=== PATIENT | male | born 1965 | race African-American/Black ===

== ENCOUNTER 2019-03-29 13:26 | Emergency (ER) | payer OTHER, SELFPAY ==
[~2019-03-29] VITALS: Ht 175.3 cm; Wt 73.5 kg
[2019-03-29] MEDS ORDERED: NAPR-885 PO (16:29)
[2019-03-29] MEDS ORDERED: OMEP40CA2 PO (16:29)
[2019-03-29] MEDS ORDERED: PRED20TA PO (16:29)
[2019-03-29] MEDS ORDERED: PROV108A INH (16:29)
[2019-03-29 16:36] VITALS: BP 140/80
== END 2019-03-29 16:34 | disposition home or self-care (01) ==
LOC: M ED 13:26
DX: Z76.0 Encounter for issue of repeat prescription (principal); J44.9 Chronic obstructive pulmonary disease, unspecified; K21.9 Gastro-esophageal reflux disease without esophagitis; F17.200 Nicotine dependence, unspecified, uncomplicated

== ENCOUNTER 2019-04-02 15:59 | Emergency (ER) | payer SELFPAY ==
[~2019-04-02] VITALS: Ht 177.8 cm; Wt 77.3 kg
[~2019-04-02 15:59] MED LIST: NAPR-885 PO; OMEP40CA97 PO; PRED20TA PO; PROV108A INH
[2019-04-02] MEDS ORDERED: KETOROLAC 60 MG/2 ML VIAL (J1885) IM ONE (17:15)
[2019-04-02] MEDS ORDERED: diazePAM 10 MG TAB PO ONE (17:15)
[2019-04-02] MEDS ORDERED: LIDOCAINE 5% (LIDODERM) PATCH TD ONE (17:15)
[2019-04-02] MEDS ORDERED: LIDO1PAD TOP (18:15)
[2019-04-02] MEDS ORDERED: NAPR-837 PO (18:15)
[2019-04-02] MEDS ORDERED: ROBA750T4 PO (18:15)
[2019-04-02 18:40] VITALS: BP 149/87
[2019-04-03] MEDS ORDERED: **NOTE PATIENT COMMENT** MISC XX ONE (05:00)
== END 2019-04-02 18:41 | disposition home or self-care (01) ==
LOC: EDBD 15:59 → M ED 15:59
DX: M54.5 Low back pain (principal); I10 Essential (primary) hypertension; J44.9 Chronic obstructive pulmonary disease, unspecified; J45.909 Unspecified asthma, uncomplicated; K21.9 Gastro-esophageal reflux disease without esophagitis; F17.200 Nicotine dependence, unspecified, uncomplicated
CPT/HCPCS: 96372; 99284; J1885

== ENCOUNTER 2019-04-09 13:10 | Emergency (ER) | payer SELFPAY ==
[~2019-04-09 13:10] MED LIST changes: +LIDO1PAD TOP; +NAPR-837 PO; +OMEP40CA2 PO; -OMEP40CA97 PO; +ROBA750T4 PO
[2019-04-09 13:23] VITALS: BP 165/89
== END 2019-04-09 14:40 | disposition home or self-care (01) ==
LOC: M ED 13:10
DX: S39.012A Strain of muscle, fascia and tendon of lower back, initial encounter (principal); X58.XXXA Exposure to other specified factors, initial encounter; Y92.89 Other specified places as the place of occurrence of the external cause; Y93.89 Activity, other specified

== ENCOUNTER 2019-04-18 12:01 | Emergency (ER) | payer SELFPAY ==
[~2019-04-18] VITALS: Ht 175.3 cm; Wt 75.0 kg
[~2019-04-18 12:01] MED LIST changes: -OMEP40CA2 PO; +OMEP40CA97 PO
[2019-04-18] MEDS ORDERED: NAPR-885 (12:23)
[2019-04-18] MEDS ORDERED: PROAAER10 (12:23)
[2019-04-18] MEDS ORDERED: METH750T2 (12:23)
[2019-04-18] MEDS ORDERED: CARISOPRODOL 350 MG TAB PO ONE (12:30)
[2019-04-18] MEDS ORDERED: AZITHROMYCIN 250 MG TAB PO ONE (13:30)
[2019-04-18] MEDS ORDERED: LIDOCAINE 1% SDV 5 ML VIAL DILUENT ONE (13:30)
[2019-04-18] MEDS ORDERED: cefTRIAXone SOD 250 MG VIAL (J0696) IM ONE (13:30)
--- NOTE | 2019-04-18 13:55 | REP ---
Lumbar spine series: Five views. History: Injury in a fall. Comparison study: May 03, 2016. Findings: On lateral radiograph, there is partial collapse of the L3 vertebral body at the inferior endplate consistent with recent fracture. This is a new finding compared to the 2016 exam. The anterior and anterolateral cortex margin of the L3 vertebral body is somewhat buckled on oblique radiographs. The pedicles and posterior elements appear intact radiographically. Psoas margins are symmetric. Sacrum and SI joints are intact. Vertebral body heights are otherwise preserved. Disc spaces are maintained. Impression: Findings consistent with new wedge compression fracture deformity at L3 with approximately 20% loss of anterior vertebral body height. There is collapse of the superior endplate anteriorly. No posterior element involvement is visible radiographically. Electronically Signed by Williams Kumari MD 04/18/2019 06:25 P
[2019-04-18] MEDS ORDERED: DOXY100C37 PO (14:02)
[2019-04-18] MEDS ORDERED: NORC1TAB7 PO (14:02)
[2019-04-18 14:40] LABS: CHLAMYDIA DNA AMPLIFICATION NEGATIVE (NEGATIVE); GC DNA AMPLIFICATION NEGATIVE (NEGATIVE)
[2019-04-18 14:44] VITALS: BP 144/85
== END 2019-04-18 14:46 | disposition home or self-care (01) ==
LOC: EDBD 12:01 → M ED 12:01
DX: Z20.2 Contact with and (suspected) exposure to infections with a predominantly sexual mode of transmission (principal); S32.030A Wedge compression fracture of third lumbar vertebra, initial encounter for closed fracture; X58.XXXA Exposure to other specified factors, initial encounter; Y92.9 Unspecified place or not applicable; Y93.9 Activity, unspecified; Y99.9 Unspecified external cause status; F17.200 Nicotine dependence, unspecified, uncomplicated; Z79.899 Other long term (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

== ENCOUNTER 2019-06-04 07:36 | Emergency (ER) | payer MEDICAID, SELFPAY ==
[~2019-06-04] VITALS: Ht 175.3 cm; Wt 77.3 kg
[~2019-06-04 07:36] MED LIST changes: +DOXY100C37 PO; +METH750T2; +NAPR-885; +NORC1TAB7 PO; +PROAAER10
[2019-06-04] MEDS ORDERED: ALBUTEROL SULFATE 2.5 MG/0.5 ML INH NEB SOLN INH ONE (07:45)
[2019-06-04] MEDS ORDERED: PRED20TA PO (07:54)
[2019-06-04] MEDS ORDERED: dexameTHASONE 20 MG/5 ML VIAL (J1100) IV ONE (08:15)
[2019-06-04 08:37] LABS: BASO # 0.1 10^3/uL (0.0-0.2); BASO % 0.7 % (0.0-1.0); EOS # 0.4 10^3/uL (0.0-0.5); EOS % 3.3 % (0.0-3.0); HEMATOCRIT 43.1 % (42.0-52.0); HEMOGLOBIN 13.3 g/dl (13.5-17.5); LYMPH # 3.5 10^3/uL (1.5-5.0); LYMPH % 32.8 % (24.0-44.0); MEAN CORPUSCULAR HEMOGLOBIN 29.4 pg (27.0-33.0); MEAN CORPUSCULAR HGB CONC 30.9 g/dl (32.0-36.5); MEAN CORPUSCULAR VOLUME 95.1 fl (80.0-96.0); MONO % 9.2 % (0.0-5.0); NEUTROPHILS # 5.8 10^3/uL (1.5-8.5); NEUTROPHILS % 53.5 % (36.0-66.0); PLATELET COUNT, AUTOMATED 212 10^3/uL (150-450); RED BLOOD COUNT 4.53 10^6/uL (4.30-6.10); WHITE BLOOD COUNT 10.8 10^3/uL (4.0-10.0)
[2019-06-04 08:46] LABS: INR 0.95; PROTHROMBIN TIME 12.4 SECONDS (11.8-14.0)
--- NOTE | 2019-06-04 08:47 | REP ---
Clinical: Cough and dyspnea . Comparison: 06/06/2016 . Findings: The mediastinum and cardiac silhouette are stable and within normal limits for portable technique. The lung hurd are clear without acute consolidation, effusion, or pneumothorax. Skeletal structures are intact. Impression: No acute cardiopulmonary process appreciated. Electronically Signed by Candido Hall MD 06/04/2019 08:39 A
[2019-06-04] MEDS ORDERED: PRED10TA2 PO (08:54)
[2019-06-04] MEDS ORDERED: PROAAER10 INH (08:54)
[2019-06-04 09:11] LABS: BLOOD UREA NITROGEN 10 MG/DL (7-18); CREATININE FOR GFR 1.11 MG/DL (0.70-1.30); GLUCOSE, FASTING 111 MG/DL (70-100)
[2019-06-04 09:12] LABS: CALCIUM LEVEL 7.6 MG/DL (8.5-10.1); CARBON DIOXIDE LEVEL 26 MEQ/L (21-32); CHLORIDE LEVEL 114 MEQ/L (98-107); CK-MB VALUE MASS < 1.0 NG/ML (<3.6); CPK CREATINE PHOSPHOKINASE 97 U/L (39-308); GLOMERULAR FILTRATION RATE > 60.0 (>56); MB/CK RELATIVE INDEX 1.03 (< OR =4); NT-PRO BNP 255 PG/ML (<125); POTASSIUM SERUM 4.1 MEQ/L (3.5-5.1); SODIUM LEVEL 144 MEQ/L (136-145); TROPONIN I 0.03 NG/ML (< 0.10)
[2019-06-04 10:04] VITALS: BP 143/94
--- NOTE | 2019-06-04 17:05 | ECGEPIP ---
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
== END 2019-06-04 10:08 | disposition home or self-care (01) ==
LOC: EDBD 07:36 → M ED 07:36
DX: J44.9 Chronic obstructive pulmonary disease, unspecified (principal); K21.9 Gastro-esophageal reflux disease without esophagitis; F17.200 Nicotine dependence, unspecified, uncomplicated
CPT/HCPCS: 71045; 80048; 82550; 82553; 83880; 85025; 85610; 93005; 93041; 94640; 94760; 96374; 99284; J1100

== ENCOUNTER 2019-07-13 16:28 | Emergency (ER) | payer OTHER ==
[~2019-07-13] VITALS: Ht 177.8 cm; Wt 75.0 kg
[~2019-07-13 16:28] MED LIST changes: +PRED10TA2 PO; +PROAAER10 INH
[2019-07-13] MEDS ORDERED: HYDR-4571 (16:42)
[2019-07-13] MEDS ORDERED: PROAAER10 INH (17:12)
[2019-07-13 17:38] VITALS: BP 149/90
[2019-07-14] MEDS ORDERED: ALBU83IN NEB (11:59)
[2019-07-14] MEDS ORDERED: PRED10TA2 PO (12:27)
== END 2019-07-13 17:47 | disposition home or self-care (01) ==
LOC: EDBD 16:28 → M ED 16:28
DX: J44.9 Chronic obstructive pulmonary disease, unspecified (principal); G89.29 Other chronic pain; M54.5 Low back pain

== ENCOUNTER 2019-07-14 11:36 | Emergency (ER) | payer OTHER ==
[~2019-07-14] VITALS: Ht 177.8 cm; Wt 75.0 kg
[~2019-07-14 11:36] MED LIST changes: +HYDR-4571
[2019-07-14] MEDS ORDERED: ALBU83IN NEB (11:59)
[2019-07-14] MEDS ORDERED: PRED10TA2 PO (12:27)
[2019-07-14] MEDS ORDERED: predniSONE 20 MG TAB PO ONE (12:30)
[2019-07-14 12:35] VITALS: BP 144/96
== END 2019-07-14 12:47 | disposition home or self-care (01) ==
LOC: EDBD 11:36 → M ED 11:36
DX: J44.9 Chronic obstructive pulmonary disease, unspecified (principal); F17.200 Nicotine dependence, unspecified, uncomplicated; Z79.899 Other long term (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

== ENCOUNTER → 2019-09-09 | Outpatient (CLI) | payer OTHER ==
[~2019-09-09] MED LIST changes: +ALBU83IN NEB
--- NOTE | 2019-09-09 11:52 | REPVR ---
PROCEDURE INFORMATION: Exam: MR Lumbar Spine Without Contrast. Exam date and time: 09/09/2019 9:51 AM Age: 54 years old Clinical indication: Condition or disease; Other: Wedge compression 3rd vert; Patient HX: HX fall 04/20; Additional info: Wedge comprsn FX third lum vert TECHNIQUE: Imaging protocol: Multiplanar magnetic resonance images of the lumbar spine without intravenous contrast. COMPARISON: CR Spine. Lumbosacral, complete 04/18/2019 12:41 PM FINDINGS: There is again mild anterior compression of the inferior L3 endplate. Mild edema along it could relate to subacute nature versus degenerative endplate change. Vertebral body heights are otherwise intact. Alignment is maintained. No pars defect is identified. The conus is unremarkable in appearance, with its tip at the T12-L1 level. There are varying degrees of disc desiccation indicating intervertebral disc degeneration. The visualized abdominal structures appear unremarkable. L1-L2: No significant disc displacement. L2-L3: Small broad-based left paracentral/foraminal protrusion leading to mild left neural foraminal narrowing without significant spinal stenosis. L3-L4: Diffuse bulge combining with facet arthrosis click to lead to mild to moderate bilateral neural foraminal narrowing without significant spinal stenosis. There is small fluid in the facet joints. L4-L5: Disc osteophyte complex with a left foraminal annular tear combining with facet arthrosis to lead to moderate right and mild to moderate left neural foraminal narrowing without significant spinal stenosis. Click fluid left L5-S1: Small bulge combining with facet arthrosis to lead to mild right and very mild left neural foraminal narrowing without significant spinal stenosis. If surgery is considered, recommend level confirmation. IMPRESSION: 1. Mild anterior compression of the inferior L3 endplate. Mild edema along it could relate to subacute nature versus degenerative endplate change. 2. Multilevel disc desiccation indicating intervertebral disk degeneration with disc displacements as described. Electronically signed by: Chalo Watts On 09/09/2019 11:52:26 AM
== END ==
LOC: M RAD 09:48
PROVIDERS: ATTEND Physician Assistant
DX: S32.030D Wedge compression fracture of third lumbar vertebra, subsequent encounter for fracture with routine healing (principal); W18.30XD Fall on same level, unspecified, subsequent encounter; Y92.9 Unspecified place or not applicable

== ENCOUNTER 2019-09-21 18:44 | Emergency (ER) | payer OTHER ==
[~2019-09-21] VITALS: Ht 177.8 cm; Wt 75.9 kg
[2019-09-21] MEDS ORDERED: OMEP-221 (19:00)
[2019-09-21] MEDS ORDERED: PRED20TA (19:00)
[2019-09-21] MEDS ORDERED: methylPREDNISolone INJ 125 MG/2 ML VIAL (J2930) IV ONE (19:00)
[2019-09-21] MEDS ORDERED: TIZA4TAB4 (19:00)
[2019-09-21] MEDS ORDERED: COMBIVENT RESPIMAT 100-20MCG INHALER 4GM INH PRN (19:00)
[2019-09-21] MEDS ORDERED: NS 1,000 ML IV SCH (19:00)
[2019-09-21] MEDS ORDERED: LABETALOL HCL 100 MG/20 ML VIAL IV STA ×2 (19:02→19:49)
[2019-09-21] MEDS ORDERED: FUROSEMIDE 20 MG/2 ML VIAL (J1940) IV ONE (19:15)
[2019-09-21 19:29] LABS: BASO # 0.1 10^3/uL (0.0-0.2); BASO % 1.1 % (0.0-1.0); EOS # 0.8 10^3/uL (0.0-0.5); EOS % 6.3 % (0.0-3.0); HEMATOCRIT 45.9 % (42.0-52.0); HEMOGLOBIN 15.1 g/dl (13.5-17.5); LYMPH # 3.1 10^3/uL (1.5-5.0); MEAN CORPUSCULAR HEMOGLOBIN 29.3 pg (27.0-33.0); MEAN CORPUSCULAR HGB CONC 32.9 g/dl (32.0-36.5); MEAN CORPUSCULAR VOLUME 89.1 fl (80.0-96.0); MONO # 1.2 10^3/uL (0.0-0.8); MONO % 9.1 % (0.0-5.0); NEUTROPHILS # 7.9 10^3/uL (1.5-8.5); PLATELET COUNT, AUTOMATED 271 10^3/uL (150-450); RED BLOOD COUNT 5.15 10^6/uL (4.30-6.10); WHITE BLOOD COUNT 13.2 10^3/uL (4.0-10.0)
[2019-09-21 19:41] LABS: INR 0.94; PROTHROMBIN TIME 12.3 SECONDS (11.8-14.0)
--- NOTE | 2019-09-21 19:44 | REP ---
Clinical: Cough and dyspnea . Comparison: 06/06/2016, 06/04/2019 . Findings: The mediastinum and cardiac silhouette are stable and within normal limits for portable technique. The lung hurd are clear without acute consolidation, effusion, or pneumothorax. Skeletal structures are intact. Impression: No acute cardiopulmonary process appreciated. Electronically Signed by Candido aHll MD 09/21/2019 07:36 P
[2019-09-21 20:04] LABS: ABG BASE EXCESS -2.9 (-2.0-2.0); ABG PARTIAL PRESSURE CO2 34.4 mmHg (35.0-45.0); ABG PARTIAL PRESSURE O2 69.8 mmHg (75.0-100.0); ABG TOTAL CO2 22.1 MEQ/L (22.0-29.0); ABG pH (ARTERIAL) 7.404 UNITS (7.350-7.450)
[2019-09-21 20:05] LABS: ALBUMIN 3.5 GM/DL (3.2-5.2); ALT/SGPT 14 U/L (12-78); BILIRUBIN,DIRECT 0.1 MG/DL (0.0-0.2); BILIRUBIN,TOTAL 0.5 MG/DL (0.2-1.0); BLOOD UREA NITROGEN 11 MG/DL (7-18); CALCIUM LEVEL 8.7 MG/DL (8.5-10.1); CARBON DIOXIDE LEVEL 22 MEQ/L (21-32); CHLORIDE LEVEL 109 MEQ/L (98-107); CK-MB VALUE MASS < 1.0 NG/ML (<3.6); CPK CREATINE PHOSPHOKINASE 136 U/L (39-308); CREATININE FOR GFR 0.94 MG/DL (0.70-1.30); GLOMERULAR FILTRATION RATE > 60.0 (>56); GLUCOSE, FASTING 65 MG/DL (70-100); MB/CK RELATIVE INDEX 0.74 (< OR =4); SODIUM LEVEL 139 MEQ/L (136-145); TOTAL PROTEIN 6.8 GM/DL (6.4-8.2); TROPONIN I < 0.02 NG/ML (< 0.10)
[2019-09-21] MEDS ORDERED: PROAAER10 INH (20:23)
[2019-09-21] MEDS ORDERED: LISI20TA19 PO (20:23)
[2019-09-21] MEDS ORDERED: PRED10TA2 PO (20:23)
[2019-09-21 20:37] VITALS: BP 150/90
[2019-09-21 20:44] VITALS: BP 150/90
== END 2019-09-21 20:47 | disposition home or self-care (01) ==
LOC: M ED 18:44 → EDBD 18:44 → M ED 20:47
DX: E44.1 Mild protein-calorie malnutrition (principal); I10 Essential (primary) hypertension; R06.02 Shortness of breath; K21.9 Gastro-esophageal reflux disease without esophagitis; G89.29 Other chronic pain; F17.200 Nicotine dependence, unspecified, uncomplicated
CPT/HCPCS: 36600; 71045; 80048; 80076; 82550; 82553; 82803; 85025; 85610; 87040; 93041; 94640; 96361; 96374; 96375; 99284; J1940; J2930

== ENCOUNTER 2019-12-30 00:57 | Emergency (ER) | payer OTHER ==
[~2019-12-30] VITALS: Ht 177.8 cm; Wt 75.0 kg
[~2019-12-30 00:57] MED LIST changes: +LISI20TA35 PO; +OMEP-221; +PRED20TA; +TIZA4TAB4
[2019-12-30] MEDS ORDERED: FLUORESCEIN OPHTH 1 MG STRIP OU ONE (02:30)
[2019-12-30] MEDS ORDERED: TETRACAINE 0.5% OPHTH SOLN 4ML OU ONE (02:30)
[2019-12-30] MEDS ORDERED: CEPHALEXIN 500 MG CAP PO ONE (03:00)
[2019-12-30] MEDS ORDERED: CYCLOBENZAPRINE 5MG TABLET PO ONE (03:00)
[2019-12-30] MEDS ORDERED: KEFL500C17 PO (03:03)
[2019-12-30] MEDS ORDERED: PRED20TA PO (03:03)
[2019-12-30] MEDS ORDERED: CYCL5TAB PO (03:03)
[2019-12-30 03:28] VITALS: BP 156/108
== END 2019-12-30 03:33 | disposition home or self-care (01) ==
LOC: M ED 00:57
DX: H00.011 Hordeolum externum right upper eyelid (principal); J44.9 Chronic obstructive pulmonary disease, unspecified; Z72.0 Tobacco use; Z79.899 Other long term (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

== ENCOUNTER 2020-02-07 08:10 | Emergency (ER) | payer OTHER ==
[~2020-02-07 08:10] MED LIST changes: +CYCL5TAB PO; +KEFL500C17 PO
[2020-02-07] MEDS ORDERED: CYCLOBENZAPRINE 10MG TABLET ONE (08:42)
[2020-02-07] MEDS ORDERED: CYCLOBENZAPRINE 10MG TABLET As Ordered ONE (08:42)
== END 2020-02-07 10:04 | disposition home or self-care (01) ==
LOC: M ED 08:10
DX: S39.012A Strain of muscle, fascia and tendon of lower back, initial encounter (principal); M19.022 Primary osteoarthritis, left elbow; X58.XXXA Exposure to other specified factors, initial encounter; Y92.9 Unspecified place or not applicable; Y93.9 Activity, unspecified; Y99.9 Unspecified external cause status; I10 Essential (primary) hypertension; J44.9 Chronic obstructive pulmonary disease, unspecified; K21.9 Gastro-esophageal reflux disease without esophagitis

== ENCOUNTER 2020-02-17 06:47 | Emergency (ER) | payer OTHER ==
[2020-02-17] MEDS ORDERED: predniSONE 20 MG TAB ONE (06:48)
[2020-02-17] MEDS ORDERED: predniSONE 20 MG TAB As Ordered ONE (06:58)
[2020-02-17] MEDS ORDERED: hydroCHLOROthiazide 12.5 MG CAPSULE ONE (09:28)
[2020-02-17] MEDS ORDERED: lisinopriL 20 MG TAB ONE (09:28)
[2020-02-17] MEDS ORDERED: MOXIFLOXACIN 400 MG TAB ONE (09:28)
[2020-02-17] MEDS ORDERED: hydroCHLOROthiazide 12.5 MG CAPSULE As Ordered ONE (09:28)
[2020-02-17] MEDS ORDERED: lisinopriL 20 MG TAB As Ordered ONE (09:28)
[2020-02-17] MEDS ORDERED: MOXIFLOXACIN 400 MG TAB As Ordered ONE (09:29)
--- NOTE | 2020-03-17 15:30 | ECGEPIP ---
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
[2020-03-20 15:05] LABS: BASO % 0.7 % (0.0-1.0); EOS % 3.1 % (0.0-3.0); HEMATOCRIT 42.3 % (42.0-52.0); HEMOGLOBIN 13.9 g/dl (13.5-17.5); LYMPH # 2.8 10^3/uL (1.5-5.0); LYMPH % 21.8 % (24.0-44.0); MEAN CORPUSCULAR HEMOGLOBIN 29.8 pg (27.0-33.0); MEAN CORPUSCULAR HGB CONC 32.9 g/dl (32.0-36.5); MEAN CORPUSCULAR VOLUME 90.8 fl (80.0-96.0); MONO % 7.4 % (0.0-5.0); NEUTROPHILS # 8.6 10^3/uL (1.5-8.5); NEUTROPHILS % 6.8 % (36.0-66.0); PLATELET COUNT, AUTOMATED 169 10^3/uL (150-450); RED BLOOD COUNT 4.66 10^6/uL (4.30-6.10)
[2020-03-20 15:06] LABS: BASO # 0.1 10^3/uL (0.0-0.2); EOS # 0.4 10^3/uL (0.0-0.5)
[2020-05-10 16:16] LABS: ALBUMIN 3.2 GM/DL (3.2-5.2); ALT/SGPT 19 U/L (12-78); BILIRUBIN,DIRECT < 0.1 MG/DL (0.0-0.2); BILIRUBIN,TOTAL 0.2 MG/DL (0.2-1.0); BLOOD UREA NITROGEN 17 MG/DL (7-18); CALCIUM LEVEL 8.7 MG/DL (8.5-10.1); CARBON DIOXIDE LEVEL 29 MEQ/L (21-32); CHLORIDE LEVEL 109 MEQ/L (98-107); CREATININE FOR GFR 0.91 MG/DL (0.70-1.30); GLOMERULAR FILTRATION RATE > 60.0 (>56); GLUCOSE, FASTING 100 MG/DL (70-100); POTASSIUM SERUM 4.3 MEQ/L (3.5-5.1); SODIUM LEVEL 142 MEQ/L (136-145)
== END 2020-02-17 09:43 | disposition home or self-care (01) ==
LOC: M ED 06:47
DX: R03.0 Elevated blood-pressure reading, without diagnosis of hypertension (principal); J44.0 Chronic obstructive pulmonary disease with (acute) lower respiratory infection; I10 Essential (primary) hypertension; F17.200 Nicotine dependence, unspecified, uncomplicated; R94.31 Abnormal electrocardiogram [ECG] [EKG]

== ENCOUNTER 2020-03-20 20:06 | Emergency (ER) | payer OTHER ==
[~2020-03-20] VITALS: Ht 177.8 cm; Wt 75.0 kg
[2020-03-20 20:23] VITALS: BP 156/98
[2020-03-20] MEDS ORDERED: KETOROLAC 30 MG/ML 1ML VIAL IV ONE (21:00)
== END 2020-03-20 21:01 | disposition left against medical advice (07) ==
LOC: M ED 20:06
DX: R07.89 Other chest pain (principal); Z53.21 Procedure and treatment not carried out due to patient leaving prior to being seen by health care provider; I10 Essential (primary) hypertension; J44.9 Chronic obstructive pulmonary disease, unspecified; J42 Unspecified chronic bronchitis; F17.200 Nicotine dependence, unspecified, uncomplicated; Z79.899 Other long term (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

== ENCOUNTER 2020-04-01 08:00 | Emergency (ER) | payer OTHER ==
[~2020-04-01] VITALS: Ht 175.3 cm; Wt 76.8 kg
[2020-04-01 08:12] VITALS: BP 164/109
--- NOTE | 2020-04-01 08:47 | REPVR ---
PROCEDURE INFORMATION: Exam: XR Chest, 2 Views Exam date and time: 04/01/2020 8:39 AM Age: 55 years old Clinical indication: Left-sided chest pain; Additional info: Copd TECHNIQUE: Imaging protocol: XR of the chest Views: 2 views. COMPARISON: CR PORTABLE CHEST X-RAY 09/21/2019 7:21 PM FINDINGS: Lungs: Unremarkable. No consolidation. Pleural space: Unremarkable. No pleural effusion. No pneumothorax. Heart/Mediastinum: Unremarkable. No cardiomegaly. Bones/joints: Unremarkable. IMPRESSION: No acute findings. Electronically signed by: Tianna Gould On 04/01/2020 08:47:32 AM
[2020-04-01] MEDS ORDERED: predniSONE 20 MG TAB PO ONE (11:15)
[2020-04-01] MEDS ORDERED: ALBUTEROL 90 MCG/ACT 8GM HFA INHALER INH ONE (11:15)
[2020-04-01] MEDS ORDERED: PROAAER10 INH (12:05)
[2020-04-01] MEDS ORDERED: ADV250INH INH (12:05)
[2020-04-01] MEDS ORDERED: PRED20TA PO (12:05)
== END 2020-04-01 12:25 | disposition home or self-care (01) ==
LOC: M ED 08:00 → EDBD 08:00 → M ED 12:25
DX: J44.9 Chronic obstructive pulmonary disease, unspecified (principal); I10 Essential (primary) hypertension; Z87.891 Personal history of nicotine dependence

== ENCOUNTER 2020-04-04 09:05 | Emergency (ER) | payer OTHER ==
[~2020-04-04] VITALS: Ht 175.3 cm; Wt 75.5 kg
[~2020-04-04 09:05] MED LIST changes: +ADV250INH INH
[2020-04-04] MEDS ORDERED: LISI20TA35 PO ×2 (09:19→11:56)
[2020-04-04] MEDS ORDERED: lisinopriL 20 MG TAB PO ONE (09:45)
[2020-04-04] MEDS ORDERED: KETOROLAC 60MG 2ML VIAL IM ONE (09:45)
--- NOTE | 2020-04-04 10:30 | REPVR ---
PROCEDURE INFORMATION: Exam: XR Chest, 2 Views Exam date and time: 04/04/2020 9:42 AM Age: 55 years old Clinical indication: Chest pain TECHNIQUE: Imaging protocol: XR of the chest Views: 2 views. COMPARISON: CR Chest, 2 view PA, Lat 04/01/2020 8:28 AM FINDINGS: Lungs: Unremarkable. No consolidation. Pleural space: Unremarkable. No pleural effusion. No pneumothorax. Heart/Mediastinum: The cardiomediastinal silhouette is fairly stable in appearance. Bones/joints: Unremarkable. IMPRESSION: No evidence for acute pulmonary disease. Electronically signed by: Chalo Watts On 04/04/2020 10:30:17 AM
[2020-04-04 10:52] VITALS: BP 166/118
[2020-04-04 10:54] LABS: BASO % 0.2 % (0.0-1.0); EOS % 0.1 % (0.0-3.0); HEMATOCRIT 44.9 % (42.0-52.0); HEMOGLOBIN 14.4 g/dl (13.5-17.5); LYMPH # 1.5 10^3/uL (1.5-5.0); LYMPH % 9.4 % (24.0-44.0); MEAN CORPUSCULAR HEMOGLOBIN 28.9 pg (27.0-33.0); MEAN CORPUSCULAR HGB CONC 32.1 g/dl (32.0-36.5); MEAN CORPUSCULAR VOLUME 90.2 fl (80.0-96.0); MONO # 0.6 10^3/uL (0.0-0.8); MONO % 3.5 % (0.0-5.0); NEUTROPHILS # 14.1 10^3/uL (1.5-8.5); NEUTROPHILS % 85.9 % (36.0-66.0); PLATELET COUNT, AUTOMATED 211 10^3/uL (150-450); RED BLOOD COUNT 4.98 10^6/uL (4.30-6.10); WHITE BLOOD COUNT 16.4 10^3/uL (4.0-10.0)
[2020-04-04 11:46] LABS: ALBUMIN 3.5 GM/DL (3.2-5.2); ALT/SGPT 17 U/L (12-78); BILIRUBIN,DIRECT 0.2 MG/DL (0.0-0.2); BILIRUBIN,TOTAL 0.5 MG/DL (0.2-1.0); BLOOD UREA NITROGEN 16 MG/DL (7-18); CALCIUM LEVEL 9.3 MG/DL (8.5-10.1); CARBON DIOXIDE LEVEL 29 MEQ/L (21-32); CHLORIDE LEVEL 105 MEQ/L (98-107); CK-MB VALUE MASS < 1.0 NG/ML (<3.6); CPK CREATINE PHOSPHOKINASE 66 U/L (39-308); CREATININE FOR GFR 1.01 MG/DL (0.70-1.30); GLOMERULAR FILTRATION RATE > 60.0 (>56); GLUCOSE, FASTING 88 MG/DL (70-100); LIPASE 74 U/L (73-393); MB/CK RELATIVE INDEX 1.52 (< OR =4); NT-PRO BNP 97 PG/ML (<125); POTASSIUM SERUM 4.6 MEQ/L (3.5-5.1); SODIUM LEVEL 139 MEQ/L (136-145); TOTAL PROTEIN 6.9 GM/DL (6.4-8.2); TROPONIN I < 0.02 NG/ML (< 0.10)
[2020-04-04] MEDS ORDERED: AZIT-12 PO (11:48)
[2020-04-04 12:05] VITALS: BP 139/76
--- NOTE | 2020-04-05 05:43 | ECGEPIP ---
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
== END 2020-04-04 12:07 | disposition home or self-care (01) ==
LOC: M ED 09:05
DX: J45.901 Unspecified asthma with (acute) exacerbation (principal); I10 Essential (primary) hypertension; K21.9 Gastro-esophageal reflux disease without esophagitis; F17.200 Nicotine dependence, unspecified, uncomplicated; F12.10 Cannabis abuse, uncomplicated; Z79.899 Other long term (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
CPT/HCPCS: 71046; 80048; 80076; 82550; 82553; 83690; 83880; 85025; 93005; 96372; 99284; J1885

== ENCOUNTER 2020-05-31 17:59 | Emergency (ER) | payer OTHER ==
[~2020-05-31] VITALS: Ht 177.8 cm; Wt 75.0 kg
[~2020-05-31 17:59] MED LIST changes: +AZIT-12 PO
[2020-05-31] MEDS ORDERED: OMEP-221 PO (18:15)
[2020-05-31] MEDS ORDERED: LABETALOL 100MG/20ML VIAL IV STA (19:44)
[2020-05-31] MEDS ORDERED: NS 1,000 ML IV ONE (19:45)
[2020-05-31] MEDS ORDERED: lisinopriL 20 MG TAB PO ONE (20:00)
--- NOTE | 2020-05-31 20:00 | REPVR ---
PROCEDURE INFORMATION: Exam: CT Head Without Contrast Exam date and time: 05/31/2020 7:55 PM Age: 55 years old Clinical indication: Other: HTN urgency TECHNIQUE: Imaging protocol: Computed tomography of the head without contrast. Radiation optimization: All CT scans at this facility use at least one of these dose optimization techniques: automated exposure control; mA and/or kV adjustment per patient size (includes targeted exams where dose is matched to clinical indication); or iterative reconstruction. COMPARISON: No relevant prior studies available. FINDINGS: Brain: Bilateral basal ganglia calcifications. Otherwise unremarkable. Cerebral ventricles: No ventriculomegaly. Bones/joints: Unremarkable. No acute fracture. Paranasal sinuses: Visualized sinuses are unremarkable. No fluid levels. Mastoid air cells: Visualized mastoid air cells are well aerated. Soft tissues: Unremarkable. IMPRESSION: No acute intracranial findings. Electronically signed by: Yohannes Chapa On 05/31/2020 20:00:25 PM
[2020-05-31] MEDS ORDERED: cloNIDine 0.2 MG TAB PO ONE (20:45)
[2020-05-31 21:00] VITALS: BP 171/99
== END 2020-05-31 22:19 | disposition left against medical advice (07) ==
LOC: M ED 17:59
DX: Z53.9 Procedure and treatment not carried out, unspecified reason (principal); I16.0 Hypertensive urgency; R42 Dizziness and giddiness; H53.8 Other visual disturbances; J45.909 Unspecified asthma, uncomplicated; J44.9 Chronic obstructive pulmonary disease, unspecified; K21.9 Gastro-esophageal reflux disease without esophagitis; F17.200 Nicotine dependence, unspecified, uncomplicated

== ENCOUNTER 2020-07-27 06:42 | Emergency (ER) | payer OTHER ==
[~2020-07-27] VITALS: Ht 177.8 cm; Wt 75.0 kg
[~2020-07-27 06:42] MED LIST changes: +METH-1165; -METH750T2; +OMEP-221 PO
[2020-07-27] MEDS ORDERED: COMBIVENT RESPIMAT 100-20MCG INHALER 4GM INH STA (07:13)
[2020-07-27] MEDS ORDERED: methylPREDNISolone 125MG 2ML VIAL IV ONE (07:15)
[2020-07-27 07:45] LABS: BASO # 0.1 10^3/uL (0.0-0.2); BASO % 0.9 % (0.0-1.0); EOS # 0.8 10^3/uL (0.0-0.5); EOS % 5.8 % (0.0-3.0); HEMATOCRIT 43.5 % (42.0-52.0); HEMOGLOBIN 13.7 g/dl (13.5-17.5); LYMPH # 3.6 10^3/uL (1.5-5.0); LYMPH % 25.1 % (24.0-44.0); MEAN CORPUSCULAR HGB CONC 31.5 g/dl (32.0-36.5); MEAN CORPUSCULAR VOLUME 92.2 fl (80.0-96.0); MONO # 1.3 10^3/uL (0.0-0.8); MONO % 8.8 % (0.0-5.0); NEUTROPHILS # 8.5 10^3/uL (1.5-8.5); NEUTROPHILS % 58.8 % (36.0-66.0); PLATELET COUNT, AUTOMATED 204 10^3/uL (150-450); RED BLOOD COUNT 4.72 10^6/uL (4.30-6.10); WHITE BLOOD COUNT 14.5 10^3/uL (4.0-10.0)
--- NOTE | 2020-07-27 07:55 | REP ---
INDICATION: DYSPNEA/COUGH COMPARISON: 04/04/2020 TECHNIQUE: Portable AP view of the chest FINDINGS: The mediastinum and cardiac silhouette are stable and within normal limits for portable technique. The lung hurd are clear without acute consolidation, effusion, or pneumothorax. Skeletal structures are intact and there is evidence for old healed left 8th rib fracture. IMPRESSION: No acute cardiopulmonary process appreciated. <Electronically signed by Candido Hall > 07/27/20 0750
[2020-07-27 07:57] VITALS: O2SAT 88
[2020-07-27 08:13] LABS: ALBUMIN 3.3 GM/DL (3.2-5.2); ALT/SGPT 15 U/L (12-78); BILIRUBIN,DIRECT < 0.1 MG/DL (0.0-0.2); BILIRUBIN,TOTAL 0.2 MG/DL (0.2-1.0); BLOOD UREA NITROGEN 18 MG/DL (7-18); CALCIUM LEVEL 8.8 MG/DL (8.5-10.1); CARBON DIOXIDE LEVEL 28 MEQ/L (21-32); CHLORIDE LEVEL 106 MEQ/L (98-107); CK-MB VALUE MASS < 1.0 NG/ML (<3.6); CPK CREATINE PHOSPHOKINASE 76 U/L (39-308); CREATININE FOR GFR 1.04 MG/DL (0.70-1.30); GLOMERULAR FILTRATION RATE > 60.0 (>56); GLUCOSE, FASTING 89 MG/DL (70-100); MB/CK RELATIVE INDEX 1.32 (< OR =4); NT-PRO BNP 56 PG/ML (<125); POTASSIUM SERUM 4.6 MEQ/L (3.5-5.1); SODIUM LEVEL 139 MEQ/L (136-145); TOTAL PROTEIN 6.3 GM/DL (6.4-8.2); TROPONIN I < 0.02 NG/ML (< 0.10)
[2020-07-27] MEDS ORDERED: PROAAER10 INH (09:04)
[2020-07-27] MEDS ORDERED: MEDR4PAK PO (09:15)
[2020-07-27 09:32] VITALS: BP 146/82
--- NOTE | 2020-07-29 14:19 | ECGEPIP ---
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
== END 2020-07-27 09:29 | disposition home or self-care (01) ==
LOC: M ED 06:42
DX: J44.1 Chronic obstructive pulmonary disease with (acute) exacerbation (principal); J45.909 Unspecified asthma, uncomplicated; R94.31 Abnormal electrocardiogram [ECG] [EKG]; I10 Essential (primary) hypertension; K21.9 Gastro-esophageal reflux disease without esophagitis; Z79.899 Other long term (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; Z87.891 Personal history of nicotine dependence
CPT/HCPCS: 71045; 80048; 80076; 82550; 82553; 83880; 85025; 87486; 87581; 87633; 87798; 93005; 93041; 94640; 94760; 96374; 99285; J2930

== ENCOUNTER 2020-08-07 17:14 | Emergency (ER) | payer OTHER ==
[~2020-08-07] VITALS: Ht 177.8 cm; Wt 75.0 kg
[~2020-08-07 17:14] MED LIST changes: +MEDR4PAK PO; -METH-1165; +METH750T2
[2020-08-07] MEDS ORDERED: OMEPRAZOLE 20 MG CAP PO ONE ×2 (20:45→21:00)
[2020-08-07] MEDS ORDERED: hydroCHLOROthiazide 12.5 MG CAPSULE PO ONE (20:45)
[2020-08-07] MEDS ORDERED: lisinopriL 20 MG TAB PO ONE (20:45)
[2020-08-07] MEDS ORDERED: predniSONE 20 MG TAB PO ONE (20:45)
[2020-08-07] MEDS ORDERED: ALBUTEROL SULFATE 2.5 MG/0.5 ML INH NEB SOLN NEB ONE (20:45)
[2020-08-07 21:43] VITALS: BP 155/88
[2020-08-07] MEDS ORDERED: ACETAMINOPHEN 325 MG TAB PO ONE (21:45)
[2020-08-07] MEDS ORDERED: PRED20TA PO (21:57)
[2020-08-07] MEDS ORDERED: LISI20TA35 PO (21:57)
[2020-08-07] MEDS ORDERED: OMEP40CA97 PO (21:57)
[2020-08-07 22:00] VITALS: BP 155/84
== END 2020-08-07 22:05 | disposition home or self-care (01) ==
LOC: M ED 17:14 → EDBD 17:14 → M ED 22:05
DX: J45.901 Unspecified asthma with (acute) exacerbation (principal); I10 Essential (primary) hypertension; R51.9 Headache, unspecified; Z76.0 Encounter for issue of repeat prescription; J44.9 Chronic obstructive pulmonary disease, unspecified; K21.9 Gastro-esophageal reflux disease without esophagitis; F17.200 Nicotine dependence, unspecified, uncomplicated; Z79.899 Other long term (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

== ENCOUNTER → 2020-08-30 | Outpatient (CLI) | payer OTHER ==
[~2020-08-30] MED LIST changes: +METH-1165; -METH750T2
[2020-08-30 13:22] LABS: BASO # 0.1 10^3/uL (0.0-0.2); BASO % 0.6 % (0.0-1.0); EOS # 0.3 10^3/uL (0.0-0.5); EOS % 2.2 % (0.0-3.0); HEMATOCRIT 46.9 % (42.0-52.0); HEMOGLOBIN 14.9 g/dl (13.5-17.5); LYMPH # 3.3 10^3/uL (1.5-5.0); MEAN CORPUSCULAR HEMOGLOBIN 29.3 pg (27.0-33.0); MEAN CORPUSCULAR HGB CONC 31.8 g/dl (32.0-36.5); MEAN CORPUSCULAR VOLUME 92.1 fl (80.0-96.0); MONO # 1.7 10^3/uL (0.0-0.8); NEUTROPHILS # 10.1 10^3/uL (1.5-8.5); NEUTROPHILS % 64.4 % (36.0-66.0); PLATELET COUNT, AUTOMATED 226 10^3/uL (150-450); RED BLOOD COUNT 5.09 10^6/uL (4.30-6.10)
[2020-08-30 13:39] LABS: WHITE BLOOD COUNT 15.7 10^3/uL (4.0-10.0)
[2020-08-30 13:44] LABS: HEMOGLOBIN A1c 5.9 %
[2020-08-30 13:49] LABS: ALBUMIN 3.9 GM/DL (3.2-5.2); ALT/SGPT 17 U/L (12-78); BILIRUBIN,TOTAL 0.6 MG/DL (0.2-1.0); BLOOD UREA NITROGEN 10 MG/DL (7-18); CALCIUM LEVEL 8.8 MG/DL (8.5-10.1); CARBON DIOXIDE LEVEL 28 MEQ/L (21-32); CHLORIDE LEVEL 103 MEQ/L (98-107); CREATININE FOR GFR 1.14 MG/DL (0.70-1.30); GLOMERULAR FILTRATION RATE > 60.0 (>56); GLUCOSE, FASTING 87 MG/DL (70-100); SODIUM LEVEL 140 MEQ/L (136-145); TOTAL PROTEIN 7.4 GM/DL (6.4-8.2)
== END ==
LOC: M LAB 12:50
PROVIDERS: ATTEND Physician Assistant
DX: R42 Dizziness and giddiness (principal)

== ENCOUNTER → 2020-09-10 | Outpatient (REF) | payer OTHER ==
[2020-09-10 16:31] LABS: CHOLESTEROL RISK RATIO 3.723 (<5); THYROID STIMULATING HORMONE 0.882 uIU/ML (0.358-3.740)
== END ==
LOC: M LAB REF 15:44
PROVIDERS: ATTEND Physician Assistant
DX: I10 Essential (primary) hypertension (principal)

== ENCOUNTER 2020-10-19 17:04 | Emergency (ER) | payer OTHER ==
[~2020-10-19] VITALS: Ht 177.8 cm; Wt 74.4 kg
[2020-10-19 17:05] VITALS: BP 132/94
[2020-10-20] MEDS ORDERED: ALBU83IN (11:59)
== END 2020-10-19 20:35 | disposition left against medical advice (07) ==
LOC: M ED 17:04
DX: Z53.21 Procedure and treatment not carried out due to patient leaving prior to being seen by health care provider (principal)

== ENCOUNTER 2020-10-20 11:51 | Emergency (ER) | payer OTHER ==
[~2020-10-20] VITALS: Ht 177.8 cm; Wt 75.5 kg
[2020-10-20 11:52] VITALS: BP 145/95
[2020-10-20] MEDS ORDERED: ALBU83IN (11:59)
== END 2020-10-20 12:22 | disposition left against medical advice (07) ==
LOC: M ED 11:51
DX: Z53.21 Procedure and treatment not carried out due to patient leaving prior to being seen by health care provider (principal)

== ENCOUNTER 2020-11-18 05:22 | Emergency (ER) | payer OTHER ==
[~2020-11-18] VITALS: Ht 177.8 cm; Wt 70.6 kg
[~2020-11-18 05:22] MED LIST changes: +ALBU83IN
[2020-11-18] MEDS ORDERED: GABA-1171 PO (05:32)
[2020-11-18 07:49] LABS: BASO # 0.1 10^3/uL (0.0-0.2); BASO % 0.3 % (0.0-1.0); EOS % 0.2 % (0.0-3.0); HEMATOCRIT 46.6 % (42.0-52.0); HEMOGLOBIN 15.3 g/dl (13.5-17.5); LYMPH # 1.7 10^3/uL (1.5-5.0); LYMPH % 7.3 % (24.0-44.0); MEAN CORPUSCULAR HEMOGLOBIN 29.9 pg (27.0-33.0); MEAN CORPUSCULAR HGB CONC 32.8 g/dl (32.0-36.5); MEAN CORPUSCULAR VOLUME 91.2 fl (80.0-96.0); MONO # 1.3 10^3/uL (0.0-0.8); MONO % 5.4 % (2.0-8.0); NEUTROPHILS # 20.1 10^3/uL (1.5-8.5); NEUTROPHILS % 85.9 % (36.0-66.0); PLATELET COUNT, AUTOMATED 263 10^3/uL (150-450); RED BLOOD COUNT 5.11 10^6/uL (4.30-6.10); WHITE BLOOD COUNT 23.4 10^3/uL (4.0-10.0)
--- NOTE | 2020-11-18 07:55 | REP ---
INDICATION: R rib pain s/p hiccups. COMPARISON: Comparison chest radiograph 27 July 2020.. TECHNIQUE: Five views including PA chest. FINDINGS: PA chest radiograph is unremarkable. There is no evidence of pneumothorax or hydrothorax. Mediastinum is not widened. Heart size is normal. Lung hurd are clear. There is an old healed rib fracture on the left involving rib number 8. This is unchanged from the 27 July 2020 study. Five views of the right rib cage demonstrate no evidence of rib fracture or bony destructive lesion. IMPRESSION: Old healed rib fracture noted on the left. Otherwise negative right rib radiographic series. <Electronically signed by Rajesh Kumari > 11/18/20 0057
[2020-11-18 08:30] VITALS: BP 137/90
--- NOTE | 2020-11-18 19:51 | ECGEPIP ---
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
== END 2020-11-18 08:59 | disposition left against medical advice (07) ==
LOC: M ED 05:22
DX: R07.89 Other chest pain (principal); K21.9 Gastro-esophageal reflux disease without esophagitis; J45.909 Unspecified asthma, uncomplicated; J44.9 Chronic obstructive pulmonary disease, unspecified; F17.200 Nicotine dependence, unspecified, uncomplicated

== ENCOUNTER 2021-01-16 11:02 | Emergency (ER) | payer OTHER ==
[~2021-01-16] VITALS: Ht 177.8 cm; Wt 77.3 kg
[~2021-01-16 11:02] MED LIST changes: -DOXY100C37 PO; +DOXY1CAP62 PO; +GABA-1171 PO; +OMEP40CA4 PO; -OMEP40CA97 PO
[2021-01-16] MEDS ORDERED: ACETAMINOPHEN 325 MG TAB PO ONE (12:50)
[2021-01-16] MEDS ORDERED: NEOSPORIN OINT 0.9 GM PKT TOP ONE (12:50)
[2021-01-16 13:16] VITALS: BP 148/96
== END 2021-01-16 13:22 | disposition home or self-care (01) ==
LOC: M ED 11:02
DX: S09.93XA Unspecified injury of face, initial encounter (principal); S01.511A Laceration without foreign body of lip, initial encounter; T07.XXXA Unspecified multiple injuries, initial encounter; V00.831A Fall from motorized mobility scooter, initial encounter; Y92.410 Unspecified street and highway as the place of occurrence of the external cause; Y99.8 Other external cause status; J44.9 Chronic obstructive pulmonary disease, unspecified; I10 Essential (primary) hypertension; Z79.899 Other long term (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

== ENCOUNTER 2021-01-31 09:13 | Emergency (ER) | payer OTHER ==
[2021-01-31 09:36] LABS: VENOUS BASE EXCESS -0.4 (-2.0-2.0); VENOUS O2 SATURATION 95.7 % (60.0-80.0); VENOUS PARTIAL PRESSURE CO2 38.8 mmHg (38.0-50.0); VENOUS PARTIAL PRESSURE O2 78.1 mmHg (30.0-50.0); VENOUS PH 7.409 UNITS (7.330-7.430); VENOUS STANDARD HCO3 24.1 MEQ/L; VENOUS TOTAL CO2 25.2 MEQ/L (24.0-28.0)
[2021-01-31 09:40] LABS: BASO # 0.1 10^3/uL (0.0-0.2); BASO % 0.9 % (0.0-1.0); EOS % 6.3 % (0.0-3.0); HEMATOCRIT 43.6 % (42.0-52.0); HEMOGLOBIN 13.9 g/dl (13.5-17.5); LYMPH # 2.9 10^3/uL (1.5-5.0); LYMPH % 19.4 % (24.0-44.0); MEAN CORPUSCULAR HEMOGLOBIN 29.6 pg (27.0-33.0); MEAN CORPUSCULAR HGB CONC 31.9 g/dl (32.0-36.5); MEAN CORPUSCULAR VOLUME 92.8 fl (80.0-96.0); MONO # 1.1 10^3/uL (0.0-0.8); MONO % 7.2 % (2.0-8.0); NEUTROPHILS % 65.5 % (36.0-66.0); PLATELET COUNT, AUTOMATED 280 10^3/uL (150-450); WHITE BLOOD COUNT 15.2 10^3/uL (4.0-10.0)
[2021-01-31] MEDS ORDERED: KETOROLAC 30 MG/ML 1ML VIAL IV ONE (09:40)
--- NOTE | 2021-01-31 10:03 | REP ---
INDICATION: DYSPNEA/COUGH. COMPARISON: PA chest, 11/18/2020. TECHNIQUE: Portable AP chest image was obtained. FINDINGS: The lungs are clear. The heart borders, mediastinum and pulmonary vascular pattern are normal. The upper abdominal bowel gas pattern is normal. Healed left-sided rib fractures. There are no significant bony abnormalities of the chest. IMPRESSION: No evidence of acute cardiopulmonary pathology. <Electronically signed by Siva Atwood > 01/31/21 1000
[2021-01-31 10:12] LABS: ALT/SGPT 11 U/L (12-78); BILIRUBIN,DIRECT < 0.1 MG/DL (0.0-0.2); BILIRUBIN,TOTAL 0.2 MG/DL (0.2-1.0); BLOOD UREA NITROGEN 7 MG/DL (7-18); CALCIUM LEVEL 8.4 MG/DL (8.5-10.1); CARBON DIOXIDE LEVEL 26 MEQ/L (21-32); CHLORIDE LEVEL 114 MEQ/L (98-107); CREATININE FOR GFR 0.98 MG/DL (0.70-1.30); GLOMERULAR FILTRATION RATE > 60.0 (>56); GLUCOSE, FASTING 121 MG/DL (70-100); NT-PRO BNP 713 PG/ML (<125); POTASSIUM SERUM 4.4 MEQ/L (3.5-5.1); SODIUM LEVEL 144 MEQ/L (136-145); THYROID STIMULATING HORMONE 0.355 uIU/ML (0.358-3.740)
[2021-01-31] MEDS ORDERED: ISOVUE-370 76% 100ML VIAL As Ordered ONE (11:25)
[2021-01-31 12:11] VITALS: BP 165/92
--- NOTE | 2021-01-31 12:37 | REP ---
INDICATION: CP. COMPARISON: None. TECHNIQUE: Imaging protocol: CT angiography of the chest with contrast. Contiguous axial projection images were obtained through the chest. 2D sagittal and coronal reconstructions were performed. Radiation optimization: All CT scans at this facility use at least one of these dose optimization techniques: automated exposure control; mA and/or kV adjustment per patient size (includes targeted exams where dose is matched to clinical indication); or iterative reconstruction. Contrast material: ISOVUE 370; Contrast volume: 100 ml; Contrast route: INTRAVENOUS (IV). FINDINGS: Lower neck: The thyroid gland appears enlarged without discrete nodules. There is no supraclavicular lymphadenopathy. Mediastinum: No abnormal masses or lymphadenopathy. Heart/thoracic aorta/pulmonary arterial tree: The heart size is normal. There is no pericardial effusion. There is no evidence of thoracic aortic aneurysm or aortic dissection. There are no filling defects in the pulmonary arterial tree. Upper abdomen: There is a benign calcified splenic granuloma. Thoracic esophagus: Normal. Chest wall and axilla: The soft tissues of the chest wall are normal. There is no axillary lymphadenopathy. 0 no significant bony abnormalities of the chest. Lung parenchyma: The lungs are clear. There are no pulmonary nodules or masses. There is no significant interstitial or alveolar lung disease. There are no pleural effusions. IMPRESSION: 1. No evidence of pulmonary emboli. 2. The thoracic aorta is normal. 3. There is no significant lung disease. <Electronically signed by Siva Atwood > 01/31/21 [id number]
[2021-01-31] MEDS ORDERED: PRED20TA PO (12:51)
--- NOTE | 2021-02-01 19:40 | ECGEPIP ---
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
== END 2021-01-31 13:04 | disposition home or self-care (01) ==
LOC: EDBD 09:13 → M ED 09:13
DX: J44.9 Chronic obstructive pulmonary disease, unspecified (principal); R07.89 Other chest pain; I10 Essential (primary) hypertension; K21.9 Gastro-esophageal reflux disease without esophagitis; F17.200 Nicotine dependence, unspecified, uncomplicated; F12.10 Cannabis abuse, uncomplicated; Z79.899 Other long term (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
CPT/HCPCS: 71045; 71275; 80048; 80076; 82803; 83880; 84443; 85025; 87798; 93005; 93041; 96374; 99284; J1885; Q9967

== ENCOUNTER 2021-03-08 13:35 | Emergency (ER) | payer OTHER ==
[~2021-03-08] VITALS: Ht 177.8 cm; Wt 72.6 kg
[2021-03-08] MEDS ORDERED: FLUT1INH3 (14:16)
[2021-03-08] MEDS ORDERED: LISI20TA33 (14:16)
[2021-03-08] MEDS ORDERED: methylPREDNISolone 125MG 2ML VIAL IV ONE (15:10)
[2021-03-08] MEDS ORDERED: COMBIVENT RESPIMAT 100-20MCG INHALER 4GM INH STA (15:12)
[2021-03-08] MEDS ORDERED: IPRATROPIUM 0.5MG/ALBUTEROL 2.5MG INH SOL UD 3ML (DUONEB) NEB ONE (15:25)
--- NOTE | 2021-03-08 15:30 | REP ---
INDICATION: sev frontal headache x 14 days. COMPARISON: CT head without contrast, 05/31/2020. TECHNIQUE: Take you is 5 mm thick axial projection images were obtained of the head. 2D coronal reconstructions were performed. FINDINGS: There is no evidence of acute intracranial hemorrhage or infarction. There are no abnormal intracranial masses or mass effect. There are benign physiologic calcifications in both basal ganglia. 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 The skull base and calvarium are normal. The visualized intraorbital and extracranial contents are unremarkable. IMPRESSION: 1. No evidence of acute intracranial pathology. 2. 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 3. No significant change. <Electronically signed by Siva Atwood > 03/08/21 [id number]
--- NOTE | 2021-03-08 15:31 | REP ---
INDICATION: sob, wheezing. COMPARISON: Portable chest, 01/31/2021. TECHNIQUE: Upright PA and lateral chest images were obtained. FINDINGS: The lungs are clear. The heart borders mediastinum and pulmonary vascular pattern normal. The upper abdominal bowel gas pattern is normal. There are no bony abnormalities of the chest. IMPRESSION: No evidence of acute cardiopulmonary pathology. <Electronically signed by Siva Atwood > 03/08/21 [id number]
[2021-03-08] MEDS ORDERED: ACETAMINOPHEN 500 MG TAB PO ONE (15:50)
[2021-03-08 15:58] LABS: VENOUS BASE EXCESS -1.5 (-2.0-2.0); VENOUS HCO3 25.4 MEQ/L (23.0-27.0); VENOUS O2 SATURATION 77.4 % (60.0-80.0); VENOUS PARTIAL PRESSURE CO2 51.2 mmHg (38.0-50.0); VENOUS PARTIAL PRESSURE O2 45.1 mmHg (30.0-50.0); VENOUS PH 7.314 UNITS (7.330-7.430); VENOUS STANDARD HCO3 22.8 MEQ/L
[2021-03-08 16:04] LABS: BASO # 0.1 10^3/uL (0.0-0.2); BASO % 0.8 % (0.0-1.0); EOS # 0.9 10^3/uL (0.0-0.5); EOS % 6.6 % (0.0-3.0); HEMATOCRIT 44.9 % (42.0-52.0); HEMOGLOBIN 14.2 g/dl (13.5-17.5); LYMPH # 3.1 10^3/uL (1.5-5.0); LYMPH % 23.3 % (24.0-44.0); MEAN CORPUSCULAR HEMOGLOBIN 29.2 pg (27.0-33.0); MEAN CORPUSCULAR HGB CONC 31.6 g/dl (32.0-36.5); MEAN CORPUSCULAR VOLUME 92.2 fl (80.0-96.0); MONO % 7.7 % (2.0-8.0); NEUTROPHILS # 8.1 10^3/uL (1.5-8.5); NEUTROPHILS % 61.1 % (36.0-66.0); PLATELET COUNT, AUTOMATED 274 10^3/uL (150-450); RED BLOOD COUNT 4.87 10^6/uL (4.30-6.10); WHITE BLOOD COUNT 13.3 10^3/uL (4.0-10.0)
[2021-03-08 16:20] LABS: INR 0.94; PROTHROMBIN TIME 12.9 SECONDS (12.7-14.5)
[2021-03-08 16:21] LABS: PARTIAL THROMBOPLASTIN TIME 33.5 SECONDS (25.9-37.0)
[2021-03-08 16:23] LABS: D-DIMER QUANT 288.2 ng/ml (<500)
[2021-03-08 16:39] LABS: ERYTHROCYTE SEDIMENTATION RATE 14 mm/hr (0-20)
[2021-03-08 16:42] LABS: ALBUMIN 3.2 GM/DL (3.2-5.2); ALT/SGPT 13 U/L (12-78); BILIRUBIN,DIRECT < 0.1 MG/DL (0.0-0.2); BILIRUBIN,TOTAL 0.2 MG/DL (0.2-1.0); BLOOD UREA NITROGEN 16 MG/DL (7-18); CALCIUM LEVEL 8.6 MG/DL (8.5-10.1); CARBON DIOXIDE LEVEL 27 MEQ/L (21-32); CHLORIDE LEVEL 110 MEQ/L (98-107); CK-MB VALUE MASS < 1.0 NG/ML (<3.6); CPK CREATINE PHOSPHOKINASE 89 U/L (39-308); CREATININE FOR GFR 1.18 MG/DL (0.70-1.30); GLOMERULAR FILTRATION RATE > 60.0 (>56); GLUCOSE, FASTING 78 MG/DL (70-100); MB/CK RELATIVE INDEX 1.12 (< OR =4); NT-PRO BNP 253 PG/ML (<125); POTASSIUM SERUM 4.3 MEQ/L (3.5-5.1); SODIUM LEVEL 141 MEQ/L (136-145); TOTAL PROTEIN 6.6 GM/DL (6.4-8.2); TROPONIN I < 0.02 NG/ML (< 0.10)
--- NOTE | 2021-03-08 16:59 | ECGEPIP ---
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
[2021-03-08] MEDS ORDERED: ADVA230A INH (17:02)
[2021-03-08] MEDS ORDERED: ALBU83IN NEB (17:02)
[2021-03-08] MEDS ORDERED: PRED20TA PO (17:02)
[2021-03-08] MEDS ORDERED: DOXY-350 PO (17:02)
[2021-03-08] MEDS ORDERED: LISI20TA33 PO (17:02)
[2021-03-08] MEDS ORDERED: OMEP40CA4 PO (17:02)
[2021-03-08 17:14] VITALS: BP 180/120
== END 2021-03-08 17:15 | disposition home or self-care (01) ==
LOC: M ED 13:35
DX: J44.1 Chronic obstructive pulmonary disease with (acute) exacerbation (principal); Z76.0 Encounter for issue of repeat prescription; I65.23 Occlusion and stenosis of bilateral carotid arteries; I10 Essential (primary) hypertension; J45.909 Unspecified asthma, uncomplicated; K21.9 Gastro-esophageal reflux disease without esophagitis; F17.200 Nicotine dependence, unspecified, uncomplicated
CPT/HCPCS: 36415; 70450; 71046; 80048; 80076; 82550; 82553; 82803; 83880; 85025; 85379; 85610; 85652; 85730; 86140; 87880; 93005; 94640; 96374; 99284; J2930

== ENCOUNTER 2021-04-25 15:10 | Emergency (ER) | payer OTHER ==
[~2021-04-25] VITALS: Ht 177.8 cm; Wt 75.0 kg
[~2021-04-25 15:10] MED LIST changes: +ADVA230A INH; +DOXY-350 PO; +DOXY-443 PO; -DOXY1CAP62 PO; +FLUT1INH3; +LISI20TA33; +LISI20TA33 PO
--- OUTSIDE RECORDS SUMMARY | 2021-04-25 15:17 | CCD ---
Author Author [facility] Organization [facility] Address Unknown Phone Unavailable Care Team Providers Care Form Tamper Operator Name Role Phone Bere Samson Unavailable PROBLEMS Type Condition ICD9-CM Code [id number] Code Onset Dates Condition S tatus W/U Status Risk SNOMED Code Notes Problem Tobacco dependence F17.200 Active confirmed 94343324 Problem Essential hypertension I10 Active confirmed 74721376 Problem Chronic bronchitis with COPD (chronic obstructiv e pulmonary disease) J44.9 Active confirmed [id number] ALLERGIES No Known Allergies ENCOUNTERS from 1965 to 2021-03-01 Encounter Location Date Provider Diagnosis [address] [address] Jan, Bere Samson Encounter to establish care Z76.89 and Chronic bronchitis with COPD (chronic obstructive pulmonary disease) J44.9 IMMUNIZATIONS No Information SOCIAL HISTORY Tobacco Use: Social History Observation Description Date Details (start date - stop date) Former Smoker Sex Assigned At : Social History Observation Description Sex Assigned At Unknown Alcohol Screen Question Answer Notes Did you have a drink containing alcohol in the past year? No Points 0 Interpretation Negative Tobacco Use/Smoking Question Answer Notes Are you a former smoker How long has it been since you last smoked? < 1 month REASON FOR REFERRAL No Information VITAL SIGNS Height 70 in Jan, Weight 165.0 lbs Jan, BMI 23.67 kg/m2 Jan, Temperature 98.8 degrees Fahrenheit Jan, Heart Rate 77 /min Jan, Respiratory Rate 18 /min Jan, Oximetry 98 % Jan, Blood pressure systolic 138 mmHg Jan, Blood pressure diastolic 98 mmHg Jan, MEDICATIONS Medication SIG (Take, Route, Frequency, Duration) Notes Start Da te End Date Status predniSONE 20 MG 1 tablet Orally Once a day for 30 day(s) Active Flexeril Not-Taking predniSONE 2.5 MG 1 tablet Orally Once a day for 20 days 2 0 Dec, 2020 Unknown Albuterol Sulfate HFA 108 (90 Base) MCG/ACT 1 puff as needed Inhalation every 4 hrs Active Gabapentin 300 MG 1 capsule Orally Once a day for 30 day(s) Not-Taking Lisinopril 20 MG 1 tablet Orally Once a day for 30 day(s) Active Omeprazole 20 MG 1 capsule 30 minutes before morning meal Orally Once a day for 30 day(s) Active Ipratropium-Albuterol 0.5-2.5 (3) MG/3ML 3 ml as needed Inha lation every 6 hrs Active Lisinopril 20 MG 1 tablet Orally Once a day for 30 day(s) Dec, Active PROCEDURES No Information RESULTS No Results REASON FOR VISIT ESTABLISHING CARE/ CHRONIC COPD MEDICAL (GENERAL) HISTORY Type Description Date Medical History HTN Medical History GERD Medical History COPD Medical History Back Spasms Surgical History No know Surgical history Hospitalization History Broken back 2020 Goals Section No Information Health Concerns No Information MEDICAL EQUIPMENT No Information MENTAL STATUS No Information FUNCTIONAL STATUS No Information ASSESSMENTS Encounter Date Diagnosis Assessment Notes Treatment Notes Treatm ent Clinical Notes Jan, Encounter to establish care (ICD-10 - Z76.89) Follow up yearly for annual PE - Follow up as directed for routine condition monitoring - Follow up as needed for acute injury/illness/questions/concerns Health Maintenance: - Ensure diet high in fruits, vegetables, lean protein - Moderate alcohol, caffiene - Avoid tobacco - Obtain at least 150 mins of heart raising physical activity weekly - Wear seatbelt - Use CO and smoke detectors in home Screenings: - Start colonoscopy at age 50 unless otherwise directed - Obtain yearly fasting labs Jan, Chronic bronchitis with COPD (chronic obstructive pulmonary disease) (ICD-10 - J44.9) Patient had discussed with my nurse, Dianne Wiggins LPN, during her initial intake that he had been taking prednisone for years for his COPD. He had discussed with my nurse that prednisone was the only medication that works for his COPD. He stated he had tried and failed several other inhalers. He had seen pulmonology in [place] within the past year but only saw them once. He told her that he didn't like the provider and never went back. I then had my nurse call his pharmacy to ask about medications. According to pharmacist the patient has been getting prescribed prednisone by several different providers over the past year. He had been getting 21 day and 5-day supply of prednisone. It also appeared that he has tried inhalers in the last including budesonide and Breo Ellipta. After this, I then went in and met the patient. I introduced myself and then asked him what brought him into the clinic that day. He stated that he has been taking prednisone for years and no one will prescribe it to him. He then began saying that he has gone to several facilities to get prescriptions from [place] to [place]. He stated that we were his last hope otherwise he was going to have to go to [place]. Patient stated that he has tried several inhalers in the past without success. He stated he was not interested in trying any other inhaler. I then began explaining to the patient that it is not recommended to take prednisone snf and is only used for acute illness for a short period of time. Patients last refill of the medication on 01/19/21 for a 20-day supply of 2.5 mg. Patient had told me that he had run out of medication and didn't have any. I again explained the reasoning behind why we do not prescribe prednisone long-term including adverse reactions to medication, adrenal insufficiency, high cholesterol, osteoporosis, and elevated blood pressure. Patient then began stating the studies in which I was referencing were all done on white people. He stated that they were not done on people and that his body is different than theirs. Patient stated that his blood pressure is under control. While patient was discussing all this, he was staring at the wall as though there was someone there. Patient had very poor eye contact with provider and would often speak to the wall very dramatically. Patient was previously seen in ER and in [facility] where his blood pressure was elevated over 140/80 mmHg. Again, his blood pressure at the visit was 138/98 mmHg. I explained to the patient that given his blood pressure being uncontrolled with medication I do not recommend taking prednisone manager long term care. I offered patient several different types of inhalers and referral to a different operator technician but he declined. Patient had begun asking me several times what I am going to do for him today. After each question I provided him with the same answer of inhalers and referral. Patient was becoming more upset and I had then contacted Dianne Wiggins via Teams Messenger to come into the room as I was beginning to feel uncomfortable. Dianne then came into the room saying that I had a phone call. Patient then stated, it is okay I'm not that important. He then began to stand up and walk towards the door. Again, he asked what I would do for him today and I gave him the same answer as before. I advised him that he would not get any prednisone from todays visit and he then began calling me a liar. Patient had stated that I lied as I told him I would give him three day supply of medication. I advised patient that if he disagrees with my plan of care then he is more than welcome to see another provider in the office. This had upset the patient and he began walking out the door. He then became irate and started shouting in the hallway that I had lied to him about the prednisone. Patient then began to block the doorway preventing me from leaving the room. This was observed by Dianne Wiggins and she ran to grab Dr. Anderson and Rashida Adkins. Dr. Anderson then presented in the hallway observing the situation. Patient kept continuing to yell at me saying I was a liar. He then stated, I am mentally deranged but at least I am not a liar. I apologized to patient saying that I was sorry he had felt that way. Patient then stated that this was, malpractice worthy, and that he was going to file a complaint. He stated, I am not asking for heroin just prednisone. Patient stated that you should be ashamed of yourself and your boss should know that you are a liar. Again, I apologized to the patient that he had felt that way. Patient then said he was leaving and began to walk down the hallway. Was unable to discuss anythi ng other than COPD at this visit as he had walked out of the appointment. Jan, radha Gomes cribing the following service on behalf of SULEMA Parra on 02/04/2021. Time spent includes face to face time wi th patient. Time spent: Greater than 50 minutes. PLAN OF TREATMENT Treatment Notes Assessment Notes Clinical Notes Encounter to establish care Follow up yearly for ainsley spann PE - Follow up as directed for routine condition monitoring - Follow up as needed for acute injury/illness/questions/concerns Health Maintenance: - Ensure diet high in fru its, vegetables, lean protein - Moderate alcohol, caffiene - Avoid tobacco - Obtain at least 150 mins of heart raising physical activity weekly - Wear seatbelt - Use CO and smoke detectors in home Screenings: - Start colonoscopy at age 50 unless otherwise directed - Obtain yearly fasting labs Chronic bronchitis with COPD (chronic obstructive pulmonary disease) Patient had discussed with my nurse, Dianne Wiggins LPN, during her initial intake that he had been taking prednisone for years for his COPD. He had discussed with my nurse that prednisone was the only medication that works for his COPD. He stated he had tried and failed several other inhalers. He had seen pulmonology in [place] within the past year but only saw them once. He told her that he didn't like the provider and never went back. I then had my nurse call his pharmacy to ask about medications. According to pharmacist the patient has been getting prescribed prednisone by several different providers over the past year. He had been getting 21 day and 5-day supply of prednisone. It also appeared that he has tried inhalers in the last including budesonide and Breo Ellipta. After this, I then went in and met the patient. I introduced myself and then asked him what brought him into the clinic that day. He stated that he has been taking prednisone for years and no one will prescribe it to him. He then began saying that he has gone to several facilities to get prescriptions from [place] to [place]. He stated that we were his last hope otherwise he was going to have to go to [place]. Patient stated that he has tried several inhalers in the past without success. He stated he was not interested in trying any other inhaler. I then began explaining to the patient that it is not recommended to take prednisone manager long term care and is only used for acute illness for a short period of time. Patients last refill of the medication on 01/19/21 for a 20-day supply of 2.5 mg. Patient had told me that he had run out of medication and didn't have any. I again explained the reasoning behind why we do not prescribe prednisone long-term including adverse reactions to medication, adrenal insufficiency, high cholesterol, osteoporosis, and elevated blood pressure. Patient then began stating the studies in which I was referencing were all done on white people. He stated that they were not done on people and that his body is different than theirs. Patient stated that his blood pressure is under control. While patient was discussing all this, he was staring at the wall as though there was someone there. Patient had very poor eye contact with provider and would often speak to the wall very dramatically. Patient was previously seen in ER and in [facility] where his blood pressure was elevated over 140/80 mmHg. Again, his blood pressure at the visit was 138/98 mmHg. I explained to the patient that given his blood pressure being uncontrolled with medication I do not recommend taking prednisone snf. I offered patient several different types of inhalers and referral to a different operator technician but he declined. Patient had begun asking me several times what I am going to do for him today. After each question I provided him with the same answer of inhalers and referral. Patient was becoming more upset and I had then contacted Dianne Wiggins via [employer] Messenger to come into the room as I was beginning to feel uncomfortable. Dianne then came into the room saying that I had a phone call. Patient then stated, it is okay I'm not that important. He then began to stand up and walk towards the door. Again, he asked what I would do for him today and I gave him the same answer as before. I advised him that he would not get any prednisone from todays visit and he then began calling me a liar. Patient had stated that I lied as I told him I would give him three day supply of medication. I advised patient that if he disagrees with my plan of care then he is more than welcome to see another provider in the office. This had upset the patient and he began walking out the door. He then became irate and started shouting in the hallway that I had lied to him about the prednisone. Patient then began to block the doorway preventing me from leaving the room. This was observed by Dianne Wiggins and she ran to grab Dr. Anderson and Rashida Adkins. Dr. Anderson then presented in the hallway observing the situation. Patient kept continuing to yell at me saying I was a liar. He then stated, I am mentally deranged but at least I am not a liar. I apologized to patient saying that I was sorry he had felt that way. Patient then stated that this was, malpractice worthy, and that he was going to file a complaint. He stated, I am not asking for heroin just prednisone. Patient stated that you should be ashamed of yourself and your boss should know that you are a liar. Again, I apologized to the patient that he had felt that way. Patient then said he was leaving and began to walk down the hallway. Was unable to discuss anythi ng other than COPD at this visit as he had walked out of the appointment. Next Appt Details prn Reason:prn Follow Up:prnprn Insurance Providers Payer Name Payer Address Payer Phone Insured Name Patient Relati onship to Insured Coverage Start Date Coverage End Date [employer] [address] [facility] [id number] Hadley Miller self
--- OUTSIDE RECORDS SUMMARY | 2021-04-25 15:17 | CCD ---
Author Author [facility] Organization [facility] Address Unknown Phone Unavailable Care Team Providers Care Product Consultant Name Role Phone Adore Richardson Unavailable PROBLEMS Type Condition ICD9-CM Code OYF54-OC Code Onset Dates Condition S tatus W/U Status Risk SNOMED Code Notes Problem Tobacco dependence F17.200 Active confirmed 91717710 Problem Essential hypertension I10 Active confirmed [id number] Problem Chronic bronchitis with COPD (chronic obstructiv e pulmonary disease) J44.9 Active confirmed [id number] ALLERGIES No Known Allergies ENCOUNTERS from 1965 to 2021-02-04 Encounter Location Date Provider Diagnosis [address] [address] Jan, Adore Richardson IMMUNIZATIONS No Information SOCIAL HISTORY Tobacco Use: [...] REASON FOR REFERRAL No Information VITAL SIGNS No information MEDICATIONS Medication SIG (Take, Route, Frequency, Duration) Notes Start Da te End Date Status predniSONE 20 MG 1 tablet Orally Once a day for 30 day(s) Active Gabapentin 300 MG 1 capsule Orally Once a day for 30 day(s) Not-Taking Flexeril Not-Taking Lisinopril 30 MG 1 tablet Orally Once a day for 30 day(s) Jan, Active Albuterol Sulfate HFA 108 (90 Base) MCG/ACT 1 puff as needed Inhalation every 4 hrs Active Lisinopril 20 MG 1 tablet Orally Once a day for 30 day(s) Dec, Active Lisinopril 20 MG 1 tablet Orally Once a day for 30 day(s) Active Omeprazole 20 MG 1 capsule 30 minutes before morning meal Orally Once a day for 30 day(s) Active Ipratropium-Albuterol 0.5-2.5 (3) MG/3ML 3 ml as needed Inha lation every 6 hrs Active predniSONE 2.5 MG 1 tablet Orally Once a day for 20 days 2 0 Dec, 2020 Unknown PROCEDURES No Information RESULTS No Results REASON FOR VISIT [facility] transport MEDICAL (GENERAL) HISTORY Type Description Date Medical History HTN Medical History GERD Medical History COPD Medical History Back Spasms Surgical History No know Surgical history Hospitalization History Bro[facility] back 2020 Goals Section No Information Health Concerns No Information MEDICAL EQUIPMENT No Information MENTAL STATUS No Information FUNCTIONAL STATUS No Information ASSESSMENTS No Information PLAN OF TREATMENT Medication Medication Name Sig Start Date Stop Date Lisinopril 30 MG 1 tablet Orally Once a day for 30 day(s) Jan Insurance Providers Payer Name Payer Address Payer Phone Insured Name Patient Relati onship to Insured Coverage Start Date Coverage End Date [employer] [address] [facility] [id number] Hadley Miller self
--- OUTSIDE RECORDS SUMMARY | 2021-04-25 15:18 | CCD ---
Author Author [facility] Organization [facility] Address Unknown Phone Unavailable Care Team Providers Care Automated Equipment Engineer Technician Name Role Phone HOANG, LIVE ZAYRA RPA-C Unavailable Unavailable HOANG, LIVE ZAYRA RPA-C Unavailable Unavailable HOANG, LIVE ZAYRA RPA-C Unavailable Unavailable HOANG, LIVE ZAYRA RPA-C Unavailable Unavailable HOANG, LIVE ZAYRA RPA-C Unavailable Unavailable HOANG, LIVE ZAYRA RPA-C Unavailable Unavailable HOANG, LIVE ZAYRA RPA-C Unavailable Unavailable HOANG, LIVE ZAYRA RPA-C Unavailable Unavailable HOANG, LIVE ZAYRA RPA-C Unavailable Unavailable HOANG, LIVE ZAYRA RPA-C Unavailable Unavailable HOANG, LIVE ZAYRA RPA-C Unavailable Unavailable HOANG, LIVE ZAYRA RPA-C Unavailable Unavailable HOANG, LIVE ZAYRA RPA-C Unavailable Unavailable HOANG, LIVE ZAYRA RPA-C Unavailable Unavailable HOANG, LIVE ZAYRA RPA-C Unavailable Unavailable HOANG, LIVE ZAYRA RPA-C Unavailable Unavailable HOANG, LIVE ZAYRA RPA-C Unavailable Unavailable HOANG, LIVE ZAYRA RPA-C Unavailable Unavailable HOANG, LIVE ZAYRA RPA-C Unavailable Unavailable HOANG, LIVE ZAYRA RPA-C Unavailable Unavailable HOANG, LIVE ZAYRA RPA-C Unavailable Unavailable HOANG, LIVE ZAYRA RPA-C Unavailable Unavailable HOANG, LIVE ZAYRA RPA-C Unavailable Unavailable HOANG, LIVE ZAYRA RPA-C Unavailable Unavailable HOANG, LIVE ZAYRA RPA-C Unavailable Unavailable HOANG, LIVE ZAYRA RPA-C Unavailable Unavailable HOANG, LIVE ZAYRA RPA-C Unavailable Unavailable HOANG, LIVE ZAYRA RPA-C Unavailable Unavailable HOANG, LIVE ZAYRA RPA-C Unavailable Unavailable HOANG, LIVE ZAYRA RPA-C Unavailable Unavailable HOANG, LIVE ZAYRA RPA-C Unavailable Unavailable HOANG, LIVE ZAYRA RPA-C Unavailable Unavailable HOANG, LIVE ZAYRA RPA-C Unavailable Unavailable HOANG, LIVE ZAYRA RPA-C Unavailable Unavailable HOANG, LIVE ZAYRA RPA-C Unavailable Unavailable HOANG, LIVE ZAYRA RPA-C Unavailable Unavailable HOANG, LIVE ZAYRA RPA-C Unavailable Unavailable HOANG, LIVE ZAYRA RPA-C Unavailable Unavailable HOANG, LIVE ZAYRA RPA-C Unavailable Unavailable HOANG, LIVE ZAYRA RPA-C Unavailable Unavailable HOANG, LIVE ZAYRA RPA-C Unavailable Unavailable HOANG, LIVE ZAYRA RPA-C Unavailable Unavailable HOANG, LIVE ZAYRA RPA-C Unavailable Unavailable Sharla Christensen SUPERVISOR COOK HOUSE SUPERVISOR COOK HOUSE Unavailable Unavailable LAROCK, Lakia DONOVAN NP Unavailable Unavailable LAROCK, Lakia DONOVAN NP Unavailable Unavailable LAROCK, Lakia DONOVAN ON AWAKE COUNSELOR Unavailable Unavailable LAROCK, Lakia DONOVAN ON AWAKE COUNSELOR Unavailable Unavailable LAROCK, Lakia DONOVAN ON AWAKE COUNSELOR Unavailable Unavailable LAROCK, Lakia DNOOVAN ON AWAKE COUNSELOR Unavailable Unavailable LAROCK, Lakia DONOVAN ON AWAKE COUNSELOR Unavailable Unavailable LAROCK, Lakia DONOVAN ON AWAKE COUNSELOR Unavailable Unavailable LAROCK, Lakia DONOVAN ON AWAKE COUNSELOR Unavailable Unavailable LAROCK, Lakia DONOVAN ON AWAKE COUNSELOR Unavailable Unavailable LAROCK, Lakia DONOVAN ON AWAKE COUNSELOR Unavailable Unavailable LAROCK, Lakia DONOVAN ON AWAKE COUNSELOR Unavailable Unavailable LAROCK, Lakia DONOVAN ON AWAKE COUNSELOR Unavailable Unavailable LAROCK, Lakia DONOVAN ON AWAKE COUNSELOR Unavailable Unavailable LAROCK, Lakia DONOVAN ON AWAKE COUNSELOR Unavailable Unavailable LAROCK, Lakia DONOVAN ON AWAKE COUNSELOR Unavailable Unavailable LAROCK, Lakia DONOVAN ON AWAKE COUNSELOR Unavailable Unavailable LAROCK, Lakia DONOVAN ON AWAKE COUNSELOR Unavailable Unavailable LAROCK, Lakia DONOVAN ON AWAKE COUNSELOR Unavailable Unavailable LAROCK, Lakia DONOVAN ON AWAKE COUNSELOR Unavailable Unavailable LAROCK, Lakia DONOVAN ON AWAKE COUNSELOR Unavailable Unavailable LAROCK, Lakia DONOVAN ON AWAKE COUNSELOR Unavailable Unavailable CEBALLOS, Lakia PARKS MD Unavailable Unavailable CEBALLOS, Lakia PARKS MD Unavailable Unavailable CEBALLOS, Lakia PARKS MD Unavailable Unavailable CEBALLOS, Lakia PARKS MD Unavailable Unavailable CEBALLOS, Lakia PARKS MD Unavailable Unavailable CEBALLOS, Lakia PARKS MD Unavailable Unavailable CEBALLOS, Lakia PARKS MD Unavailable Unavailable CEBALLOS, Lakia PARKS MD Unavailable Unavailable CEBALLOS, Lakia PARKS MD Unavailable Unavailable Chapin, M Bere PA-C Unavailable Unavailable Chapin, M Bere PA-C Unavailable Unavailable Chapin, M Bere PA-C Unavailable Unavailable Chapin, M Bere PA-C Unavailable Unavailable Chapin, M Bere PA-C Unavailable Unavailable Chapin, M Bere PA-C Unavailable Unavailable Chapin, M Bere PA-C Unavailable Unavailable Chapin, M Bere PA-C Unavailable Unavailable Chapin, M Bere PA-C Unavailable Unavailable Chapin, M Bere PA-C Unavailable Unavailable Chapin, M Bere PA-C Unavailable Unavailable Chapin, M Bere PA-C Unavailable Unavailable Chapin, M Bere PA-C Unavailable Unavailable Chapin, M Bere PA-C Unavailable Unavailable Chapin, M Bere PA-C Unavailable Unavailable Chapin, M Bere PA-C Unavailable Unavailable Chapin, M Bere PA-C Unavailable Unavailable Chapin, M Bere PA-C Unavailable Unavailable Chapin, M Bere PA-C Unavailable Unavailable Chapin, M Bere PA-C Unavailable Unavailable Chapin, M Bere PA-C Unavailable Unavailable Chapin, M Bere PA-C Unavailable Unavailable Chapin, M Bere PA-C Unavailable Unavailable Chapin, M Bere PA-C Unavailable Unavailable Chapin, M Bere PA-C Unavailable Unavailable Chapin, M Bere PA-C Unavailable Unavailable Chapin, M Bere PA-C Unavailable Unavailable Chapin, M Bere PA-C Unavailable Unavailable Chapin, M Bere PA-C Unavailable Unavailable Chapin, M Bere PA-C Unavailable Unavailable Chapin, M Bere PA-C Unavailable Unavailable Chapin, M Bere PA-C Unavailable Unavailable Chapin, M Bere PA-C Unavailable Unavailable Chapin, M Bere PA-C Unavailable Unavailable Chapin, M Bere PA-C Unavailable Unavailable Chapin, M Bere PA-C Unavailable Unavailable Robert OAKLEY MD Unavailable Unavailable Robert OAKLEY MD Unavailable Unavailable Robert OAKLEY MD Unavailable Unavailable Robert OAKLEY MD Unavailable Unavailable Robert OAKLEY MD Unavailable Unavailable Robert OAKLEY MD Unavailable Unavailable Robert OAKLEY MD Unavailable Unavailable Robert OAKLEY MD Unavailable Unavailable Robert OAKLEY MD Unavailable Unavailable Robert OAKLEY MD Unavailable Unavailable Robert OAKLEY MD Unavailable Unavailable Robert OAKLEY MD Unavailable Unavailable Robert OAKLEY MD Unavailable Unavailable Robert OAKLEY MD Unavailable Unavailable Robert OAKLEY MD Unavailable Unavailable Robert OAKLEY MD Unavailable Unavailable Robert OAKLEY MD Unavailable Unavailable Robert OAKLEY MD Unavailable Unavailable Robert OAKLEY MD Unavailable Unavailable Robert OAKLEY MD Unavailable Unavailable Scordo, M Radha PA Unavailable Unavailable Scordo, M Radha PA Unavailable Unavailable Scordo, M Radha PA Unavailable Unavailable Scordo, M Radha PA Unavailable Unavailable Scordo, M Radha PA Unavailable Unavailable Scordo, M Radha PA Unavailable Unavailable Scordo, M Radha PA Unavailable Unavailable Scordo, M Radha PA Unavailable Unavailable Scordo, M Radha PA Unavailable Unavailable Scordo, M Radha PA Unavailable Unavailable Scordo, M Radha PA Unavailable Unavailable Scordo, M Radha PA Unavailable Unavailable Scordo, M Radha PA Unavailable Unavailable Scordo, M Radha PA Unavailable Unavailable Scordo, M Radha PA Unavailable Unavailable Scordo, M Radha PA Unavailable Unavailable Scordo, M Radha PA Unavailable Unavailable Scordo, M Radha PA Unavailable Unavailable Scordo, M Radha PA Unavailable Unavailable Scordo, M Radha PA Unavailable Unavailable Scordo, M Radha PA Unavailable Unavailable Scordo, M Radha PA Unavailable Unavailable Scordo, M Radha PA Unavailable Unavailable Scordo, M Radha PA Unavailable Unavailable Scordo, M Radha PA Unavailable Unavailable Scordo, M Radha PA Unavailable Unavailable Scordo, M Radha PA Unavailable Unavailable Scordo, M Radha PA Unavailable Unavailable Scordo, M Radha PA Unavailable Unavailable Scordo, M Radha PA Unavailable Unavailable Scordo, M Radha PA Unavailable Unavailable Scordo, M Radha PA Unavailable Unavailable Scordo, M Radha PA Unavailable Unavailable Scordo, M Radha PA Unavailable Unavailable Scordo, M Radha PA Unavailable Unavailable Scordo, M Radha PA Unavailable Unavailable Scordo, M Radha PA Unavailable Unavailable Scordo, M Radha PA Unavailable Unavailable Scordo, M Radha PA Unavailable Unavailable Scordo, M Radha PA Unavailable Unavailable Scordo, M Radha PA Unavailable Unavailable Scordo, M Radha PA Unavailable Unavailable Scordo, M Radha PA Unavailable Unavailable Scordo, M Radha PA Unavailable Unavailable Scordo, M Radha PA Unavailable Unavailable Scordo, M Radha PA Unavailable Unavailable Scordo, M Radha PA Unavailable Unavailable Maring, Ángel PA Unavailable Unavailable Maring, Ángel PA Unavailable Unavailable Maring, Ángel PA Unavailable Unavailable Maring, Ángel PA Unavailable Unavailable Maring, Ángel PA Unavailable Unavailable Maring, Ángel PA Unavailable Unavailable Maring, Ángel PA Unavailable Unavailable Maring, Ángel PA Unavailable Unavailable Maring, Ángel PA Unavailable Unavailable Maring, Ángel PA Unavailable Unavailable Maring, Ángel PA Unavailable Unavailable Maring, Ángel PA Unavailable Unavailable Maring, Ángel PA Unavailable Unavailable Maring, Ángel PA Unavailable Unavailable Maring, Ángel PA Unavailable Unavailable Maring, Ángel PA Unavailable Unavailable Andrés, Linn Stubbs Karissa SUPERVISOR COOK HOUSE-C Unavailable Unavailabl e Andrés, Linn W Karissa SUPERVISOR COOK HOUSE-C Unavailable Unavailabl e Andrés, Linn W Karissa SUPERVISOR COOK HOUSE-C Unavailable Unavailabl e Andrés, Regharrisonh W Karissa SUPERVISOR COOK HOUSE-C Unavailable Unavailabl e Andrés, Linn W Karissa SUPERVISOR COOK HOUSE-C Unavailable Unavailabl e Andrés, Linn W Karissa SUPERVISOR COOK HOUSE-C Unavailable Unavailabl e Andrés, Linn W Karissa SUPERVISOR COOK HOUSE-C Unavailable Unavailabl e Andrés, Linn W Karissa SUPERVISOR COOK HOUSE-C Unavailable Unavailabl e Andrés, Linn W Karissa SUPERVISOR COOK HOUSE-C Unavailable Unavailabl e Andrés, Linn W Karissa SUPERVISOR COOK HOUSE-C Unavailable Unavailabl e Andrés, Regharrisonh W Karissa SUPERVISOR COOK HOUSE-C Unavailable Unavailabl e Andrés, Linn Hancock SUPERVISOR COOK HOUSE-C Unavailable Unavailabl e Andrés, Linn Hancock SUPERVISOR COOK HOUSE-C Unavailable Unavailabl e Andrés, Linn Hancock SUPERVISOR COOK HOUSE-C Unavailable Unavailabl e Andrés, Linn Hancock SUPERVISOR COOK HOUSE-C Unavailable Unavailabl e Andrés, Linn Hancock SUPERVISOR COOK HOUSE-C Unavailable Unavailabl e Andrés, Linn Hancock SUPERVISOR COOK HOUSE-C Unavailable Unavailabl e Andrés, Linn Hancock SUPERVISOR COOK HOUSE-C Unavailable Unavailabl e Andrés, Linn Hancock SUPERVISOR COOK HOUSE-C Unavailable Unavailabl e Andrés, Linn Hancock SUPERVISOR COOK HOUSE-C Unavailable Unavailabl e Andrés, Linn Hancock SUPERVISOR COOK HOUSE-C Unavailable Unavailabl e Andrés, Linn Hancock SUPERVISOR COOK HOUSE-C Unavailable Unavailabl e Andrés, Linn Hancock SUPERVISOR COOK HOUSE-C Unavailable Unavailabl e Andrés, Linn Hancock SUPERVISOR COOK HOUSE-C Unavailable Unavailabl e Andrés, Linn Hancock SUPERVISOR COOK HOUSE-C Unavailable Unavailabl e Andrés, Linn Hancock SUPERVISOR COOK HOUSE-C Unavailable Unavailabl e Andrés, Linn Hancock SUPERVISOR COOK HOUSE-C Unavailable Unavailabl e Andrés, Linn Hancock SUPERVISOR COOK HOUSE-C Unavailable Unavailabl e Andrés, Linn Hancock SUPERVISOR COOK HOUSE-C Unavailable Unavailabl e Andrés, Linn Schmitze SUPERVISOR COOK HOUSE-C Unavailable Unavailabl e Andrés, Linn Schmitze SUPERVISOR COOK HOUSE-C Unavailable Unavailabl e Andrés, Linn Tidwellyce SUPERVISOR COOK HOUSE-C Unavailable Unavailabl e HOANG, LIVE ZAYRA RPA-C Unavailable Unavailable HOANG, LIVE ZAYRA RPA-C Unavailable Unavailable HOANG, LIVE ZAYRA RPA-C Unavailable Unavailable HOANG, LIVE ZAYRA RPA-C Unavailable Unavailable HOANG, LIVE ZAYRA RPA-C Unavailable Unavailable HOANG, LIVE ZAYRA RPA-C Unavailable Unavailable HOANG, LIVE ZAYRA RPA-C Unavailable Unavailable HOANG, LIVE ZAYRA RPA-C Unavailable Unavailable HOANG, LIVE ZAYRA RPA-C Unavailable Unavailable HOANG, LIVE ZAYRA RPA-C Unavailable Unavailable HOANG, LIVE ZAYRA RPA-C Unavailable Unavailable HOANG, LIVE ZAYRA RPA-C Unavailable Unavailable HOANG, LIVE ZAYRA RPA-C Unavailable Unavailable HOANG, LIVE ZAYRA RPA-C Unavailable Unavailable HOANG, LIVE ZAYRA RPA-C Unavailable Unavailable HOANG, LIVE ZAYRA RPA-C Unavailable Unavailable HOANG, LIVE ZAYRA RPA-C Unavailable Unavailable HOANG, LIVE ZAYRA RPA-C Unavailable Unavailable HOANG, LIVE ZAYRA RPA-C Unavailable Unavailable HOANG, LIVE ZAYRA RPA-C Unavailable Unavailable HOANG, LIVE ZAYRA RPA-C Unavailable Unavailable HOANG, LIVE ZAYRA RPA-C Unavailable Unavailable HOANG, LIVE ZAYRA RPA-C Unavailable Unavailable HOANG, LIVE ZAYRA RPA-C Unavailable Unavailable HOANG, LIVE ZAYRA RPA-C Unavailable Unavailable HOANG, LIVE ZAYRA RPA-C Unavailable Unavailable HOANG, LIVE ZAYRA RPA-C Unavailable Unavailable HOANG, LIVE ZAYRA RPA-C Unavailable Unavailable HOANG, LIVE ZAYRA RPA-C Unavailable Unavailable HOANG, LIVE ZAYRA RPA-C Unavailable Unavailable HOANG, LIVE ZAYRA RPA-C Unavailable Unavailable HOANG, LIVE ZAYRA RPA-C Unavailable Unavailable HOANG, LIVE ZAYRA RPA-C Unavailable Unavailable HOANG, LIVE ZAYRA RPA-C Unavailable Unavailable HOANG, LIVE ZAYRA RPA-C Unavailable Unavailable HOANG, LIVE ZAYRA RPA-C Unavailable Unavailable HOANG, LIVE ZAYRA RPA-C Unavailable Unavailable HOANG, LIVE ZAYRA RPA-C Unavailable Unavailable HOANG, LIVE ZAYRA RPA-C Unavailable Unavailable HOANG, LIVE ZAYRA RPA-C Unavailable Unavailable HOANG, LIVE ZAYRA RPA-C Unavailable Unavailable HOANG, LIVE ZAYAR RPA-C Unavailable Unavailable HOANG, LIVE ZAYRA RPA-C Unavailable Unavailable Gray Ash MD Unavailable Unavailable Gray Ash MD Unavailable Unavailable Gray Ash MD Unavailable Unavailable Gray Ash MD Unavailable Unavailable Gray Ash MD Unavailable Unavailable BolGray salomon MD Unavailable Unavailable BolGray salomon MD Unavailable Unavailable Bolla, Gray Sims MD Unavailable Unavailable Bolla, Gray Sims MD Unavailable Unavailable Bolla, Gray Sims MD Unavailable Unavailable Bolla, Gray Sims MD Unavailable Unavailable Bolla, Gray Sims MD Unavailable Unavailable Bolla, Gray Sims MD Unavailable Unavailable Bolla, Gray Sims MD Unavailable Unavailable Bolla, Gray Sims MD Unavailable Unavailable Bolla, Gray Sims MD Unavailable Unavailable Bolla, Gray Sims MD Unavailable Unavailable Bolla, Gray Sims MD Unavailable Unavailable Bolla, Gray Sims MD Unavailable Unavailable Bolla, Gray Sims MD Unavailable Unavailable Bolla, Gray Sims MD Unavailable Unavailable Bolla, Gray Sims MD Unavailable Unavailable Bolla, Gray Sims MD Unavailable Unavailable Bolla, Gray Sims MD Unavailable Unavailable Bolla, Gray Sims MD Unavailable Unavailable Bolla, Gray Sims MD Unavailable Unavailable Bolla, Gray Sims MD Unavailable Unavailable Bolla, Gray Sims MD Unavailable Unavailable Bolla, Gray Sims MD Unavailable Unavailable Bolla, Gray Sims MD Unavailable Unavailable Bolla, Gray Sims MD Unavailable Unavailable Bolla, Gray Sims MD Unavailable Unavailable Bolla, Gray Sims MD Unavailable Unavailable Bolla, Gray Sims MD Unavailable Unavailable Bolla, Gray Sims MD Unavailable Unavailable Bolla, Gray Sims MD Unavailable Unavailable Bolla, Gray Sims MD Unavailable Unavailable Bolla, Gray Sims MD Unavailable Unavailable Bolla, Gray Sims MD Unavailable Unavailable Bolla, Gray Sism MD Unavailable Unavailable Bolla, Gray Sims MD Unavailable Unavailable Bolla, Gray Sims MD Unavailable Unavailable Bolla, Gray Sims MD Unavailable Unavailable Bolla, Gray Sims MD Unavailable Unavailable Bolla, Gray Sims MD Unavailable Unavailable Bolla, Gray Sims MD Unavailable Unavailable Bolla, Gray Sims MD Unavailable Unavailable Bolla, Gray Sims MD Unavailable Unavailable Bolla, Gray Sims MD Unavailable Unavailable LETTIERE, A RA PA Unavailable Unavailable LETTIERE, A RA PA Unavailable Unavailable LETTIERE, A RA PA Unavailable Unavailable LETTIERE, A RA PA Unavailable Unavailable LETTIERE, A RA PA Unavailable Unavailable LETTIERE, A RA PA Unavailable Unavailable LETTIERE, A RA PA Unavailable Unavailable LETTIERE, A RA PA Unavailable Unavailable LETTIERE, A RA PA Unavailable Unavailable LETTIERE, A RA PA Unavailable Unavailable LETTIERE, A RA PA Unavailable Unavailable LETTIERE, A RA PA Unavailable Unavailable LETTIERE, A RA PA Unavailable Unavailable LETTIERE, A RA PA Unavailable Unavailable LETTIERE, A RA PA Unavailable Unavailable LETTIERE, A RA PA Unavailable Unavailable LETTIERE, A RA PA Unavailable Unavailable LETTIERE, A RA PA Unavailable Unavailable LETTIERE, A RA PA Unavailable Unavailable LETTIERE, A RA PA Unavailable Unavailable LETTIERE, A RA PA Unavailable Unavailable LETTIERE, A RA PA Unavailable Unavailable LETTIERE, A RA PA Unavailable Unavailable LETTIERE, A RA PA Unavailable Unavailable LETTIERE, A RA PA Unavailable Unavailable LETTIERE, A RA PA Unavailable Unavailable LETTIERE, A RA PA Unavailable Unavailable LETTIERE, A RA PA Unavailable Unavailable LETTIERE, A RA PA Unavailable Unavailable LETTIERE, A RA PA Unavailable Unavailable LETTIERE, A RA PA Unavailable Unavailable TURRIN, DEVIN Unavailable Unavailable TURRIN, DEVIN Unavailable Unavailable TURRIN, DEVIN Unavailable Unavailable TURRIN, DEVIN Unavailable Unavailable Sal Scott Unavailable [phone] Sal Scott Unavailable [phone] Tyler Sal Unavailable [phone] Sal Scott Unavailable [phone] Tyler Sal Unavailable [phone] Sal Scott Unavailable [phone] Christensen, F Sharla SUPERVISOR COOK HOUSE-BC Unavailable Unavailable Christensen, F Sharla SUPERVISOR COOK HOUSE-BC Unavailable Unavailable Christensen, F Sharla SUPERVISOR COOK HOUSE-BC Unavailable Unavailable Christensen, F Sharla SUPERVISOR COOK HOUSE-BC Unavailable Unavailable Christensen, F Sharla SUPERVISOR COOK HOUSE-BC Unavailable Unavailable Christensen, F Sharla SUPERVISOR COOK HOUSE-BC Unavailable Unavailable Christensen, F Sharla SUPERVISOR COOK HOUSE-BC Unavailable Unavailable Christensen, F Sharla SUPERVISOR COOK HOUSE-BC Unavailable Unavailable Christensen, F Sharla SUPERVISOR COOK HOUSE-BC Unavailable Unavailable Christensen, F Sharla SUPERVISOR COOK HOUSE-BC Unavailable Unavailable Christensen, F Sharla SUPERVISOR COOK HOUSE-BC Unavailable Unavailable Christensen, F Sharla SUPERVISOR COOK HOUSE-BC Unavailable Unavailable Christensen, F Sharla SUPERVISOR COOK HOUSE-BC Unavailable Unavailable Christensen, F Sharla SUPERVISOR COOK HOUSE-BC Unavailable Unavailable Christensen, F Sharla SUPERVISOR COOK HOUSE-BC Unavailable Unavailable Christensen, F Sharla SUPERVISOR COOK HOUSE-BC Unavailable Unavailable Christensen, F Sharla SUPERVISOR COOK HOUSE-BC Unavailable Unavailable Christensen, F Sharla SUPERVISOR COOK HOUSE-BC Unavailable Unavailable Christensen, F Sharla SUPERVISOR COOK HOUSE-BC Unavailable Unavailable Christensen, F Sharla SUPERVISOR COOK HOUSE-BC Unavailable Unavailable Christensen, F Sharla SUPERVISOR COOK HOUSE-BC Unavailable Unavailable Christensen, F Sharla SUPERVISOR COOK HOUSE-BC Unavailable Unavailable Christensen, F Sharla SUPERVISOR COOK HOUSE-BC Unavailable Unavailable NON, PHYSICIAN STAFF Unavailable Unavailable CHANLIECCO, C ANNIA MD Unavailable Unavailable CHANLIECCO, C ANNIA MD Unavailable Unavailable CHANLIECCO, C ANNIA MD Unavailable Unavailable CHANLIECCO, C ANNIA MD Unavailable Unavailable CHANLIECCO, C ANNIA MD Unavailable Unavailable CHANLIECCO, C ANNIA MD Unavailable Unavailable CHANLIECCO, C ANNIA MD Unavailable Unavailable CHANLIECCO, C ANNIA MD Unavailable Unavailable CHANLIECCO, C ANNIA MD Unavailable Unavailable CHANLIECCO, C ANNIA MD Unavailable Unavailable CHANLIECCO, C ANNIA MD Unavailable Unavailable Re-disclosure Warning The records that you are about to access may contain information from federally-assisted alcohol or drug abuse programs. If such information is present, then the following federally mandated warning applies: This information has been disclosed to you from records protected by federal confidentiality rules (42 CFR part 2). The federal rules prohibit you from making any further disclosure of this information unless further disclosure is expressly permitted by the written consent of the person to whom it pertains or as otherwise permitted by 42 CFR part 2. A general authorization for the release of medical or other information is NOT sufficient for this purpose. The Federal rules restrict any use of the information to criminally investigate or prosecute any alcohol or drug abuse patient.The records that you are about to access may contain highly sensitive health information, the redisclosure of which is protected by Article 27-F of the [place] Public Health law. If you continue you may have access to information: Regarding HIV / AIDS; Provided by facilities licensed or operated by the [place] [facility] Office of Mental Health; or Provided by the [place] [facility] Office for People With Developmental Disabilities. If such information is present, then the following [facility] mandated warning applies: This information has been disclosed to you from confidential records which are protected by state law. State law prohibits you from making any further disclosure of this information without the specific written consent of the person to whom it pertains, or as otherwise permitted by law. Any unauthorized further disclosure in violation of state law may result in a fine or senior living sentence or both. A general authorization for the release of medical or other information is NOT sufficient authorization for further disc losure. Encounters Encounter Providers Location Date Indications Data Source(s ) Outpatient Attender: Bere Samson PA-C 02/04/2021 03:54 :00 PM EDT [facility] Outpatient [facility] 02/04/2021 12:00:00 AM EDT [facility]CW1 ([facility]) Outpatient [facility] 02/04/2021 12:00:00 AM EDT eCW1 ([facility]) Outpatient Attender: Karissa RUTHERFORD 01/19/2021 09:46:0 0 AM EDT [facility]patient [facility] 01/19/2021 12:00:00 AM EDT eCW1 ([facility]) Emergency Attender: FARNAZ CEBALLOS MD 01/15 08:20:00 PM EDT - 01/15/2021 08:38:00 PM EDT [facility] Patient discharged. Outpatient Attender: RA shah 11/28/2020 11:20:00 AM EDT [facility] ([facility]) Emergency Attender: DEVIN Danielsonltant: STAFF NON 11/23/2020 12:46:00 PM EDT - 11/23/2020 03:24:00 PM EDT [facility] Patient discharged. Emergency Attender: CHELSY OAKLEY MDConsultant: STAFF NON 11/05/2020 10:37:00 AM EDT - 11/05/2020 12:30:00 PM EDT [facility] Patient discharged. Emergency Attender: DEVIN Silveirasultant: STAFF NON 10/21/2020 01:51:00 PM EDT - 10/21/2020 04:21:00 PM EDT [facility] Patient discharged. Emergency Attender: CHELSY OAKLEY MDConsultant: STAFF NON 10/15/2020 12:12:00 PM EDT - 10/15/2020 03:10:00 PM EDT [facility] Patient discharged. Outpatient Attender: Ángel LEONE 10/16/19 10:06:23 AM EDT - 10/15/2020 10:28:08 AM EDT [facility] ([facility] ) Outpatient Attender: Sal Scott 10/01 11:58:08 AM EDT - 10/01/2020 12:40:16 PM EDT [facility] ([facility] ) Emergency Attender: DEVIN MENJIVAR 2020 03:21:00 AM EDT - 09/22/2020 05:33:00 AM EDT [facility] Patient discharged. Outpatient Attender: VENUS STREETER NP 08/31 09:56:41 AM EDT - 09/17/2020 10:22:14 AM EDT [facility] ([facility] ) GALO MckeonC: [id number], [place] [address], Ph. Attender: Radha LEONE [facility] 09/10/2020 12:00:00 AM EST [facility] ([facility]) Emergency Attender: CHELSY OAKLEY MDConsultant: STAFF NON 09/03/2020 06:19:00 PM EST - 09/03/2020 07:20:00 PM EST [facility] Patient discharged. Emergency Attender: ANNIA WILL MDConsultant: LAWRENCE Campos NON 08/11/2020 09:55:00 AM EST - 08/11/2020 01:58:00 PM EST [facility] Patient discharged. DIMITRI KasperC: [address], [place] [address], Ph. Attender: ZAYRA SAMUELS [facility] Medical 06/15/2020 12:00:00 AM EST MARA ([facility]) DIMITRI KasperC: [address], [place] [address], Ph. Attender: ZAYRA HOANG RPA-C [facility] Medical 06/15/2020 12:00:00 AM EST MARA ([facility]) Zayra Hoang RPA-C: [address], [place] [address], Ph. Attender: ZAYRA HOANG RPA-C [facility] Medical 05/11/2020 12:00:00 AM EST MARA ([facility]) Zayra Hoang RPA-C: [address], [place] [address], Ph. Attender: ZAYRA HOANG RPA-C [facility] Medical 05/11/2020 12:00:00 AM EST MARA ([facility]) Zayra Hoang, RPA-C: [address], [place] [address], Ph. Attender: ZAYRA HOANG RPA-C [facility] Medical 05/11/2020 12:00:00 AM EST MARA ([facility]) Outpatient Attender: ZAYRA HOANG RPA-C FP [facility]: ZAYRA HO[facility] RPA-C FP 04/16/2020 08:51:00 AM EDT [facility] Outpatient Attender: ZAYRA HOANG RPA-C FP 04/16/2020 08:38:[facility]: ZAYRA HOANG RPA-C FP 04/16/2020 08:32:02 AM EDT [facility] Outpatient Attender: ZAYRA HOANG RPA-C FP 04/16/2020 08:31:[facility] ZAYRA HOANG RPA-C FP 04/14/2020 11:08:01 AM EDT [facility] Outpatient Attender: ZAYRA MOSLEYC FP 04/10/2020 05:32:00 PM EDT [facility] Outpatient Attender: COLLINS CHÁVEZP FP 04/10/2020 04:23:00 PM EDT [facility] Outpatient Attender: COLLINS CHÁVEZP FP 04/10/2020 12:53:00 PM EDT [facility] Outpatient Attender: COLLINS CHÁVEZP FP 04/07/2020 12:02:24 AM EDT [facility] Outpatient Attender: COLLINS CHÁVEZP FP 04/06/2020 02:45:01 PM EDT [facility] Outpatient Attender: Sharla WASHBURNBC FP 04/06/2020 02: 19:01 PM EDT [facility] Outpatient Attender: COLLINS CHÁVEZP FP 04/06/2020 02:19:00 PM EDT [facility] Outpatient Attender: COLLINS CHÁVEZP FP 04/06/2020 01:58:01 PM EDT [facility] Outpatient Attender: Sharla WASHBURNBC FP 04/06/2020 10: 51:01 AM EDT [facility] Outpatient Attender: COLLINS CHÁVEZP FP 03/30/2020 11:04:01 AM EDT [facility] Outpatient Attender: Sharla HAWTHORNE FP 03/27/2020 12: 33:59 PM EDT [facility] Outpatient Attender: COLLINS GUADALUPE FP 03/27/2020 11:22:01 AM EDT [facility] Outpatient Attender: COLLINS GUADALUPE FP 03/27/2020 11:17:01 AM EDT [facility] Outpatient Attender: Sharla WASHBURNBC FP 03/25/2020 02: 05:03 PM EDT [facility] Outpatient Attender: Sharla WASHBURNBC FP 03/24/2020 09: 17:01 AM EDT [facility] Outpatient Attender: COLLINS GUADALUPE FP 03/24/2020 09:16:59 AM EDT [facility] Outpatient Attender: COLLINS GUADALUPE FP 03/17/2020 12:01:00 PM EDT [facility] Outpatient Attender: COLLINS GUADALUPE FP 03/16/2020 03:17:00 PM EDT [facility] Outpatient Attender: COLLINS OG 03/13/2020 10:50:01 AM EDT [facility] Outpatient Attender: COLLINS OG 03/12/2020 02:46:26 PM EDT [facility] Outpatient Attender: COLLINS GUADALUPE FP 03/10/2020 09:20:00 AM EDT [facility] Levi Ash MD: [address] [address], [place] [address], Ph. Attender: Levi Ash MD [place] - [facility] - Main Office 03/10/2020 12:00:00 AM EDT MARA ([facility]) Outpatient Attender: COLLINS OG 03/05/2020 04:12:00 PM EDT [facility] Outpatient Attender: COLLINS OG 03/04/2020 12:02:13 AM EDT [facility] Outpatient Attender: Sharlaole OG 03/03/2020 04: 45:01 PM EDT [facility] Outpatient Attender: COLLINS OG 03/03/2020 03:35:00 PM EDT [facility] Outpatient Attender: COLLINS OG 03/03/2020 03:22:01 PM EDT [facility] Outpatient Attender: Sharla HAWTHORNE FP 03/03/2020 02: 26:03 PM EDT [facility] Outpatient Attender: COLLINS OG 03/03/2020 01:46:02 PM EDT [facility] Outpatient Attender: COLLINS OG 02/27/2020 08:30:00 AM EDT [facility] Immunizations Vaccine Date Status Description Data Source(s) COVID-19 VACCINE Moderna 01/19/2021 12:00:00 AM EDT completed [place] Vaccine Series Complete: YESThis Data wa s Submitted to [facility] Via [employer]. COVID-19 VACCINE Moderna 11/18/2020 12:00:00 AM EDT completed [place] Vaccine Series Complete: NOThis Data was Submitted to [facility] Via [employer]. Medications Medication Brand Name Start Date Product Form Dose Route Admi nistrative Instructions Pharmacy Instructions Status Indications Reaction Description Data Source(s) Lisinopril 30 MG Oral Tablet Lisinopril 30 MG 02/04/2021 12:00:00 A M EDT 1.0 {tablet} active Lisinopril 30 MG eCW1 ( [facility]) Prednisone 2.5 MG Oral Tablet predniSONE 2.5 MG predniSONE 2 .5 MG 01/19/2021 12:00:00 AM EDT 1.0 {tablet} active pr edniSONE 2.5 MG eCW1 ([facility]) Lisinopril 20 MG Oral Tablet Lisinopril 20 MG 01/19/2021 12:00:00 A M EDT 1.0 {tablet} active Lisinopril 20 MG eCW1 ( [facility]) Prednisone 2.5 MG Oral Tablet predniSONE 2.5 MG predniSONE 2 .5 MG 01/19/2021 12:00:00 AM EDT 1.0 {tablet} active pr edniSONE 2.5 MG eCW1 ([facility]) Lisinopril 20 MG Oral Tablet Lisinopril 20 MG 01/19/2021 12:00:00 A M EDT 1.0 {tablet} active Lisinopril 20 MG eCW1 ( [facility]) Lisinopril 20 MG Oral Tablet Lisinopril 20 MG 01/19/2021 12:00:00 A M EDT 1.0 {tablet} active Lisinopril 20 MG eCW1 ( [facility]) Prednisone 2.5 MG Oral Tablet predniSONE 2.5 MG predniSONE 2 .5 MG 01/19/2021 12:00:00 AM EDT 1.0 {tablet} active pr edniSONE 2.5 MG eCW1 ([facility]) Prednisone 20 MG Oral Tablet Prednisone 11/28/2020 12:00:00 AM EDT active MEDENT ([facility]) Ibuprofen 800 MG Oral Tablet Ibuprofen 11/28/2020 12:00:00 AM EDT active MEDENT ([facility]) Cyclobenzaprine hydrochloride 10 MG Oral Tablet cyclobenzaprine 10 mg tablet TAKE ONE TABLET BY MOUTH THREE TIMES DAILY NEEDED cyclobenzaprine 10 mg tablet TAKE ONE TABLET BY MOUTH THREE TIMES DAILY NEEDED completed cyclobenzaprine hydrochloride 10 MG Oral Tablet MARA ([facility]) Amoxicillin 875 MG Oral Tablet amoxicill in 875 mg tablet TAKE ONE TABLET BY MOUTH EVERY TWELVE HOURS DIRECTED amoxicillin 875 mg tablet TAKE ONE TABLE T BY MOUTH EVERY TWELVE HOURS DIRECTED completed amoxicillin 875 MG Oral Tablet READING ([facility]) Prednisone 10 MG Oral Tablet prednisone 10 mg tablet prednisone 10 mg tablet completed prednisone 10 MG Oral Tablet READING ([facility]) fluticasone 232 mcg-salmeterol 14 mcg/actuation breath activated powdr [id number] completed 60 ACTUAT flut icasone propionate 0.232 MG/ACTUAT / salmeterol xinafoate 0.014 MG/ACTUAT Dry Powder Inhaler MARA ([facility]) gabapentin 100 MG Oral Capsule gabapentin 100 mg capsu le gabapentin 100 mg capsule completed gabapentin 100 MG Oral Capsule READING ([facility]) Azithromycin 250 MG Oral Tablet azithromycin 250 mg ta blet azithromycin 250 mg tablet completed azithromycin 25 0 MG Oral Tablet READING ([facility]) methylprednisolone 4 mg tablets in a dos e pack USE DIRECTED PER package instructions [id number] completed me thylprednisolone 4 mg tablets in a dose pack READING ([facility]) doxycycline hyclate 100 MG Oral Capsule doxycycline hyclate 100 mg capsule TAKE ONE CAPSULE BY MOUTH EVERY 12 HOURS doxycycline hyclate 100 mg capsule TAKE ONE CAPSULE BY MOUTH EVERY 12 HOURS comple aquiles doxycycline hyclate 100 MG Oral Capsule MARA ([facility]) Prednisone 20 MG Oral Tablet prednisone 20 mg tablet prednisone 20 mg tablet completed prednisone 20 MG Oral Tablet READING ([facility]) Cyclobenzaprine hydrochloride 10 MG Oral Tablet cyclobenzaprine 10 mg tablet TAKE ONE TABLET BY MOUTH THREE TIMES DAILY NEEDED cyclobenzaprine 10 mg tablet TAKE ONE TABLET BY MOUTH THREE TIMES DAILY NEEDED completed cyclobenzaprine hydrochloride 10 MG Oral Tablet READING ([facility]) lidocaine 5 % topical patch APPLY 1 PATC H BY TOPICAL ROUTE ONCE DAILY (MAY WEAR UP TO 12HOURS.) [id number] completed lidocaine 0.05 MG/MG Medicated Patch READING ([facility]) fluticasone furoate 0.2 MG/ACTUAT Dry Po wder Inhaler Arnuity Ellipta 200 mcg/actuation powder for inhalation INHALE 1 PUFF BY MOUTH ONCE DAILY Arnuity Ellipta 200 mcg/actuation powder for inhalation INHALE 1 PUFF BY MOUTH ONCE DAILY completed flutica sone furoate 0.2 MG/ACTUAT Dry Powder Inhaler MARA ([facility]) ciclopirox 80 MG/ML Topical Solution cic lopirox 8 % topical solution APPLY TO THE AFFECTED AREA(S) ON NAIL FOLD ONCE DAILY ciclopirox 8 % topical solution APPLY TO THE AFFECTED AREA(S) ON NAIL FOLD ONCE DAILY completed ciclopirox 80 MG/ML Topical Solution MARA ([facility]) lansoprazole 30 MG Delayed Release Oral Capsule lansoprazole 30 mg capsule,delayed release lansoprazole 30 mg capsule,delayed release completed lansoprazole 30 MG Delayed Relea se Oral Capsule MARA ([facility]) ammonium lactate 120 MG/ML Topical Cream ammonium lact ate 12 % topical cream ammonium lactate 12 % topical cream co mpleted ammonium lactate 120 MG/ML Topical Cream MARA ([facility]) Docusate Sodium 100 MG Oral Capsule [DOK ] DOK 100 mg capsule TAKE ONE CAPSULE BY MOUTH THREE TIMES DAILY NEEDED DOK 100 mg capsule TAKE ONE CAPSULE BY M OUTH THREE TIMES DAILY NEEDED completed docusate sodium 100 MG Oral Capsule [DOK] MARA ([facility]) Naproxen 500 MG Oral Tablet naproxen 500 mg tablet TAKE ONE TABLET BY MOUTH TWICE DAILY WITH FOOD naproxen 500 mg tablet TAKE ONE TABLET B Y MOUTH TWICE DAILY WITH FOOD completed naprox en 500 MG Oral Tablet MARA ([facility]) Cephalexin 500 MG Oral Capsule cephalexin 500 mg capsu le cephalexin 500 mg capsule completed cephalexin 500 MG Oral Capsule MARA ([facility]) Amoxicillin 500 MG Oral Capsule amoxicillin 500 mg cap kenroy amoxicillin 500 mg capsule completed amoxicillin 50 0 MG Oral Capsule MARA ([facility]) lidocaine 5 % topical patch APPLY 1 PATC H BY TOPICAL ROUTE ONCE DAILY (MAY WEAR UP TO 12HOURS.) [id number] completed lidocaine 0.05 MG/MG Medicated Patch MARA ([facility]) Azithromycin 250 MG Oral Tablet azithromycin 250 mg ta blet azithromycin 250 mg tablet completed azithromycin 25 0 MG Oral Tablet MARA ([facility]) gabapentin 100 MG Oral Capsule gabapentin 100 mg capsu le gabapentin 100 mg capsule completed gabapentin 100 MG Oral Capsule MARA ([facility]) Prednisone 20 MG Oral Tablet prednisone 20 mg tablet TAKE ONE TABLET BY MOUTH ONCE DAILY prednisone 20 mg tablet TAKE ONE TABLET BY MOUTH ONCE DAILY completed prednisone 20 MG Oral Tab let MARA ([facility]) Prednisone 20 MG Oral Tablet prednisone 20 mg tablet prednisone 20 mg tablet completed prednisone 20 MG Oral Tablet MARA ([facility]) Levofloxacin 750 MG Oral Tablet levofloxacin 750 mg ta blet levofloxacin 750 mg tablet completed levofloxacin 75 0 MG Oral Tablet MARA ([facility]) Azithromycin 250 MG Oral Tablet azithromycin 250 mg ta blet azithromycin 250 mg tablet completed azithromycin 25 0 MG Oral Tablet MARA ([facility]) Prednisone 10 MG Oral Tablet prednisone 10 mg tablet Take by oral route for 30 days. prednisone 10 mg tablet Take by oral route for 30 days. completed prednisone 10 MG Oral Tablet ATH VLADIMIR ([facility]) Chantix Starting Month Box 0.5 mg (11)-1 mg (42) tablets in dose pack USE DIRECTED [id number] completed Chanti x Starting Month Box 0.5 mg (11)-1 mg (42) tablets in dose pack MARA ([facility]) tizanidine 4 MG Oral Tablet tizanidine 4 mg tablet tizanidine 4 mg ta blet completed tizanidine 4 MG Oral Tablet MARA ([facility]) Doxycycline Monohydrate 100 MG Oral Caps ule doxycycline monohydrate 100 mg capsule TAKE ONE CAPSULE BY MOUTH TWICE DAILY doxycycline monohydrate 100 mg capsule TAKE ONE CAPSULE BY MOUTH TWICE DAILY completed doxycycline monohydrate 100 MG Oral Capsule MARA ([facility]) Cyclobenzaprine hydrochloride 10 MG Oral Tablet cyclobenzaprine 10 mg tablet TAKE ONE TABLET BY MOUTH THREE TIMES DAILY cyclobenzaprine 10 mg tablet TAKE ONE TABLET BY MOUTH THREE TIMES DAILY com pleted cyclobenzaprine hydrochloride 10 MG Oral Tablet MARA ([facility]) tramadol hydrochloride 50 MG Oral Tablet tramadol 50 mg tablet TAKE ONE TABLET BY MOUTH EVERY 4-6 HOURS NEEDED FOR PAIN (MAX DAILY DOSE THREE) tramadol 50 mg tablet TAKE ONE TABLET BY MOUTH EVERY 4-6 HOURS NEEDED FOR PAIN (MAX DAILY DOSE THREE) completed tramadol hydrochloride 50 MG Oral Tablet MARA ([facility]) Omeprazole 40 MG Delayed Release Oral Ca psule omeprazole 40 mg capsule,delayed release omeprazole 40 mg capsule,delayed release completed omeprazole 40 MG Delayed Release Oral Capsule MARA ([facility]) Prednisone 20 MG Oral Tablet prednisone 20 mg tablet prednisone 20 mg tablet completed prednisone 20 MG Oral Tablet MARA ([facility]) Acetaminophen 325 MG / Hydrocodone Elizabeth trate 5 MG Oral Tablet hydrocodone 5 mg- acetaminophen 325 mg tablet TAKE ONE TABLET BY MOUTH EVERY 4-6 HOURS NEEDED FOR SEVERE PAIN MAX DAILY DOSE THREE TABLETS hydrocodone 5 mg-acetaminophen 325 mg tablet TAKE ONE TABLET BY MOUTH EVERY 4-6 HOURS NEEDED FOR SEVERE PAIN MAX DAILY DOSE THREE TABLETS completed acetaminophen 325 MG / hydrocodone bitartrate 5 MG Oral Tablet MARA ([facility]) Omeprazole 20 MG Delayed Release Oral Ca psule omeprazole 20 mg capsule,delayed release omeprazole 20 mg capsule,delayed release completed omeprazole 20 MG Delayed Release Oral Capsule MARA ([facility]) Methocarbamol 750 MG Oral Tablet methoca rbamol 750 mg tablet TAKE ONE TABLET BY MOUTH THREE TIMES DAILY NEEDED methocarbamol 750 mg tablet TAKE ONE TAB LET BY MOUTH THREE TIMES DAILY NEEDED com pleted methocarbamol 750 MG Oral Tablet MARA ([facility]) Ranitidine 150 MG Oral Tablet ranitidine 150 mg tablet TAKE ONE TABLET BY MOUTH TWICE DAILY ranitidine 150 mg tablet TAKE ONE TABLET BY MOUTH TWICE DAILY completed ranitidine 150 MG Or al Tablet MARA ([facility]) Cyclobenzaprine hydrochloride 5 MG Oral Tablet cyclobenzaprine 5 mg tablet TAKE ONE TABLET BY MOUTH THREE TIMES DAILY NEEDED FOR MUSCLE SPASMS cyclobenzaprine 5 mg tablet TAKE ONE TABLET BY MOUTH THREE TIMES DAILY NEEDED FOR MUSCLE SPASMS completed cyclobenzaprine hydrochloride 5 MG Oral Tablet MARA ([facility]) Insurance Providers Payer name Policy type / Coverage type Policy ID Covered republican ID Covered republican's relationship to garner Policy Garner Plan Information Managed Care - [facility] Community Plan P [id number] S [id number] Medicaid S [id number] S [id number] Managed Care - [facility] Community Plan P [id number] S [id number] Managed Care - [facility] Community Plan P [id number] S [id number] Medicaid S [id number] S [id number] Managed Care - [facility] Community Plan P [id number] S [id number] [facility] MEDICAID [id number] S [id number] Medicaid Medicaid [id number] Self [id number] [facility] Commercial [employer] Co. [id number] Self [id number] MEDICAID [id number] SP [id number] Managed Care - [facility] Community Plan P [id number] S [id number] SELF PAY ONLY [id number] SP [id number] UNHC COMMUNITY PLAN MCDHMO [id number] SP [id number] UNHC COMMUNITY PLAN MCDHMO UNHC COMMUNITY PLAN MCDHMO [id number] Self [employer]AN [employer] UNHC COMMUNITY PLAN [facility] O [id number] S [id number] [facility] HEA [id number] 1 [id number] STPP Wrap [id number] [facility] [id number] [id number] Community Plan Medicaid 445 Self UNHC COMMUNITY PLAN MCDHMO [id number] SP [id number] UNHC COMMUNITY PLAN [id number] [facility] MEDICAID [id number] SP [id number] P SELF PAY ONLY [id number] SP [id number] [facility] MEDICAID [id number] S [id number] UNHC COMMUNITY PLAN XIX [id number] 18 [id number] MEDICAID -[id number] [facility](MCAID) O [id number] S [id number] D Managed Care [facility] O UNAVAILABLE S UNAVAILABLE MEDICAID M [id number] S [id number] Problems, Conditions, and Diagnoses Code Display Name Description Problem Type Effective Dates Data Source(s) Z76.89 Persons encountering health services in other specified circumstances PERSONS ENCOUNTERING HEALTH SERVICES IN OTH CIRCUM Diagnosis 10/2020 03:54:00 PM [facility] J44.9 Chronic obstructive pulmonary disease, u nspecified CHRONIC OBSTRUCTIVE PULMONARY DISEASE, UNSPECIFIED Diagnosis 02/04/2021 03:54:00 PM [facility] I10 Essential (primary) hypertension ESSENTIAL (PRIMARY) H YPERTENSION Diagnosis 01/19/2021 09:46:00 AM [facility] Z79.899 Other 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 card tender (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 O THER CORRECTION (CURRENT) DRUG THERAPY Diagnosis 01/15/2021 08:20:00 PM T [facility] l 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 Diagnosis 01/15/2021 08:20:00 PM EDT [facility] Z79.51 correction (current) use of inhaled stero ids CORRECTION (CURRENT) USE OF INHALED STEROIDS Diagnosis 01/15/2021 08:20:00 PM EDT [facility] l Z76.0 Encounter for issue of repeat prescripti on ENCOUNTER FOR ISSUE OF REPEAT PRESCRIPTION Diagnosis 01/15/2021 08:20:00 PM EDT [facility] F17.210 Nicotine dependence, cigarettes, uncompl icated NICOTINE DEPENDENCE, CIGARETTES, UNCOMPLICATED Diagnosis 01/15/2021 08:20:00 PM EDT [facility] R51.9 HEADACHE, UNSPECIFIED HEADACHE, UNSPECIFIED Diagnosis 01/15/2021 08:20:00 PM T [facility] [id number] Exposure to other specified factors, sub sequent encounter Exposure to other specified factors, subsequent encounter Diagnosis 11/24/19 12:46:00 PM EDT [facility] [id number] Strain of muscle and tendon of front wall of thorax, subsequent encounter Strain of muscle and tendon of front wal l of thorax, subsequent encounter Diagnosis 11/23/2020 12:46:00 PM EDT [facility] J439 Emphysema, unspecified Emphysema, unspecified Diagnosi s 11/23/2020 12:46:00 PM EDT [facility] [id number] Nicotine dependence, cigarettes, uncompl icated Nicotine dependence, cigarettes, uncomplicated Diagnosis 11/23/2020 12:46:00 PM EDT [facility] I10 Essential (primary) hypertension Essential (primary) h ypertension Diagnosis 11/23/2020 12:46:00 PM EDT [facility] R42 Dizziness and giddiness Dizziness and giddiness Diagno sis 11/23/2020 12:46:00 PM EDT [facility] [id number] Nicotine dependence, unspecified, uncomp licated Nicotine dependence, unspecified, uncomplicated Diagnosis 11/05/2020 10:37:00 AM EDT [facility] J449 Chronic obstructive pulmonary disease, u nspecified Chronic obstructive pulmonary disease, unspecified Diagnosis 11/05/2020 10:37:00 AM EDT [facility] R0600 Dyspnea, unspecified Dyspnea, unspecified Diagnosis 11/05/2020 10:37:00 AM EDT [facility] Z760 Encounter for issue of repeat prescripti on Encounter for issue of repeat prescription Diagnosis 10/21/2020 01:51:00 PM EDT [facility] [id number] CONTACT WITH AND SUSPECTED EXPOSURE TO C OVID-19 CONTACT WITH AND SUSPECTED EXPOSURE TO COVID-19 Diagnosis 10/21/2020 01:51:00 PM EDT [facility] J441 Chronic obstructive pulmonary disease wi th (acute) exacerbation Chronic obstructive pulmonary disease with (acute) exacerbation Diagnosis 10/15/2020 12:12:00 PM EDT [facility] [id number] Other fpc (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 O ther 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 card tender (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 Diagnosis 08/11/2020 09:55:00 AM EST [facility] I10 [id number] Essential hypertension Problem 02/04/2021 12 :00:00 AM EDT eCW1 ([facility]) F17.200 [id number] Tobacco dependence Problem 02/04/2021 12:00: 00 AM EDT eCW1 ([facility]) J44.9 [id number] Chronic bronchitis w ith COPD (chronic obstructive pulmonary disease) Problem 01/19/2021 12:00:00 AM EDT eCW1 ([facility]) I10 [id number] Primary hypertension Problem 01/19/2021 12:0 0:00 AM EDT eCW1 ([facility]) 40562763 Chronic obstructive lung disease Chronic Obstruc tive Lung Disease Problem 05/11/2020 12:00:00 AM EST MARA ([facility]) 68993888 Chronic obstructive lung disease Chronic Obstruc tive Lung Disease Problem 05/11/2020 12:00:00 AM EST MARA ([facility]) 22535189 Chronic obstructive lung disease Chronic Obstruc tive Lung Disease Problem 05/11/2020 12:00:00 AM EST MARA ([facility]) 488252764 Lesion of neck Lesion of Neck Problem 09/24/2019 12:00:00 AM EDT - 09/10/2020 12:00:00 AM EST MARA ([facility]) 050406304 Finding of body region Finding of Body Region Problem 05/24/2019 12:00:00 AM EST - 09/10/2020 12:00:00 AM EST MARA ([facility]) [id number] Endocrine/metabolic screening Endocrine/metabolic Scre ening Problem 05/24/2019 12:00:00 AM EST - 05/11/2020 12:00:00 AM EST MARA ([facility]) [id number] Screening for malignant neoplasm of pros chamberlain Screening for Malignant Neoplasm of Prostate Problem 05/24/2019 12:00:00 AM EST - 09/10/2020 12:00:00 AM EST MARA ([facility]) 490296850 Endocrine/metabolic screening Endocrine/metabolic Scre ening Problem 05/24/2019 12:00:00 AM EST - 05/11/2020 12:00:00 AM EST MARA ([facility]) [id number] Endocrine/metabolic screening Endocrine/metabolic Scre ening Problem 05/24/2019 12:00:00 AM EST - 05/11/2020 12:00:00 AM EST MARA ([facility]) 062910239 Acute exacerbation of chronic obstructiv e airways disease Acute Exacerbation of Chronic Obstructive Airways Disease Problem 12:00:00 AM EDT - 05/11/2020 12:00:00 AM EST MARA ([facility]) 159629102 Acute exacerbation of chronic obstructiv e airways disease Acute Exacerbation of Chronic Obstructive Airways Disease Problem 12:00:00 AM EDT - 05/11/2020 12:00:00 AM EST MARA ([facility]) 448982423 Acute exacerbation of chronic obstructiv e airways disease Acute Exacerbation of Chronic Obstructive Airways Disease Problem 12:00:00 AM EDT - 05/11/2020 12:00:00 AM EST MARA ([facility]) 640813543 Finding of esophagus Finding of Esophagus Problem 03/11/2016 12:00:00 AM EDT - 09/10/2020 12:00:00 AM EST [facility] ([facility] [place]) Surgeries/Procedures No Information Results ID Date Data Source [id number] 03/08/2021 02:24:00 PM EDT [facility] Name Value Range Interpretation Code Description Data Ebony rce(s) Supporting Document(s) SARS COVID ANTIGEN NEGATIVE [facility] This lab was ordered by [facility] a nd reported by [facility]. ID Date Data Source [id number] 01/31/2021 09:23:00 AM EDT [facility] Name Value Range Interpretation Code Description Data Ebony rce(s) Supporting Document(s) SARS-CoV-2 (COVID 19) NEGATIVE - SARS-CoV-2 (COVID19) [facility] This lab was ordered by [facility] a nd reported by [facility]. ID Date Data Source [id number] 01/15/2021 10:19:00 PM EDT [facility] Patient: SEAN MILLER [facility]ation [facility] t - Physicians/[facility] Healthcare.VisitID: [id number] [place] [address] [phone], MRegistration Date/Time: 01/15/2021 19:03 Weight:77.1 kg (S). Height/Length:70 inches (S). BMI:24.4 FAMILY HISTORYNo significant family medical history. (Electronically signed by Farnaz Ceballos M.D. 01/15/2021 22:15) Name Value Range Interpretation Code Description Data [facility] rce(s) Supporting Document(s) ID Date Data Source [id number] 11/24/2020 09:47:00 AM EDT [facility] [address] [place] [address] PHONE: [phone] FAX: [phone] Name .................. : KAMALA ESTARDA Acct Number.................. : [id number] ROOM. ................. : TR-08 Number ................... : [id number] Stay type ............. : E/R Discharge Date......... ... : 11/23/20 Admit Date ......... : 11/23/20 Admit Phys .................... : OTTO CARLIN Date of ....... : 1965 Family Phys ................... : NON STAFF Phone .................. : [phone] Age ................................ : 55 Film# .................. .:[id number] Sex ................................. : M Unsigned transcriptions are preliminary reports and do not represent a medical or legal document CT HEAD W/O CONTRAST [id number] COMPLETE:11/23/20 15:24 [place]O 08734 Reason(s): Vertigo/Dizziness CT SCAN OF THE HEAD WITHOUT CONTRAST, 11/23/20: INDICATION: Vertigo and dizziness. Comparison is made to a prior study from 09/22/2020. FINDINGS: No acute hemorrhage or infarct is identified. No midline shift or mass effect is identified. No clear evidence of an extra-axial fluid collection is identified. Osseous structures appear unremarkable. The visualized portions of the paranasal sinuses and mastoid air cells appear unremarkable. IMPRESSION: No acute findings and no significant change. While performing the above CT examination, radiation dose reduction was accomplished utilizing automated exposure control, adjusting of the mA and kV based on the patient's body size and/or the use of imperative reconstructive techniques. CT dose 836.2 mGycm. Examination dictated by SULEMA Chlid. Examination was reviewed with Kylah Gaines MD, radiologist at the time of this dictation. Electronically Reviewed and Signed By KYLAH GAINES MD , 11/24/20 09:47, GMM Page 1 of 2 [facility] [address] [place] [address] PHONE: [phone] FAX: [phone] Name .................. : KAMALA ESTRADA Acct Number.................. : [id number] ROOM. ................. : TR- MR Number ................... : [id number] Stay type ............. : E/R Discharge Date......... ... : 11/23/20 Admit Date ......... : 11/23/20 Admit Phys .................... : OTTO CARLIN Date of ....... : 1965 Family Phys ................... : NON STAFF Phone .................. : [phone] Age ................................ : 55 Film# .................. .:[id number] Sex ................................. : M Unsigned transcriptions are preliminary reports and do not represent a medical or legal document CT HEAD W/O CONTRAST [id number] COMPLETE:11/23/20 15:24 IT[place]O 16049 Reason(s): Vertigo/Dizziness Transcribe Initials: SSR, Transcribe Date: 11/24/20 09:09, Dictation Date: Copy for: EMERGENCY DEPT via modem Copy for: 710 MED REC DISCHARGED Page 2 of 2 Name Value Range Interpretation Code Description Data Ebony rce(s) Supporting Document(s) ID Date Data Source [id number] 11/24/2020 09:47:00 AM EDT [facility] [address] [place] [address] PHONE: [phone] FAX: [phone] Name .................. : KAMALA ESTRADA Acct Number.................. : [id number] ROOM. ................. : [address] Number ................... : [id number] Stay type ............. : E/R Discharge Date......... ... : 11/23/20 Admit Date ......... : 11/23/20 Admit Phys .................... : OTTO CARLIN Date of ....... : 1965 Family Phys ................... : NON STAFF Phone .................. : [phone] Age ................................ : 55 Film# .................. .:[id number] Sex ................................. : M Unsigned transcriptions are preliminary reports and do not represent a medical or legal document RIBS NITESHAT W/SULEMA CXR RT [id number] COMPLETE:11/23/20 18:45 [facility] [id number] R estefania(s): Pain RIGHT RIBS, 11/23/20: INDICATION: Pain. FINDINGS: There is normal alignment and position of the bones of the thorax. No fractures are identified. No evidence for pneumothorax is noted. IMPRESSION: Unremarkable rib series. Examination dictated by SULEMA Child. Examination was reviewed with Kylah Gaines MD, radiologist at the time of this dictation. Electronically Reviewed and Signed By KYLAH GAINES MD , 11/24/20 09:47, [facility] Transcribe Initials: SSR, Transcribe Date: 11/24/20 09:09, Dictation Date: Copy for: EMERGENCY DEPT via [place] Copy for: 710 MED REC DISCHARGED Page 1 of 1 Name Value Range Interpretation Code Description Data Ebony rce(s) Supporting Document(s) ID Date Data Source [id number] 11/23/2020 07:53:00 [place] [address] RESPIRATORY CARE REPORT ==== ---------NAME------- NUMBER SEX AGE ADMIT DISC. XRAY# F/C TYPEMCCOY SEAN [id number] M 55 11/23/20 11/23/20 [id number] X6B E/R DATE OF : 1965 M/R# [id number] #: [id number] TR-08 LOCATION: EMERGENCY DEPT EKG [id number] COMP LETE:11/23/20 14:04 [place] [id number] PHYSICIAN: OTTO CARLIN Name Value Range Interpretation Code Description Data Ebony rce(s) Supporting Document(s) ID Date Data Source [id number] 11/23/2020 12:46:00 PM EDT [facility] 1 OrderSheet [facility] [address] [place] [address] Phone #: ext- [phone] 11/23/2020 12:44 [id number] Sex: M : 1965 Age: 55yWEIGHT:74.8 kg (S) HEIGHT:70 inches (S) BMI:23.7ALLERGIES: No Known Drug AllergyCHIEF COMPLAINT: dizziness, vertigo, room)DIAGNOSIS: VertigoLAB ORDERSOrder Description Priority Entered Acknowledged InitialedCBC w Diff STAT 13:11/23/2020 13:40 Coco Matos Riccardo R.N. M.D.;CMP STAT 13:11/23/2020 13:40 Coco Matos Riccardo R.N. M.D.;Lipase STAT 13:11/23/2020 13:40 Coco Matos Riccardo R.N. M.D.;PT/PTT STAT 13:11/23/2020 13:40 Coco Matos Riccardo R.N. M.D.;Troponin-T STAT 13:11/23/2020 13:40 Coco Matos Riccardo R.N. M.D.;DIAGNOSTIC STUDY ORDERSOrder Description Priority Entered Acknowledged InitialedRibs W/PA CXR STAT 13:11/23/2020 13:56 Key Matos Riccardo R.N.(Oxygen?(No)) Brooklynn; Reason for Study: PainCT Head W/O Cont STAT 13:11/23/2020 13:56 Coco Matos(Oxygen? (Yes)) Devin Menjivar R.N., M.D.; Reason for Study: Vertigo/Dizziness, VomitingMEDICATION/IV/DRIP/FLUID ORDERSOrder Description Priority Entered Acknowledged InitialedPhenergan IV 25mg 13:27 11/23/2020 13:42 Coco Matosin 50mL NS, give Devin Menjivar R.N. 2 OrderSheet [facility] [address] [place] [address] Phone #: ext- [phone] 11/23/2020 12:44 Patient: SEAN MILLER Sex: M : 1965 Age: 55ywide open: 25 mg M.D.;(NOW x1, HIGHALERTMEDICATION)NS IV 500 mL 13:27 11/23/2020 13:42 Celso Matos: : Bolus 500 Turrin, Devin R.N.mL, then 125 mL/hr M.D.;(X1)GENERAL ORDERSOrder Description Priority Entered Acknowledged InitialedBlood Pressure 13:11/23/2020 13:27 Coco MatosMonitor Otto, Devin R.N. M.D.;Jigsaw Operator 13:11/23/2020 13:27 Coco Matso(continuous) Otto, Devin R.N. M.D.;EKG 13:11/23/2020 13:27 Coco Matos, Devin R.N. M.D.;NPO 13:11/23/2020 13:27 Coco Matos, Devin R.N. M.D.;Obtain Old EKG 13:11/23/2020 13:27 Coco Matos, Devin R.N. M.D.;Obtain Old Records 13:11/23/2020 13:27 Coco Matos, Devin R.N. M.D.;Oxygen titrate to 13:11/23/2020 13:27 Coco Matos92% Otto, Devin R.N. M.D.;Pulse oximeter 13:11/23/2020 13:27 Coco Matos(Continuous) Otto, Devin R.N. M.D.;Saline Lock 13:11/23/2020 13:40 Coco Matos Riccardo R.N. M.D.;Vitals 13:11/23/2020 13:40 Coco Matos Riccardo R.N. M.D.;[Electronically signed by Devin Menjivar M.D. (16:42 11/23/2020)] 3 OrderSheet [facility] [address] [place] [address] Phone #: ext- [phone] 11/23/2020 12:44 Patient: SEAN MILLER Sex: M : 1965 Age: 55y[Electronically signed by Quinton Thornton RN (18:34 11/23/2020)][Electronically locked by Quinton Thornton RN (18:34 11/23/2020)] Name Value Range Interpretation Code Description Data Ebony rce(s) Supporting Document(s) ID Date Data Source [id number] 11/23/2020 12:46:00 PM EDT [facility] 1 Medication Reconciliation Report [facility] [address] [place] [address] Phone #: ext- [phone] 11/23/2020 12:44 Patient: SEAN MILLER Sex: M : 1965 Age: 55yWeight: 74.8 kgHeight/Length: 70 in.BMI: 23.7ALLERGIES: No Known Drug AllergyThe patient's Home Medications are listed below:STOP TAKING THE FOLLOWING MEDICATIONS: Diclofenac Sodium OralCONTINUE TAKING THE FOLLOWING MEDICATIONS: Lisinopril Oral 20 mg, daily Omeprazole Oral predniSONE OralThe source(s) of the original Home Medication information:patientThe following Medications were given to the patient in the Emergency Department:Phenergan [IVPB] IVPB bolus 0, then 25 mg 200 mL/hr, administered: 13:42 11/23/2020IV NS IV Fluids bolus 500 mL over 1 hour(s), then 125 mL/hr, administered: 13:42 11/23/2020The following Medications were prescribed to the patient:None. Name Value Range Interpretation Code Description Data Ebony rce(s) Supporting Document(s) ID Date Data Source [id number] 11/23/2020 12:46:00 PM EDT [facility] 1 Medication Administration Record [facility] [address] [place] [address] Phone #: ext- [phone] 11/23/2020 12:44 Patient: SEAN MILLER Sex: M : 1965 Age: 55yWeight: 74.8 kgHeight/Length: 70 inBMI: 23.7ALLERGIES: No Known Drug Allergy Date/Time Medication Administered Medication OrderedStart PHENERGAN [IVPB] Phenergan IV 25mg in 50mL NS,13:42 0 11/23/2020 Dose: 25 mg IVPB give wide open: 25 mg (NOW x1,Coco Matos REldon Rate: 200 mL/hr over 15 minute(s) HIGH ALERT MEDICATION)---- Dispensed: 50 mL bagStop Site: #1 right [id number]:24 11/23/2020Isabella Dooley R.N.Start IV NS NS IV 500 mL Bolus: : Bolus 03240:42 11/23/2020 Dose: IV Fluids mL, then 125 mL/hr (X1)Coco Matos R.N. Rate: 125 mL/hr over 3 hour(s)---- Bolus: 500 mL over 1 hour(s)Stop Dispensed: 1000 mL bag15:23 11/23/2020 Site: #1 right Isabella MillanYara Name Value Range Interpretation Code Description Data Ebony rce(s) Supporting Document(s) ID Date Data Source [id number] 11/23/2020 12:46:00 PM EDT [facility] 1 General Instructions [facility] [address] [place] [address] Phone #: ext- [phone] 11/23/2020 12:44 Patient: SEAN MILLER Sex: M : 1965 Age: 55yChronic vertigo of unknown cause (recurrent).Right Rib Strain.INSTRUCTIONSDrink plenty of fluids. Do not smoke. No alcohol.(PLEASE STOP THE DICLOFENAC).Warnings: Further evaluation is necessary. It is very important to follow up with a healthcare provider.GENERAL WARNINGS: Return or contact your physician immediately if your condition worsens orchanges unexpectedly, if not improving as expected, or if other problems arise. SPECIFICALLY, return ifyou develop chest pain, neck pain, jaw pain, shoulder pain, arm pain, back pain, fluttering sensation in yourchest, lightheadedness, fainting, numbness, weakness or extreme fatigue.Your Current Medications: Your current home medications have been reviewed.STOP TAKING THE FOLLOWING MEDICATIONS:Diclofenac Sodium Oral.CONTINUE TAKING THE FOLLOWING MEDICATIONS:Lisinopril Oral : 20 mg daily.Omeprazole Oral.predniSONE Oral.Follow-up:Return to the emergency department as needed. Follow up with your healthcare provider in two dayseven if well. Call for an appointment. Reason for referral: evaluation and treatment. Summary of careprovided to patient via paper.Understanding of the discharge instructions verbalized by patient. Expected course of illness, dischargeinstructions, activity level, diet, follow-up appointment and risks and benefits of treatment reviewed withpatient and understanding verbalized. Agrees to plan of care. ADDITIONAL INFORMATIONVertigo (Unknown Cause) 2 General Instructions [facility] [address] [place] [address] Phone #: ext- [phone] 11/23/2020 12:44 Patient: SEAN MILLER Sex: M : 1965 Age: 55yIn addition to helping with hearing, the inner ear is part of the balance center of your body. Problemswith the inner ear can a false feeling of motion. This is called vertigo. Often, it feels as if you or theroom is spinning. A vertigo attack may cause sudden nausea, vomiting and heavy sweating. Severevertigo cause s a loss of balance and can cause you to fall. During vertigo, small head movementsand changes in body position will often make the symptoms worse. You may also have ringing in theears called tinnitus.An episode of vertigo may last seconds, minutes or hours. Once you are over the first episode, it maynever come back. However, symptoms may return off and on.The cause of your vertigo is not yet known. Possible causes of vertigo include: Inflammation of the inner ear Disease of the nerves to the inner ear Movement of calcium particles in the inner ear Poor blood flow to the balance centers of the brain Migraine headaches In older adults, the use of more than one medicine along with some health conditionsHome care If symptoms are severe, rest quietly in bed. Change positions very slowly. There is usually one position that will feel best, such as lying on one side or lying on your back with your head slightly raised on pillows. Until you have no symptoms, you are at a higher risk of falling. Let someone help you when you get up. Get rid of home hazards such as loose electrical cords 3 General Instructions [facility] [address] [place] [address] Phone #: ext- [phone] 11/23/2020 12:44 [id number] Sex: M : 1965 Age: 55y and throw rugs. Don't walk in unfamiliar areas that are not lighted. Use night lights in bathrooms and kitchen areas. Do not drive a car or work with dangerous machinery until symptoms have been gone for at least one week. Take medicine as prescribed to relieve your symptoms. Unless another medicine was prescribed for symptoms of nausea, vomiting, and dizziness, you may use rlyw-owd-ndsmcxa motion sickness pills. Ask your pharmacist for suggestions.Follow-up careFollow up with your healthcare provider or as directed. If you are referred to a specialist or for testing,make the appointment promptly.When to seek medical adviceCall your healthcare provider if any of the following occur: Fever of 100.4F (38C) or higher, or as directed by your healthcare provider Vertigo worsens or is not controlled by prescribed medicine Repeated vomiting not relieved by prescribed medicine Severe headache Confusion Weakness of an arm or leg or 1 side of the face Difficulty with speech or vision Loss of consciousness Seizure [id number] [employer]. [address] [place] [address]. All rights reserved. This information is not intended as asubstitute for professional medical care. Always follow your healthcare professional's instructions. You have been given the following additional information: Vertigo, Unspecified 4 General Instructions [facility] [address] [place] [address] Phone #: ext- [phone] 11/23/2020 12:44 Patient: SEAN MILLER Sex: M : 1965 Age: 55y(Electronically signed by Devin Menjivar M.D. 11/23/2020 16:42) Name Value Range Interpretation Code Description Data Ebony rce(s) Supporting Document(s) ID Date Data Source [id number] 11/23/2020 12:46:00 PM EDT [facility] 1 Clinical Report - Nurses [facility] [address] [place] [address] Phone #: ext- [phone] 11/23/2020 12:44 Patient: SEAN MILLER Sex: M : 1965 Age: 55yTRIAGEArrived by EMS. Historian: patient. ( Pt was seen at [facility] 1 week ago and was given an antibiotic for ribpain. Yesterday he started to feel dizzy. He vomited several times. Pt states" I passed out yesterdaymorning and yesterday evening. I think it has to do with the medication they gave me").Triage time: 12:40 11/23/2020. Acuity: LEVEL 3.Chief Complaint: DIZZINESS and LIGHT HEADED.Alert. No acute distress.This started yesterday. Patient was last known well (08:50 11/22/2020). 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 SEPSIS SCREEN NEGATIVE. No suspected or confirmedsigns of infection present. --12:52 11/23/20 Aline Cohn REldon12:47 . BP: 101/68. MAP: 79. HR: 72. RR: 13. O2 saturation: 100% on room air. Temp: 97.6 F(oral). Pain level now: 5/10. --12:52 11/23/20 Aline Cohn R.N.JAYDEN COMA SCORE: 15- eyes open- spontaneous (4); best verbal response- oriented (5); bestmotor response- obeys commands (6). --12:53 11/23/20 Aline Cohn R.N.Weight: 74.8 kg stated. Height/Length: 70 inches Per Patient. BMI: 23.7. --12:51 11/23/20 Aline Cohn R.N.MedicationsLisinopril Oral 20 mg, daily. --12:54 11/23/20 Aline Cohn R.N. Omeprazole Oral. --12:55 11/23/20 Aline Cohn R.N. Diclofenac Sodium Oral. --12:55 11/23/20 Aline Cohn R.N. predniSONE Oral. --12:55 11/23/20 Aline Cohn R.N.AllergiesNo Known Drug Allergy. --12:54 11/23/20 Aline Cohn R.N.PROBLEMS:Dizziness.Arthritis.Asthma. 2 Clinical Report - Nurses [facility] [address] [place] [address] Phone #: ext- [phone] 11/23/2020 12:44 Patient: SEAN MILLER Sex: M : 1965 Age: 55yVertigo.Emphysema. --12:56 11/23/20 Aline Cohn R.N.The following entry was modified by Aline Cohn R.N., 12:56 11/23/20COPD - Chronic Obstructive Pulmonary Disease. --12:55 11/23/20 Aline Cohn R.N.The following entry was modified by Aline Cohn R.N., 12:56 11/23/20Hypertension. --12:55 11/23/20 Aline Cohn R.N.The following entry was modified by Aline Cohn R.N., 12:56 11/23/20Gastroesophageal Reflux Disease. --12:55 11/23/20 Aline Cohn R.N..Medication/allergy information source: the patient. --12:52 11/23/20 Aline Cohn R.N.ADDITIONAL SURGERIES:no known surgeries.HistoryPAST MEDICAL HX: Immunizations: up-to-date.SOCIAL HX: Current every day light tobacco smoker- less than 1/2 a pack per day. Alcohol use;consumes beer weekly. Heavy drug use: marijuana. He was offered HIV testing but declined. Patienteducation was provided. He was offered hepatitis C testing but declined. Patient education was provided.SELF HARM ASSESSMENT: Self harm assessment was performed. The patient answered "no" to thequestion(s) "Do you have thoughts of harming or killing yourself?", "Do you have a plan for harming orkilling yourself?" and "Have you recently had thoughts about harming or killing others?".ABUSE ASSESSMENT: Abuse assessment. The patient had positive responses to the question(s) "Do youfeel safe in your home?" (yes). Abuse denied. No suspicion of abuse. No report of abuse.NUTRITIONAL RISK ASSESSMENT: The nutritional risk assessment revealed no deficiencies.FUNCTIONAL ASSESSMENT: Functional assessment: no impairments noted.LEARNING NEEDS ASSESSMENT: The learning needs assessment revealed no barriers.FALL RISK ASSESSMENT: Fall risk assessment completed. Risk factors identified include nausea anddizziness. Fall interventions initiated. Patient placed on stretcher. Side rails up x2. Bed in low position.Brakes on. Patient visible from nurses' station and identified as a fall risk by chart flagged. Call light inreach of patient. Instructed not to get up without assistance. Instructions given to patient including fallprevention information. Verbalizes understanding.SKIN INTEGRITY ASSESSMENT: Skin integrity risk assessment completed. No skin integrity riskidentified. --12:52 11/23/20 Aline Cohn R.N.SOCIAL HX: The patient has not traveled outside the [place] 3 Clinical Report - Nurses [facility] [address] [place] [address] Phone #: [phone]- [phone] 11/23/2020 12:44 Patient: SEAN MILLER Sex: M : 1965 Age: 55y Infectious disease exposure: No infectious disease exposure. (COVID screen negative). Patient is not a known carrier of tuberculosis, hepatitis, HIV, MRSA or VRE. Patient is not a known carrier of CRE. --12:54 11/23/20 Aline Cohn R.N. Interventions Identification band on patient. --12:52 11/23/20 Aline Cohn R.N.PHYSICAL ASSESSMENTTo room via stretcher.GENERAL / NEURO / PSYCH: Oriented X 4. Appears in no acute distress. Alert. Speech within normallimits. ( on cellphone).HEENT: No facial asymmetry noted. Pupils equal, round and reactive to light.RESPIRATORY: Breath sounds within normal limits. Respirations not labored.CVS: Normal sinus rhythm noted. Cardiac rhythm: normal sinus rhythm. Capillary refill less than 2seconds.GI / : Abdomen soft and nontender.SKIN: Skin is warm and dry. --13:10 11/23/20 Quinton Thornton RN.NURSING PROGRESS NOTESCardiac monitor, NIBP monitor and pulse oximeter placed on patient; monitor alarms on. Patient gowned.Reassurance given. Three patient identifiers checked. Call light placed in reach. Side rails up x 2. Bedplaced in lowest position. Brakes of bed on. Patient ready for evaluation- ED physician and PA notified.--12:53 11/23/20 Aline Cohn R.N. EKG time: (12:50 11/23/2020). EKG was performed by a nurse and shown to the ED physician. --12:56 11/23/20 Aline Cohn R.N. 13:41 11/23/2020 Site #1 started via IV in the right forearm with an 20g angiocath, with aseptic technique and good blood return; one attempt. Saline lock flushed with 10 mL saline. --13:41 11/23/20 Coco Matos R.N. 13:42 11/23/2020 Started 25 mg of Phenergan IVPB in bag #1 50 mL; at 200 mL/hr over 15 minute(s) via site #1. via IV pump. Allergies verified and confirmed 5 rights. IV patency established. IV site checked: no pain, redness, or swelling. IV flushed thoroughly pre- and post-medication administration. Information reviewed with patient including reason for taking this medication, signs of allergic reaction and precautions. Verbalizes understanding. --13:42 11/23/20 Coco Matos R.N. 13:42 11/23/2020 Started bag #1 1000 mL IV Fluids IV N S; bolus of 500 mL over 1 hour(s) then at 125 mL/hr over 3 hour(s) via site #1 via IV pump. Allergies verified and confirmed 5 rights. IV patency established. IV site checked: no pain, redness, or swelling. IV flushed thoroughly pre- and post-medication administration. Information reviewed with patient including reason for taking this medication, signs of allergic reaction and precautions. Verbalizes understanding. --13:42 11/23/20 Coco Matos R.N. Patient transported to radiology and CT by wheelchair with fire control technician g. --13:57 11/23/20 Coco Matos, 4 Clinical Report - Nurses [facility] [address] [place] [address] Phone #: ext- [phone] 11/23/2020 12:44 Patient: SEAN MILLER Sex: M : 1965 Age: 55y R.N. Checked patient name and birthdate. Blood samples drawn by tech. ([id number]). --14:01 11/23/20 Quinton Thornton RN Warming measures: blanket applied (7089). Patient returned from radiology and CT by wheelchair with mask and fire control technician g. (4095). --14:07 11/23/20 Quinton Thornton RN 13:00 11/23/20. BP: 89/71. MAP: 77. HR: 72. O2 saturation: 99% on room air. --16:34 11/23/20 Quinton Thornton RN 13:16 11/23/20. BP: 90/64. MAP: 72. HR: 76. O2 saturation: 100% on room air. --16:36 11/23/20 Quinton Thornton RN 13:37 11/23/20. BP: 155/84. MAP: 107. HR: 71. O2 saturation: 100% on room air. --16:36 11/23/20 Quinton Thornton RN 13:45 11/23/20. BP: 95/74. MAP: 81. HR: 67. O2 saturation: 100% on room air. --16:37 11/23/20 Quinton Thornton RN 14:00 11/23/20. BP: 100/70. MAP: 80. HR: 65. O2 saturation: 100% on room air. --16:37 11/23/20 Quinton Thornton RN 14:30 11/23/20. BP: 110/77. MAP: 88. HR: 65. O2 saturation: 100% on room air. --16:38 11/23/20 Quinton Thornton RN.DISPOSITION / DISCHARGE 15:11/23/2020 IV Fluids IV NS via IV site #1 Discontinued: bag #1 discontinued upon discharge. Total amount infused: 750 mL. IV patency established. IV site checked: no pain, redness, or swelling. IV flushed thoroughly. --15:24 11/23/20 Isabella Dooley R.NSimona 15:11/23/2020 Site #1 removed upon discharge. Catheter intact. Manual pressure and bandage applied. --15:24 11/23/20 Isabella Dooley R.NSimona 15:11/23/2020 Phenergan IVPB via IV site #1 Discontinued: bag #1 completed upon discharge. Total amount infused: 50 mL. IV patency established. IV site checked: no pain, redness, or swelling. IV flushed thoroughly. --15:24 11/23/20 Isabella Dooley R.NSimona Condition at departure: improved and stable. No learning barriers present. Discharge instructions provided and reviewed with the patient. Patient verbalized understanding. Written instructions provided in Malawian. ( Instructed to stop diclofenac). The patient was discharged by the physician. He was discharged home and accompanied by family. He left ambulatory and via private vehicle. Family member driving. --15:24 11/23/20 Isabella Dooley R.N. 5 Clinical Report - Nurses [facility] [address] [place] [address] Phone #: ext- [phone] 11/23/2020 12:44 Patient: SEAN MILLER Sex: M : 1965 Age: 55y 15:22 11/23/20. BP: 111/67. MAP: 81. HR: 83. RR: 18. O2 saturation: 99%. Temp: 98.7 F. Pain level now: 0/10. --15:24 11/23/20 Isabella Dooley R.N .Locked/Released at 11/23/2020 18:34 by Quinton Thornton RN Name Value Range Interpretation Code Description Data Ebony rce(s) Supporting Document(s) ID Date Data Source [id number] 11/23/2020 12:46:00 PM EDT [facility] 1 Clinical Report - Physicians/Mid Levels [facility] [address] [place] [address] Phone #: ext- [phone] 11/23/2020 12:44 Patient: SEAN MILLER Sex: M : 1965 Age: 55y Time Seen: 12:52 11/23/2020; initial patient contact. Arrived- By ambulance. Historian- patient. Disposition decision: 15:13 11/23/2020.HISTORY OF PRESENT ILLNESS Chief Complaint: DIZZINESS and VERTIGO (ROOM). This started yesterday and is now gone. It has been intermittent. Described as a sense of movement and feeling light-headed and faint. Severity described as severe at its maximum. When seen in the E.D., it was almost gone. Modifying factors- worsened by turning head and changing position. Relieved by rest. The patient has had nausea and vomiting. The vomiting has occurred several times. (passed out today; pt well known to us for multiple ER visits since 08-11-2020 (08-11, 09-03, 09-22, , 10-21, 11-05), has Hx of chronic vertigo (seen here 09-22 for that), was seen at [facility] for coughing and rt rib pain on 11-18, was prescribed diclofenac for rib strain and believes that's what made him dizzy since yesterday). Similar symptoms previously. Patient has had similar symptoms many times, chronically. Recent medical care: The patient was seen recently at another facility in the emergency department.REVIEW OF SYSTEMSNo headache, double vision, weakness, fainting episodes or head injury. No chest pain, palpitations,black stools, abnormal vaginal bleeding or numbness. No bloody stools, fever, sore throat, cough ordifficulty breathing. No abdominal pain, diarrhea, difficulty with urination, skin rash or enlarged lymphnodes. No chills or joint pain. No difficulty walking. All other systems reviewed and are negative.PAST HISTORYSee nurses notes. Problems: Anxiety Reaction. Gastroesophageal Reflux Disease. COPD - Chronic Obstructive Pulmonary Disease. Hypertension. Dizziness. Arthritis. Asthma. Vertigo. Emphysema. Additional Surgeries: no known surgeries. 2 Clinical Report - Physicians/Mid Levels [facility] [address] [place] [address] Phone #: ext- [phone] 11/23/2020 12:44 Patient: SEAN MILLER Sex: M : 1965 Age: 55y Medications: predniSONE Oral. Diclofenac Sodium Oral. Omeprazole Oral. Lisinopril Oral 20 mg, daily. Allergies: No Known Drug Allergy.SOCIAL HISTORYLight tobacco smoker- less than 1/2 a pack per day. Alcohol use; consumes beer weekly. Heavy druguse: marijuana.ADDITIONAL NOTESThe nursing notes have been reviewed with agreement regarding the chief complaint, H PI, ROS, PMH andpatient medications and allergies.PHYSICAL EXAMVital Signs: 11/23/2020 12:47 BP: 101/68. MAP: 79. HR: 72. RR: 13. O2 saturation: 100% on room air.Temp: 97.6 F. Pain level now: 11/09. Have been reviewed. Oxygen saturation normal.Appearance: Alert. No acute distress. Anxious.Eyes: Pupils equal, round and reactive to light. No nystagmus. Extraocular movements normal.ENT: Normal ENT inspection. TM's normal. Moist mucous membranes. Pharynx normal.Neck: Normal inspection. Neck supple.CVS: Normal heart rate and rhythm. Heart sounds normal. Pulses normal.Respiratory: No respiratory distress. Painless inspiration. Breath sounds normal. (mild pain rt laterallower rib area, no obvious findings).Abdomen: Soft and nontender. No organomegaly.Back: Normal inspection.Skin: Skin warm and dry. Normal skin color. No rash. Normal skin turgor.Extremities: Extremities exhibit normal ROM. No lower extremity edema.Neuro: Alert. Oriented X 3. Mood/affect normal. Speech normal. Cranial nerves normal (as tested).No cerebellar findings. No motor deficit. No sensory deficit. Reflexes normal.LABS, X-RAYS, AND EKGEKG: No acute process. No acute ischemia. Normal EKG. Normal sinus rhythm. Rate: 67/min.Normal ST and T waves. EKG unchanged when compared with prior EKG. (3-23-21). The study hasbeen interpreted contemporaneously by me. The EKG appears to be a good tracing. Interpretation time:12:54 11/23/2020.Sternum / Ribs X-rays: No fracture present. No bony lesion present. Views: right ribs. AP of chest.Technique: good. The X- rays were interpreted by the radiologist and contemporaneously by me.Interpretation time: 14:32 11/23/2020.CT Head: Normal study. No acute changes. Head CT performed without contrast. The study wasinterpreted by the radiologist. Interpretation time: 14:32 11/23/2020. 3 Clinical Report - Physicians/Mid Levels [facility] [address] [place] [address] Phone #: ext- [phone] 11/23/2020 12:44 Patient: SEAN MILLER Sex: M : 1965 Age: 55yLaboratory Tests: Laboratory tests have been ordered, with results reviewed and considered in themedical decision making process.CBC w Diff: (GEREMIAS: 11/23/2020 13:42) ( MsgRcvd 11/23/2020 13:57) Final results Test Result Flag Units (Reference) CBC W/AUTOMATED DIFF COMPLETE BLOOD COUNT WBC 16.4 H 10/uL (4.2 - 11.0) RBC 4.57 10/uL (4.50 - 6.30) HEMOGLOBIN 14.1 g/dL (14.0 - 16.0) HEMATOCRIT 42.5 % (41.0 - 51.0) MCV 93.0 fL (80.0 - 94.0) MCH 30.9 pg (27.0 - 34.0) MCHC 33.2 g/dL (31.0 - 36.0) RDW 14.1 % (11.5 - 14.8) PLATELETS 230 10/uL (150 - 450) MPV 9.3 fL (7.4 - 10.4) NEUT 87.1 H % (37.0 - 80.0) LYMPH 8.4 L % (25.0 - 40.0) MONO 3.1 % (3.0 - 8.0) EOS 0.2 % (0.0 - 7.0) BASO 0.3 % (0.0 - 2.0) %IG 0.9 H % (0.0 - 0.0) %NRBC 0.0 % (0.0 - 0.0) #NEUT 14.23 H 10/uL (2.00 - 6.90) #LYMPH 1.38 10/uL (0.60 - 3.40) #MONO 0.51 10/uL (0.00 - 0.90) #EOS 0.03 10/uL (0.00 - 0.70) #BASO 0.05 10/uL (0.00 - 0.20) #IG 0.15 H 10/uL (0.00 - 0.10) #NRBC 0.00 10/uL (0.00 - 0.00) MANUAL DIFF NOT INDICATED RBC MORPH NOT INDICATEDCMP: (GEREMIAS: 11/23/2020 13:42) ( MsgRcvd 11/23/2020 14:30) Final results Test Result Flag Units (Reference) COMPREHENSIVE METABOLIC PANEL COMPREHENSIVE METABOLIC PANEL SODIUM 134 mEq/L (134 - 153) POTASSIUM 4.5 m Eq/L (3.6 - 5.0) CHLORIDE 101 mEq/L (98 - 107) CO2 23 MEQ/L (22 - 30) GLUCOSE 219 H MG/DL (70 - 99) BUN 23 H MG/DL (7 - 21) CREATININE 1.0 MG/DL (0.7 - 1.5) BUN/CREAT 23 (8 - 27) TOTAL PROTEIN 5.8 L G/DL (6.3 - 8.2) ALBUMIN 3.7 L G/DL (3.9 - 5.0) GLOBULIN 2.1 L GM/DL (2.4 - 3.2) A/G RATIO 1.8 (0.8 - 2.0) CALCIUM 8.6 MG/DL (8.4 - 10.2) TOTAL BILI <0.7 MG/DL (0.2 - 1.3) ALKALINE PHOS 113 U/L (38 - 126) SGOT/AST 13 U/L (5 - 40) SGPT/ALT 11 U/L (7 - 56) ANION GAP 10.0 mmol/L (8.0 - 16.0) AGE 55 yrs NON-AA GFR >60 mL/min 4 Clinical Report - Physicians/Mid Levels [facility] [address] [place] [address] Phone #: ext- [phone] 11/23/2020 12:44 Patient: SEAN MILLER Sex: M : 1965 Age: 55y AFR AMER GFR >60 mL/min Male GFR Interprentation 20-49 yrs >60 mL/min Normal 50-59 yrs >56 mL/min Normal 60-69 yrs >49 mL/min Normal 70-79yrs >42 mL/min Normal 80 and above >35 mL/min Normal Female GFR Interpretation 20-39 yrs >60 mL/min Normal 40-49 yrs >58 mL/min Normal 50-59 yrs >51 mL/min Normal 60-69 yrs >45 mL/min Normal 70-79 yrs >39 mL/min Normal 80 and above >32 mL/min Normal Lipase: (GEREMIAS: 11/23/2020 13:42) ( [facility] 11/23/2020 14:30) Final results Test Result Flag Units (Reference) LIPASE 46 U/L (13 - 60) PT/PTT: (GEREMIAS: 11/23/2020 13:42) ( MsgRcvd 11/23/2020 13:58) Final results Test Result Flag Units (Reference) PROTIME 11.8 SECONDS (11.0 - 15.5) INR 0.83 L (0.93 - 1.23) PTT 26.9 SECONDS (24.8 - 36.7) \\BLDo\\INR INTERPRETATION\\BLDx\\ Therapeutic range for Coumadin and related oral anticoagulants. -International Normalized Ratio (INR): 2.0 - 3.0 for Venous Thrombosis, Pulmonary Embolus, Tissue heart valves, Acute HI Atrial Fibrillation, Valvular heart disease and recurrent Systemic Embolism. -International Normalized Ratio (INR): 2.5 - 3.5 for Mechanical Prosthetic valve. Troponin-T: (GEREMIAS: 11/23/2020 13:42) ( MsgRcvd 11/23/2020 14:30) Final results Test Result Flag Units (Reference) TROPONIN T <0.01 NG/ML (0.00 - 0.10) TROPONIN T0.1 ng/ml Recommended as the clinical threshold value Lorraine Espinal.PROGRESS AND PROCEDURESCourse of Care: 15:12 11/23/20. workup all in and reviewed; rt ribs x-ray and CT head w/o results nml;WBC high and hyperglycemia from chronic steroid use, pt sleeping comfortably, doing much better, will d/csoon w instructions 16:07 11/23/20. pt was markedly improved upon d/c, walked w/o issues to WR. Patient counseled in person regarding the patient's stable condition, test results, diagnosis and need for follow-up. Patient agrees with plan of care. Disposition: Condition: good and stable. Discharge decision based on the following: patient's condition is stable; patient's condition is improved; patient is ambulatory; patient is active; patient drinking fluids; patient eating; patient's pain is controlled; patient's exam is improved; no seriously abnormal test results; improving condition on repeat evaluation; social support is good; transportation is cynthia ilable; follow-up is available; clinical impression is consistent with outpatient treatment.CLINICAL IMPRESSION 5 Clinical Report - Physicians/Mid Levels [facility] [address] [place] [address] Phone #: ext- [phone] 11/23/2020 12:44 Patient: SEAN MILLER Sex: M : 1965 Age: 55y Chronic vertigo of unknown cause (recurrent). Right Rib Strain.INSTRUCTIONS Drink plenty of fluids. Do not smoke. No alcohol. (PLEASE STOP THE DICLOFENAC). Warnings: Further evaluation is necessary. It is very important to follow up with a healthcare provider. GENERAL WARNINGS: Return or contact your physician immediately if your condition worsens or changes unexpectedly, if not improving as expected, or if other problems arise. SPECIFICALLY, return if you develop chest pain, neck pain, jaw pain, shoulder pain, arm pain, back pain, fluttering sensation in your chest, lightheadedness, fainting, numbness, weakness or extreme fatigue. Your Current Medications: Your current home medications have been reviewed. STOP TAKING THE FOLLOWING MEDICATIONS: Diclofenac Sodium Oral. CONTINUE TAKING THE FOLLOWING MEDICATIONS: Lisinopril Oral : 20 mg daily. Omeprazole Oral. predniSONE Oral. Follow-up: Return to the emergency department as needed. Follow up with your healthcare provider in two days even if well. Call for an appointment. Reason for referral: evaluation and treatment. Summary of care provided to patient via paper. Understanding of the discharge instructions verbalized by patient. Expected course of illness, discharge instructions, activity level, diet, follow-up appointment and risks and benefits of treatment reviewed with patient and understanding verbalized. Agrees to plan of care.(Electronically signed by Devin Menjivar M.D. 11/23/2020 16:42) Name Value Range Interpretation Code Description Data Ebony rce(s) Supporting Document(s) ID Date Data Source [id number] 11/23/2020 02:30:00 PM [facility] Name Value Range Interpretation Code Description Data [facility] rce(s) Supporting Document(s) TROPONIN T <0.01 NG/ML 0.00 - 0.10 [facility] ospital TROPONIN T0.1 ng/ml Recommended as the c linical threshold value forTroponin T. ID Date Data Source [id number] 11/23/2020 02:30:00 PM EDT [facility] Name Value Range Interpretation Code Description Data [facility] Supporting Document(s) Lipase [Enzymatic activity/volume] in Serum or Plasma 46 U/L 13 - 60 [facility] ID Date Data Source [id number] 11/23/2020 02:30:00 PM T [facility] Name Value Range Interpretation Code Description Data [facility] Supporting Document(s) COMPREHENSIVE METABOLIC PANEL [facility] COMPREHENSIVE METABOLIC PANEL Sodium [Moles/volume] in Serum or Plasma 134 mEq/L 134 - 153 [facility] Potassium [Moles/volume] in Serum or Plasma 4.5 mEq/L 3.6 - 5.0 [facility] Chloride [Moles/volume] in Serum or Plasma 101 mEq/L 98 - 107 [facility] Carbon dioxide, total [Moles/volume] in Serum or Plasma 23 MEQ/L 22 - 30 [facility] Glucose [Mass/volume] in Serum or Plasma 219 MG/DL 70 - 99 H [facility] BUN 23 MG/DL 7 - 21 H [facility] al Creatinine [Mass/volume] in Serum or Plasma 1.0 MG/DL 0.7 - 1.5 [facility] BUN/CREAT 23 8 - 27 [facility] Protein [Mass/volume] in Serum or Plasma 5.8 G/DL 6.3 - 8.2 L [facility] Albumin [Mass/volume] in Serum or Plasma 3.7 G/DL 3.9 - 5.0 L [facility] Globulin [Mass/volume] in Serum by calculation 2.1 GM/DL 2.4 - 3.2 L [facility] A/G RATIO 1.8 0.8 - 2.0 [facility] Calcium [Mass/volume] in Serum or Plasma 8.6 MG/DL 8.4 - 10.2 [facility] Bilirubin.total [Mass/volume] in Serum or Plasma <0.7 MG/DL 0.2 - 1.3 [facility] Alkaline phosphatase [Enzymatic activity/volume] in Serum or Plasma 113 U/L 38 - 126 [facility] Aspartate aminotransferase [Enzymatic activity/volume] in Serum or Plasma 13 U/L 5 - 40 [facility] Alanine aminotransferase [Enzymatic activity/volume] in Seru m or Plasma 11 U/L 7 - 56 [facility] Anion gap 3 in Serum or Plasma 10.0 mmol/L 8.0 - 16.0 [facility] AGE 55 yrs [facility] al NON-AA GFR >60 mL/min [facility] ital AFR AMER GFR >60 mL/min [facility] Male GFR In terprentation 20-49 yrs >60 mL/min Normal 50-59 yrs >56 mL/min Normal 60-69 yrs >49 mL/min Normal 70-79yrs >42 mL/min Normal 80 and above >35 mL/min Normal Female GFR Interpretation 20-39 yrs >60 mL/min Normal 40-49 yrs >58 mL/min Normal 50-59 yrs >51 mL/min Normal 60-69 yrs >45 mL/min Normal 70-79 yrs >39 mL/min Normal 80 and above >32 mL/min Normal ID Date Data Source [id number] 11/23/2020 01:57:00 PM EDT [facility] Name Value Range Interpretation Code Description Data Ebony rce(s) Supporting Document(s) Prothrombin time (PT) 11.8 SECONDS 11.0 - 15.5 [facility] INR in Platelet poor plasma by Coagulation assay 0.83 0.93 - 1. 23 L [facility] aPTT in Blood by Coagulation assay 26.9 SECONDS 24.8 - 36.7 [facility] \\BLDo\\INR INTERPRETATION\\BLDx\\ Therapeutic range for Coumadin and related oral anticoagulants. - International Normalized Ratio (INR): 2.0 - 3.0 for Venous Thrombosis, Pulmonary Embolus, Tissue heart valves, Acute HI Atrial Fibrillation, Valvular heart disease and recurrent Systemic Embolism. - International Normalized Ratio (INR): 2.5 - 3.5 for Mechanical Prosthetic valve. ID Date Data Source [id number] 11/23/2020 01:57:00 PM EDT [facility] Name Value Range Interpretation Code Description Data Ebony e(s) Supporting Document(s) CBC W/AUTOMATED DIFF [facility] COMPLETE BLOOD COUNT Leukocytes [#/volume] in Blood by Automated count 16.4 10^3/uL 4.2 - 11.0 H [facility] Erythrocytes [#/volume] in Blood by Automated count 4.57 10^6/uL 4. 50 - 6.30 [facility] Hemoglobin [Mass/volume] in Blood 14.1 g/dL 14.0 - 16.0 [facility] Hematocrit [Volume Fraction] of Blood by Automated count 42.5 % 4 1.0 - 51.0 [facility] Erythrocyte mean corpuscular volume [Entitic volume] by Auto mated count 93.0 fL 80.0 - 94.0 [facility] Erythrocyte mean corpuscular hemoglobin [Entitic mass] by Automated count 30.9 pg 27.0 - 34.0 [facility] Erythrocyte mean corpuscular hemoglobin concentration [Mass/volume] by Automated count 33.2 g/dL 31.0 - 36.0 [facility] Erythrocyte distribution width [Ratio] by Automated count 14.1 % 11.5 - 14.8 [facility] Platelets [#/volume] in Blood by Automated count 230 10^3/uL 150 - 45 0 [facility] Platelet mean volume [Entitic volume] in Blood by Automated count 9.3 fL 7.4 - 10.4 [facility] Neutrophils/100 leukocytes in Blood by Automated count 87.1 % 37. 0 - 80.0 H [facility] Lymphocytes/100 leukocytes in Blood by Manual count 8.4 % 25.0 - 40.0 L [facility] Monocytes/100 leukocytes in Blood by Automated count 3.1 % 3.0 - 8.0 [facility] Eosinophils/100 leukocytes in Blood by Automated count 0.2 % 0.0 - 7.0 [facility] Basophils/100 leukocytes in Blood by Automated count 0.3 % 0.0 - 2.0 [facility] %IG 0.9 % 0.0 - 0.0 [facility] %NRBC 0.0 % 0.0 - 0.0 [facility] al Neutrophils [#/volume] in Blood by Automated count 14.23 10^3/uL 2. 00 - 6.90 H [facility] Lymphocytes [#/volume] in Blood by Automated count 1.38 10^3/uL 0.60 - 3.40 [facility] Monocytes [#/volume] in Blood by Automated count 0.51 10^3/uL 0.00 - 0.90 [facility] Eosinophils [#/volume] in Blood by Automated count 0.03 10^3/uL 0.00 - 0.70 [facility] Basophils [#/volume] in Blood by Automated count 0.05 10^3/uL 0.00 - 0.20 [facility] #IG 0.15 10^3/uL 0.00 - 0.10 H [facility] ospital #NRBC 0.00 10^3/uL 0.00 - 0.00 [facility] ospital MANUAL DIFF NOT INDICATED [facility] RBC MORPH NOT INDICATED [facility] ID Date Data Source [id number] 11/06/2020 10:05:00 AM EDT [facility] [address] [place] [address] PHONE: [phone] FAX: [phone] Name .................. : KAMALA ESTRADA Acct Number.................. : [id number] ROOM. ................. : [facility]05 Number ................... : [id number] Stay type ............. : E/R Discharge Date......... ... : 11/05/20 Admit Date ......... : 11/05/20 Admit Phys .................... : COONEYNORM Date of ....... : 1965 Family Phys ................... : NON STAFF Phone .................. : [phone] Age ................................ : 55 Film# .................. .:[id number] Sex ................................. : M Unsigned transcriptions are preliminary reports and do not represent a medical or legal document CHEST PORTABLE [id number] COMPLETE:11/05/20 11:02 [id number] Re ason(s): Congestion PORTABLE CHEST, 11/05/20: INDICATION: Congestion. Previous 09/22/20. FINDINGS: The cardiac and mediastinal silhouettes appear normal and the lungs are clear. The bones and soft tissues are normal. The upper abdomen is unremarkable. IMPRESSION: No acute disease identifiable. Electronically Reviewed and Signed By Ra Torres MD , 11/06/20 10:05, MRA Transcribe Initials: SSR, Transcribe Date: 11/05/20 14:21, Dictation Date: Copy for: EMERGENCY DEPT via modem Copy for: 710 MED REC DISCHARGED Page 1 of 1 Name Value Range Interpretation Code Description Data Ebony rce(s) Supporting Document(s) ID Date Data Source [id number] 11/05/2020 10:37:00 AM EDT [facility] 1 OrderSheet [facility] [address] [place] [address] Phone #: ext- [phone] 11/05/2020 10:36 Patient: SEAN MILLER Sex: M : 1965 Age: 55yWEIGHT:74.8 kgALLERGIES: No Known Drug AllergyCHIEF COMPLAINT: wheezing, hx of asthma, dyspneaDIAGNOSIS: Chronic obstructive lung diseaseLAB ORDERSOrder Description Priority Entered Acknowledged InitialedDIAGNOSTIC STUDY ORDERSOrder Description Priority Entered Acknowledged InitialedChest Portable 1 STAT 11:02 11/05/2020 11:07 Chelsy Parada MD; Hillary HARRIS(Oxygen?(No)) Reason for Study: CongestionMEDICATION/IV/DRIP/FLUID ORDERSOrder Description Priority Entered Acknowledged Initi aledGENERAL ORDERSOrder Description Priority Entered Acknowledged Initialed[Electronically signed by Quinton Thornton RN (16:04 11/05/2020)][Electronically signed by Chelsy Oakley MD (03:21 11/06/2020)][Electronically locked by Quinton Tohrnton RN (16:04 11/05/2020)] Name Value Range Interpretation Code Description Data Ebony rce(s) Supporting Document(s) ID Date Data Source [id number] 11/05/2020 10:37:00 AM EDT [facility] 1 Medication Reconciliation Report [facility] [address] [place] [address] Phone #: ext- [phone] 11/05/2020 10:36 Patient: SEAN MILLER Sex: M : 1965 Age: 55yWeight: 74.8 kgHeight/Length: 70 in.BMI: 23.7ALLERGIES: No Known Drug AllergyThe patient's Home Medications are listed below:CONTINUE TAKING THE FOLLOWING MEDICATIONS: Lisinopril Oral 20 mg, daily Neb tx OmpeprazoleThe source(s) of the original Home Medication information:Not obtain ed.The following Medications were given to the patient in the Emergency Department:None.The following Medications were prescribed to the patient:None. Name Value Range Interpretation Code Description Data Ebony rce(s) Supporting Document(s) ID Date Data Source [id number] 11/05/2020 10:37:00 AM EDT [facility] 1 Medication Administration Record [facility] [address] [place] [address] Phone #: ext- [phone] 10:36 Patient: SEAN MILLER Sex: M : 1965 Age: 55yWeight: 74.8 kgHeight/Length: 70 inBMI: 23.7ALLERGIES: No Known Drug AllergyDate/Time Medication Administered Medication Ordered Name Value Range Interpretation Code Description Data Ebony rce(s) Supporting Document(s) ID Date Data Source [id number] 11/05/2020 10:37:00 AM EDT [facility] 1 General Instructions [facility] [address] [place] [address] Phone #: ext- [phone] 11/05/2020 10:36 Patient: SEAN MILLER Sex: M : 1965 Age: 55yStable COPD.Nicotine Dependence.INSTRUCTIONSAvoid tobacco smoke. Do not smoke.(Please follow up with your doctor. return if worse or any new symptoms. Take all medications aspreviously instructed. It is not safe to take steroids continuously. You need to be under the care of apulmonologist if you have this severe of lung disease. I would recommend you stop smoking. This istriggering your shortness of breath.).Your Current Medications: Your current home medications have been reviewed.CONTINUE TAKING THE FOLLOWING MEDICATIONS:Lisinopril Oral : 20 mg daily.Neb tx*.Ompeprazole*.Follow-up:Follow up with your doctor tomorrow even if well. Call for an appointment. Reason for referral: evaluation.Summary of care provided to patient via paper.Understanding of the discharge instructions verbalized by patient. ADDITIONAL INFORMATIONCOPD Flare 2 General Instructions [facility] [address] [place] [address] Phone #: ext- [phone] 11/05/2020 10:36 Patient: SEAN MILLER Sex: M : 1965 Age: 55yYou have had a flare-up of your COPD.COPD (chronic obstructive pulmonary disease) is a common lung disease. It causes your airways toget irritated and narrower. This makes it harder for you to breathe. Emphysema and chronicbronchitis are both types of COPD. This is a long-term (chronic) condition. This means you alwayshave it. Sometimes it gets worse. When this happens, it is called a flare-up.Symptoms of COPDPeople with COPD may have symptoms most of the time. In a flare-up, your symptoms get worse.These symptoms may mean you are having a flare-up: Shortness of breath, shallow or rapid breathing, or wheezing that gets worse Lung infection Cough that gets worse More mucus, thicker mucus or mucus of a different color 3 General Instructions [facility] [address] [place] [address] Phone #: ext- [phone] 11/05/2020 10:36 Patient: SEAN MILLER Sex: M : 1965 Age: 55y Tiredness, less energy, or trouble doing your normal activities Fever Chest tightness Your symptoms don't get better even when you use your normal medicines, inhalers, and nebulizer Trouble talking You feel confusedCauses of flare-upsUnfortunately, a flare-up can happen even if you did everything right. And even if you followed yourhealthcare provider's instructions. Some causes of flare-ups are: Smoking or secondhand smoke Co lds, the flu, or respiratory infections Air pollution Sudden change in the weather Dust, irritating chemicals, or strong fumes Not taking your medicines as prescribedHome careHere are some things you can do at home to treat a flare-up: Try not to panic. This makes it harder to breathe, and keeps you from doing the right things. Don't smoke or be around others who are smoking. Try to drink more fluids than normal during a flare-up, unless your healthcare provider has told you not to because of heart and kidney problems. More fluids can help loosen the mucus. Use your inhalers and nebulizer, if you have one, as you have been told to. When using a metered dose inhaler or nebulizer, it's very important to use the proper techniques. If you have any questions about how to use your device, contact your healthcare provider or refer to the user manual. If you were given antibiotics, take them until they are used up or your provider tells you to stop. It's important to finish the antibiotics, even though you feel better. This will make sure the infection has cleared. 4 General Instructions [facility] [address] [place] [address] Phone #: ext- [phone] 11/05/2020 10:36 Patient: SEAN MILLER Sex: M : 1965 Age: 55y If you were given a steroid, finish it even if you feel better. Learn the names of your medicines, as well as how and when to use them. Talk with your provider about other conditions you have and their treatment and how it may affect your COPD. Oxygen may be prescribed if tests show that your blood contains too little oxygen. Ask your provider about long-term oxygen therapy. Coping tips for shortness of breath include: o Exercise. Try to be as active as possible. This will improve energy levels and strengthen your muscles, so you can do more. o Breathing methods. Ask your healthcare provider or nurse to show you how to do pursed-lip breathing. o Balance rest and activity. Each day, try to balance rest periods with activity. For example, you might start the day with getting dressed and eating breakfast. Then you can relax and read the paper. After that, take a brief walk. And then sit with your feet up for a while. o Pulmonary rehab (rehabilitation). These programs help with managing your disease, breathing methods, exercise, support, and counseling. To find one, ask your provider or call your local hospital. Also, talk with your healthcare provider about a self-management program. o Healthy eating. Eating a healthy, balanced diet is important to staying as healthy as possible. So is trying to stay at your ideal weight. Make sure you have a lot of fruits and vegetables every day. And also eat balanced portions of whole grains, lean meats and fish, and low-fat dairy products.Preventing a hqjlp-niAbtok-mat happen. But the best way to treat one is to prevent it before it starts. Here are somepointers: Don't smoke or be around others who are smoking. Avoid using e-cigarettes due to their harmful side effects. Take your medicines as discussed with your healthcare provider. Talk with your provider about getting a flu shot every year. Also find out if you need a pneumonia shot. If there is a weather advisory warning to stay indoors, try to stay inside when possible. 5 General Instructions [facility] [address] [place] [address] Phone #: ext- [phone] 11/05/2020 10:36 Patient: SEAN MILLER Sex: M : 1965 Age: 55y Try to eat healthy, exercise, and get plenty of sleep. Try to stay away from things that normally set you off. These include dust, chemical fumes, hairsprays, or strong perfumes.Follow-up careFollow up with your healthcare provider, or as advised.If a culture was done, you will be told if your treatme nt needs to be changed. You can call asdirected for the results.If X-rays were done, you will be told of any new findings that may affect your care.During each appointment, talk with your healthcare provider about your ability to: [place] in your normal environment Correctly use inhaler (or your medicine delivery systems) [place] with other conditions you have and their treatments and how they may affect your COPDCall 911Call 911 if any of these occur: Wheezing or shortness or breath does not get better with treatment Chest pain or chest tightness Feeling lightheaded or dizzy You have trouble breathing You feel confused or it's hard to wake you up You faint or lose consciousness You have a rapid heart rate You have new pain in your chest, arm, shoulder, neck, or upper backWhen to seek medical adviceCall your healthcare provider right away if any of these occur: Fever of 100.4F (38C) or higher, or as directed by your healthcare provider Coughing up lots of dark-colored or bloody mucus (sputum) 6 General Instructions [facility] [address] [place] [address] Phone #: ext- [phone] 11/05/2020 10:36 Patient: SEAN MILLER Sex: M : 1965 Age: 55y You don't start to get better within 24 hours Swelling of your ankles gets worse Weakness [id number] [employer]. [address] [place] [address]. All rights reserved. This information is not intended as asubstitute for professional medical care. Always follow your healthcare professional's instructions. You have been given the following additional information: COPD Flare(Electronically signed by Chelsy Oakley MD 11/06/2020 03:21) Name Value Range Interpretation Code Description Data Ebony rce(s) Supporting Document(s) ID Date Data Source [id number] 11/05/2020 10:37:00 AM EDT [facility] 1 Clinical Report - Nurses [facility] [address] [place] [address] Phone #: ext- [phone] 11/05/2020 10:36 Patient: SEAN MILLER Sex: M : 1965 Age: 55yTRIAGEArrived by EMS. Historian: patient. ( 0PRESENTS WITH SHORTNESS OF BREATH).Triage time: 10:43 11/05/2020. Acuity: LEVEL 3.Chief Complaint: SHORTNESS OF BREATH and DIFFICULTY BREATHING.Alert.This started yesterday. 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 No paulino spected or confirmed signs of infection present.--10:47 11/05/20 Joe Monae R.N.10:42 11/05/20. BP: 148/112. MAP: 124. HR: 121. RR: 30. O2 saturation: 97% on non-rebreather at 15liters/minute. Temp: 97.5 F. Pain level now: 0/10. --10:47 11/05/20 Joe Monae R.N.Weight: 74.8 kg. Height/Length: 70 inches. BMI: 23.7. --10:41 11/05/20 Joe Monae R.N.MedicationsLisinopril Oral 20 mg, daily. Neb tx. Ompeprazole. --10:44 11/05/20 Joe Monae R.N.AllergiesNo Known Drug Allergy. --10:44 11/05/20 Joe Monae R.N.PROBLEMS:Arthritis.Emphysema.Medication Refill.Vertigo.Hypertension. --10:44 11/05/20 Joe Monae R.N.The following entry was modified by Joe Monae R.N., 10:44 11/05/20COPD - Chronic Obstructive Pulmonary Disease. --10:44 11/05/20 Joe Monae R.N.The following entry was modified by Joe Monae R.N., 10:44 11/05/20Gastroesophageal Reflux Disease. --10:44 11/05/20 Joe Monae R.N.. 2 Clinical Report - Nurses [facility] [address] [place] [address] Phone #: ext- [phone] 11/05/2020 10:36 Patient: SEAN MILLER Sex: M : 1965 Age: 55y ADDITIONAL SURGERIES: no known surgeries. History SOCIAL HX: Light tobacco smoker. No alcohol use or drug use. He was offered HIV testing but declined and hepatitis C testing but declined. He has not traveled outside the [place] Infectious disease exposure: No infectious disease exposure. The patient was not exposed to Coronavirus. SELF HARM ASSESSMENT: Self harm as sessment was performed. The patient answered "no" to the question(s) "Have you recently felt down, depressed, or hopeless?", "Do you have thoughts of harming or killing yourself?", "Do you have a plan for harming or killing yourself?" and "Have you recently had thoughts about harming or killing others?". ABUSE ASSESSMENT: No report of abuse. FALL RISK ASSESSMENT: Fall risk assessment completed. No risk factors identified. --10:47 11/05/20 Joe Monae R.N. Assessment The patient states feels the same. --10:47 11/05/20 Joe Monae R.N. Interventions To treatment room. --10:47 11/05/20 Joe Monae R.N.PHYSICAL [id number] 11/05/20. To room via stretcher.GENERAL / NEURO / PSYCH: Alert. Oriented X 4.RESPIRATORY: Mild respiratory distress. The patient can speak in full sentences. Inspiratory bilateralwheezes present.CVS: Capillary refill less than 2 seconds.GI / : Abdomen soft and nontender. Bowel sounds within normal limits.SKIN: Skin is warm and dry. --10:58 11/05/20 Quinton Thornton RN.NURSING PROGRESS NOTES10:48 11/05/20. Oxygen administered by nasal cannula at 15 liters. Patient gowned. Reassurancegiven. Two patient identifiers checked. Call light placed in reach. Side rails up x 2. Bed placed inlowest position. Brakes of bed on. Patient ready for evaluation- ED physician notified. --10:49 11/05/20Joe Monae R.N. 10:49 11/05/20. ( PATIENT HAS BEEN OFF PRESNISONE FOR 1.5 WEEKS AND HAS BECOME SOB. PATIENT CLAIMS DOCTOR TOOK HIM OFF PRENISONE 1.5 WEEKS AGO. WAS ON PRENSISONE FOR 6.5 YEARS WITHOUT ANY DIFFICULTIES.). --10:51 11/05/20 Joe Monae R.N. Oxygen decreased to 2 liters by nasal cannula. --11:00 11/05/20 Quinton Thornton RN 3 Clinical Report - Nurses [facility] [address] [place] [address] Phone #: ext- [phone] 11/05/2020 10:36 --- Patient: SEAN MILLER Sex: M : 1965 Age: 55y ( 1135 pt agitated and requesting something to help breathing and decrease coughing M D notified). --11:44 11/05/20 Quinton Thornton RN 11:00 11/05/20. BP: 127/89. MAP: 101. HR: 110. RR: 20. O2 saturation: 94% on nasal cannula at 3 liters/minute. --12:40 11/05/20 Quinton Thornton RN 11:30 11/05/20. BP: 125/90. MAP: 101. HR: 91. O2 saturation: 93% on nasal cannula at 3 liters/minute. --12:41 11/05/20 Quinton Thornton RN 12:00 11/05/20. BP: 123/93. MAP: 103. HR: 92. O2 saturation: 91% on nasal cannula at 3 liters/minute. --12:42 11/05/20 Quinton Thornton RN.DISPOSITION / DISCHARGE 12:25 11/05/20. BP: 123/91. MAP: 101. HR: 93. RR: 18. O2 saturation: 93% on nasal cannula at 3 liters/minute. Temp: deferred. Pain level now: 0/10. --12:44 11/05/20 Quinton Thornton RN 10:20 11/05/2020 Site #1 started prior to arrival by EMS via IV in the right wrist with an 18g angiocath; one attempt. --12:45 11/05/20 Quinton Thornton RN 12:05 11/05/2020 Site #1 removed upon discharge. Catheter intact. Bandaid applied. --12:45 11/05/20 Quinton Thornton RN 12:30 11/05/20. Departure time: 12:11/05/2020. Condition at departure: unchanged. No learning barriers present. Discharge instructions provided and reviewed with the patient. Reviewed medication(s) (no changes). Treatments reviewed (avoid smoke). Reviewed referral to a steam gigger. Patient verbalized understanding. Written instructions provided in [place]ian. The patient was discharged by the physician. He was discharged home. He left ambulatory and via taxi. --12:44 11/05/20 Quinton Thornton RN.Locked/Released at 11/05/2020 16:04 by Quinton Thornton RN Name Value Range Interpretation Code Description Data Ebony rce(s) Supporting Document(s) ID Date Data Source [id number] 11/05/2020 10:37:00 AM EDT [facility] 1 Clinical Report - Physicians/Mid Levels [facility] [address] [place] [address] Phone #: ext- [phone] 11/05/2020 10:36 [id number] Sex[facility] : 1965 Age: 55y Arrived- By ambulance. Historian- patient and EMS personnel. Disposition decision: 12:13 11/05/2020.HISTORY OF PRESENT ILLNESS Chief Complaint: DYSPNEA, WHEEZING and HISTORY OF ASTHMA. This started just prior to arrival and is still present. The dyspnea is described as mild. The patient has had sputum production and a cough. No orthopnea or chest pain or discomfort. See nurses notes for current asthma threapy. Asthma triggers: unknown. Takes asthma medications. (SHORTNESS OF BREATH and DIFFICULTY BREATHING.). Similar symptoms previously. Patient has had similar symptoms many times. Recent medical care: The patient was seen recently in the emergency department.REVIEW OF SYSTEMSNo sore throat or throat, nasal discharge or congestion or sinus drainage. No fever, chills, muscle aches,headache or palpitations. No calf pain, nausea, abdominal pain or pain or diarrhea. No black stools,difficulty with urination or urination or excessive urination. No skin rash or rash, pedal edema, vomiting orbloody stools. No chills, fever, double vision, ear pain or epistaxis. No runny nose, constipation,diarrhea, nausea or vomiting. No urinary frequency, hematuria, back pain, neck pain or seizure. No easybruising. The patient has had a cough and difficulty breathing.PAST HISTORYSee nurses notes. Asthma. Problems: Acid reflux. Emphysema. Hypertension. Additional Surgeries: no known surgeries. Medications: Lisinopril Oral 20 mg, daily. Neb tx. Ompeprazole. Allergies: 2 Clinical Report - Physicians/Mid [facility] [address] [place] [address] Phone #: ext- [phone] 11/05/2020 10:36 Patient: SEAN MILLER Sex: M : 1965 Age: 55y No Known Drug Allergy.SOCIAL HISTORYSmoker- current status unknown. No drug use.ADDITIONAL NOTESThe nursing notes have been reviewed.PHYSICAL EXAMVital Signs: 11/05/2020 10:42 BP: 148/112. MAP: 124. HR: 121. RR: 30. O2 saturation: 97% onnon-rebreather at 15 liters/minute. Temp: 97.5 F. Pain level now: 0/10. Have been reviewed and appearto be correct. Hypertensive. Mean arterial pressure- high. Tachycardic. Tachypneic. Temperaturenormal. Oxygen saturation normal.Appearance: Alert. No acute distress.Eyes: Eyes normal inspection.ENT: Nose normal.Neck: Normal inspection. Neck supple.CVS: Tachycardia (pt received duoneb enroute). Normal heart rate and rhythm. Pulses normal.Respiratory: No respiratory distress. Painless inspiration. Breath sounds normal. No accessorymuscle use, retractions, decreased air movement, prolonged expiration or wheezes.Abdomen: Soft and nontender.Back: Normal inspection. No CVA tenderness.Skin: Skin warm and dry. Normal skin color. No rash. Normal skin turgor.Extremities: Extremities exhibit normal ROM. No lower extremity edema.Neuro: Oriented X 3. No motor deficit. No sensory deficit.PROGRESS AND PROCEDURESCourse of Care: pt repeatedly comes to the ED for steroids. He received 10mg of decadron in theambulance. His lungs are clear. He has an appt with his pcp on 11/10. I will insist that he calls to try andmove up his appt. I will defer prescribing any further steroids. constant steroids can cause adrenalinsufficiency and other problems. Pt has been disrespectful to staff and has been cursing. VSS O2100% Resp 15, Tachy at 105. pt is extremely rude and calls everyone foul names and states that everyonehated Americans which we repeatedly explained to patient that is not true. I further explained tohim again that he had decadron in the ambulance. that will last at least until tomorrow til he is able to gosee his doctor. his lungs are clear. pt was very abrasive, condescending and dictatorial. He made theenvironment very uncomfortable. He left the Ed. Patient/family counseled. Disposition: Discharged. Condition: good and stable.CLINICAL IMPRESSION Stable COPD. Nicotine Dependence. 3 Clinical Report - Physicians/Mid Levels [facility] [address] [place] [address] Phone #: ext- [phone] 11/05/2020 10:36 Patient: SEAN MILLER Sex: M : 1965 Age: 55yINSTRUCTIONS Avoid tobacco smoke. Do not smoke. (Please follow up with your doctor. return if worse or any new symptoms. Take all medications as previously instructed. It is not safe to take steroids continuously. You need to be under the care of a steam gigger if you have this severe of lung disease. I would recommend you stop smoking. This is triggering your shortness of breath.). Your Current Medications: Your current home medications have been reviewed. CONTINUE TAKING THE FOLLOWING MEDICATIONS: Lisinopril Oral : 20 mg daily. Neb tx*. Ompeprazole*. Follow-up: Follow up with your doctor tomorrow even if well. Call for an appointment. Reason for referral: evaluation. Summary of care provided to patient via paper. Understanding of the discharge instructions verbalized by caterina peres.(Electronically signed by Chelsy Oakley MD 11/06/2020 03:21) Name Value Range Interpretation Code Description Data Ebony rce(s) Supporting Document(s) ID Date Data Source [id number] 10/22/2020 09:56:00 [place] [address] PHONE: [phone] FAX: [phone] Name .................. : KAMALA ESTRADA Acct Number.................. : [id number] ROOM. ................. : TR06 MR Number ................... : [id number] Stay type ............. : E/R Discharge Date......... ... : 10/21/20 Admit Date .... ..... : 10/21/20 Admit Phys .................... : OTTO CARLIN Date of ....... : 1965 Family Phys ................... : NON STAFF Phone .................. : [phone] Age ................................ : 55 Film# .................. .:[id number] Sex ................................. : M Unsigned transcriptions are preliminary reports and do not represent a medical or legal document CHEST 2 VIEWS [id number] COMPLETE:10/21/20 19:31 ITALO [id number] Reason(s) : COPD CHEST X-RAY: 2-VIEWS INDICATION: COPD, cough. COMPARISON: 09/22/20 FINDINGS: Lungs clear. Heart and mediastinum are normal with no signs of any acute abnormalities noted. IMPRESSION: No acute disease identified. Electronically Reviewed and Signed By KYLAH GAINES MD , 10/22/20 09:56, [facility] Transcribe Initials: LATA , Transcribe Date: 10/22/20 00:04, Dictation Date: Copy for: EMERGENCY DEPT via [facility] Copy for: 710 MED REC DISCHARGED Page 1 of 1 Name Value Range Interpretation Code Description Data Ebony rce(s) Supporting Document(s) ID Date Data Source [id number] 10/21/2020 01:51:00 PM EDT [facility] 1 OrderSheet [facility] [address] [place] [address] Phone #: ext- [phone] 10/21/2020 13:51 Patient: SEAN MILLER Sex: M : 1965 Age: 55yWEIGHT:74.8 kg (S) HEIGHT:70 inches (S) BMI:23.7ALLERGIES: No Known Drug AllergyCHIEF COMPLAINT: dyspnea, COPDDIAGNOSIS: Chronic obstructive lung disease, Medication refillLAB ORDERSOrder Description Priority Entered Acknowledged InitialedCOVID-19 CAH STAT 14:14 10/21/2020 Ack'd: 14:19 14:30 Suki,(Symptomatic as Devin Menjivar Amber Amber R.N.Defined by CDC) M.D.; R.N.(10/21/2020) (NotFirst Test) (NotHospitalized) (Not) (NotResident inCongregate CareSetting) (NotEmployed inHealthcare Setting)DIAGNOSTIC STUDY ORDERSOrder Description Priority Entered Acknowledged InitialedChest 2 View STAT 14:14 10/21/2020 Ack'd: 14:14 14:16 Suki,(Oxygen?(No)) Devin Menjivar Amber Amber R.N. M.D.; R.N. Reason for Study: COPD, CoughMEDICATION/IV/DRIP/FLUID ORDERSOrder Description Priority Entered Acknowledged InitialedDuoNeb 3 mL X2 14:14 10/21/2020 Ack'd: 14:19 14:30 Suki,Doses (Filtered): 6 Devin Menjivar Amber Amber R.N.mL (3 mL X2 M.D.; R.N.Doses)Tessalon Perles PO 14:14 10/21/2020 Ack'd: 14:19 14:30 Suki,200 mg Devin Menjivar Amber Amber R.N. M.D.; R.N. 2 OrderSheet [facility] [address] [place] [address] Phone #: ext- [phone] 10/21/2020 13:51 Patient: SEAN MILLER Sex: M : 1965 Age: 55yGENERAL ORDERSOrder Description Priority Entered Acknowledged Initialed[Electronically signed by Aline Cohn R.N. (10/21/2020)][Electronically signed by Devin Menjivar M.D. (17:02 10/21/2020)][Electronically locked by Aline Cohn R.N. (10/21/2020)] Name Value Range Interpretation Code Description Data Ebony rce(s) Supporting Document(s) ID Date Data Source [id number] 10/21/2020 01:51:00 PM EDT [facility] 1 Medication Reconciliation Report [facility] [address] [place] [address] Phone #: ext- [phone] 10/21/2020 13:51 Patient: SEAN MILLER Sex: M : 1965 Age: 55yWeight: 74.8 kgHeight/Length: 70 in.BMI: 23.7ALLERGIES: No Known Drug AllergyThe patient's Home Medications are listed below:CONTINUE TAKING THE FOLLOWING MEDICATIONS: Lisinopril Oral 20 mg, daily Neb tx OmpeprazoleThe source(s) of the original Home Medication information:Not obtained.The following Medications were given to the patient in the Emergency Department:Duoneb [Neb Tx] Neb TX 2 unit dose, administered: 14:25 10/21/2020Tessalon Perles [PO] PO 200 mg, administered: 14:25 10/21/2020The following Medications were prescribed to the patient:prednisone 20 mg tablet Take 2 tablet once a day for 5 days -- Dispense 10 tablet. Refills: 0.Substitution permitted.Pharmacy - [place] [address]. FaxNumber: .albuterol sulfate HFA 90 mcg/actuation aerosol inhaler Inhale 2 puff four times a day as needed for 7 days-- Dispense 1 inhaler. Refills: 0. Substitution permitted.Pharmacy - [place] [address]. .ipratropium 0.5 mg- albuterol 3 mg (2.5 mg base)/3 mL nebulization soln Take 3 ml four times a day asneeded for 7 days -- Dispense 84 ml. Refills: 0. Substitution permitted. 2 Medication Reconciliation Report [facility] [address] [place] [address] Phone #: ext- [phone] 10/21/2020 13:51 Patient: SEAN MILLER Sex: M : 1965 Age: 55yPharmacy - [place] [address]. .Tessalon Perles 100 mg capsule Take 1 capsule three times a day for 5 days -- Dispense 15 capsule.Refills: 1. Substitution permitted.Pharmacy [place] [id number]. . -- Devin Menjivar M.D. Name Value Range Interpretation Code Description Data Ebony rce(s) Supporting Document(s) ID Date Data Source [id number] 10/21/2020 01:51:00 PM EDT [place] [address] Medication Administration Record [facility] [address] [place] [address] Phone #: [phone] wdo- [phone] 10/21/2020 13:51 Patient: SEAN MILLER Sex: M : 1965 Age: 55yWeight: 74.8 kgHeight/Length: 70 inBMI: 23.7ALLERGIES: No Known Drug Allergy Date/Time Medication Administered Medication OrderedGiven DUONEB [NEB TX] DuoNeb 3 mL X2 Doses (Filtered):14:25 10/21/2020 Dose: 2 unit dose Nebulizer Neb TX 6 mL (3 mL X2 Doses)Aline Cohn, R.NSimona----Stop14:45 10/21/2020Aline Cohn R.NSimonaGiven TESSALON PERLES [PO] Tessalon Perles PO 200 mg14:25 10/21/2020 (BENZONATATE)Aline Cohn, R.NSimona Dose: 200 mg Capsules PO Name Value Range Interpretation Code Description Data Ebony rce(s) Supporting Document(s) ID Date Data Source [id number] 10/21/2020 01:51:00 PM EDT [facility] 1 General Instructions [facility] [address] [place] [address] Phone #: ext- [phone] 10/21/2020 13:51 Patient: SEAN MILLER Sex: M : 1965 Age: 55yMedication refill.Stable COPD (emphysematous). No chronic bronchitis.INSTRUCTIONS Avoid tobacco smoke. Do not smoke. No alcohol. (PLEASE GET YOUR MEDICATION REFILLS FROM YOUR NEW FAMILY MD IN [place] WHEN YOU SEE HIM/HER ON 10-23).Warnings: Further evaluation is necessary (Medication Refill on 10-23). It is very important to follow up witha healthcare provider.GENERAL WARNINGS: Return or contact your physician immediately if your condition worsens orchanges unexpectedly, if not improving as expected, or if other problems arise. SPECIFICALLY, return ifyou develop chest pain, neck pain, jaw pain, shoulder pain, arm pain, back pain, fever, productive cough,difficulty breathing, excessive fatigue, a fluttering sensation in the chest, fainting or leg swelling.Your Current Medications: Your current home medications have been reviewed.CONTINUE TAKING THE FOLLOWING MEDICATIONS:Lisinopril Oral : 20 mg daily.Neb tx*.Ompeprazole*.Prescription Medications:prednisone 20 mg tablet Take 2 tablet once a day for 5 days -- Dispense 10 tablet. Refills: 0.Substitution permitted.Pharmacy - [facility] [place] [id number]. .albuterol sulfate HFA 90 mcg/actuation aerosol inhaler Inhale 2 puff four times a day as needed for 7 days-- Dispense 1 inhaler. Refills: 0. Substitution permitted.Pharmacy - [facility] [place] [address]. .ipratropium 0.5 mg-albuterol 3 mg (2.5 mg base)/3 mL nebulization soln Take 3 ml four times a day asneeded for 7 days -- Dispense 84 ml. Refills: 0. Substitution permitted.[place] [id number]. . 2 General Instructions [facility] [address] [place] [address] Phone #: ext- [phone] 10/21/2020 13:51 --------- Patient: SEAN MILLER Sex: M : 1965 Age: 55yTessalon Perles 100 mg capsule Take 1 capsule three times a day for 5 days -- Dispense 15 capsule.Refills: 1. Substitution permitted.Pharmacy - [facility] - [address] [place] [phone]. .Follow-up:Return to the emergency department as needed.Understanding of the discharge instructions verbalized by patient. Expected course of illness, dischargeinstructions, activity level, diet, prescriptions x3, follow-up appointment and risks and benefits of treatmentreviewed with patient and understanding verbalized. Agrees to plan of care.Follow-up with: [facility], , , [address] [place] [address], [facility] Follow up in two days as scheduled. Reason for referral: evaluation, treatment and Medication refill.Summary of care provided to patient via paper. ADDITIONAL INFORMATIONCOPD Flare 3 General Instructions [facility] [address] [place] [address] Phone #: ext- [phone] 10/21/2020 13: 51 Patient: SEAN MILLER Sex: M : 1965 Age: 55yYou have had a flare-up of your COPD.COPD (chronic obstructive pulmonary disease) is a common lung disease. It causes your airways toget irritated and narrower. This makes it harder for you to breathe. Emphysema and chronicbronchitis are both types of COPD. This is a long-term (chronic) condition. This means you alwayshave it. Sometimes it gets worse. When this happens, it is called a flare-up.Symptoms of COPDPeople with COPD may have symptoms most of the time. In a flare-up, your symptoms get worse.These symptoms may mean you are having a flare-up: Shortness of breath, shallow or rapid breathing, or wheezing that gets worse Lung infection Cough that gets worse More mucus, thicker mucus or mucus of a different color 4 General Instructions [facility] [address] [place] [address] Phone #: ext- [phone] 10/21/2020 13:51 Patient: SEAN MILLER Sex: M : 1965 Age: 55y Tiredness, less energy, or trouble doing your normal activities Fever Chest tightness Your symptoms don't get better even when you use your normal medicines, inhalers, and nebulizer Trouble talking You feel confusedCauses of flare-upsUnfortunately, a flare-up can happen even if you did everything right. And even if you followed yourhealthcare provider's instructions. Some causes of flare-ups are: Smoking or secondhand smoke Colds, the flu, or respiratory infections Air pollution Sudden change in the weather Dust, irritating chemicals, or strong fumes Not taking your medicines as prescribedHome careHere are some things you can do at home to treat a flare-up: Try not to panic. This makes it harder to breathe, and keeps you from doing the right things. Don't smoke or be around others who are smoking. Try to drink more fluids than normal during a flare-up, unless your healthcare provider has told you not to because of heart and kidney problems. More fluids can help loosen the mucus. Use your inhalers and nebulizer, if you have one, as you have been told to. When using a metered dose inhaler or nebulizer, it's very important to use the proper techniques. If you have any questions about how to use your device, contact your healthcare provider or refer to the user manual. If you were given antibiotics, take them until they are used up or your provider tells you to stop. It's important to finish the antibiotics, even though you feel better. This will make sure the infection has cleared. 5 General Instructions [facility] [address] [place] [address] Phone #: ext- [phone] 10/21/2020 13:51 Patient: SEAN MILLER Sex: M : 1965 Age: 55y If you were given a steroid, finish it even if you feel better. Learn the names of your medicines, as well as how and when to use them. Talk with your provider about other conditions you have and their treatment and how it may affect your COPD. Oxygen may be prescribed if tests show that your blood contains too little oxygen. Ask your provider about long-term oxygen therapy. Coping tips for shortness of breath include: o Exercise. Try to be as active as possible. This will improve energy levels and strengthen your muscles, so you can do more. o Breathing methods. Ask your healthcare provider or nurse to show you how to do pursed-lip breathing. o Balance rest and activity. Each day, try to balance rest periods with activity. For example, you might start the day with getting dressed and eating breakfast. Then you can relax and read the paper. After that, take a brief walk. And then sit with your feet up for a while. o Pulmonary rehab (rehabilitation). These programs help with managing your disease, breathing methods, exercise, support, and counseling. To find one, ask your provider or call your local hospital. Also, talk with your healthcare provider about a self-management program. o Healthy eating. Eating a healthy, balanced diet is important to staying as healthy as possible. So is trying to stay at your ideal weight. Make sure you have a lot of fruits and vegetables every day. And also eat balanced portions of whole grains, lean meats and fish, and low-fat dairy products.Preventing a zuwqf-vkMqiox-wid happen. But the best way to treat one is to prevent it before it starts. Here are somepointers: Don't smoke or be around others who are smoking. Avoid using e-cigarettes due to their harmful side effects. Take your medicines as discussed with your healthcare provider. Talk with your provider about getting a flu shot every year. Also find out if you need a pneumonia shot. If there is a weather advisory warning to stay indoors, try to stay inside when possible. 6 General Instructions [facility] [address] [place] [address] Phone #: ext- [phone] 10/21/2020 13:51 Patient: SEAN MILLER Sex: M : 1965 Age: 55y Try to eat healthy, exercise, and get plenty of sleep. Try to stay away from things that normally set you off. These include dust, chemical fumes, hairsprays, or strong perfumes.Follow-up careFollow up with your healthcare provider, or as advised.If a culture was done, you will be told if your treatment needs to be changed. You can call asdirected for the results.If X-rays were done, you will be told of any new findings that may affect your care.Deysi padilla each appointment, talk with your healthcare provider about your ability to: [place] in your normal environment Correctly use inhaler (or your medicine delivery systems) [place] with other conditions you have and their treatments and how they may affect your COPDCall 911Call 911 if any of these occur: Wheezing or shortness or breath does not get better with treatment Chest pain or chest tightness Feeling lightheaded or dizzy You have trouble breathing You feel confused or it's hard to wake you up You faint or lose consciousness You have a rapid heart rate You have new pain in your chest, arm, shoulder, neck, or upper backWhen to seek medical adviceCall your healthcare provider right away if any of these occur: Fever of 100.4F (38C) or higher, or as directed by your healthcare provider Coughing up lots of dark-colored or bloody mucus (sputum) 7 General Instructions [facility] [address] [place] [address] Phone #: ext- [phone] 10/21/2020 13:51 Patient: SEAN MILLER Sex: M : 1965 Age: 55y You don't start to get better within 24 hours Swelling of your ankles gets worse Weakness [id number] [employer]. [address] [place] [address]. All rights reserved. This information is not intended as asubstitute for professional medical care. Always follow your healthcare professional's instructions. You have been given the following additional information: COPD Flare(Electronically signed by Devin Menjivar M.D. 10/21/2020 17:02) Name Value Range Interpretation Code Description Data Ebony rce(s) Supporting Document(s) ID Date Data Source [id number] 10/21/2020 01:51:00 PM EDT [facility] 1 Clinical Report - Nurses [facility] [address] [place] [address] Phone #: ext- [phone] 10/21/2020 13:51 Patient: SEAN MILLER Sex: M : 1965 Age: 55yTRIAGEArrived by EMS, and from home. Historian: patient.Acuity: LEVEL 3.Chief Complaint: (shortness of breath, cough and wheezing).Alert. No acute distress.( patient reporting he is out of his prednisone. Has a PCP appt this Monday.). ( " I feel so good after whatthat medic gave me." pt had a dose of IVP Decadron in route.). 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 --14:01 10/21/20 Tegan Hauser R.N.13:53 10/21/20. BP: 144/110. MAP: 121. HR: 90. RR: 20. O2 saturation: 96%. Temp: 97 F. Pain levelnow: 0/10. --14:01 10/21/20 Tegan Hauser R.N. Height/Length: 108 inches. Charted on wrong patient --13:52 10/21/20 Tegan Hauser R.N..Weight: 74.8 kg stated. Height/Length: 70 inches Per Patient. BMI: 23.7. --13:52 10/21/20 Tegan Hauser R.N.MedicationsLisinopril Oral 20 mg, daily. Neb tx. Ompeprazole. --13:57 10/21/20 Tegan Hauser R.N.AllergiesNo Known Drug Allergy. --13:57 10/21/20 Tegan Hauser R.N.ADDITIONAL SURGERIES:no known surgeries.HistoryPAST MEDICAL HX: Chronic obstructive pulmonary disease. Immunizations: up-to-date.SURGERY HX: No history of previous surgery.SOCIAL HX: Light tobacco smoker (cigarette)- less than 1/2 a pack per day. Drug use: marijuana. No 2 Clinical Report - Nurses [facility] [address] [place] [address] Phone #: ext- [phone] 10/21/2020 13:51 [id number] Sex: M : 1965 Age: 55y alcohol use. He was offered HIV testing but declined and hepatitis C testing but declined. SELF HARM ASSESSMENT: Self harm assessment was performed. The patient answered "no" to the ques tion(s) "Have you recently felt down, depressed, or hopeless?", "Do you have thoughts of harming or killing yourself?", "Do you have a plan for harming or killing yourself?", "Have you recently had thoughts about harming or killing others?", "Do you have any dangerous items in your possession?", "Have you noticed less interest or pleasure in doing things?", "Are you here because you tried to hurt yourself?" and "Have you ever tried to hurt yourself before today?". ABUSE ASSESSMENT: No report of abuse. NUTRITIONAL RISK ASSESSMENT: The nutritional risk assessment revealed no deficiencies. FUNCTIONAL ASSESSMENT: Functional assessment: no impairments noted. LEARNING NEEDS ASSESSMENT: The learning needs assessment revealed no barriers. FALL RISK ASSESSMENT: Fall risk assessment completed. No risk factors identified. SKIN INTEGRITY ASSESSMENT: Skin integrity risk assessment completed. No skin integrity risk identified. --1 4:01 10/21/20 Tegan Hauser R.N. SOCIAL HX: The patient has not traveled outside the [place] Infectious disease exposure: No infectious disease exposure. The patient was not exposed to C-diff, MRSA, VRE, CRE or Coronavirus. --14:02 10/21/20 Tegan Hauser R.N.PHYSICAL ASSESSMENTTo room via stretcher.GENERAL / NEURO / PSYCH: Alert. Oriented X 4. Appears in no acute distress.HEENT: Mucous membranes are pink.RESPIRATORY: No respiratory distress. Mild respiratory distress. The patient can speak in fullsentences. Cough. Wheezing present.CVS: Normal sinus rhythm noted. Capillary refill less than 2 seconds.GI / : Abdomen soft and nontender. Bowel sounds within normal limits.SKIN: Skin is warm and dry. Normal skin turgor. --14:06 10/21/20 Aline Cohn R.N.NURSING PROGRESS NOTESPatient gowned. Head of bed elevated. Reassurance given. Call light placed in reach. Side rails up x2. Bed placed in lowest position. Brakes of bed on. Patient ready for evaluation. --14:03 10/21/20Tegan Hauser R.N. 14:08 10/21 Site #1 started prior to arrival by EMS via IV in the right wrist with an 18g angiocath; one attempt. Saline lock flushed with 10 mL saline. --14:08 10/21/20 Aline Cohn R.N. 3 Clinical Report - Nurses [facility] [address] [place] [address] Phone #: ext- [phone] 10/21/2020 13:51 Patient: SEAN MILLER Sex: M : 1965 Age: 55yPatient transported to radiology by wheelchair with IV, mask and fire control technician g. --14:19 10/21/20 Aline Cohn R.N.late entry - 14:23 10/21/20. Patient returned from radiology by wheelchair with IV, mask and radiologytech. --14:31 10/21/20 Aline Cohn R.N.14:25 10/21/2020 Duoneb Neb TX Nebulizer 2 unit dose given. Given by the nurse. Allergies verified andconfirmed 5 rights. Information reviewed with patient including reason for taking this medication, signs ofallergic reaction and precautions. Verbalizes understanding. --14:30 10/21/20 Aline Cohn R.N.14:25 10/21/2020 Tessalon Perles (Benzonatate) PO Capsules 200 mg given. Allergies verified andconfirmed 5 rights. Information reviewed with patient including reason for taking this medication, signs ofallergic reaction and precautions. Verbalizes understanding. --14:30 10/21/20 Aline Cohn R.N.Patient ID band checked for patient name and birthdate: patient confirmed. COVID-19 specimen obtainedby RN via nasopharyngeal swab. Labeled in the presence of the patient and sent to lab. --14:31 10/21/20Aline Cohn R.N.14:45 10/21/2020 Duoneb Neb TX discontinued due to improvement in patient condition. --14:57 10/21/20Aline Cohn R.N.Monitoring of patient in place. Patient gowned. Reassurance given.Rounding: Position: states comfortable. Proximity of possessions / care items: call light within easy reach.Set expectations: advised patient of rounding protocol timing and asked if they needed anything else at thistime. The patient is calm and resting quietly. Three patient identifiers checked. Call light placed inreach. Side rails up x 2. Bed placed in lowest position. Brakes of bed on. Patient waiting fordisposition. --14:58 10/21/20 Aline Cohn R.N.Monitoring of patient in place. Patient gowned. Reassurance given.Rounding: Position: states comfortable. Proximity of possessions / care items: call light within easy reach.Set expectations: advised patient of rounding protocol timing and asked if they needed anything else at thistime. The patient is calm and resting quietly. Three patient identifiers checked. Call light placed inreach. Side rails up x 2. Bed placed in lowest position. Brakes of bed on. Patient waiting for labresults and disposition. --15:40 10/21/20 Aline Cohn R.N.16:10 10/21/2020 Site #1 removed upon d ischarge. Catheter intact. Bandage applied. --16:20 10/21/20Aline Cohn R.N.15:15 10/21/20. BP: 168/88. MAP: 114. HR: 90. RR: 18. O2 saturation: 99% on room air. --16:214 Aline Cohn R.N.DISPOSITION / DISCHARGE 4 Clinical Report - Nurses [facility] [address] [place] [address] Phone #: ext- [phone] 10/21/2020 13:51 [id number] Sex[facility] M : 1965 Age: 55y Condition at departure: improved and stable. No learning barriers present. Discharge instructions provided and reviewed with the patient. Reviewed warnings. Reviewed medication(s) side effects, precautions, dosing and course information. Prescription(s) sent electronically to pharmacy (Prednisone, Albuterol, Ipratropium, Tessalon Pearls). Reviewed referral to a primary care physician for followup. Patient verbalized understanding. Written instructions provided in [place]ian. The patient was discharged by the physician. He was discharged home and unaccompanied at time of discharge. He left ambulatory and via taxi. Driving (taxi). --16:19 10/21/20 Aline Cohn R.N. 16:10 10/21/20. BP: 177/96. MAP: 123. HR: 97. RR: 18. O2 saturation: 96% on room air. Temp: 97.2 F (oral). Pain level now: 08/12. --16:19 10/21/20 Aline Cohn R.N. Departure time: 16:14 10/21/2020. --16:20 10/21/20 Aline Cohn R.N.Locked/Released at 10/21/2020 16:21 by Aline Cohn R.N. Name Value Range Interpretation Code Description Data Ebony rce(s) Supporting Document(s) ID Date Data Source [id number] 10/21/2020 01:51:00 PM EDT [facility] 1 Clinical Report - Physicians/Mid Levels [facility] [address] [place] [address] Phone #: ext- [phone] 10/21/2020 13:51 [id number] Sex[facility] M : 1965 Age: 55y Time Seen: 13:55 10/21/2020; initial patient contact. Arrived- By private vehicle. Historian- patient. Disposition decision: 15:50 10/21/2020.HISTORY OF PRESENT ILLNESS Chief Complaint: DYSPNEA and HISTORY OF CHRONIC OBSTRUCTIVE PULMONARY DISEASE. This started 2 days ago and is still present but is better now. It was abrupt in onset and has been intermittent. The dyspnea is described as moderate and is worsened by walking and cough and is improved by rest. The patient has had a severe dry cough. No sputum production, fever, sweating episodes or chills. No chest pain or discomfort, calf pain or foot swelling. He has had moderate wheezing. (pt has Hx of COPD, and has been on prednisone 20 mg QD since 2015; pt has been followed by steam gigger in [place] who, according to pt, refuses to prescribe him prednisone; pt states that's the only thing that works and keeps him out of hospitals; pt has been here 4 times since August (08/11, 09/03, 09/22 and 10/15) and now has appt w new PROGRAM ADVISOR in [place] on 10-23; pt has been out of prednisone x 2 days and started w SOB/Coughing/wheezing since so called 911 who gave him duonbl. plus Decadron 10 mg iv; pt feels much better now and requests prednisone enough to last him until 10-23). Similar symptoms previously. Patient has had similar symptoms many times, chronically. Recent medical care: The patient was seen recently at this facility. ( 10-15-20, see ER records).REVIEW OF SYSTEMSThe patient has not had weight loss. No muscle aches, eye irritation, sore throat, nasal discharge or sinusdrainage. No nausea, vomiting, abdominal pain, diarrhea or black stools. No bloody stools, headache,fainting episodes, blurred vision or difficulty with urination. No excessive urination, skin rash, enlargedlymph nodes or joint pain. All other systems reviewed and are negative.PAST HISTORYSee nurses notes. Emphysema. Problems: Gastroesophageal Reflux Disease. Hypertension. Vertigo. COPD - Chronic Obstructive Pulmonary Disease. Additional Surgeries: no known surgeries. Medications: Lisinopril Oral 20 mg, daily. 2 Clinical Report - Physicians/Mid Levels [facility] [address] [place] [address] Phone #: ext- [phone] 10/21/2020 13:51 Patient: SEAN MILLER Sex: M : 1965 Age: 55y Neb tx. Ompeprazole. Allergies: No Known Drug Allerg y.SOCIAL HISTORYLight tobacco smoker- less than 1/2 a pack per day. Heavy drug use: marijuana. No alcohol use.ADDITIONAL NOTESThe nursing notes have been reviewed with agreement regarding the chief complaint, HPI, ROS, PMH andpatient medications and allergies.PHYSICAL EXAMVital Signs: 10/21/2020 13:53 BP: 144/110. MAP: 121. HR: 90. RR: 20. O2 saturation: 96%. Temp: 97 F.Pain level now: 0/10. Have been reviewed. Oxygen saturation normal.Appearance: Alert. No acute distress. Anxious.Eyes: Pupils equal, round and reactive to light. Eyes normal inspection.ENT: Nose normal. Pharynx normal. Uvula midline.Neck: Normal inspection. No jugular venous distention. Neck supple.CVS: Normal heart rate and rhythm. Heart sounds normal. Pulses normal.Respiratory: No respiratory distress. Mildly decreased air movement diffusely over both lungs. Painlessinspiration. Expiratory mild bilateral wheezes in the bases. No accessory muscle use, retractions orprolonged expiration.Abdomen: Soft and nontender. No organomegaly.Back: Normal inspection.Skin: Skin warm and dry. Normal skin color. No rash. Normal skin turgor.Extremities: Extremities exhibit normal ROM. No lower extremity edema.Neuro: Oriented X 3. No motor deficit. No sensory deficit.LABS, X-RAYS, AND EKGChest X-ray: No acute disease. Views: PA and lateral. Technique: good. The X-rays were interpretedby the radiologist. Interpretation time: 14:39 10/21/2020.Laboratory Tests: Laboratory tests have been ordered, with results reviewed and considered in themedical decision making process. COVID-19 CAH: (GEREMIAS: 10/21/2020 14:27) ( MsgRcvd 10/21/2020 15:40) Final results Test Result Flag Units (Reference) COVID-19 NOT DETECTED COVID-19 REENTER NOT DETECTED { PROCEDURAL CONTROL VALID KIT LOT # _[id number] 10/21/20.1539.DW . KIT EXP DATE _89-39-00 10/21/20.1539.DW . NORMAL RANGE IS NOT DETECTEDNEGATIVE RESULTS SHOULD BE TREATED PRESUMPTIVE AND, IF INCONSISTENT WITHCLINICAL SIGNS AND SYMPTOMS OR NECESSARY FOR PATIENT MANAGEMENT, SHOULD BETESTED WITH DIFFERENT AUTHORIZED OR CLEARED MOLECULAR TESTS. NEGATIVE RESULTSDO NOT PRECLUDE SARS-CoV-2 INFECTION AND SHOULD NOT BE USED THE SOLE BASISFOR PATIENT MANAGEMENT DECISIONS. 3 Clinical Report - Physicians/Mid Levels [facility] [address] [place] [address] Phone #: ext- [phone] 10/21/2020 13:51 Patient: SEAN MILLER Sex: M : 1965 Age: 55y.PROGRESS AND PROCEDURESCourse of Care: 15:44 10/21/20. markedly improved, BS's improved, rare wheezing at bases, CXR neg.,rapid Covid neg., will d/c home w instructions, pt requesting albuterol inhaler, duonbl and prednisone 40mg QD x 5 days until he is seen at [facility] on ; he also requested some codeinesyrup which was denied; pt strongly encouraged to see his new PROGRAM ADVISOR from now on for meds refill, since thisis 5th ER visit since 08-23 for this; pt understands and agrees. Patient counseled in person regarding the patient's stable condition, test results, diagnosis and need for follow-up. Patient agrees with plan of care. Disposition: Condition: good and stable. Discharge decision based on the following: patient's condition is stable; patient's condition is improved; patient is ambulatory; patient is active; patient drinking fluids; patient eating; patient's pain is controlled; patient's exam is improved; no abnormal test results; improving condition on multiple repeat evaluations; social support is good; transportation is available; follow-up is available; clinical impression is consistent with outpatient treatment.CLINICAL IMPRESSION Medication refill. Stable COPD (emphysematous). No chronic bronchitis.INSTRUCTIONS Avoid tobacco smoke. Do not smoke. No alcohol. (PLEASE GET YOUR MEDICATION REFILLS FROM YOUR NEW FAMILY MD IN [place] WHEN YOU SEE HIM/HER ON 10-23). Warnings: Further evaluation is necessary (Medication Refill on 10-23). It is very important to follow up with a healthcare provider. GENERAL WARNINGS: Return or contact your physician immediately if your condition worsens or changes unexpectedly, if not improving as expected, or if other problems arise. SPECIFICALLY, return if you develop chest pain, neck pain, jaw pain, shoulder pain, arm pain, back pain, fever, productive cough, difficulty breathing, excessive fatigue, a fluttering sensation in the chest, fainting or leg swelling. Your Current Medications: Your current home medications have been reviewed. CONTINUE TAKING THE FOLLOWING MEDICATIONS: Lisinopril Oral : 20 mg daily. Neb tx*. Ompeprazole*. 4 Clinical Report - Physicians/Mid Levels [facility] [address] [place] [address] Phone #: ext- [phone] 10/21/2020 13:51 Patient: SEAN MILLER Sex: M : 1965 Age: 55y Prescription Medications: prednisone 20 mg tablet Take 2 tablet once a day for 5 days -- Dispense 10 tablet. Refills: 0. Substitution permitted. [place] [id number]. . albuterol sulfate HFA 90 mcg/actuation aerosol inhaler Inhale 2 puff four times a day as needed for 7 days -- Dispense 1 inhaler. Refills: 0. Substitution permitted. [place] [id number]. . ipratropium 0.5 mg-albuterol 3 mg (2.5 mg base)/3 mL nebulization soln Take 3 ml four times a day as needed for 7 days -- Dispense 84 ml. Refills: 0. Substitution permitted. [place] [address]. . Tessalon Perles 100 mg capsule Take 1 capsule three times a day for 5 days -- Dispense 15 capsule. Refills: 1. Substitution permitted. [place] [address]. . Follow-up: Return to the emergency department as needed. Understanding of the discharge instructions verbalized by patient. Expected course of illness, discharge instructions, activity level, diet, prescriptions x3, follow-up appointment and risks and benefits of treatment reviewed with patient and understanding verbalized. Agrees to plan of care. Follow-up with: [facility], , , [address] [place] [address], [phone] Follow up in two days as scheduled. Reason for referral: evaluation, treatment and Medication refill. Summary of care provided to patient via paper.(Electronically signed by Devin Menjivar M.D. 10/21/2020 17:02) Name Value Range Interpretation Code Description Data Ebony rce(s) Supporting Document(s) ID Date Data Source [id number] 10/21/2020 02:27:00 PM EDT [facility] Name Value Range Interpretation Code Description Data Ebony rce(s) Supporting Document(s) COVID19 Case rprt NOT DETECTED [facility] This lab was ordered by [facility] and reported by [facility]. ID Date Data Source [id number] 10/21/2020 03:39:00 PM EDT [facility] NOT DETECTEDNOT DETECTED{ PROC EDURAL CONTROL VALID KIT LOT # _[id number] 10/21/20.1539.DW . KIT EXP DATE _34-13-10 10/21/20.1539.DW . NORMAL RANGE IS NOT DETECTEDNEGATIVE RESULTS SHOULD BE TREATED PRESUMPTIVE AND, IF INCONSISTENT WITHCLINICAL SIGNS AND SYMPTOMS OR NECESSARY FOR PATIENT MANAGEMENT, SHOULD BETESTED WITH DIFFERENT AUTHORIZED OR CLEARED MOLECULAR TESTS. NEGATIVE RESULTSDO NOT PRECLUDE SARS-CoV-2 INFECTION AND SHOULD NOT BE USED THE SOLE BASISFOR PATIENT MANAGEMENT DECISIONS. Name Value Range Interpretation Code Description Data [facility] rce(s) Supporting Document(s) ID Date Data Source [id number] 10/15/2020 12:12:00 PM EDT [facility] 1 OrderSheet [facility] [address] [place] [address] Phone #: ext- [phone] 10/15/2020 12:12 Patient: SEAN MILLER Sex: M : 1965 Age: 55yWEIGHT:74.8 kg (S) HEIGHT:70 inches (S) BMI:23.7ALLERGIES: No Known Drug AllergyCHIEF COMPLAINT: dyspneaDIAGNOSIS: Chronic obstructive lung diseaseLAB ORDERSOrder Description Priority Entered Acknowledged InitialedDIAGNOSTIC STUDY ORDERSOrder Description Priority Entered Acknowledged InitialedMEDICATION/IV/DRIP/FLUID ORDERSOrder Description Priority Entered Acknowledged InitialedSOLU-Medrol IVP 12:10/15/2020 12:43 Suki,125 mg Chelsy Oakley MD; Aline LivingstonIV NS 1000 mL 12:10/15/2020 12:44 Suki,Bolus : Bolus 1000 Chelsy Oakley MD; Aline LivingstonmL (X1)Magnesium Sulfate 12:10/15/2020 12:51 Suki,2 g IVPB X1 dose: 2 Chelsy Oakley MD; Aline Livingstongm (HIGH ALERTMEDICATION, X1)DuoNeb Neb Tx 3 12:10/15/2020 12:43 SukimL (NOW x1, NOW) Chelsy Oakley MD; Aline LivingstonGENERAL ORDERSOrder Description Priority Entered Acknowledged Initialed[Electronically signed by Aline Cohn R.N. (15:10/15/2020)][Electronically signed by Chelsy Oakley MD (00:10/16/2020)][Electronically locked by Aline Cohn R.N. (15:10/15/2020)] Name Value Range Interpretation Code Description Data Ebony rce(s) Supporting Document(s) ID Date Data Source [id number] 10/15/2020 12:12:00 PM EDT [facility] 1 Medication Reconciliation Report [facility] [address] [place] [address] Phone #: ext- [facility]5 10/15/2020 12:12 Patient: SEAN MILLER Sex: M : 1965 Age: 55yWeight: 74.8 kgHeight/Length: 70 in.BMI: 23.7ALLERGIES: No Known Drug AllergyThe patient's Home Medications are listed below:CONTINUE TAKING THE FOLLOWING MEDICATIONS: Lisinopril Oral 20 mg, daily Neb tx Ompeprazole predniSONE Oral 20 mg, dailyThe source(s) of the original Home Medication information:patientThe following Medications were given to the patient in the Emergency Department:Solu-Medrol [IVP] IVP 125 mg, administered: 12:38 10/15/2020uoneb [Neb Tx] Neb TX 1 unit dose, administered: 12:38 10/15/2020NS [IV] IV Fluids bolus 1000 mL wide open, administered: 12:44 10/15/2020Magnesium Sulfate [IVPB] IVPB bolus 0, then 2 gm 50 mL/hr, administered: 12:46 10/15/2020The following Medications were prescribed to the patient:prednisone 20 mg tablet Take 1 tablet once a day -- Dispense 5 tablet. Refills: 0. Substitutionpermitted.Pharmacy - [facility] - [address] [place] [phone]. FaxNumber: . -- Chelsy Oakley MD Name Value Range Interpretation Code Description Data Ebony rce(s) Supporting Document(s) ID Date Data Source [id number] 10/15/2020 12:12:00 PM EDT [facility] 1 Medication Administration Record [facility] [address] [place] [address] Phone #: ext- [phone] 10/15/2020 12:12 Patient: SEAN MILLER Sex: M : 1965 Age: 55yWeight: 74.8 kgHeight/Length: 70 inBMI: 23.7ALLERGIES: No Known Drug Allergy Date/Time Medication Administered Medication OrderedGiven SOLU-MEDROL [IVP] SOLU-Medrol IVP 125 mg12:38 10/15/2020 (METHYLPREDNISOLONE Aline Olsen, R.N. SUCC) Dose: 125 mg IVP Site: #1 right handStart NS [IV] IV NS 1000 mL Bolus : Bolus 960767:[id number] 10/15/2020 Dose: IV Fluids mL (X1)Aline Cohn R.N. Bolus: 1000 mL wide open---- Dispensed: 1000 mL bagStop Site: #1 right hand15:05 10/15/2020Aline Cohn R.N.Start MAGNESIUM SULFATE [IVPB] Magnesium Sulfate 2 g IVPB X112:46 10/15/2020 Dose: 2 gm IVPB dose: 2 gm (HIGH ALERTAline Cohn R.N. Rate: 50 mL/hr MEDICATION, X1)---- Dispensed: 50 mL bagStop Site: #1 right hand14:48 10/15/2020Aline Cohn R.N.Given DUONEB [NEB TX] DuoNeb Neb Tx 3 mL (NOW x1,12:38 10/15/2020 Dose: 1 unit dose Nebulizer Neb TX NOW)Aline Cohn R.N.----Stop12:51 10/15/2020Aline Cohn R.N. Name Value Range Interpretation Code Description Data Ebony rce(s) Supporting Document(s) ID Date Data Source [id number] 10/15/2020 12:12:00 PM EDT [facility] 1 General Instructions [facility] [address] [place] [address] Phone #: ext- [phone] 10/15/2020 12:12 Patient: SEAN MILLER Sex: M : 1965 Age: 55yAcute exacerbation of COPD.INSTRUCTIONSNo strenuous activity.Avoid tobacco smoke.(Return if worse or any new symptoms. Take all medications as previously instructed. I have sent you aprescription for prednisone. take as prescribed. it is imperative to follow up with your pulmonol ogist and[facility]Warnings: Further evaluation is necessary.GENERAL WARNINGS: Return or contact your physician immediately if your condition worsens orchanges unexpectedly, if not improving as expected, or if other problems arise.Your Current Medications: Your current home medications have been reviewed.CONTINUE TAKING THE FOLLOWING MEDICATIONS:Lisinopril Oral : 20 mg daily.Neb tx*.Ompeprazole*.predniSONE Oral : 20 mg daily.Prescription Medications:prednisone 20 mg tablet Take 1 tablet once a day -- Dispense 5 tablet. Refills: 0. Substitutionpermitted.Pharmacy - [facility] - [address] [place] [phone]. .Follow-up:Follow up with your doctor tomorrow even if well. Call for an appointment. Reason for referral: evaluation.Summary of care provided to patient via paper.Understanding of the discharge instructions verbalized by patient. ADDITIONAL INFORMATIONCOPD Flare 2 General Instructions [facility] [address] [place] [address] Phone #: ext- [phone] 10/15/2020 12:12 Patient: SEAN MILLER Sex: M : 1965 Age: 55yYou have had a flare-up of your COPD.COPD (chronic obstructive pulmonary disease) is a common lung disease. It causes your airways toget irritated and narrower. This makes it harder for you to breathe. Emphysema and chronicbronchitis are both types of COPD. This is a long-term (chronic) condition. This means you alwaysh ave it. Sometimes it gets worse. When this happens, it is called a flare- up.Symptoms of COPDPeople with COPD may have symptoms most of the time. In a flare-up, your symptoms get worse.These symptoms may mean you are having a flare-up: Shortness of breath, shallow or rapid breathing, or wheezing that gets worse Lung infection Cough that gets worse More mucus, thicker mucus or mucus of a different color 3 General Instructions [facility] [address] [place] [address] Phone #: ext- [phone] 10/15/2020 12:12 Patient: SEAN MILLER Sex: M : 1965 Age: 55y Tiredness, less energy, or trouble doing your normal activities Fever Chest tightness Your symptoms don't get better even when you use your normal medicines, inhalers, and nebulizer Trouble talking You feel confusedCauses of flare-upsUnfortunately, a flare-up can happen even if you did everything right. And even if you followed yourhealthcare provider's instructions. Some causes of flare-ups are: Smoking or secondhand smoke Colds, the flu, or respiratory infections Air pollution Sudden change in the weather Dust, irritating chemicals, or strong fumes Not taking your medicines as prescribedHome careHere are some things you can do at home to treat a flare-up: Try not to panic. This makes it harder to breathe, and keeps you from doing the right things. Don't smoke or be around others who are smoking. Try to drink more fluids than normal during a flare-up, unless your healthcare provider has told you not to because of heart and kidney problems. More fluids can help loosen the mucus. Use your inhalers and nebulizer, if you have one, as you have been told to. When using a metered dose inhaler or nebulizer, it's very important to use the proper techniques. If you have any questions about how to use your device, contact your healthcare provider or refer to the user manual. If you were given antibiotics, take them until they are used up or your provider tells you to stop. It's important to finish the antibiotics, even though you feel better. This will make sure the infection has cleared. 4 General Instructions [facility] [address] [place] [address] Phone #: ext- [phone] 10/15/2020 12:12 Patient: SEAN MILLER Sex: M : 1965 Age: 55y If you were given a steroid, finish it even if you feel better. Learn the names of your medicines, as well as how and when to use them. Talk with your provider about other conditions y ou have and their treatment and how it may affect your COPD. Oxygen may be prescribed if tests show that your blood contains too little oxygen. Ask your provider about long-term oxygen therapy. Coping tips for shortness of breath include: o Exercise. Try to be as active as possible. This will improve energy levels and strengthen your muscles, so you can do more. o Breathing methods. Ask your healthcare provider or nurse to show you how to do pursed-lip breathing. o Balance rest and activity. Each day, try to balance rest periods with activity. For example, you might start the day with getting dressed and eating breakfast. Then you can relax and read the paper. After that, take a brief walk. And then sit with your feet up for a while. o Pulmonary rehab (rehabilitation). These programs help with managing your disease, breathing methods, exercise, support, and counseling. To find one, ask your provider or call your local hospital. Also, talk with your healthcare provider about a self-management program. o Healthy eating. Eating a healthy, balanced diet is important to staying as healthy as possible. So is trying to stay at your ideal weight. Make sure you have a lot of fruits and vegetables every day. And also eat balanced portions of whole grains, lean meats and fish, and low-fat dairy products.Preventing a lgyxp-feJonzt-wee happen. But the best way to treat one is to prevent it before it starts. Here are somepointers: Don't smoke or be around others who are smoking. Avoid using e-cigarettes due to their harmful side effects. Take your medicines as discussed with your healthcare provider. Talk with your provider about getting a flu shot every year. Also find out if you need a pneumonia shot. If there is a weather advisory warning to stay indoors, try to stay inside when possible. 5 General Instructions [facility] [address] [place] [address] Phone #: ext- [phone] 10/15/2020 12:12 [id number] Sex[facility] M : 1965 Age: 55y Try to eat healthy, exercise, and get plenty of sleep. Try to stay away from things that normally set you off. These include dust, chemical fumes, hairsprays, or strong perfumes.Follow-up careFollow up with your healthcare provider, or as advised.If a culture was done, you will be told if your treatment needs to be changed. You can call asdirected for the results.If X-rays were done, you will be told of any new findings that may affect your care.During each appointment, talk with your healthcare provider about your ability to: [place] in your normal environment Correctly use inhaler (or your medicine delivery systems) [place] with other conditions you have and their treatments and how they may affect your COPDCall 911Call 911 if any of these occur: Wheezing or shortness or breath does not get better with treatment Chest pain or chest tightness Feeling lightheaded or dizzy You have trouble breathing You feel confused or it's hard to wake you up You faint or lose consciousness You have a rapid heart rate You have new pain in your chest, arm, shoulder, neck, or upper backWhen to seek medical adviceCall your healthcare provider right away if any of these occur: Fever of 100.4F (38C) or higher, or as directed by your healthcare provider Coughing up lots of dark-colored or bloody mucus (sputum) 6 General Instructions [facility] [address] [place] [address] Phone #: ext- [phone] 10/15/2020 12:12 Patient: SEAN MILLER Sex: M : 1965 Age: 55y You don't start to get better within 24 hours Swelling of your ankles gets worse Weakness [id number] [employer]. [address] [place] [address]. All rights reserved. This information is not intended as asubstitute for professional medical care. Always follow your healthcare professional's instructions. You have been given the following additional information: COPD Flare No strenuous activity.(Electronically signed by Chelsy Oakley MD 10/16/2020 00:21) Name Value Range Interpretation Code Description Data Ebony rce(s) Supporting Document(s) ID Date Data Source [id number] 10/15/2020 12:12:00 PM EDT [facility] 1 Clinical Report - Nurses [facility] [address] [place] [address] Phone #: ext- [phone] 10/15/2020 12:12 Patient: SEAN MILLER Sex: M : 1965 Age: 55yTRIAGEArrived by EMS. Historian: EMS and patient. ( presents via [facility] with c/o SOB and cough that startedlastnight, angry at EMS because they wouldn't give him a neb tx en route.).Triage time: 12:11 10/15/2020. Acuity: LEVEL 3.Chief Complaint: SHORTNESS OF BREATH and DIFFICULTY BREATHING.Alert. 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 Recently seen in a medical facility; treatment- breathing treatment. (0700).SEPSIS SCREEN: SIRS SCREEN NEGATIVE. SEPSIS SCREEN NEGATIVE. No suspected or confirmedsigns of infection present. --12:31 10/15/20 Cherelle Echols RN12:26 10/15/20. BP: 164/104. MAP: 124. HR: 125. RR: 18. O2 saturation: 95% on nasal cannula at 2liters/minute. Temp: 98.7 F. Pain level now: 11/09. --12:10/15/20 Cherelle Echols RN.Weight: 74.8 kg stated. Height/Length: 70 inches Per Patient. BMI: 23.7. --12:10/15/20 Cherelle Echols RN.MedicationsLisinopril Oral 20 mg, daily. Ompeprazole. predniSONE Oral 20 mg, daily. --12:10/15/20 Cherelle Echols RN Neb tx. --12:10/15/20 Cherelle Echols RN.AllergiesNo Known Drug Allergy. --12:10/15/20 Cherelle Echols RN.PROBLEMS:Acid reflux.Copd.Arthritis.Dizziness.Vertigo.Hypertension. --12:10/15/20 Cherelle Echols RNThe following entry was modified by Cherelle Echols RN, 12:10/15/20 2 Clinical Report - Nurses [facility] [address] [place] [address] Phone #: ext- [phone] 10/15/2020 12:12 Patient: SEAN MILLER Sex: M : 1965 Age: 55y Gastroesophageal Reflux Disease. --12:10/15/20 Cherelle Echols RN. Medication/allergy information source: the patient and patient's previous visit record. --12:10/15/20 Cherelle Echols RN. ADDITIONAL SURGERIES: no known surgeries. History SOCIAL HX: Smoker- current status unknown (occ). Drug use: marijuana. No alcohol use. He was offered HIV testing but declined and hepatitis C testing but declined. He has not traveled outside the [place] Infectious disease exposure: No infectious disease exposure. SELF HARM ASSESSMENT: Self harm assessment was performed. The patient answered "no" to the question(s) "Have you recently felt down, depressed, or hopeless?". ABUSE SESSMENT: No report of abuse. NUTRITIONAL RISK ASSESSMENT: The nutritional risk assessment revealed no deficiencies. FUNCTIONAL ASSESSMENT: Functional assessment: no impairments noted. LEARNING NEEDS ASSESSMENT: The learning needs assessment revealed no barriers. FALL RISK ASSESSMENT: Fall risk assessment completed. Risk factors identified include dizziness, weakness and patient impairment of mobility. Fall interventions initiated. Patient placed on stretcher. Side rails up x2. Bed in low position. Call light in reach of patient. SKIN INTEGRITY ASSESSMENT: Skin integrity risk assessment completed. No skin integrity risk identified. --12:10/15/20 Cherelle Echols RN.PHYSICAL ASSESSMENTlate entry - 12:29 10/15/20. To room via stretcher.GENERAL / NEURO / PSYCH: Alert. Oriented X 4. Appears in no acute distress.HEENT: Mucous membranes are pink.RESPIRATORY: Moderate respiratory distress. The patient can speak a few words at a time. Chestnontender. Wheezing present.CVS: Cardiac rhythm: sinus tachycardia. Capillary refill less than 2 seconds.GI / : Abdomen soft and nontender. Bowel sounds within normal limits.SKIN: Skin is warm and dry. Normal skin turgor. --12:45 10/15/20 Aline Cohn R.N.NURSING PROGRESS NOTESOxygen administered. Monitoring of patient in place. Patient gowned. Reassurance given. Twopatient identifiers checked. Bed placed in lowest position. Brakes of bed on. Patient ready for 3 Clinical Report - Nurses [facility] [address] [place] [address] Phone #: ext- [phone] 10/15/2020 12:12 Patient: SEAN MILLER Sex: M : 1965 Age: 55yevaluation. --12:31 10/15/20 Cherelle Echols RN12:28 10/15/2020 Site #1 started via IV in the right hand with an 20g angiocath, with aseptic technique andgood blood return; one attempt. Saline lock flushed with 10 mL saline. --12:43 10/15/20 Aline Cohn R.NSimona12:38 10/15/2020 Solu-Medrol (m ethylPREDNISolone Sodium Succ) IVP 125 mg given over 3 minute(s)via site #1. Allergies verified and confirmed 5 rights. IV patency established. IV site checked: no pain,redness, or swelling. IV flushed thoroughly pre- and post- medication administration. IVP given by RN.Information reviewed with patient including reason for taking this medication, signs of allergic reaction andprecautions. Verbalizes understanding. --12:43 10/15/20 Aline Cohn R.NSimona12:38 10/15/2020 Duoneb Neb TX Nebulizer 1 unit dose given. Given by the nurse. Allergies verified andconfirmed 5 rights. Information reviewed with patie nt including reason for taking this medication, signs ofallergic reaction and precautions. Verbalizes understanding. --12:43 10/15/20 Aline Cohn R.NSimona12:44 10/15/2020 Started bag #1 1000 mL IV Fluids NS; bolus of 1000 mL wide open via site #1 via IVpump. Allergies verified and confirmed 5 rights. IV patency established. IV site checked: no pain, redness,or swelling. IV flushed thoroughly pre- and post-medication administration. Information reviewed withpatient including reason for taking this medication, signs of allergic reaction and precautions. Verbalizesunderstanding. --12:44 10/15/20 Patrick Cohn RSimonaNSimona12:46 10/15/2020 Started 2 gm of Magnesium Sulfate IVPB in bag #1 50 mL; at 50 mL/hr via site #1. via IVpump. Allergies verified and confirmed 5 rights. IV patency established. IV site checked: no pain, redness,or swelling. IV flushed thoroughly pre- and post-medication administration. Information reviewed withpatient including reason for taking this medication, signs of allergic reaction and precautions. Verbalizesunderstanding. --12:51 10/15/20 Aline Cohn R.N.12:51 10/15/2020 Kassandra Tyson TX discontinued due to improvement in patient condition. --12:51 10/15/20Aline Cohn R.N.12:30 . BP: 150/101. MAP: 117. HR: 106. RR: 27. O2 saturation: 94%. --13:16 10/15/20[facility] Bdni768:16 10/15/20. BP: 152/97. MAP: 115. HR: 99. RR: 23. O2 saturation: 94%. --13:16 10/15/20 [facility]113:14 10/15/20. Oxygen administered by nasal cannula at 2 liters. software development coordinator, NIBP monitor andpulse oximeter placed on patient; monitor alarms on. Patient gowned. Reassurance given.Rounding: Position: states comfortable. Proximity of possessions / care items: call light within easy reach.Plug ins: assured IV pump plugged in; checked status of equipment in use; located all cords, tubes, andlines to prevent fall hazard. Set expectations: advised patient of rounding protocol timing and asked if theyneeded anything else at this time. Three patient identifiers checked. Call light placed in reach. Side 4 Clinical Report - Nurses [facility] [address] [place] [address] Phone #: ext- [phone] 10/15/2020 12:12 Patient: SEAN MILLER Sex: M : 1965 Age: 55y rails up x 2. Bed placed in lowest position. Brakes of bed on. --13:24 10/15/20 Aline Cohn R.N. Oxygen administered by nasal cannula at 2 liters. software development coordinator, NIBP monitor and pulse oximeter placed on patient; mo nitor alarms on. Patient gowned. Reassurance given. Rounding: Position: states comfortable. Proximity of possessions / care items: call light within easy reach. Plug ins: assured IV pump plugged in; checked status of equipment in use; located all cords, tubes, and lines to prevent fall hazard. Set expectations: advised patient of rounding protocol timing and asked if they needed anything else at this time. The patient is resting quietly and sleeping. RESPIRATORY: No respiratory distress. Three patient identifiers checked. Call light placed in reach. Side rails up x 2. Bed placed in lowest position. Brakes of bed on. Patient waiting for disposition. --14:14 10/15/20 Aline Cohn RSimonaNSimona 14:15 10/15/20. BP: 126/77. MAP: 93. HR: 102. RR: 21. O2 saturation: 95%. --14:35 10/15/20 [place] [employer]1 14:48 10/15/2020 Magnesium Sulfate IVPB via IV site #1 Discontinued: bag #1 infused. Total amount infused: 50ml mL. IV patency established. IV site checked: no pain, redness, or swelling. IV flushed thoroughly. --14:48 10/15/20 Aline Cohn R.N. 15:00 10/15/2020 Site #1 removed upon discharge. Catheter intact. Bandage applied. --15:10 10/15/20 Aline Cohn RSimonaN. 15:05 10/15/2020 IV Fluids NS via IV site #1 Discontinued: bag #1 infused. Total amount infused: 1000ml mL. IV patency established. IV site checked: no pain, redness, or swelling. IV flushed thoroughly. --15:10 10/15/20 Aline Cohn R.N.DISPOSITION / DISCHARGE 15:03 10/15/20. BP: 125/89. HR: 101. RR: 18. O2 saturation: 96%. Temp: 98.4 F. Pain level now 0/10. --15:04 10/15/20 [place] [employer], [employer]1 15:10 10/15/20. Departure time: 15:10 10/15/2020. Condition at departure: improved and stable. No learning barriers present. Discharge instructions provided and reviewed with the patient. Reviewed medication(s) side effects, precautions, dosing and course information. Prescription(s) sent electronically to pharmacy (Prednisone). Reviewed referral to a primary care physician for followup. Patient verbalized understanding. Wr gabrielen instructions provided in Malawian. The patient was discharged by the physician. He was discharged home and unaccompanied at time of discharge. He left ambulatory and via taxi. 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 --15:13 10/15/20 Aline Cohn R.N.Locked/Released at 10/15/2020 15:14 by Aline Cohn R.N. 5 Clinical Report - Nurses [facility] [address] [place] [address] Phone #: ext [phone] 10/15/2020 12:12 Patient: SEAN MILLER Sex: M : 1965 Age: 55y Name Value Range Interpretation Code Description Data Ebony rce(s) Supporting Document(s) ID Date Data Source [id number] 10/15/2020 12:12:00 PM EDT [facility] 1 Clinical Report - Physicians/Mid Levels [facility] [address] [place] [address] Phone #: ext- [phone] 10/15/2020 12:12 Patient: SEAN MILLER Sex: M : 1965 Age: 55y Arrived- By ambulance. Historian- patient and EMS personnel. Disposition decision: 14:56 10/15/2020.HISTORY OF PRESENT ILLNESS Chief Complaint: DYSPNEA. This started last night and is still present. The dyspnea is described as mild and is worsened by cough. The patient has had a cough and wheezing. No sputum production, fever, sweating episodes, chills or dyspnea on exertion. No chest pain or discomfort, calf pain, foot swelling or orthopnea. No paroxysmal nocturnal dyspnea, anxiety, dizziness, tingling or numbness. No palpitations. (presents via [facility] with c/o SOB and cough that started lastnight, angry at EMS because they wouldn't give him a neb tx en route.)). Similar symptoms previously. Recent medical care: The patient was seen recently by a health care provider.REVIEW OF SYSTEMSThe patient has had a cough and difficulty breathing b ut not had weight loss. No muscle aches, eyeirritation or irritation or sore throat or throat. No nasal discharge, sinus drainage, nausea or vomiting. Noabdominal pain or pain, diarrhea, black stools or bloody stools. No headache, fainting episodes, blurredvision or difficulty with urination or urination. No excessive urination, skin rash or rash, joint pain or chills.No fever, ear pain, epistaxis, runny nose or chest pain. No constipation, diarrhea, nausea, vomiting orurinary frequency. No hematuria, back pain, headache or easy bruising.PAST HISTORYSee nurses notes. Problems: Copd. Arthritis. Dizziness. Vertigo. Hypertension. Additional Surgeries: no known surgeries. Medications: Neb tx. Lisinopril Oral 20 mg, daily. Ompeprazole. 2 Clinical Report - Physicians/Mid Levels [facility] [address] [place] [address] Phone #: ext- [phone] 10/15/2020 12:12 Patient: SEAN MILLER Sex: M : 1965 Age: 55y predniSONE Oral 20 mg, daily. Allergies: No Known Drug Allergy.SOCIAL HISTORYSmoker- current status unknown. No drug use.ADDITIONAL NOTESThe nursing notes have been reviewed.PHYSICAL EXAMVital Signs: 10/15/2020 15:03 BP: 125/89. MAP: 101. HR: 101. RR: 18. O2 saturation: 96%. Temp: 98.4F.10/15/2020 14:15 BP: 126/77. MAP: 93. HR: 102. RR: 21. O2 saturation: 95%.10/15/2020 13:16 BP: 152/97. MAP: 115. HR: 99. RR: 23. O2 saturation: 94%.10/15/2020 12:30 BP: 150/101. MAP: 117. HR: 106. RR: 27. O2 saturation: 94%.10/15/2020 12:26 BP: 164 /104. MAP: 124. HR: 125. RR: 18. O2 saturation: 95% on nasal cannula at 2liters/minute. Temp: 98.7 F. Pain level now: 11/09. Have been reviewed and appear to be correct. Bloodpressure normal. Mean arterial pressure- normal. Heart rate normal. Respiratory rate normal.Temperature normal. Oxygen saturation normal.Appearance: Alert. Anxious. No apparent distress.Eyes: Pupils equal, round and reactive to light. Eyes normal inspection.ENT: Ears normal. Pharynx normal. Uvula midline.Neck: Normal inspection. No jugular venous distention. Neck supple.CVS: Normal heart rate and rhythm. Heart sounds normal. Pulses normal.Respiratory: No respiratory distress. Painless inspiration. Expiratory mild bilateral wheezes present.Abdomen: Soft and nontender.Back: Normal inspection. No CVA tenderness.Skin: Skin warm and dry. Normal skin color. No rash.Extremities: Extremities exhibit normal ROM. No lower extremity edema.Neuro: Oriented X 3. No motor deficit. No sensory deficit.PROGRESS AND PROCEDURESCourse of Care: pt had mild wheezing. he was given duonebs, solumedrol, magnesium and ivf. he feltmarkedly better. pt was sent a rx for prednisone. he was discharged and enocuraged to f/u with pcp andhis steam gigger. Patient/family counseled. Disposition: Discharged. Condition: good and stable.CLINICAL IMPRESSION Acute exacerbation of COPD. 3 Clinical Report - Physicians/Mid Levels [facility] [address] [place] [address] Phone #: ext- [phone] 10/15/2020 12:12 [id number] Sex: M : 1965 Age: 55yINSTRUCTIONS No strenuous activity. Avoid tobacco smoke. (Return if worse or any new symptoms. Take all medications as previously instru cted. I have sent you a prescription for prednisone. take as prescribed. it is imperative to follow up with your steam gigger and primary care physician.). Warnings: Further evaluation is necessary. GENERAL WARNINGS: Return or contact your physician immediately if your condition worsens or changes unexpectedly, if not improving as expected, or if other problems arise. Your Current Medications: Your current home medications have been reviewed. CONTINUE TAKING THE FOLLOWING MEDICATIONS: Lisinopril Oral : 20 mg daily. Neb tx*. Ompeprazole*. predniSONE Oral : 20 mg daily. Prescription Medications: prednisone 20 mg tablet Take 1 tablet once a day -- Dispense 5 tablet. Refills: 0. Substitution permitted. Pharmacy - [facility] - [address] [place] [address] ; [place], [place] [id number]. . Follow-up: Follow up with your doctor tomorrow even if well. Call for an appointment. Reason for referral: evaluation. Summary of care provided to patient via paper. Understanding of the discharge instructions verbalized by patient.(Electronically signed by Chelsy Oakley MD 10/16/2020 00:21) Name Value Range Interpretation Code Description Data Ebony rce(s) Supporting Document(s) ID Date Data Source [id number] 09/22/2020 08:19:00 PM EDT [address] [address] RESPIRATORY CARE REPORT ==== ---------NAME------- NUMBER SEX AGE ADMIT DISC. XRAY# F/C TYPEMCCOY SEAN [id number] M 55 09/22/20 09/22/20 [id number] X6B E/R DATE OF : 1965 M/R# [id number] PH#: [phone] TR-05 LOCATION: EKG 35107 COMPLETE:09/22/20 0 6:17 ED 26369 PHYSICIAN: OTTO CARLIN Name Value Range Interpretation Code Description Data Ebony rce(s) Supporting Document(s) ID Date Data Source [id number] 09/22/2020 12:21:00 [place] [address] PHONE: [phone] FAX: [phone] Name .................. : KAMALA ESTRADA Acct Number.................. : [id number] ROOM. ................. : TR-05 Number ................... : [id number] Stay type ............. : E/R Discharge Date......... ... : 09/22/20 Admit Date .... ..... : 09/22/20 Admit Phys .................... : OTTO CARLIN Date of ....... : 1965 Family Phys ................... : Phone .................. : [phone] Age ................................ : 55 Film# .................. .:[id number] Sex ................................. : M Unsigned transcriptions are preliminary reports and do not represent a medical or legal document CHEST PORTABLE [id number] COMPLETE:09/22/20 06:27 RLB 6817 Reason(s): COPD SINGLE VIEW OF THE CHEST, 09/22/20: FINDINGS: The cardiac and mediastinal silhouettes appear normal and the lungs are clear. The bones and soft tissues are normal. The upper abdomen is unremarkable. IMPRESSION: No acute disease identifiable. Electronically Reviewed and Signed By Talib Prado MD , 09/22/20 12:21, TDS Transcribe Initials: ALAINA, Transcribe Date: 09/22/20 09:05, Dictation Date: Copy for: 710 MED REC DISCHARGED Page 1 of 1 Name Value Range Interpretation Code Description Data Ebony rce(s) Supporting Document(s) ID Date Data Source [id number] 09/22/2020 03:21:00 AM EDT [facility] 1 OrderSheet [facility] [address] [place] [address] Phone #: ext- [phone] 09/22/2020 03:21 Patient: SEAN MILLER Sex: M : 1965 Age: 55yWEIGHT:74.8 kg (S) HEIGHT:70 inches (S) BMI:23.7ALLERGIES: No Known Drug AllergyCHIEF COMPLAINT: dizzinessDIAGNOSIS: Chronic obstructive lung disease, DizzinessLAB ORDERSOrder Description Priority Entered Acknowledged InitialedCBC w Diff STAT 03:41 09/22/2020 Initialed: 03:42 Jese, Kelechi Turrin, Devin Cancelled: Patient Refusal 04:21 Brooklynn Sawant; BlairCMP STAT 03:41 09/22/2020 Initialed: 03:42 Bullrenato, Kelechi Turrin, Devin Cancelled: Patient Refusal 04:21 Brooklynn Sawant; BlairLipase STAT 03:41 09/22/2020 Initialed: 03:42 Jese, Kelechi Turrin, Devin Cancelled: Patient Refusal 04:22 Brooklynn Sawant; BlairPT/PTT STAT 03:41 09/22/2020 Initialed: 03:42 Jese, Kelechi Margueriterin, Devin Cancelled: Patient Refusal 04:22 Brooklynn Sawant; BlairTroponin-T STAT 03:41 09/22/2020 Initialed: 03:42 Jese, Kelechi Margueriterin, Devin Cancelled: Patient Refusal 04:22 Brooklynn Sawant; BlairBNP STAT 03:41 09/22/2020 Initialed: 03:42 Jese, Kelechi Turrin, Devin Cancelled: Patient Refusal 04:22 Brooklynn Sawant; BlairDIAGNOSTIC STUDY ORDERSOrder Description Priority Entered Acknowledged InitialedChest Portable 1 STAT 03:41 09/22/2020 03:42 Katrin Sawant Devinyenny Lorenz(Oxygen?(No)) Brooklynn; Reason for Study: COPDCT Head W/O Cont STAT 03:41 09/22/2020 03:42 Jese(Oxygen?(No)) Devin Menjivar M.D.; Reason for Study: Vertigo/DizzinessMEDICATION/IV/DRIP/FLUID ORDERS 2 OrderSheet [facility] [address] [place] [address] Phone #: ext- [phone] 09/22/2020 03:21 - Patient: SEAN MILLER Sex: M : 1965 Age: 55yOrder Description Priority Entered Acknowledged InitialedNS IV 500 mL 03:41 09/22/2020 04:20 Melaragno,Bolus: : Bolus 500 Turrin, Devin Yomaira R.N.mL (X1) M.D.;Phenergan IV 25mg 03:41 09/22/2020 04:19 Melaragno,in 50mL NS, give Turrin, Devin Yomaira R.N.wide open: 25 mg M.D.;(NOW x1, HIGHALERTMEDICATION)SOLU-Medrol 125 03:43 09/22/2020 04:17 Melaragno,mg IV X1 Dose: 125 Turrin, Devin Yomaira R.N.mg (X1) M.D.;DuoNeb Neb Tx 3 03:43 09/22/2020 04:21 Melaragno,mL Turrin, Devin Yomaira R.N. M.D.;GENERAL ORDERSOrder Description Priority Entered Acknowledged InitialedBlood Pressure 03:41 09/22/2020 03:42 Bullrenato,Monitor Devin Menjivar M.D.;Jigsaw Operator 03:41 09/22/2020 03:42 Jese,(continuous) Devin Menjivar M.D.;EKG 03:41 09/22/2020 03:42 Otto Sawant Riccardo Blair M.D.;NPO 03:41 09/22/2020 03:42 Otto Sawant Riccardo Blair M.D.;Obtain Old EKG 03:41 09/22/2020 03:42 Bullrenato, Devin Menjivar M.D.;Obtain Old Records 03:41 09/22/2020 03:42 Otto Sawant Riccardo Blair M.D.;Oxygen titrate to 03:41 09/22/2020 03:42 Bullrenato,92% Devin Menjivar.Reyes;Pulse oximeter 03:41 09/22/2020 03:42 Bullrenato,(Continuous) Devin Menjivar M.D.; 3 OrderSheet [facility] [address] [place] [address] Phone #: ext- [phone] 09/22/2020 03:21 Patient: SEAN MILLER Sex: M : 1965 Age: 55ySaline Lock 03:41 09/22/2020 03:42 Otto Sawant Riccardo Blair M.D.;Vitals 03:41 09/22/2020 03:42 Otto Sawant Riccardo Blair M.D.;[Electronically signed by Kelechi Sawant (06:15 09/22/2020)][Electronically signed by Devin Menjivar M.D. (06:35 09/22/2020)][Electronically locked by Kelechi Sawant (06:15 09/22/2020)] Name Value Range Interpretation Code Description Data Ebony rce(s) Supporting Document(s) ID Date Data Source [id number] 09/22/2020 03:21:00 AM EDT [facility] 1 Medication Reconciliation Report [facility] [address] [place] [address] Phone #: sao- [phone] 09/22/2020 03:21 Patient: SEAN MILLER Sex: M : 1965 Age: 55yWeight: 74.8 kgHeight/Length: 70 in.BMI: 23.7ALLERGIES: No Known Drug AllergyThe patient's Home Medications are listed below:CONTINUE TAKING THE FOLLOWING MEDICATIONS: Lisinopril Oral 20 mg, daily Ompeprazole predniSONE Oral 20 mg, dailyThe source(s) of the original Home Medication information:Not obtained.The following Medications were given to the patient in the Emergency Department:Solu-Medrol [IVP] IVP 125 mg, administered: 04:17 1Phenergan [IV Drip] Drip IV bolus 25 mg wide open, then 25 mg, administered: 04:19 1Sodium Chloride [IV] IV Fluids bolus 500 mL wide open, administered: 04:20 1Duoneb [Neb Tx] Neb TX 1 unit dose, admini stered: 04:21 09/22/2020The following Medications were prescribed to the patient:meclizine 25 mg tablet Take 1 tablet three times a day as needed for 5 days -- Dispense 15 tablet.Refills: 0. Substitution permitted.Pharmacy - [facility] [place] [address]. .prednisone 20 mg tablet Take 1 tablet once a day for 5 days -- Dispense 5 tablet. Refills: 0.Substitution permitted.Pharmacy - [facility] - [address] [place] [address]. Phone: [phone] Medication Reconciliation Report [facility] [address] [place] [address] Phone #: ext- [phone] 09/22/2020 03:21 Patient: SEAN MILLER Sex: M : 1965 Age: [phone] . -- Devin Menjivar M.D. Name Value Range Interpretation Code Description Data Ebony rce(s) Supporting Document(s) ID Date Data Source [id number] 09/22/2020 03:21:00 AM EDT [facility] 1 Medication Administration Record [facility] [address] [place] [address] Phone #: ext- [phone] 09/22/2020 03:21 Patient: SEAN MILLER Sex: M : 1965 Age: 55yWeight: 74.8 kgHeight/Length: 70 inBMI: 23.7ALLERGIES: No Known Drug Allergy Date/Time Medication Administered Medication OrderedStart SODIUM CHLORIDE [IV] NS IV 500 mL Bolus: : Bolus 66826:20 09/22/2020 Dose: IV Fluids mL (X1)Yomaira Brown, R.N. Bolus: 500 mL wide open---- Dispensed: 500 mL bagStop Site: #1 right wrist04:58 1BKelechi agnulo,Start PHENERGAN [IV DRIP] Phenergan IV 25mg in 50mL NS,04:19 09/22/2020 (PROMETHAZINE HCL) give wide open: 25 mg (NOW x1,Yomaira Brown, R.N. Dose: 25 mg Drip IV HIGH ALERT MEDICATION)---- Bolus: 25 mg wide openStop Dispensed: 50 mL bag04:30 09/22/2020 Site: #1 right wristBuKelechi mitchell,Given SOLU-MEDROL [IVP] SOLU- Medrol 125 mg IV X1 Dose:04:17 09/22/2020 (METHYLPREDNISOLONE SODIUM 125 mg (X1)Yomaira Brown, R.N. SUCC) Dose: 125 mg IVP Site: #1 right wristGiven DUONEB [NEB TX] DuoNeb Neb Tx 3 mL04:21 09/22/2020 Dose: 1 unit dose Neb TXYomaira Brown, R.NSimona Name Value Range Interpretation Code Description Data Ebony rce(s) Supporting Document(s) ID Date Data Source [id number] 09/22/2020 03:21:00 AM EDT [facility] 1 General Instructions [facility] [address] [place] [address] Phone #: ext- [phone] 09/22/2020 03:21 Patient: SEAN MILLER Sex: M : 1965 Age: 55yChronic dizzinessStable COPD. No acute COPD.INSTRUCTIONSNo strenuous activity until better.Drink plenty of fluids. Do not smoke. No alcohol.(No marijuana).Warnings: Further evaluation is necessary in order to conduct further tests. It is very important to [facility].GENERAL WARNINGS: Return or contact your physician immediately if your condition worsens orchanges unexpectedly, if not improving as expected, or if other problems arise. SPECIFICALLY, return ifyou develop chest pain, neck pain, jaw pain, shoulder pain, arm pain, back pain, fluttering sensation in yourchest, lightheadedness, fainting, numbness, weakness or extreme fatigue.Your Current Medications: Your current home medications have been reviewed.CONTINUE TAKING THE FOLLOWING MEDICATIONS:Lisinopril Oral : 20 mg daily.Ompeprazole*.predniSONE Oral : 20 mg daily.Prescription Medications :meclizine 25 mg tablet Take 1 tablet three times a day as needed for 5 days -- Dispense 15 tablet.Refills: 0. Substitution permitted.Pharmacy - [facility] - [address] [place] [phone]. .prednisone 20 mg tablet Take 1 tablet once a day for 5 days -- Dispense 5 tablet. Refills: 0.Substitution permitted.Pharmacy [facility] [address] [phone]. .Follow-up:Return to the emergency department as needed. Follow up with your healthcare provider in three dayseven if well. Call for an appointment. Reason for referral: evaluation, treatment and ENT referral. Summaryof care provided to patient via paper. 2 General Instructions [facility] [address] [place] [address] Phone #: ext- [phone] 09/22/2020 03:21 Patient: SEAN MILLER Sex: M : 1965 Age: 55yUnderstanding of the discharge instructions verbalized by patient. Expected course of illness, dischargeinstructions, activity level, diet, prescriptions x2, follow-up appointment and risks and benefits of treatmentreviewed with patient and understanding verbalized. Agrees to plan of care.Follow-up with: [facility], , [phone], [address] [place] [address], ,[place], [address] Follow up in five days even if well. Call for an appointment. Reason for referral: evaluation and treatment.Summary of care provided to patient via paper. ADDITIONAL INFORMATIONDizziness (Uncertain Cause)Dizziness is a common symptom. It may be described as lightheadedness, spinning, or feeling likeyou are going to faint. Dizziness can have many causes.Tell the healthcare provider about: All medicines you take, including prescription, [id number], herbs, and supplements Any other symptoms you have Any health problems you are being treated for Any past major health problems you've had, such as a heart attack, balance issues, hearing problems, or blood pressure problems Anything that causes the dizziness to get worse or betterToday's exam did not show an exact cause for your dizziness . Other tests may be needed. Follow upwith your healthcare provider.Home care Dizziness that occurs with sudden standing may be a sign of mild dehydration. Drink extra fluids for the next few days. If you recently started a new medicine, stopped a medicine, or had the dose of a current medicine changed, talk with the prescribing healthcare provider. Your medicine plan may need adjustment. If dizziness lasts more than a few seconds, sit or lie down until it passes. This may help prevent injury in case you pass out. Get up slowly when you feel better. Don't drive or use power tools or dangerous equipment until you have had no dizziness for at least 48 hours. 3 General Instructions [facility] [address] [place] [address] Phone #: ext- [phone] 09/22/2020 03:21 Patient: SEAN MILLER Sex: M : 1965 Age: 55yFollow-up careFollow up with your healthcare provider for further evaluation in the next 7 days, or as advised.When to get medical adviceCall your healthcare provider for any of the following: Worsening of symptoms or new symptoms Repeated vomiting Headache Vision or hearing changesCall 911Call 911, or get medical care right away if any of these occur: Chest, arm, neck, back, or jaw pain Weakness of an arm or leg or one side of the face Blood in vomit or stool (black or red color) Shortness of breath Feeling that your heart is fluttering or beating fast or hard (palpitations) Passing out or seizure Trouble walking or speaking [id number] [employer]. [address] [place] [address]. All rights reserved. This information is not intended as asubstitute for professional medical care. Always follow your healthcare professional's instructions. You have been given the following additional information: Dizziness, Uncertain Cause No strenuous activity until better.(Electronically signed by Devin Menjivar M.D. 09/22/2020 06:35) 4 General Instructions [facility] [address] [place] [address] Phone #: ext- [phone] 09/22/2020 03:21 Patient: SEAN MILLER Sex: M : 1965 Age: 55y Name Value Range Interpretation Code Description Data Ebony rce(s) Supporting Document(s) ID Date Data Source [id number] 09/22/2020 03:21:00 AM EDT [facility] 1 Clinical Report - Nurses [facility] [address] [place] [address] Phone #: ext- [phone] 09/22/2020 03:21 Patient: SEAN MILLER Sex: M : 1965 Age: 55yTRIAGEArrived by EMS. Historian: patient.Acuity: LEVEL 3.Chief Complaint: (dizziness).Alert. No acute distress.This started today. ( Patient arrives via ems from home c/o dizziness and high blood pressure. Pt stateshe has been feeling dizzy for the past month. Pt reports headache that started today. Pt states he has a hxof hypertension and has been taking his medication. Pt states he also has copd and wanted to been seen.Pt reports blurry vision 4 days ago. 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 --03:27 09/22/20 Yomaira Brown R.N.03:22 09/22/20. BP: 134/92. MAP: 106. HR: 79. RR: 16. O2 saturation: 97% on room air. Temp: 98 F.Pain level now: 04/11. --03:27 09/22/20 Yomaiar Brown R.N.Weight: 74.8 kg stated. Height/Length: 70 inches Per Patient. BMI: 23.7. --03:22 09/22/20 Yomaira Brown R.N.MedicationsLisinopril Oral 20 mg, daily. --03:24 09/22/20 Yomaira Brown R.N. predniSONE Oral 20 mg, daily. --03:24 09/22/20 Yomaira Brown R.N. Ompeprazole. --03:24 09/22/20 Yomaira Brown R.N.AllergiesNo Known Drug Allergy. --03:24 09/22/20 Yomaira Brown R.N.PROBLEMS:Hypertension.Copd.Acid reflux. --03:25 09/22/20 Yomaira Brown R.N.HistoryPAST MEDICAL HX: Immunizations: up-to-date.SOCIAL HX: Light tobacco smoker (cigarette)- less than 1/2 a pack per day. Drug use: marijuana. Noalcohol use. ( COVID screen negative). He has not traveled outside the [place]Infectious disease exposure: No infectious disease exposure. Patient is not a known carrier of tuberculosis,hepatitis, HIV, MRSA or VRE. Patient is not a known carrier of CRE. 2 Clinical Report - Nurses [facility] [address] [place] [address] Phone #: ext- [phone] 09/22/2020 03:21 Patient: SEAN MILLER Sex: M : 1965 Age: 55y SELF HARM ASSESSMENT: Self harm assessment was performed. The patient answered "no" to the question(s) "Have you recently felt down, depressed, or hopeless?", "Do you have thoughts of harming or killing yourself?", "Do you have a plan for harming or killing yourself?" and "Have you recently had thoughts about harming or killing others?". ABUSE ASSESSMENT: Abuse assessment. The patient had positive responses to the question(s) "Do you feel safe in your home?", "Are you afraid to go home?" and "Has anyone hurt you or threatened to hurt you?". Abuse denied. NUTRITIONAL RISK ASSESSMENT: The nutritional risk assessment revealed no deficiencies. FUNCTIONAL ASSESSMENT: Functional assessment: no impairments noted. LEARNING NEEDS ASSESSMENT: The learning needs assessment revealed no barriers. FALL RISK ASSESSMENT: Fall risk assessment completed. No risk factors identified. SKIN INTEGRITY ASSESSMENT: Skin integrity risk assessment completed. No skin integrity risk identified. --03:27 09/22/20 Yomaira Brown R.N. Interventions Identification band on patient. To treatment room. --03:27 09/22/20 Yomaira Brown R.N.PHYSICAL ASSESSMENTGENERAL / NEURO / PSYCH: Alert. Oriented X 4. [place] Coma Scale: 15- eyes open- spontaneous(4); best verbal response- oriented (5); best motor response- obeys commands (6). Moves all extremitiesequally. No motor deficit. No sensory deficit. ( Patient c/o dizziness and headache).HEENT: Pupils equal, round and reactive to light.RESPIRATORY: Respirations not labored. --03:38 09/22/20 Kelechi Sawant.NURSING PROGRESS NOTESMonitoring of patient in place. Patient gowned. Head of bed elevated. Reassurance given. Twopatient identifiers checked. Call light placed in reach. Side rails up x 2. Bed placed in lowest position.Brakes of bed on. --03:28 09/22/20 Yomaira Brown R.N. EKG time: (03:33 09/22/2020). EKG was performed by a nurse and shown to the ED physician. --03:36 09/22/20 Kelechi Sawant Two patient identifiers checked. --03:36 09/22/20 Kelechi Sawant ( Patient refusing lab work, pt refusing an IV start. States "just had everything done at [facility] and my lab work was normal. Why do it again"? States the needles damage my skin. Refusal of treatment reported to Dr. Menjivar.). --03:49 09/22/20 Kelechi Sawant 3 Clinical Report - Nurses [facility] [address] [place] [address] Phone #: ext- [phone] 09/22/2020 03:21 Patient: SEAN MILLER Sex: M : 1965 Age: 55yPatient transported to radiology by wheelchair with mask and fire control technician g. --03:58 09/22/20 Yomaira Brown R.N.Patient returned from radiology by wheelchair with mask and fire control technician g. --04:04 09/22/20 Yomaira Brown R.N.04:05 09/22/20. ( Pt still refusing lab work at this time, pt accepts IV for medications.). Patient returnedfrom CT by stretcher with mask and fire control technician g. Side rails up x 2. Bed placed in lowest position.Brakes of bed on. --04:17 09/22/20 Kelechi Sawant04:17 09/22/2020 Site #1 started via IV in the right wrist with an 20g angiocath, with aseptic technique; oneattempt. Blood drawn: rainbow set. Sent to the lab. Saline lock flushed with 10 mL saline (By RICHARD, RN).--04:17 09/22/20 Yomaira Brown R.N.04:17 09/22/2020 Solu-Medrol (methylPREDNISolone Sodium Succ) IVP 125 mg given via site #1.Allergies verified and confirmed 5 rights. IV patency established. IV site checked: no pain, redness, orswelling. IV flushed thoroughly pre- and post-medication administration. IVP given by RN. Informationreviewed with patient. Verbalizes understanding. --04:17 09/22/20 Yomaira Brown R.N.04:19 09/22/2020 Started 25 mg of Phenergan (Promethazine HCl) Drip IV in bag #1 50 mL; bolus of 25mg wide open via site #1. via IV pump. Allergies verified and confirmed 5 rights. IV patency established. IVsite checked: no pain, redness, or swelling. IV flushed thoroughly pre- and post- medication administration.Information reviewed with patient including sedative warnings. Verbalizes understanding. --04:19 09/22/20Yomaira Brown R.N.04:20 09/22/2020 Started bag #1 500 mL IV Fluids Sodium Chloride; bolus of 500 mL wide open via site #1via IV pump. Allergies verified and confirmed 5 rights. IV patency established. IV site checked: no pain,redness, or swelling. IV flushed thoroughly pre- and post-medication administration. Information reviewedwith patient. Verbalizes understanding. --04:20 09/22/20 Yomaira Brown R.N.04:21 09/22/2020 Duoneb Neb TX 1 unit dose given. Given by the nurse. Allergies verified and confirmed 5rights. Information reviewed with patient. Verbalizes understanding. --04:21 09/22/20 Yomaira Brown R.N.04:00 09/22/20. BP: 120/89. MAP: 99. HR: 73. RR: 18. --04:56 09/22/20 Tip SawantirReassessment after medication administered and fluids administered. He reports no complaints and he issleeping.GENERAL / NEURO / PSYCH: Denies headache.RESPIRATORY: No respiratory distress. --04:57 09/22/20 Tip Sawantir04:30 09/22/2020 Phenergan Drip IV via IV site #1 Discontinued: bag #1 infused. Total amount infused: 50mL. IV patency established. IV site checked: no pain, redness, or swelling. IV flushed thoroughly. --05:01 4 Clinical Report - Nurses [facility] [address] [place] [address] Phone #: ext- [phone] 09/22/2020 03:21 [id number] Sex: [facility] : 1965 Age: 55y 09/22/20 Kelechi Sawant 04:58 09/22/2020 IV Fluids Sodium Chloride via IV site #1 Discontinued: bag #1 infused. Total amount infused: 500 mL. IV patency established. IV site checked: no pain, redness, or swelling. IV flushed thoroughly. --04:58 09/22/20 Kelechi Sawant 05:00 09/22/2020 Site #1 removed upon discharge. Manual pressure and pressure dressing applied. --06:15 09/22/20 Kelechi Sawant 05:33 09/22/20. ( Pt remains sleeping, able to arouse to name. Pt aware of d/c instructions and returns to sleep. Awaiting medicaid cab to transport patient to home.). --05:41 09/22/20 Kelechi Sawant.DISPOSITION / DISCHARGE Departure time: 05:33 09/22/2020. Condition at departure: improved. No learning barriers present. Discharge instructions provided and reviewed with the patient. Reviewed medication(s) side effects, precautions, dosing and course information. Prescription(s) sent electronically to pharmacy. Reviewed referral to an ear, nose, and throat specialist (solo musician). Work note given. Patient verbalized understanding. Written instructions provided in Malawian. The patient was discharged by the physician. He was discharged home and unaccompanied at time of discharge. He left ambulatory and via taxi. --06:08 09/22/20 Kelechi Sawant 05:33 09/22/20. BP: 134/70. MAP: 91. HR: 68. RR: 18. O2 saturation: 98%. Temp: 98.2 F. Pain level now: 0/10. --06:08 09/22/20 Kelechi Sawant.Locked/Released at 09/22/2020 06:15 by Kelechi Sawant Name Value Range Interpretation Code Description Data Ebony rce(s) Supporting Document(s) ID Date Data Source [id number] 09/22/2020 03:21:00 AM EDT [facility] 1 Clinical Report - Physicians/Mid Levels [facility] [address] [place] [address] Phone #: ext- [phone] 09/22/2020 03:21 Patient: SEAN MILLER Sex: M : 1965 Age: 55y Time Seen: 03:32 09/22/2020; initial patient contact. Arrived- By ambulance. Historian- patient.HISTORY OF PRESENT ILLNESS Chief Complaint: DIZZINESS. Not described as a sense of rotation or confusion. Not described as feeling off balance, light-headed, faint or weak all over. Described as a sense of movement and sense of falling. This started just prior to arrival on/off x 1.5 yrs ago and is still present. It was gradual in onset and has been intermittent. Severity described as severe at its maximum. When seen in the E.D., severity described as mild. Modifying factors- worsened by standing up. Relieved by rest. No nausea, vomiting, hearing loss, tinnitus or ear pain. 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 Similar symptoms previously. Patient has had similar symptoms many times, chronically. Recent medical care: The patient was seen recently at another facility in the emergency department.REVIEW OF SYSTEMSThe patient has had a moderate, intermittent, dull right-sided headache (chronically). The patient has ahistory of chronic headaches. No nausea, vomiting or fever. No double vision, weakness, faintingepisodes, head injury or chest pain. No palpitations, black stools, numbness, bloody stools or fever. Nosore throat, abdominal pain, diarrhea, difficulty with urination or skin rash. No enlarged lymph nodes,chills or joint pain. No difficulty walking. The patient has had a mild cough (chronically). He has hadmild difficulty breathing (chronically). All other systems reviewed and are negative.PAST HISTORYSee nurses notes. Problems: Vertigo. Gastroesophageal Reflux Disease. COPD - Chronic Obstructive Pulmonary Disease. Hypertension. Medications: Ompeprazole. 2 Clinical Report - Physicians/Mid Levels [facility] [address] [place] [address] Phone #: ext- [phone] 09/22/2020 03:21 Patient: SEAN MILLER Sex: M : 1965 Age: 55y predniSONE Oral 20 mg, daily. Lisinopril Oral 20 mg, daily. Allergies: No Known Drug Allergy.SOCIAL HISTORYHeavy tobacco smoker- less than 1 pack per day. Heavy drug use: marijuana. No alcohol use.ADDITIONAL NOTESThe nursing notes have been reviewed with agreement regarding the chief complaint, HPI, ROS, PMH andpatient medications and allergies.PHYSICAL EXAMVital Signs: 09/22/2020 03:22 BP: 134/92. MAP: 106. HR: 79. RR: 16. O2 saturation: 97% on room air.Temp: 98 F. Pain level now: 1010. Have been reviewed. Oxygen saturation normal.Appearance: Alert. No acute distress.Eyes: Pupils equal, round and reactive to light. No nystagmus. Extraocular movements normal. Nonystagmus.ENT: Normal ENT inspection. TM's normal. Moist mucous membranes. Pharynx normal.Neck: Normal inspection. Neck supple.CVS: Normal heart rate and rhythm. Heart sounds normal. Pulses normal.Respiratory: No respiratory distress. Mildly decreased air movement in the bases bilaterally. Painlessinspiration. Expiratory mild bilateral wheezes in the bases.Abdomen: Soft and nontender. No organomegaly.Back: Normal inspection.Skin: Skin warm and dry. Normal skin color. No rash. Normal skin turgor.Extremities: Extremities exhibit normal ROM. No lower extremity edema.Neuro: Alert. Oriented X 3. Mood/affect normal. Speech normal. Cranial nerves normal (as tested).No cerebellar findings. No motor deficit. No sensory deficit.LABS, X-RAYS, AND EKGEKG: No acute process. No acute ischemia. Normal EKG. Normal sinus rhythm. Rate: 76/min.Normal ST and T waves. NAD. Prior EKG unavailable. The study has been interpretedcontemporaneously by me. The EKG appears to be a good tracing. Interpretation time: 03:39009/22/2020.Chest X-ray: No acute disease. Views: AP (portable). Technique: good. The X-rays were interpretedcontemporaneously by me. Interpretation time: 03:56 09/22/2020.CT Head: (REPORT SUBMISSION DATE: Sep 22, 2020 4:54:20 AM EDT NAME: SEAN MILLER STUDY INITIATED: Sep 22, 2020 3:47:18 AM EDT STUDY RECEIVED: Sep 22, 2020 4:09:02 AM EDT 3 Clinical Report - Physicians/[facility] Emergency Department [address] [place] [address] Phone #: ext- [phone] 09/22/2020 03:21 Patient: SEAN MILLER Sex: M : 1965 Age: 55yGENDER: M MODALITY TYPE:CT\\SRDOB: [birth year] DESCRIPTION: CT HEAD W/O CONTRASTINSTITUTION: [facility] ORDERING PHYSICIAN: Devin GodinezION #: [id number] HISTORY: Vertigo/Dizziness. Accumulated DLP-817.5 mGy*cm, Estimated DLP-817.3mGy*cm. Male. Images sent to [facility] for review. Verification of 2 patient identifiers performed. - RLB(Hx) / BRAIN (DICOM Hx)CT Head ( Brain )History:Vertigo/Dizziness. Accumulated DLP- 817.5 mGy*cm, Estimated DLP-817.3 mGy*cm. Male. Images sent [facility] [place]note 2[place] for review. Verification of 2 patient identifiers performed. - RLB (Hx) / BRAIN (DICOM Hx)Technique:CT HEAD W/O CONTRASTDose length product (mGy-cm): Not providedReformations: NoneContrast: WithoutComparison:No comparison study provided.Findings:Brain:Ventricles and sulci show atrophy consistent with advanced age.Patchy low-attenuation areas in the deep white matter consistent with minimal small vessel ischemic whitematter disease noted. This is likely senescent age-related atrophy with periventricular and subcorticalwhite matter leukomalacia.There is no evidence for mass, mass effect or midline shift.No abnormal extra-axial fluid collection is noted. No intracranial bleed is noted.The third and fourth ventricles are patent.Bony structures:Bony structures are unremarkable.Other:Mastoid air cells are within normal limits.Paranasal sinuses are normal.Impression 4 Clinical Report - Physicians/[facility] Emergency Department [address] [place] [address] Phone #: ext- [phone] 09/22/2020 03:21 Patient: SEAN MILLER Sex: M : 1965 Age: 55y No acute intracranial process is noted. If clinical suspicion is incongruent with this finding or for greater clinical certainty, further evaluation with MRI scan may be of value. Electronically signed on Sep 22, 2020 4:54:20 AM EDT by: Philipp Tijerina MD Diplomate, [place] Board of Radiology). Head CT performed without contrast. The study was interpreted by the radiologist. Laboratory Tests: Laboratory tests have been ordered, with results reviewed and considered in the medical decision making process. CBC w Diff: (GEREMIAS: 09/22/2020 03:42) ( MsgRcvd 09/22/2020 04:22) Canceled CMP: (GEREMIAS: 09/22/2020 03:42) ( MsgRcvd 09/22/2020 04:22) Canceled Lipase: (GEREMIAS: 09/22/2020 03:42) ( MsgRcvd 09/22/2020 04:22) Canceled PT/PTT: (GEREMIAS: 09/22/2020 03:42) ( MsgRcvd 09/22/2020 04:23) Canceled Troponin-T: (GEREMIAS: 09/22/2020 03:42) ( MsgRcvd 09/22/2020 04:23) Canceled BNP: (GEREMIAS: 09/22/2020 03:42) ( MsgRcvd 09/22/2020 04:23) Canceled.PROGRESS AND PROCEDURESCourse of Care: 04:32 09/22/20. pt refuses blood work since he had some done recently at [facility] and itwas all nml; CXR nml, waiting for CT head w/o results 04:57 09/22/20. CT head w/o results negative; pt sleeping very comfortably; will d/c later when he wakes up. Patient counseled in person regarding the patient's stable condition, test results, diagnosis and need for follow-up. Patient agrees with plan of care. Disposition: Condition: good and stable. Discharge decision based on the following: patient's condition is stable; patient's condition is improved; patient is ambulatory; patient is active; patient drinking fluids; patient eating; patient's pain is controlled; patient's exam is improved; no abnormal test results; improving condition on multiple repeat evaluations; social support is good; transportation is available; follow-up is available; clinical impression is consistent with outpatient treatment.CLINICAL IMPRESSION 5 Clinical Report - Physicians/Mid Levels [facility] [address] [place] [address] Phone #: ext- [phone] 09/22/2020 03:21 Patient: SEAN MILLER Sex: M : 1965 Age: 55y Chronic dizziness Stable COPD. No acute COPD.INSTRUCTIONS No strenuous activity until better. Drink plenty of fluids. Do not smoke. No alcohol. (No marijuana). Warnings: Further evaluation is necessary in order to conduct further tests. It is very important to follow up with a healthcare provider. GENERAL WARNINGS: Return or contact your physician immediately if your condition worsens or changes unexpectedly, if not improving as expected, or if other problems arise. SPECIFICALLY, return if you develop chest pain, neck pain, jaw pain, shoulder pain, arm pain, back pain, fluttering sensation in your chest, lightheadedness, fainting, numbness, weakness or extreme fatigue. Your Current Medications: Your current home medications have been reviewed. CONTINUE TAKING THE FOLLOWING MEDICATIONS: Lisinopril Oral : 20 mg daily. Ompeprazole*. predniSONE Oral : 20 mg daily. Prescription Medications: meclizine 25 mg tablet Take 1 tablet three times a day as needed for 5 days -- Dispense 15 tablet. Refills: 0. Substitution permitted. Pharmacy - [facility] [place] [id number]. . prednisone 20 mg tablet Take 1 tablet once a day for 5 days -- Dispense 5 tablet. Refills: 0. Substitution permitted. [place] [id number]. . Follow-up: Return to the emergency department as needed. Follow up with your healthcare provider in three days even if well. Call for an appointment. Reason for referral: evaluation, treatment and ENT referral. Summary of care provided to patient via paper. Understanding of the discharge instructions verbalized by patient. Expected course of illness, discharge instructions, activity level, diet, prescriptions x2, follow-up appointment and risks and benefits of treatment reviewed with patient and understanding verbalized. Agrees to plan of care. 6 Clinical Report - Physicians/Mid Levels [facility] [address] [place] [address] Phone #: ext- [phone] 09/22/2020 03:21 [id number] Sex: M : 1965 Age: 55y Follow-up with: [facility], , [id number], [address] [facility] [address], , [place], [address] Follow up in five days even if well. Call for an appointment. Reason for referral: evaluation and treatment. Summary of care provided to patient via paper.(Electronically signed by Devin Menjivar M.D. 09/22/2020 06:35) Name Value Range Interpretation Code Description Data Ebony rce(s) Supporting Document(s) ID Date Data Source [id number] 09/22/2020 04:54:00 AM EDT [address] [place] [address] ---------NAME--------- NUMBER SEX AGE ADMIT DISC. XRAY# F/C TYPE KAMALA ESTRADA [id number] M 55 09/22/20 [id number] E/R DATE OF : 1965 M/R# [id number] #: [id number] TR-05 LOCATION: TRANSCRIBED: 09/22/20 4:[address] HEAD W/O CONTRAST [id number] COMPLETED:09/22/20 4:55 rylee [id number] Reason(s): Vertigo/Dizziness PHYSICIAN: OTTO CARLIN R A D I O L O G Y R E P O R T PATIENT HISTORY:Vertigo/Dizziness. Accumulated DLP-817.5 mGy*cm, Estimated DLP- 817.3 mGy*cm.Male. Images sent to [facility] for review.Verification of 2 patient identifiers performed. - RLB / BRAIN (DICOM Hx)CT Head ( Brain )History:Vertigo/Dizziness. Accumulated DLP-817.5 mGy*cm, Estimated DLP-817.3 mGy*cm.Male. Images sent to [facility] for review. Verification of 2 patient identifiersperformed. - RLB (Hx) / BRAIN (DICOM Hx)Technique:CT HEAD W/O CONTRASTDose length product (mGy-cm): Not providedReformations: NoneContrast: WithoutComparison:No comparison study provided.Findings:Brain:Ventricles and sulci show atrophy consistent with advanced age.Patchy low-attenuation areas in the deep white matter consistent with minimalsmall vessel ischemic white matter disease noted. This is likely senescentage-related atrophy with periventricular and subcortical white matterleukomalacia.There is no evidence for mass, mass effect or midline shift.No abnormal extra-axial fluid collection is noted. No intracranial bleed isnoted.The third and fourth ventricles are patent.Bony structures:Bony structures are unremarkable.Other:Mastoid air cells are within normal limits.Paranasal sinuses are normal.IMPRESSIONS:No acute intracranial process is noted.If clinical suspicion is incongruent with this finding or for greater clinicalcertainty, further evaluation with MRI scan may be of value.While performing the above CT examination, radiation dose reduction wasaccomplished utilizing automated exposure control, adjusting of the mA and kVbased on the patient's body size and/or the use of imperative reconstructivetechniques.Electronically Signed By:Philipp Tijerina M.D. , RadiologistDate/Time: 09/22/20 04:54 Name Value Range Interpretation Code Description Data Ebony rce(s) Supporting Document(s) ID Date Data Source [id number] 09/03/2020 06:19:00 PM [facility] 1 OrderSheet [facility] [address] [place] [address] Phone #: ext- [phone] 09/03/2020 18:07 Patient: SEAN MILLER Sex: M : 1965 Age: 55yWEIGHT:74.8 kg (S) HEIGHT:70 inches (S) BMI:23.7ALLERGIES: No Known Drug AllergyCHIEF COMPLAINT: dyspnea, COPDDIAGNOSIS: Chronic obstructive lung diseaseLAB ORDERSOrder Description Priority Entered Acknowledged InitialedDIAGNOSTIC STUDY ORDERSOrder Description Priority Entered Acknowledged InitialedMEDICATION/IV/DRIP/FLUID ORDERSOrder Description Priority Entered Acknowledged InitialedAlbuterol MDI 2 18:49 09/03/2020 18:57 Fabiouff (NOW x1) Chelsy Oakley MD; Babar RNpredniSONE PO 20 18:49 09/03/2020 18:57 Nancy (NOW x1) Chelsy Oakley MD; Babar RNGENERAL ORDERSOrder Description Priority Entered Acknowledged Initialed[Electronically signed by Dario Eckert RN (19:19 09/03/2020)][Electronically signed by Chelsy Oakley MD (00:34 09/04/2020)][Electronically locked by Dario Eckert RN (19:19 09/03/2020)] Name Value Range Interpretation Code Description Data Ebony rce(s) Supporting Document(s) ID Date Data Source [id number] 09/03/2020 06:19:00 PM [facility] 1 Medication Reconciliation Report [facility] [address] [place] [address] Phone #: ext- [phone] 09/03/2020 18:07 Patient: SEAN MILLER Sex: M : 1965 Age: 55yWeight: 74.8 kgHeight/Length: 70 in.BMI: 23.7ALLERGIES: No Known Drug AllergyThe patient's Home Medications are listed below:CONTINUE TAKING THE FOLLOWING MEDICATIONS: Albuterol Sulfate Inhalation Gabapentin Oral (100 mg), 3x a day Lisinopril-hydroCHLOROthiazide Oral (20-12.5 mg), daily methylPREDNISolone Oral (4 mg) Omeprazole Oral (20 mg) 1 capsule, daily predniSONE Oral (20 mg) 1 tablet, daily tiZANidine HCl Oral (4 mg), 3x a dayThe source(s) of the original Home Medication information:Not obtained.The following Medications were given to the patient in the Emergency Department:Prednisone [PO] PO 20 mg, administered: 18:57 09/03/2020lbuterol [MDI] Inhalation 2 puff, administered: 18:57 09/03/2020The following Medications were prescribed to the patient:prednisone 20 mg tablet Take 1 tablet once a day -- Dispense 5 tablet. Refills: 0. Substitutionpermitted.Pharmacy - [facility] - [address] [place] [phone]. . 2 Medication Reconciliation Report [facility] [address] [place] [address] Phone #: ext- [phone] 09/03/2020 18:07 Patient: SEAN MILLER Sex: M : 1965 Age: 55yalbuterol sulfate HFA 90 mcg/actuation aerosol inhaler Inhale 2 puff four times a day -- Dispense 1inhaler. Refills: 0. Substitution permitted.Pharmacy - [facility] - [address] [place] [phone]. .albuterol sulfate 2.5 mg/3 mL (0.083 %) solution for nebulization Take 3 ml four times a day for 10 days-- prn wheezing. Dispense 120 ml. Refills: 0. Substitution permitted.Pharmacy - [facility] - [address] [place] [phone]. . -- Chelsy Oakley MD Name Value Range Interpretation Code Description Data [facility] Supporting Document(s) ID Date Data Source [id number] 09/03/2020 06:19:00 PM [facility] 1 Medication Administration Record [facility] [address] [place] [address] Phone #: ext- [phone] 09/03/2020 18:07 Patient: SEAN MILLER Sex: M : 1965 Age: 55yWeight: 74.8 kgHeight/Length: 70 inBMI: 23.7ALLERGIES: No Known Drug Allergy Date/Time Medication Administered Medication OrderedGiven ALBUTEROL [MDI] Albuterol MDI 2 puff (NOW x1)18:57 09/03/2020 Dose: 2 puff MDI/Aerosol InhalationPeter KIMBERLY EckertGiven PREDNISONE [PO] predniSONE PO 20 mg (NOW x1)18:57 09/03/2020 Dose: 20 mg Tablets POPeter KIMBERLY Eckert Name Value Range Interpretation Code Description Data Ebony rce(s) Supporting Document(s) ID Date Data Source [id number] 09/03/2020 06:19:00 PM [facility] 1 General Instructions [facility] [address] [place] [address] Phone #: ext- [phone] 09/03/2020 18:07 Patient: SEAN MILLER Sex: M : 1965 Age: 55y Stable COPD (chronic bronchitis)INSTRUCTIONS (I have given you a referral to a primary care physician group in the area. please call to establish care. return if worse or any new symptoms. I sent prescriptions to your pharmacy for albuterol inhaler, albuterol nebulizer and 5 days of prednisone. please take all medications as directed.). Warnings: Further evaluation is necessary. GENERAL WARNINGS: Return or contact your physician immediately if your condition worsens or changes unexpectedly, if not improving as expected, or if other problems arise. Your Current Medications: Your current home medications have been reviewed. CONTINUE TAKING THE FOLLOWING MEDICATIONS: Albuterol Sulfate Inhalation. Gabapentin Oral : Capsule 100 mg, 3x a day. Lisinopril- hydroCHLOROthiazide Oral : Tablet 20-12.5 mg, daily. methylPREDNISolone Oral : Tablet 4 mg. Omeprazole Oral : Capsule Delayed Release 20 mg, 1 capsule daily. predniSONE Oral : Tablet 20 mg, 1 tablet daily. tiZANidine HCl Oral : Tablet 4 mg, 3x a day. Prescription Medications: prednisone 20 mg tablet Take 1 tablet once a day -- Dispense 5 tablet. Refills: 0. Substitution permitted. Pharmacy - [facility] - [address] [place] [phone]. . albuterol sulfate HFA 90 mcg/actuation aerosol inhaler Inhale 2 puff four times a day -- Dispense 1 inhaler. Refills: 0. Substitution permitted. [facility] [address] [phone]. . albuterol sulfate 2.5 mg/3 mL (0.083 %) solution for nebulization Take 3 ml four times a day for 10 days -- prn wheezing. Dispense 120 ml. Refills: 0. Substitution permitted. Pharmacy - [facility] - [address] [facility] ; [place], [place] [phone]. . 2 General Instructions [facility] [address] [place] [address] Phone #: ext- [phone] 09/03/2020 18:07 Patient: SEAN MILLER Sex: M : 1965 Age: 55y Understanding of the discharge instructions verbalized by patient. Follow-up with: [facility], , , [address] [place] [address], [facility] Follow up in one even if well. Call for an appointment. Reason for referral: evaluation. Summary of care provided to patient via paper. ADDITIONAL INFORMATIONCOPD FlareYou have had a flare-up of your COPD.COPD (chronic obstructive pulmonary disease) is a common lung disease. It causes your airways toget irritated and narrower. This makes it harder for you to breathe. Emphysema and chronicbronchitis are both types of COPD. This is a long-term (chronic) condition. This means you alwayshave it. Sometimes it gets worse. When this happens, it is called a flare-up. 3 General Instructions [facility] [address] [place] [id number] Phone #: ext- [phone] 09/03/2020 18:07 Patient: SEAN MILLER Sex: M : 1965 Age: 55ySy mptoms of COPDPeople with COPD may have symptoms most of the time. In a flare- up, your symptoms get worse.These symptoms may mean you are having a flare-up: Shortness of breath, shallow or rapid breathing, or wheezing that gets worse Lung infection Cough that gets worse More mucus, thicker mucus or mucus of a different color Tiredness, less energy, or trouble doing your normal activities Fever Chest tightness Your symptoms don't get better even when you use your normal medicines, inhalers, and nebulizer Trouble talking You feel confusedCauses of flare-upsUnfortunately, a flare-up can happen even if you did everything right. And even if you followed yourhealthcare provider's instructions. Some causes of flare-ups are: Smoking or secondhand smoke Colds, the flu, or respiratory infections Air pollution Sudden change in the weather Dust, irritating chemicals, or strong fumes Not taking your medicines as prescribedHome careHere are some things you can do at home to treat a flare-up: Try not to panic. This makes it harder to breathe, and keeps you from doing the right things. Don't smoke or be around others who are smoking. 4 General Instructions [facility] [address] [place] [address] Phone #: ext- [phone] 09/03/2020 18:07 Patient: SEAN MILLER Sex: M : 1965 Age: 55y Try to drink more fluids than normal during a flare- up, unless your healthcare provider has told you not to because of heart and kidney problems. More fluids can help loosen the mucus. Use your inhalers and nebulizer, if you have one, as you have been told to. When using a metered dose inhaler or nebulizer, it's very important to use the proper techniques. If you have any questions about how to use your device, contact your healthcare provider or refer to the user manual. If you were given antibiotics, take them until they are used up or your provider tells you to stop. It's important to finish the antibiotics, even though you feel better. This will make sure the infection has cleared. If you were given a steroid, finish it even if you feel better. Learn the names of your medicines, as well as how and when to use them. Talk with your provider about other conditions you have and their treatment and how it may affect your COPD. Oxygen may be prescribed if tests show that your blood contains too little oxygen. Ask your provider about long-term oxygen therapy. Coping tips for shortness of breath include: o Exercise. Try to be as active as possible. This will improve energy levels and strengthen your muscles, so you can do more. o Breathing methods. Ask your healthcare provider or nurse to show you how to do pursed-lip breathing. o Balance rest and activity. Each day, try to balance rest periods with activity. For example, you might start the day with getting dressed and eating breakfast. Then you can relax and read the paper. After that, take a brief walk. And then sit with your feet up for a while. o Pulmonary rehab (rehabilitation). These programs help with managing your disease, breathing methods, exercise, support, and counseling. To find one, ask your provider or call your local hospital. Also, talk with your healthcare provider about a self-management program. o Healthy eating. Eating a healthy, balanced diet is important to staying as healthy as possible. So is trying to stay at your ideal weight. Make sure you have a lot of fruits and vegetables every day. And also eat balanced portions of whole grains, lean meats and fish, and low-fat dairy products.Preventing a flare-up 5 General Instructions [facility] [address] [place] [address] Phone #: ext- [phone] 09/03/2020 18:07 Patient: SEAN MILLER Sex: M : 1965 Age: 55yFlare-ups happen. But the best way to treat one is to prevent it before it starts. Here are somepointers: Don't smoke or be around others who are smoking. Avoid using e-cigarettes due to their harmful side effects. Take your medicines as discussed with your healthcare provider. Talk with your provider about getting a flu shot every year. Also find out if you need a pneumonia shot. If there is a weather advisory warning to stay indoors, try to stay inside when possible. Try to eat healthy, exercise, and get plenty of sleep. Try to stay away from things that normally set you off. These include dust, chemical fumes, hairsprays, or strong perfumes.Follow-up careFollow up with your healthcare provider, or as advised.If a culture was done, you will be told if your treatment needs to be changed. You can call asdirected for the results.If X-rays were done, you will be told of any new findings that may affect your care.During each appointment, talk with your healthcare provider about your ability to: [place] in your normal environment Correctly use inhaler (or your medicine delivery systems) [place] with other conditions you have and their treatments and how they may affect your COPDCall 911Call 911 if any of these occur: Wheezing or shortness or breath does not get better with treatment Chest pain or chest tightness Feeling lightheaded or dizzy You have trouble breathing You feel confused or it's hard to wake you up 6 General Instructions [facility] [address] [place] [address] Phone #: ext- [phone] 09/03/2020 18:07 Patient: SEAN MILLER Sex: M : 1965 Age: 55y You faint or lose consciousness You have a rapid heart rate You have new pain in your chest, arm, shoulder, neck, or upper backWhen to seek medical adviceCall your healthcare provider right away if any of these occur: Fever of 100.4F (38C) or higher, or as directed by your healthcare provider Coughing up lots of dark-colored or bloody mucus (sputum) You don't start to get better within 24 hours Swelling of your ankles gets worse Weakness 1999- 2019 [employer]. [address] [place] [address]. All rights reserved. This information is not intended as asubstitute for profession al medical care. Always follow your healthcare professional's instructions. You have been given the following additional information: COPD Flare(Electronically signed by Chelsy Oakley MD 09/04/2020 00:34) Name Value Range Interpretation Code Description Data Ebony rce(s) Supporting Document(s) ID Date Data Source [id number] 09/03/2020 06:19:00 PM [facility] 1 Clinical Report - Nurses [facility] [address] [place] [address] Phone #: ext- [phone] 09/03/2020 18:07 Patient: SEAN MILLER Sex: M : 1965 Age: 55yTRIAGEArrived by EMS. Historian: patient.Acuity: LEVEL 3.Chief Complaint: SHORTNESS OF BREATH and DIFFICULTY BREATHING.Onset. (5 days ago). 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 See report. DUONEB nebulizer treatmentgiven.SEPSIS SCREEN: SIRS SCREEN NEGATIVE. SEPSIS SCREEN NEGATIVE. No suspected or confirmedsigns of infection present. --18:17 09/03/20 Dario Eckert RN18:11 09/03/20. BP: 139/91. MAP: 107. HR: 77. RR: 18. O2 saturation: 100%. Temp: 97.6 F (oral). Painlevel now: 010. --18:17 09/03/20 Dario Eckert RN.Weight: 74.8 kg stated. Height/Length: 70 inches Per Patient. BMI: 23.7. --18:11 09/03/20 Dario Eckert RN.MedicationsAlbuterol Sulfate Inhalation. Gabapentin Oral (Capsule 100 mg), 3x a day. Lisinopril-hydroCHLOROthiazide Oral (Tablet 20-12.5 mg), daily. --18:13 09/03/20 Dario Eckert RN methylPREDNISolone Oral (Tablet 4 mg). Omeprazole Oral (Capsule Delayed Release 20 mg) 1 capsule, daily. predniSONE Oral (Tablet 20 mg) 1 tablet, daily. tiZANidine HCl Oral (Tablet 4 mg), 3x a day. --18:13 09/03/20 Dario Eckert RN.AllergiesNo Known Drug Allergy. --18:13 09/03/20 Dario Eckert RN.PROBLEMS:Gastroesophageal Reflux Disease.COPD - Chronic Obstructive Pulmonary Disease. --18:14 09/03/20 Dario Eckert RN.ADDITIONAL SURGERIES: 2 Clinical Report - Nurses [facility] [address] [place] [address] Phone #: ext- [phone] 09/03/2020 18:07 Patient: SAEN MILLER Sex: M : 1965 Age: 55y no known surgeries. History PAST MEDICAL HX: Immunizations: up-to-date. SOCIAL HX: Light tobacco smoker (cigarette)- less than 1/2 a pack per day. No alcohol use or drug use. He was offered HIV testing but declined and hepatitis C testing but declined. He has not traveled outside the [place] Infectious disease exposure: No infectious disease exposure. The patient was not exposed to Coronavirus. SELF HARM ASSESSMENT: Self harm assessment was performed. The patient answered "no" to the question(s) "Have you recently felt down, depressed, or hopeless?", "Do you have thoughts of harming or killing yourself?", "Do you have a plan for harming or killing yourself?", "Have you recently had thoughts about harming or killing others?", "Do you have any dangerous items in your possession?", "Have you noticed less interest or pleasure in doing things?", "Are you here because you tried to hurt yourself?" and "Have you ever tried to hurt yourself before today?". ABUSE ASSESSMENT: No report of abuse. NUTRITIONAL RISK ASSESSMENT: The nutritional risk assessment revealed no deficiencies. FUNCTIONAL ASSESSMENT: Functional assessment: no impairments noted. LEARNING NEEDS ASSESSMENT: The learning needs assessment revealed no barriers. FALL RISK ASSESSMENT: Fall risk assessment completed. No risk factors identified. SKIN INTEGRITY ASSESSMENT: Skin integrity risk assessment completed. No skin integrity risk identified. --18:17 09/03/20 Dario Eckert RN.PHYSICAL ASSESSMENTTo room via stretcher. ( pt voices he is here to ask for a prescription refill).GENERAL / NEURO / PSYCH: Alert. Oriented X 4. Appears in distress.HEENT: Mucous membranes are pink.RESPIRATORY: Mild respiratory distress. The patient can speak in full sentences. Chest nontender.Expiratory wheezes in the right and left lung base anteriorly, mid- lung anteriorly and upper lung anteriorly.CVS: Normal sinus rhythm noted. Capillary refill less than 2 seconds.GI / : Abdomen soft and nontender. Bowel sounds within normal limits.SKIN: Skin is warm and dry. Normal skin turgor. --18:19 09/03/20 Dario Eckert RN.NURSING PROGRESS NOTESHead of bed elevated. Reassurance given. Call light placed in reach. Side rails up x 2. Bed placed inlowest position. Brakes of bed on. Patient ready for evaluation- ED physician notified. ( pt refusing anIV or blood draw at this time). --18:20 09/03/20 Dario Eckert RN 3 Clinical Report - Nurses [facility] [address] [place] [address] Phone #: ext- [phone] 09/03/2020 18:07 Patient: SEAN MILLER Sex: M : 1965 Age: 55y 18:57 09/03/2020 Prednisone PO Tablets 20 mg given. Allergies verified and confirmed 5 rights. Information reviewed with patient including reason for taking this medication. Verbalizes understanding. --18:57 09/03/20 Dario Eckert RN 18:57 09/03/2020 Albuterol Inhalation MDI/Aerosol 2 puff given. Given by the nurse. Allergies verified and confirmed 5 rights. Information reviewed with patient including reason for taking this medication. Verbalizes understanding. --18:57 09/03/20 Dario Eckert RN.DISPOSITION / DISCHARGE Condition at departure: improved and stable. Discharge instructions provided and reviewed with the patient. Reviewed medication(s) side effects, precautions, dosing and course information. Prescription(s) sent electronically to pharmacy. Patient verbalized understanding. Written instructions provided in [place]ian. The patient was discharged by the physician. He was discharged home. He left ambulatory and via taxi. --19:19 09/03/20 Dario Eckert RN 19:18 09/03/20. BP: 138/89. MAP: 105. HR: 67. RR: 16. O2 saturation: 98%. Pain level now: 0/10. --19:19 09/03/20 Dario Eckert RN.Locked/Released at 09/03/2020 19:19 by Dario Eckert RN Name Value Range Interpretation Code Description Data Ebony rce(s) Supporting Document(s) ID Date Data Source [id number] 09/03/2020 06:19:00 PM [facility] 1 Clinical Report - Physicians/Mid Levels [facility] [address] [place] [address] Phone #: ext- [phone] 09/03/2020 18:07 Patient: SEAN MILLER Sex: M : 1965 Age: 55y Arrived- By ambulance. Historian- patient and EMS personnel. Disposition decision: 19:03 09/03/2020.HISTORY OF PRESENT ILLNESS Chief Complaint: DYSPNEA and HISTORY OF CHRONIC OBSTRUCTIVE PULMONARY DISEASE. This started today. It is not gone now. The dyspnea is described as mild. The patient has had a cough and wheezing. No sputum production, fever, sweating episodes, chills or dyspnea on exertion. No chest pain or discomfort, calf pain, foot swelling or orthopnea. No paroxysmal nocturnal dyspnea, anxiety, dizziness, tingling or numbness. No palpitations. (5 days ago). ( Pt states he has had dyspnea for about the past 5 days, he went to [facility] this past Monday and was prescribed prednisone which he took in a day or two, he voices dyspnea for the past 6 years off and on). Similar symptoms previously. Recent medical care: The patient was seen recently in a clinic.REVIEW OF SYSTEMSThe patient has had a cough but not had weight loss. No muscle aches, eye irritation or sore throat orthroat. No nasal discharge or congestion, sinus drainage, nausea or vomiting. No abdominal pain orpain, diarrhea, black stools or bloody stools. No headache, fainting episodes, blurred vision or difficultywith urination or urination. No excessive urination, skin rash or rash or joint pain or pain. No chills, fever,double vision, ear pain or constipation. No diarrhea, nausea, vomiting, urinary frequency or hematuria.No back pain, headache, seizure or easy bruising.PAST HISTORYSee nurses notes. Problems: Hypertension. Arthritis. Gastroesophageal Reflux Disease. COPD - Chronic Obstructive Pulmonary Disease. Additional Surgeries: no known surgeries. Medications: methylPREDNISolone Oral (Tablet 4 mg). Omeprazole Oral (Capsule Delayed Release 20 mg) 1 capsule, daily. 2 Clinical Report - Physicians/Mid Levels [facility] [address] [place] [address] Phone #: ext- [phone] 09/03/2020 18:07 Patient: SEAN MILLER [facility]#: [id number] Sex: M : 1965 Age: 55y predniSONE Oral (Tablet 20 mg) 1 tablet, daily. tiZANidine HCl Oral (Tablet 4 mg), 3x a day. Albuterol Sulfate Inhalation. Gabapentin Oral (Capsul e 100 mg), 3x a day. Lisinopril-hydroCHLOROthiazide Oral (Tablet 20-12.5 mg), daily. Allergies: No Known Drug Allergy.SOCIAL HISTORYNo drug use.ADDITIONAL NOTESThe nursing notes have been reviewed.PHYSICAL EXAMVital Signs: 09/03/2020 19:18 BP: 138/89. MAP: 105. HR: 67. RR: 16. O2 saturation: 98%. Pain level now:0/10.09/03/2020 18:11 BP: 139/91. MAP: 107. HR: 77. RR: 18. O2 saturation: 100%. Temp: 97.6 F. Pain levelnow: 0/10. Have been reviewed and appear to be correct. Mean arterial pressure- high. Heart ratenormal. Respiratory rate normal. Temperature normal. Oxygen saturation normal.Appearance: Alert. No acute distress.Eyes: Pupils equal, round and reactive to light. Eyes normal inspection.ENT: Ears normal. Nose normal. Pharynx normal.Neck: Normal inspection. No jugular venous distention. Neck supple.CVS: Normal heart rate and rhythm. Pulses normal.Respiratory: No respiratory distress. Painless inspiration. Expiratory mild bilateral wheezes present.Abdomen: Soft and nontender.Back: Normal inspection. No CVA tenderness.Skin: Skin warm and dry. Normal skin color. No rash. Normal skin turgor.Extremities: Extremities exhibit normal ROM. No lower extremity edema.Neuro: Oriented X 3. No motor deficit. No sensory deficit.PROGRESS AND PROCEDURESCourse of Care: pt is a 55 year old male who presents via ems for prescriptions for his copd. pt [id number]. h e received a duoneb. he felt better. Pt was very honest and stated that he saw his pulmonologistand was told he was not going to prescribe his inhalers for 2 weeks. I discussed with pt that I am willing toprescribe inhalers. I did also rx prednisone 20mg for 5 days. he denied any chest pain. he deferred anylabs, ekg or cxr. he stated he had a cxr at his steam gigger today and he states that he was told it wasnegative. I discussed with pt the fact that this may be cardiac and if it is he may if he is having a heartattack. the only way to tell is to get a ekg and trop. pt was very pleasant but very adamant that he did notneed it. I discussed the risk of not finding out if it was cardiac including . pt was ok with this. I rx ptalbuterol mdi and nebs and prednisone. pt was thankful for care and was discharged. I encouraged pt toreturn if worse or any new symptoms. 3 Clinical Report - Physicians/Mid Levels [facility] [address] [place] [address] Phone #: ext- [phone] 09/03/2020 18:07 Patient: SEAN MILLER Sex: M : 1965 Age: 55y Patient/family counseled. Disposition: Discharged. Condition: good and stable.CLINICAL IMPRESSION Stable COPD (chronic bronchitis)INSTRUCTIONS (I have given you a referral to a primary care physician group in the area. please call to establish care. return if worse or any new symptoms. I sent prescriptions to your pharmacy for albuterol inhaler, albuterol nebulizer and 5 days of prednisone. please take all medications as directed.). Warnings: Further evaluation is necessary. GENERAL WARNINGS: Return or contact your physician immediately if your condition worsens or changes unexpectedly, if not improving as expected, or if other problems arise. Your Current Medications: Your current home medications have been reviewed. CONTINUE TAKING THE FOLLOWING MEDICATIONS: Albuterol Sulfate Inhalation. Gabapentin Oral : Capsule 100 mg, 3x a day. Lisinopril-hydroCHLOROthiazide Oral : Tablet 20-12.5 mg, daily. methylPREDNISolone Oral : Tablet 4 mg. Omeprazole Oral : Capsule Delayed Release 20 mg, 1 capsule daily. predniSONE Oral : Tablet 20 mg, 1 tablet daily. tiZANidine HCl Oral : Tablet 4 mg, 3x a day. Prescription Medications: prednisone 20 mg tablet Take 1 tablet once a day -- Dispense 5 tablet. Refills: 0. Substitution permitted. Pharmacy - [facility] - [address] [place] [address]. . albuterol sulfate HFA 90 mcg/actuation aerosol inhaler Inhale 2 puff four times a day -- Dispense 1 inhaler. Refills: 0. Substitution permitted. Pharmacy - [facility] [place] [address]. . albuterol sulfate 2.5 mg/3 mL (0.083 %) solution for nebulization Take 3 ml four times a day for 10 days -- prn wheezing. Dispense 120 ml. Refills: 0. Substitution permitted. Pharmacy - [address] [id number]. Phone: [phone] Clinical Report - Physicians/[facility] Department [address] [place] [address] Phone #: ext [phone] 09/03/2020 18:07 Patient: SEAN MILLER Sex: M : 1965 Age: 55y [phone] FaxNumber: [phone]. Understanding of the discharge instructions verbalized by patient. Follow- up with: [facility], , , [address] [place] [address], [facility] Follow up in one even if well. Call for an appointment. Reason for referral: evaluation. Summary of care provided to patient via paper.(Electronically signed by Chelsy Oakley MD 09/04/2020 00:34) Name Value Range Interpretation Code Description Data Ebony rce(s) Supporting Document(s) ID Date Data Source [id number] 08/13/2020 02:42:00 [place] [address] RESPIRATORY CARE REPORT ==== ---------NAME------- NUMBER SEX AGE ADMIT DISC. XRAY# F/C TYPEMCCONorman ESTRADA [id number] M 55 08/11/20 08/11/20 [id number] X6B E/R DATE OF : 1965 M/R# [id number] PH#: [phone] - LOCATION: EMERGENCY DEPT EKG [id number] COMP LETE:08/12/20 04:12 [place] [id number] PHYSICIAN: SUMAN Name Value Range Interpretation Code Description Data Ebony rce(s) Supporting Document(s) ID Date Data Source [id number] 08/12/2020 01:51:00 [place] [address] PHONE: [phone] FAX: [phone] Name .................. : KAMALA ESTRADA Acct Number.................. : [id number] ROOM. ................. : Number ................... : [id number] Stay type ............. : E/R Discharge Date......... ... : Admit Date ......... : 08/11/20 Admit Phys .................... : ARCENIOCRISTO Date of ....... : 1965 Family Phys ................... : NON STAFF Phone .................. : [phone] Age ................................ : 55 Film# .................. .:[id number] Sex ................................. : M Unsigned transcriptions are preliminary reports and do not represent a medical or legal document CT HEAD W/O CONTRAST [id number] COMPLETE:08/11/20 11:31 KJE 3915 Reason(s): dizziness, HTN CT SCAN OF THE HEAD WITHOUT CONTRAST, 08/11/20: INDICATION: Dizziness and hypertension. FINDINGS: No evidence of an acute hemorrhage or infarct is identified. No midline shift or mass effect is identified. No clear evidence of an extra-axial fluid collection is identified. Visualized paranasal sinuses and mastoid air cells appear unremarkable. IMPRESSION: Unremarkable CT scan of the head. While performing the above CT examination, radiation dose reduction was accomplished utilizing automated exposure control, adjusting of the mA and kV based on the patient's body size and/or the use of imperative reconstructive techniques. CT dose 816.3 mGycm. Examination dictated by SULEMA Child. Examination was reviewed with Taina Neri MD, radiologist at the time of this dictation. Electronically Reviewed and Signed By Taina Neri MD , 08/12/20 13:51, KGG Transcribe Initials: [facility], Transcribe Date: 08/11/20 12:20, Dictation Date: Copy for: EMERGENCY DEPT via modem Copy for: 710 MED REC Page 1 of [address] [facility] [address] [place] [address] PHONE: [phone] FAX: [phone] Name .................. : KAMALA ESTRADA Acct Number.................. : [id number] ROOM. ................. : TR-07 MR Number ................... : [id number] Stay type ............. : E/R Discharge Date......... ... : Admit Date ......... : 08/11/20 [facility] .................... [facility] Date of ....... : 1965 Family Phys ................... : NON STAFF Phone .................. : [phone] Age ................................ : 55 Film# .................. .:[id number] Sex ................................. : M Unsigned transcriptions are preliminary reports and do not represent a medical or legal document CT HEAD W/O CONTRAST [id number] COMPLETE:08/11/20 11:31 KJE 3915 Reason(s): dizziness, HTN DISCHARGED Page 2 of 2 Name Value Range Interpretation Code Description Data Ebony rce(s) Supporting Document(s) ID Date Data Source [id number] 08/12/2020 01:47:00 PM EST [facility] [address] [place] [address] PHONE: [phone] FAX: [phone] Name .................. : KAMALA ESTRADA Acct Number.................. : [id number] ROOM. ................. : [facility] MR Number ................... : [id number] Stay type ............. : E/R Discharge Date......... ... : Admit Date ......... : 08/11/20 Admit Phys .................... : [facility] Date of ....... : 1965 Family Phys ................... : NON STAFF Phone .................. : [phone] Age ................................ : 55 Film# .................. .:[id number] Sex ................................. : M Unsigned transcriptions are preliminary reports and do not represent a medical or legal document CHEST PORTABLE [id number] COMPLETE:08/11/20 10:09 3220 Reason(s): dizziness PORTABLE CHEST, 08/11/20: INDICATION: Dizziness. FINDINGS: Lung hurd are clear. No focal infiltrate or consolidation is identified. The cardiac silhouette appears unremarkable, and the osseous structures demonstrate a subacute or healing fracture at the posterior left eighth rib. Osseous structures are otherwise unremarkable. IMPRESSION: No acute pulmonary findings. Subacute/healing fracture at the posterior left eighth rib. Examination dictated by SULEMA Child. Examination was reviewed with Taina Neri MD, radiologist at the time of this dictation. Electronically Reviewed and Signed By Taina Neri MD , 08/12/20 13:47, KGG Transcribe Initials: SSR, Transcribe Date: 08/11/20 12:17, Dictation Date: Copy for: EMERGENCY DEPT via modem Copy for: 710 MED REC DISCHARGED Page 1 of 1 Name Value Range Interpretation Code Description Data Ebony rce(s) Supporting Document(s) ID Date Data Source [id number] 08/11/2020 09:55:00 AM EST [facility] 1 OrderSheet [facility] [address] [place] [address] Phone #: ext- [phone] 08/11/2020 09:45 Patient: SEAN MILLER Sex: M : 1965 Age: 55yWEIGHT:77.7 kg (M) HEIGHT:68 inches (S) BMI:26.1ALLERGIES: No Known Drug AllergyCHIEF COMPLAINT: dizziness, vertigo, room)DIAGNOSIS: Hypertensive disorderLAB ORDERSOrder Description Priority Entered Acknowledged InitialedCBC w Diff STAT 10: 021 10:17 Suman Dooley Victoria Rachel R.N. ;CMP STAT 10:08/11/2020 10:17 Suman Dooley Victoria Rachel R.N. ;Lipase STAT 10:08/11/2020 10:17 Suman Dooley Victoria Rachel R.N. ;PT/PTT STAT 10:08/11/2020 10:17 Suman Dooley Victoria Rachel R.N. ;Troponin-T STAT 10:08/11/2020 10:17 Suman Dooley Victoria Rachel R.N. ;Urinalysis (Clean STAT 10:51 08/11/2020 11:03 Miah,Catch) Annia Will R.N. ;DIAGNOSTIC STUDY ORDERSOrder Description Priority Entered Acknowledged InitialedChest Portable 1 STAT 10:09 08/11/2020 10:17 Miah,View Annia Will R.N.(Oxygen?(No)) ; Reason for Study: dizzinessCT Head W/O Cont STAT 10:51 08/11/2020 11:16 Miah,(Oxygen?(No)) Annia Will R.N. ; Reason for Study: dizziness, HTNMEDICATION/IV/DRIP/FLUID ORDERS 2 OrderSheet [facility] [address] [place] [address] Phone #: ext- [phone] 08/11/2020 09:45 Patient: SEAN MLILER Sex: M : 1965 Age: 55yOrder Description Priority Entered Acknowledged InitialedcloNIDine PO 0.1 10:09 08/11/2020 10:17 Miah,mg Annia Will R.N. ;GENERAL ORDERSOrder Description Priority Entered Acknowledged InitialedBlood Pressure 10:08/11/2020 10:09 [place] [facility], [facility] ; Kpur8Ixuxktg Monitor 10:08/11/2020 10:09 [place](continuous) Suman Art coil finisher, [facility] ; Fwqw4QWP 10:08/11/2020 10:09 [place] Suman Art coil finisher, [facility] ; Evcj8RZE 10:08/11/2020 10:09 [place] Suman Art coil finisher, [facility] ; Mntt2Jmicth Old EKG 10:08/11/2020 10:[address] [facility] coil finisher, [place] [facility] ; Cnbf8Wshxsi Old Records 10:08/11/2020 10:09 [facility], [place] [facility] ; Brqf2Ipxanj titrate to 10:08/11/2020 10:09 Tyemxao34% [facility], [place] [facility] ; Ievd7Vkdbx oximeter 10:08/11/2020 10:09 [place](Spot Check) [facility] [place] [facility] ; Gscz2Nfbzes Lock 10:08/11/2020 10:17 Suman Dooley Victoria Rachel R.N. ;Vitals 10:08/11/2020 10:17 Suman Dooley Victoria Rachel R.N. ;Vitals - Orthostatic 10:51 08/11/2020 11:43 Suman Dooley Victoria Rachel R.N. ;[Electronically signed by Annia Will (14:00 08/11/2020)][Electronically signed by Isabella Dooley R.N. (14:16 08/11/2020)] 3 OrderSheet [facility] [address] [place] [address] Phone #: ext- [phone] 08/11/2020 09:45 Patient: SEAN MILLER Sex: M : 1965 Age: 55y[Electronically locked by Isabella Dooley R.N. (14:16 08/11/2020)] Name Value Range Interpretation Code Description Data Ebony rce(s) Supporting Document(s) ID Date Data Source [id number] 08/11/2020 09:55:00 AM EST [facility] 1 Medication Reconciliation Report [facility] [address] [place] [address] Phone #: [phone]- [phone] 08/11/2020 09:45 Patient: SEAN MILLER Sex: M : 1965 Age: 55yWeight: 77.7 kgHeight/Length: 68 in.BMI: 26.1ALLERGIES: No Known Drug AllergyThe patient's Home Medications are listed below:STOP TAKING THE FOLLOWING MEDICATIONS: methylPREDNISolone Oral (4 mg)CONTINUE TAKING THE FOLLOWING MEDICATIONS: Albuterol Sulfate Inhalation Gabapentin Oral (100 mg), 3x a day Lisinopril-hydroCHLOROthiazide Oral (20- 12.5 mg), daily Omeprazole Oral (20 mg) 1 capsule, daily predniSONE Oral (20 mg) 1 tablet, daily tiZANidine HCl Oral (4 mg), 3x a dayThe source(s) of the original Home Medication information:Not obtained.The following Medications were given to the patient in the Emergency Department:Clonidine [PO] PO 0.1 mg, administered: 10:17 08/11/2020The following Medications were prescribed to the patient:lisinopril 20 mg-hydrochlorothiazide 12.5 mg tablet Take 1 tablet once a day for 30 days -- Dispense 30tablet. Refills: 0. Substitution permitted.Pharmacy - [facility] - [address] [place] [address] ; [place], [place] [id number]. . -- Annia Will 2 Medication Reconciliation Report [facility] [address] [place] [address] Phone #: [phone]- [phone] 08/11/2020 09:45 Patient: SEAN MILLER Sex: M : 1965 Age: 55y Name Value Range Interpretation Code Description Data Ebony rce(s) Supporting Document(s) ID Date Data Source [id number] 08/11/2020 09:55:00 AM [place] [address] Medication Administration Record [facility] [address] [place] [address] Phone #: ext- [phone] 08/11/2020 09:45 Patient: SEAN MILLER Sex: M : 1965 Age: 55yWeight: 77.7 kgHeight/Length: 68 inBMI: 26.1ALLERGIES: No Known Drug Allergy Date/Time Medication Administered Medication OrderedGiven CLONIDINE [PO] cloNIDine PO 0.1 mg10:17 08/11/2020 Dose: 0.1 mg Tablets Isabella Cortes R.N. Name Value Range Interpretation Code Description Data Ebony rce(s) Supporting Document(s) ID Date Data Source [id number] 08/11/2020 09:55:00 AM [facility] 1 General Instructions [facility] [address] [place] [address] Phone #: ext [phone] 08/11/2020 09:45 Patient: SEAN MILLER Sex: M : 1965 Age: 55yMalignant hypertension.INSTRUCTIONSFollow a low salt diet. Do not smoke. No alcohol.(limit salt intake to 2 gm . take your blood pressure medication regularly).Your Current Medications: Your current home medications have been reviewed.STOP TAKING THE FOLLOWING MEDICATIONS:methylPREDNISolone Oral : Tablet 4 mg.CONTINUE TAKING THE FOLLOWING MEDICATIONS:Albuterol Sulfate Inhalation.Gabapentin Oral : Capsule 100 mg, 3x a day.Lisinopril- hydroCHLOROthiazide Oral : Tablet 20-12.5 mg, daily.Omeprazole Oral : Capsule Delayed Release 20 mg, 1 capsule daily.predniSONE Oral : Tablet 20 mg, 1 tablet daily.tiZANidine HCl Oral : Tablet 4 mg, 3x a day.Prescription Medications:lisinopril 20 mg-hydrochlorothiazide 12.5 mg tablet Take 1 tablet once a day for 30 days -- Dispense 30tablet. Refills: 0. Substitution permitted.Pharmacy - [facility] - [address] [place] [address] ; [place], [place] [id number]. .Follow-up:Return to the emergency department as needed. Screening today revealed the patient's blood pressure rustam in the hypertensive stage 2 range. The patient should follow up with a primary care provider for bloodpressure management.Follow-up with: [facility], , , [address] [place] [address], [facility] Follow up in three days. Call for the next available appointment. Reason for referral: evaluation.Summary of care provided to patient via paper. ADDITIONAL INFORMATIONUncontrolled High Blood Pressure (Established) 2 General Instructions [facility] [address] [place] [address] Phone #: ext- [phone] 08/11/2020 09:45 Patient: SEAN MILLER Sex: M : 1965 Age: 55yYour blood pressure was unusually high today. Your blood pres sure may be high for several reasons.For example, this can occur if you've missed doses of your blood pressure medicine. Or it canhappen if you are taking other medicines such as some asthma inhalers, decongestants, diet pills,and illegal drugs like cocaine and amphetamine.Other causes of high blood pressure include: Weight gain Too much salt in your diet Smoking Caffeine Lack of exercise Intense pain Becoming upset. This means you feel fear, anger, or another strong emotion.Blood pressure measurements are given as 2 numbers. Systolic blood pressure is the upper number.This is the pressure when the heart contracts. Diastolic blood pressure is the lower number. This isthe pressure when the heart relaxes between beats. You will see your blood pressure readingswritten together. For example, a person with a systolic pressure of 118 and a diastolic pressure of 78will have 118/78 written in the medical record. To be diagnosed with high blood pressure, yournumbers must be higher than the no rmal range when tested over a period of time.Blood pressure is categorized as normal, elevated, or stage 1 or stage 2 high blood pressure: Normal blood pressure is systolic of less than 120 and diastolic of less than 80 (120/80) Elevated blood pressure is systolic of 120 to 129 and diastolic less than 80 Stage 1 high blood pressure is systolic of 130 to 139 or diastolic between 80 to 89 Stage 2 high blood pressure is when systolic is 140 or higher or the diastolic is 90 or higher 3 General Instructions [facility] [address] [place] [address] Phone #: ext- [phone] 08/11/2020 09:45 Patient: SEAN MILLER Sex: M : 1965 Age: 55yUncontrolled high blood pressure can cause serious health problems. It raises your risk for heartattack, stroke, and heart failure. But you can do many things to manage your blood pressure. Ingeneral, if you have high blood pressure, keeping your blood pressure below 130/80 mmHg may helpprevent these problems. Your healthcare provider may prescribe medicine to help control bloodpressure if lifestyle changes are not enough.Home careIt's important to take steps to lower your blood pressure. If you are taking blood pressure medicine,the guidelines below may help you need less or no medicines in the future. Start a weight-loss program if you are overweight. Cut back on the amount of salt in your diet: o Don't have high-salt foods such as olives, pickles, smoked meats, canned soups, deli meats, or salted potato chips. o Don't add salt to your food at the table. o Use only small amounts of salt when cooking. Start an exercise program. Talk with your healthcare provider about what exercise program is best for you. It doesn't have to be difficult. Even brisk walking for 20 minutes 3 times a week is a good form of exercise. Don't use medicines that stimulate the heart. This includes many ahby-ozr-mvbnjxw cold and sinus decongestant pills and sprays, as well as diet pills. Check the warnings about high blood pressure on the label. Before purchasing any uzmr-chl-wyhjkyb medicines or supplements, always ask the pharmacist about the product's potential interaction with your high blood pressure and your medicines. Stimulants such as amphetamine or cocaine could be lethal for someone with high blood pressure. Never take these. Limit how much caffeine you drink. Consider switching to noncaffeinated beverages. Stop smoking. If you are a long-time smoker, this can be hard. Enroll in a stop-smoking program to make it more likely that you will succeed. Talk with your provider about ways to quit. Learn how to handle stress better. This is an important part of any program to lower blood pressure. Learn ways to relax. These include meditation, yoga, and biofeedback. If medicines were prescribed, take them exactly as directed. Missing doses may cause your blood pressure to get out of control. Don't stop taking your medicines, even if you feel better or 4 General Instructions [facility] [address] [place] [address] Phone #: ext- [phone] 08/11/2020 09:45 Patient: SEAN MILLER Sex: M : 1965 Age: 55y you feel like you don't need them anymore. Talk with your healthcare provider. If you miss a dose or doses of your medicines, check with your healthcare provider or pharmacist about what to do. Consider buying an automatic blood pressure machine. Your provider may advise a certain type. These are available at most pharmacies. It's ideal to measure your blood pressure twice a day, once in the morning, and once in the late afternoon. Try to be consistent. Check your blood pressure around the same time each day for a good comparison. Keep a written record of your home blood pressure readings and take the record to your medical appointments.Here are some other guidelines on home blood pressure monitoring from the [place] [employer]. Don't smoke or drink coffee for 30 minutes. Go to the bathroom before the test. Relax for 5 minutes before taking the measurement. Sit correctly. Be sure your back is supported. Don't sit on a couch or soft chair. Uncross your feet and place them flat on the floor. Place your arm on a solid, flat surface like a table with the upper arm at heart level. Make certain the middle of the cuff is directly above the bend of the elbow. Check the monitor's instruction manual for an illustration. Take multiple readings. When you measure, take 2 or 3 readings one minute apart and record all of the results. Take your blood pressure at the same time every day, or as your healthcare provider recommends. Record the date, time, and blood pressure reading. Take the record with you to your next appointment. If your blood pressure monitor has a built-in memory, simply take the monitor with you to your next appointment. Call your provider if you have several high readings. Don't be frightened by a single high reading, but if you get several high readings, check in with your healthcare provider. Note: When blood pressure reaches a systolic (top number) of 180 or higher or a diastolic (bottom number) of 110 or higher, you need emergency medical treatment. Call your healthcare provider right away.Follow-up careRegular visits to your own healthcare provider for blood pressure and medicine checks are animportant part of your care. Make a follow-up appointment as directed. Bring the record of your home 5 General Instructions [facility] [address] [place] [address] Phone #: ext- [phone] 08/11/2020 09:45 Patient: SEAN MILLER Sex: M : 1965 Age: 55yblood pressure readings to the appointment.When to seek medical adviceCall your healthcare provider right away if any of these occur: Blood pressure reaches a systolic (top number) of 180 or higher or diastolic (bottom number) of 110 or higher, emergency medical treatment is required. Chest, arm, shoulder, neck, or upper back pain Shortness of breath Severe headache Throbbing or rushing sound in the ears Nosebleed that comes back or doesn't go away Extreme drowsiness, confusion, or fainting Dizziness or dizziness with spinning sensation (vertigo) Weakness in an arm or leg or on one side of the face Trouble speaking or seeing [phone] [employer]. [address] [place] [address]. All rights reserved. This information is not intended as asubstitute for professional medical care. Always follow your healthcare professional's instructions. You have been given the following additional information: High Blood Pressure, Established, Out of Control(Electronically signed by Annia Will 08/11/2020 14:00) Name Value Range Interpretation Code Description Data Ebony rce(s) Supporting Document(s) ID Date Data Source [id number] 08/11/2020 09:55:00 AM EST [facility] 1 Clinical Report - Nurses [facility] [address] [place] [address] Phone #: [phone] 08/11/2020 09:45 Patient: SEAN MILLER Sex: M : 1965 Age: 55yTRIAGEArrived by EMS. Historian: patient.Triage time: 09:47 08/11/2020. Acuity: LEVEL 3.Chief Complaint: DIZZINESS. BLOOD PRESSURE ELEVATED.09:47 08/11/20. Alert. 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 SEPSIS SCREEN NEGATIVE. No suspected or confirmedsigns of infection present. --10:10 08/11/20 Irasema Brito RN09:47 08/11/20. BP: 154/103. MAP: 120. HR: 68. RR: 16. O2 saturation: 99% on room air. Temp: 97 F.Pain level now: 0/10. --10:10 08/11/20 Irasema Brito RN.Weight: 77.7 kg measured. Height/Length: 68 inches Per Patient. BMI: 26.1. --09:47 08/11/20 KIMBERLY Melgar.MedicationspredniSONE Oral (Tablet 20 mg) 1 tablet, daily. --09:56 08/11/20 Irasema Brito RN Omeprazole Oral (Capsule Delayed Release 20 mg) 1 capsule, daily. --09:56 08/11/20 Irasema Brito RN Lisinopril-hydroCHLOROthiazide Oral (Tablet 20-12.5 mg), daily. --12:04 08/11/20 Isabella Dooley R.N. methylPREDNISolone Oral (Tablet 4 mg). --12:04 08/11/20 Isabella Dooley R.N. Gabapentin Oral (Capsule 100 mg), 3x a day. --12:05 08/11/20 Isabella Dooley R.N. Albuterol Sulfate Inhalation. --12:05 08/11/20 Isabella Dooley R.N. tiZANidine HCl Oral (Tablet 4 mg), 3x a day. --12:05 08/11/20 Isabella Dooley R.N.The following entry was struck by Isabella Dooley R.N., 12:04 (08/11/20) Reason - other. Lisinopril Oral, daily. --09:55 08/11/20 Irasema Brito RN .AllergiesNo Known Drug Allergy. --09:56 08/11/20 Irasema Brito RN. 2 Clinical Report - Nurses [facility] [address] [place] [address] Phone #: ext- [phone] 08/11/2020 09:45 Patient: SEAN MILLER Sex: M : 1965 Age: 55yPROBLEMS:Arthritis.Hypertension. --09:57 08/11/20 Irasema Brito RN.ADDITIONAL SURGERIES:no known surgeries.Eswrlmy83:47 08/11/20.PAST MEDICAL HX: Immunizations: up-to-date.SOCIAL HX: Smoker- current status unknown (marijuana daily). Alcohol use; consumes beer weekly.Drug use: marijuana. (daily). He was offered HIV testing but declined and hepatitis C testing but declined.SELF HARM ASSESSMENT: Self harm assessment was performed. The patient answered "no" to thequestion(s) "Do you have thoughts of harming or killing yourself?" and "Have you recently had thoughtsabout harming or killing others?".ABUSE ASSESSMENT: Abuse assessment. The patient had positive responses to the question(s) "Do youfeel safe in your home?" (yes). Abuse denied. No suspicion of abuse. No report of abuse.NUTRITIONAL RISK ASSESSMENT: The nutritional risk assessment revealed no deficiencies.FUNCTIONAL ASSESSMENT: Functional assessment: no impairments noted.LEARNING NEEDS ASSESSMENT: The learning needs assessment revealed no barriers.FALL RISK ASSESSMENT: Fall risk assessment completed. No risk factors identified. Fall interventionsinitiated. Patient placed on stretcher. Side rails up. Bed in low position. Brakes on. Patient identified as afall risk by chart flagged.SKIN INTEGRITY ASSESSMENT: Skin integrity risk assessment completed. No skin integrity riskidentified. --10:08/11/20 Irasema Brito RN09:47 08/11/20.SOCIAL HX: The patient has not traveled outside the [place]Infectious disease exposure: No infectious disease exposure. (Negative COVID-19 screen). Patient is not aknown carrier of tuberculosis, hepatitis, HIV, MRSA or VRE. Patient is not a known carrier of CRE.--10:26 08/11/20 Irasema Brito RN.Ekeyyiclnuxbe75:47 08/11/20. To treatment room. Transported via stretcher by EMS. to room 7. --10:08/11/20 KIMBERLY Melgar. 3 Clinical Report - Nurses [facility] [address] [place] [address] Phone #: ext- [phone] 08/11/2020 09:45 Patient: SEAN MILLER Sex: M : 1965 Age: 55y 09:47 08/11/2020 Site #1 started via IV in the right antecubital space with an 18g angiocath; one attempt. Saline lock flushed with 10 mL saline. --09:47 08/11/20 Irasema Brito RN.PHYSICAL ASSESSMENTTo room via stretcher.GENERAL / NEURO / PSYCH: Alert. Oriented X 4. Appears in no acute distress.HEENT: Pupils equal, round and reactive to light. No facial asymmetry noted. Mucous membranes arepink.RESPIRATORY: Respirations not labored. Chest nontender. Breath sounds within normal limits.CVS: Capillary refill less than 2 seconds. Pulses within normal limits.GI / : Abdomen soft and nontender and normal bowel sounds.SKIN: Skin intact. Skin is warm and dry. Normal skin turgor. --10:08/11/20 Isabella Dooley R.N.NURSING PROGRESS NOTES09:47 08/11/20. software development coordinator, NIBP monitor and pulse oximeter placed on patient; fishing manager-Lead II; monitor alarms on. Patient gowned. Head of bed elevated. Two patient identifiers checked.Call light placed in reach. Side rails up x 2. Bed placed in lowest position. Brakes of bed on. Patientready for evaluation- ED physician notified. --10:06 08/11/20 Irasema Brito RN EKG time: (late entry - 09:58 08/11/2020). EKG was performed by a tech and shown to the ED physician. --10:10 08/11/20 [facility] Juan Manuel Ochoa ER Tech1 10:17 08/11/2020 Clonidine PO Tablets 0.1 mg given. Allergies verified and confirmed 5 rights. Information reviewed with patient including reason for taking this medication. Verbalizes understanding. --10:17 08/11/20 Isabella Dooley R.N. Patient transported to CT by wheelchair with mask and tech. --11:16 08/11/20 Isabella Dooley R.N. 11:22 08/11/20. Patient returned from CT by wheelchair with mask and tech. --11:44 08/11/20 Isabella Dooley R.N. 11:38 08/11/20. BP: 136/82 taken while lying. MAP: 100. --11:46 08/11/20 Isabella Dooley R.N. 11:40 08/11/20. BP: 136/107 taken while sitting. MAP: 116. --11:46 08/11/20 Isabella Dooley R.N. 11:44 08/11/20. BP: 148/101 taken while standing. MAP: 116. --11:46 08/11/20 Isabella Dooley R.N. 12:00 08/11/20. BP: 138/98. MAP: 111. HR: 58. RR: 17. O2 saturation: 99%. --13:39 08/11/20 [facility] Juan Manuel Ochoa ER Tech1 12:15 08/11/20. BP: 141/87. MAP: 105. HR: 69. RR: 18. O2 saturation: 100%. --13:40 08/11/20 [facility] Tech, Juan Manuel, ER Tech1 4 Clinical Report - Nurses [facility] [address] [place] [address] Phone #: ext- [phone] 08/11/2020 09:45 Patient: SEAN MILLER Sex: M : 1965 Age: 55y12:30 08/11/20. BP: 145/96. MAP: 112. HR: 62. RR: 17. O2 saturation: 100%. --13:40 08/11/20 [facility] Juan Manuel, ER Myvn558:45 08/11/20. BP: 142/95. MAP: 110. HR: 65. RR: 17. O2 saturation: 100%. --13:41 08/11/20 [facility], Juan Manuel, ER Tnjx091:00 08/11/20. BP: 122/84. MAP: 96. HR: 63. RR: 18. O2 saturation: 100%. --13:41 08/11/20 [facility] Juan Manuel, ER Ntlz623:15 08/11/20. BP: 122/84. MAP: 96. HR: 67. RR: 17. O2 saturation: 100%. --13:41 08/11/20 [facility] Juan Manuel, ER Ysfz248:45 08/11/20. BP: 156/103. MAP: 120. HR: 72. RR: 17. O2 saturation: 9 8%. --13:58 08/11/20 Laurie Estrada R.N.11:08/11/20. BP: 157/106. ED physician notified. MAP: 123. HR: 68. O2 saturation: 100%. --13:5808/11/20 Laurie Estrada R.N.11:21. BP: 164/115. MAP: 131. HR: 70. RR: 14. O2 saturation: 100%. --13:58 08/11/20 Laurie Estrada R.N.11:19 08/11/20. BP: 137/99. MAP: 111. HR: 62. RR: 14. O2 saturation: 100%. --13:59 08/11/20 Laurie Estrada R.N.11:41 08/11/20. BP: 136/82. MAP: 100. HR: 57. O2 saturation: 99%. --13:59 08/11/20 Laurie Estrada R.N.11:43 08/11/20. BP: 136/107. MAP: 116. HR: 67. O2 saturation: 99%. --13:59 08/11/20 Laurie Estrada R.N.11:45 08/11/20. BP: 148/101. MAP: 116. HR: 65. O2 saturation: 99%. --13:59 08/11/20 Laurie Estrada R.N.late entry - 12:15 08/11/20. Reassessment acuity: LEVEL 3.Rounding: Pain: assessed pain level. Position: states comfortable. Proximity of possessions / care items:call light within easy reach. Set expectations: advised patient of rounding protocol timing and asked if theyneeded anything else at this time. The patient reports no complaints and he is calm and resting quietly.Overall patient status is improved- he states feels better. ( Pt talking happily in room, ate 90% of lunch, nocomplaints at this time.).RESPIRATORY: No respiratory distress. --14:01 08/11/20 Laurie Estrada R.N.12:35 08/11/20. 5 Clinical Report - Nurses [facility] [address] [place] [address] Phone #: ext- [phone] 08/11/2020 09:45 ----- Patient: SEAN MILLER Sex: M : 1965 Age: 55y Rounding: Pain: denies pain. Position: states comfortable. Personal care / toileting: assisted with toileting. --14:16 08/11/20 Isabella Dooley R.N. late entry - 13:15 08/11/20. Reassessment acuity: LEVEL 3. Rounding: Pain: assessed pain level. Position: states comfortable. Proximity of possessions / care items: call light within easy reach. Set expectations: advised patient of rounding protocol timing and asked if they needed anything else at this time. The patient reports no complaints and he is calm and resting quietly. Overall patient status is improved- he states feels better. RESPIRATORY: No respiratory distress. --14:00 08/11/20 Laurie Estrada R.N.DISPOSITION / DISCHARGE Departure time: late entry - 13:58 08/11/2020. Condition at departure: improved and sta ble. ( MD Avila aware of all VS and is okay with d/c.). No learning barriers present. Discharge instructions provided and reviewed with the patient. Reviewed warnings (please see paper copy). Reviewed medication(s) side effects, precautions, dosing and course information. Prescription(s) sent electronically to pharmacy (Lisinopril, hydrochlorothiazide). Reviewed referrals ([facility]). Reviewed diet. Patient verbalized understanding. Written instructions provided. The patient was discharged home and unaccompanied at time of discharge. He left ambulatory and via taxi. Driving (Taxi). --14:02 08/11/20 Laurie Estrada R.N. 13:58 08/11/20. BP: 149/96. ED physician notified. MAP: 113. HR: 83. RR: 18. O2 saturation: 98% on room air. Temp: 97.2 F (oral). Pain level now: 0/10. --14:02 08/11/20 Laurie Estrada R.N. 13:50 08/11/2020 Site #1 removed upon discharge. Bandage applied (2x2 and tape, no bleeding noted, pt tolerated well, clean dry and intact upon d/c.). --14:02 08/11/20 Laurie Estrada R.N.Locked/Released at 08/11/2020 14:16 by Isabella Dooley R.N. Name Value Range Interpretation Code Description Data Ebony rce(s) Supporting Document(s) ID Date Data Source [id number] 0001 08/11/2020 09:55:00 AM EST [facility] 1 Clinical Report - Physicians/Mid Levels [facility] [address] [place] [address] Phone #: ext- [phone] 08/11/2020 09:45 Patient: SEAN MILLER Sex: M : 1965 Age: 55y Time Seen: 09:49 08/11/2020; initial patient contact, initial documentation. Arrived- By ambulance. Historian- patient and EMS personnel. Disposition decision: 13:33 08/11/2020.HISTORY OF PRESENT ILLNESS Chief Complaint: DIZZINESS and VERTIGO (ROOM). ( while watching TV. h). Described as a sense of rotation, sense of falling and feeling off balance. Not described as feeling light-headed, faint or weak all over or a sense of confusion. This st arted just prior to arrival and is still present but is better now. It was abrupt in onset. Severity described as moderate at its maximum. When seen in the E.D., it was almost gone. Modifying factors- worsened by standing up and changing position. Relieved by not moving. No nausea, vomiting, hearing loss, tinnitus or ear pain. (Patient has history of hypertension and states thta he ran out of his BP medication. he also states that he has been eating a lot of pickles lately).REVIEW OF SYSTEMSDenies current . No headache, double vision, weakness, fainting episodes or head injury. Nochest pain, palpitations, black stools, numbness or bloody stools. No fever, sore throat, cough, difficultybreathing or abdominal pain. No diarrhea or difficulty with urination. No difficulty walking. The patienthas had skin rash, enlarged lymph nodes and joint pain. All other systems reviewed and are negative.PAST HISTORYSee nurses notes. Problems: Arthritis. Hypertension. Additional Surgeries: no known surger ies. Medications: Omeprazole Oral (Capsule Delayed Release 20 mg) 1 capsule, daily. predniSONE Oral (Tablet 20 mg) 1 tablet, daily. Lisinopril Oral, daily. Allergies: No Known Drug Allergy.SOCIAL HISTORYCurrent every day light tobacco smoker- less than 1/2 a pack per day. Regular alcohol use; consumes sixbeers a week. Heavy drug use: marijuana. Recently used drugs today. 2 Clinical Report - Physicians/Mid [facility] Emergency Department [address] [place] [address] Phone #: ext- [phone] 08/11/2020 09:45 Patient: SEAN MILLER Sex: M : 1965 Age: 55yADDITIONAL NOTESThe nursing notes have been reviewed.PHYSICAL EXAMVital Signs: Oxygen saturation normal.Appearance: Alert. No acute distress. Alert. Anxious. Odor of alcohol is not present.Head: No tenderness, ecchymosis or swelling.Eyes: Pupils equal, round and reactive to light and light. Accomm odation normal. No visual field deficit.No nystagmus. Extraocular movements normal. No double vision. No dysconjugate gaze. Nonystagmus.Lt Eye: No eyelid edema or erythema or conjunctival edema.ENT: Normal ENT inspection and inspection. TM's not normal. Nose normal. Nares normal. Moistmucous membranes. Pharynx normal.Neck: Normal inspection. Neck supple. No meningeal signs or carotid bruit.CVS: Normal heart rate and rhythm. Heart sounds normal. Pulses normal.Respiratory: No respiratory distress. Painless inspiration. Breath sounds normal. No crackles,wheezes or rhonchi.Abdomen: Soft and nontender. No organomegaly. No abdominal tenderness or organomegaly.Back: Normal inspection. No CVA tenderness.Skin: Skin warm and dry. Normal skin color. No rash. Normal skin turgor.Extremities: Extremities exhibit normal ROM. No lower extremity edema. No calf tenderness. No lowerextremity edema.Neuro: Alert. Oriented X 3. Mood/affect normal. Speech normal. Cranial nerves normal (as tested).No facial weakness or decrease in corneal reflex. No cerebellar findings. No abnormal finger-nose test.Normal gait. No motor deficit. No sensory deficit. NIH Stroke Scale: score 0. Level of Consciousness:alert (0). LOC Questions: both (0). LOC Commands: both (0). Best gaze: normal (0). Visual field loss:none (0). Facial palsy: normal (0). Motor arm: no drift right arm (0) and no drift left arm (0). Motor leg:no drift right leg (0) and no drift left leg (0). Limb ataxia: none (0). Sensory loss: none (0). Aphasia:none (0). Dysarthria: normal (0). Extinction and inattention: none (0).Psych: Oriented X 3. Mood and affect no rmal. Speech normal. Cognition normal. Thought processand content normal. Insight and judgement normal.LABS, X-RAYS, AND EKGEKG: EKG time: 09:58 08/11/2020. No acute process. No acute ischemia. Normal sinus rhythm.Rate: 70. Normal P waves. Normal QRS complex. Normal QT. Non-specific ST segment / T waveabnormalities. Prior EKG unavailable. The study has been interpreted contemporaneously by me. Thestudy has been independently viewed by me. The EKG appears to be a good tracing. Interpretationtime: 10:05 08/11/2020.Chest X-ray: (Gab almonte Mike - 08/11/2020 10:39:55 AMNo acute pulmonary findings. Sub acute/healing posterior left eighth rib fracture. Daron/Gab). The X-rayswere interpreted by the radiologist.Laboratory Tests: Urinalysis: (GEREMIAS: 08/11/2020 10:55) ( MsgRcvd 08/11/2020 11:22) Final results Test Result Flag Units (Reference) 3 Clinical Report - Physicians/Mid Levels [facility] [address] [place] [address] Phone #: ext- [phone] 08/11/2020 09:45 Patient: SEAN MILLER Sex: M : 1965 Age: 55y URINALYSIS URINALYSIS SOURCE R COLOR yellow (NORMAL: Yello CLARITY clear (NORMAL: Clear SPEC GRAVITY 1.025 (1.001 - 1.030 pH 6 (5 - 9) GLUCOSE 100 A (NORMAL: Negat BILIRUBIN NEG (NORMAL: Negat KETONE NEG (NORMAL: Negat PROTEIN 15 (NORMAL: Negat NITRITE NEG (NORMAL: Negat BLOOD 10 A (NORMAL: Negat LEUK EST NEG (NORMAL: Negat UROBILINOGEN NOR (less than 1.0 MICROSCOPIC See Below RBC 0 - 1 (NORMAL: NONE EPITHELIAL FEW (NORMAL: NONE BACTERIA Trace (NORMAL: NONECT Head W/O Cont: (GEREMIAS: 08/11/2020 10:51) ( MsgRcvd 08/11/2020 12:22) In ProgressCT HEAD W/O CONTRASTReason(s): dizziness, HTNTRANSPORTATION: S IV? O2? Oxygen?(No) Room: ED Exam [place] HEAD W/[place] [address] PHONE: [phone] FAX: [phone] Name .................. : KAMALA ESTRADA Acct Number.................. : [id number] ROOM. ................. : TR-07 MR Number ................... : [id number] Stay type ............. : E/R Discharge Date......... ... : Admit Date ......... : 08/11/20 Admit Phys .................... : SUMAN Date of ....... : 1965 Family Phys ................... : NON STAFF Phone .................. : [phone] Age ................................ : 55 Film# .................. .:[id number] Sex ................................. : M Unsigned transcriptions are preliminary reports and do not represent a medical or legal document CT HEAD W/O CONTRAST [id number] COMPLETE:08/11/20 11:31 KJE [id number] Reason(s): dizziness, HTN CT SCAN OF THE HEAD WITHOUT CONTRAST, 08/11/20: INDICATION: Dizziness and hypertension. FINDINGS: No evidence of an acute hemorrhage or infarct is identified. No midline shift or mass effect is identified. No clear evidence of an extra-axial fluid collection is identified. Visualized paranasal sinuses and mastoid air cells appear unremarkable. IMPRESSION: Unremarkable CT scan of the head. While performing the above CT examination, radiation dose reduction was accomplished 4 Clinical Report - Physicians/Mid Levels [facility] [address] [place] [address] Phone #: ext- [phone] 08/11/2020 09:45 -- Patient: SEAN MILLER Sex: M : 1965 Age: 55y utilizing automated exposure control, adjusting of the mA and kV based on the patient's body size and/or the use of imperative reconstructive techniques. CT dose 816.3 mGycm. Examination dictated by SULEMA Child. Examination was reviewed with Taina Neri MD, radiologist at the time of this dictation. Electronically Reviewed and Signed By DCTNAME , SIGNDATE, KGG Transcribe Initials: SSR, Transcribe Date: 08/11/20 12:20, Dictation Date: <<REPDIST>> Page 1of 1CBC w Diff: (GEREMIAS: 08/11/2020 10:18) ( MsgRcvd 08/11/2020 10:32) Final results Test Result Flag Units (Reference) CBC W/AUTOMATED DIFF COMPLETE BLOOD COUNT WBC 16.1 H 10/uL (4.2 - 11.0) RBC 4.41 L 10/uL (4.50 - 6.30) HEMOGLOBIN 13.0 L g/dL (14.0 - 16.0) HEMATOCRIT 40.6 L % (41.0 - 51.0) MCV 92.1 fL (80.0 - 94.0) MCH 29.5 pg (27.0 - 34.0) MCHC 32.0 g/dL (31.0 - 36.0) RDW 15.5 H % (11.5 - 14.8) PLATELETS 230 10/uL (150 - 450) MPV 9.0 fL (7.4 - 10.4) NEUT 91.7 H % (37.0 - 80.0) LYMPH 5.1 L % (25.0 - 40.0) MONO 2.2 L % (3.0 - 8.0) EOS 0.0 % (0.0 - 7.0) BASO 0.1 % (0.0 - 2.0) %IG 0.9 H % (0.0 - 0.0) %NRBC 0.0 % (0.0 - 0.0) #NEUT 14.79 H 10/uL (2.00 - 6.90) #LYMPH 0.83 10/uL (0.60 - 3.40) #MONO 0.36 10/uL (0.00 - 0.90) #EOS 0.00 10/uL (0.00 - 0.70) #BASO 0.02 10/uL (0.00 - 0.20) #IG 0.14 H 10/uL (0.00 - 0.10) #NRBC 0.00 10/uL (0.00 - 0.00) MANUAL DIFF NOT INDICATED RBC MORPH NOT INDICATEDCMP: (GEREMIAS: 08/11/2020 10:18) ( MsgRcvd 08/11/2020 10:52) Final results Test Result Flag Units (Reference) COMPREHENSIVE METABOLIC PANEL COMPREHENSIVE METABOLIC PANEL 5 Clinical Report - Physicians/Mid Levels [facility] [address] [place] [address] Phone #: ext- [phone] 08/11/2020 09:45 Patient: SEAN MILLER Sex: M : 0 1965 Age: 55y SODIUM 139 mEq/L (134 - 153) POTASSIUM 4.2 mEq/L (3.6 - 5.0) CHLORIDE 107 mEq/L (98 - 107) CO2 25 MEQ/L (22 - 30) GLUCOSE 213 H MG/DL (70 - 99) BUN 23 H MG/DL (7 - 21) CREATININE 0.8 MG/DL (0.7 - 1.5) BUN/CREAT 29 H (8 - 27) TOTAL PROTEIN 6.2 L G/DL (6.3 - 8.2) ALBUMIN 3.7 L G/DL (3.9 - 5.0) GLOBULIN 2.5 GM/DL (2.4 - 3.2) A/G RATIO 1.5 (0.8 - 2.0) CALCIUM 8.5 MG/DL (8.4 - 10.2) TOTAL BILI <0.7 MG/DL (0.2 - 1.3) ALKALINE PHOS 111 U/L (38 - 126) SGOT/AST 16 U/L (5 - 40) SGPT/ALT 11 U/L (7 - 56) ANION GAP 7.0 L mmol/L (8.0 - 16.0) AGE 55 yrs NON-AA GFR >60 mL/min AFR AMER GFR >60 mL/min Male GFR Interprentation 20-49 yrs >60 mL/min Qricta57-05 yrs >56 mL/min Normal 60-69 yrs >49 mL/min Normal 70-79yrs>42 mL/min Normal 80 and above >35 mL/min Normal Female GFRInterpretation 20-39 yrs >60 mL/min Normal 40-49 yrs >58 mL/minNormal 50-59 yrs >51 mL/min Normal 60-69 yrs >45 mL/min Ftefup88-02 yrs >39 mL/min Normal 80 and above >32 mL/min NormalLipase: (GEREMIAS: 08/11/2020 10:18) ( MsgRcvd 08/11/2020 10:49) Final results Test Result Flag Units (Reference) LIPASE 39 U/L (13 - 60)PT/PTT: (GEREMIAS: 08/11/2020 10:18) ( MsgRcvd 08/11/2020 10:46) Final results Test Result Flag Units (Reference) PROTIME 11.0 SECONDS (11.0 - 15.5) INR 0.76 L (0.93 - 1.23) PTT 26.3 SECONDS (24.8 - 36.7) \\BLDo\\INR INTERPRETATION\\BLDx\\ Therapeutic range for Coumadin andrelated oral anticoagulants. -International Normalized Ratio (INR): 2.0 - 3.0 for VenousThrombosis, Pulmonary Embolus, Tissue heart valves, Acute HI Atrial Fibrillation, Valvular heart diseaseand recurrent Systemic Embolism. -International Normalized Ratio (INR): 2.5 - 3.5 forMechanical Prosthetic valve.Troponin-T: (GEREMIAS: 08/11/2020 10:18) ( MsgRcvd 08/11/2020 11:12) Final results Test Result Flag Units (Reference) TROPONIN T <0.01 NG/ML (0.00 - 0.10) TROPONIN T0.1 ng/ml Recommended as the clinical threshold value forTroponin T.Chest Portable 1 View: (GEREMIAS: 08/11/2020 10:09) ( MsgRcvd 08/11/2020 13:34) In [place] [address] 6 Clinical Report - Physicians/Mid Levels [facility] [address] [place] [address] Phone #: ext- [phone] 08/11/2020 09:45 Patient: SEAN MILLER Sex: M : 1965 Age: 55y PHONE: [phone] FAX: [phone] Name .................. : KAMALA ESTRADA Acct Number.................. : [id number] ROOM. ................. : TR-07 MR Number ................... : [id number] Stay type ............. : E/R Discharge Date......... ... : Admit Date ......... : 08/11/20 Admit Phys .................... : [facility] Date of ....... : 1965 Family Phys ................... : NON STAFF Phone .................. : [phone] Age ................................ : 55 Film# .................. .:[id number] Sex ................................. : M Unsigned transcriptions are preliminary reports and do not represent a medical or legal document CHEST PORTABLE [id number] COMPLETE:08/11/20 10:09 [id number] Reason(s): dizziness PORTABLE CHEST, 08/11/20: INDICATION: Dizziness. FINDINGS: Lung hurd are clear. No focal infiltrate or consolidation is identified. The cardiac silhouette appears unremarkable, and the osseous structures demonstrate a subacute or healing fracture at the posterior left eighth rib. Osseous structures are otherwise unremarkable. IMPRESSION: No acute pulmonary findings. Subacute/healing fracture at the posterior left eighth rib. Examination dictated by SULEMA Child. Examination was reviewed with Taina Neri MD, radiologist at the time of this dictation. Electronically Reviewed and Signed By DCTNAME , SIGNDATE, LIZ Transcribe Initials: [facility], Transcribe Date: 08/11/20 12:17, Dictation Date: <<REPDIST>> Page 1 of 1.PROGRESS AND PROCEDURESCourse of Care: 12:00 08/11/20. blood work reviewed he has an elevated WBC which maybe secondaryto prednisone which he takes on a daily basis. his urinalysis and CXR normal no evidence of infection. wegave him clonidine which brought his BP down to 135/80 13:32 08/11/20. patient is not dizzy anymore. CT scan no acute disease, CXR normal Blood pressure has gone down. he states he ran out of his lisinopril. His wbc is elevated because of prednisone. No 7 Clinical Report - Physicians/Mid Levels [facility] [address] [place] [address] Phone #: ext- [phone] 08/11/2020 09:45 Patient: SEAN MILLER Sex: M : 1965 Age: 55y evidence of infection. Disposition: Discharged home in good and improved condition (13:33). Condition: good and stable. Discharge decision based on the following: patient's condition is stable; patient's condition is improved; patient is ambulatory; patient drinking fluids; patient eating; patient's exam is stable; no seriously abnormal test results; stable condition on multiple repeat evaluations; social support is adequate; transportation is available; follow-up is available; clinical impression is consistent with outpatient treatment.CLINICAL IMPRESSION Malignant hypertension.INSTRUCTIONS Follow a low salt diet. Do not smoke. No alcohol. (limit salt intake to 2 gm . take your blood pressure medication regularly). Your Current Medications: Your current home medications have been reviewed. STOP TAKING THE FOLLOWING MEDICATIONS: methylPREDNISolone Oral : Tablet 4 mg. CONTINUE TAKING THE FOLLOWING MEDICATIONS: Albuterol Sulfate Inhalation. Gabapentin Oral : Capsule 100 mg, 3x a day. Lisinopril-hydroCHLOROthiazide Oral : Tablet 20-12.5 mg, daily. Omeprazole Oral : Capsule Delayed Release 20 mg, 1 capsule daily. predniSONE Oral : Tablet 20 mg, 1 tablet daily. tiZANidine HCl Oral : Tablet 4 mg, 3x a day. Prescription Medications: lisinopril 20 mg-hydrochlorothiazide 12.5 mg tablet Take 1 tablet once a day for 30 days -- Dispense 30 tablet. Refills: 0. Substitution permitted. Pharmacy - [facility] - [address] [place] [address] ; [place], [place] [id number]. FaxNumber: . Follow-up: Return to the emergency department as needed. Screening today revealed the patient's blood pressure to be in the hypertensive stage 2 range. The patient should follow up with a primary care provider for blood pressure man agement. Follow-up with: [facility], , , [address] [place], [address] Follow up in three days. Call for the next available appointment. Reason for referral: evaluation. 8 Clinical Report - Physicians/Mid Levels [facility] Department [address] [place] [address] Phone #: ext- [phone] 08/11/2020 09:45 Patient: SEAN MILLER Sex: M : 1965 Age: 55y Summary of care provided to patient via paper.(Electronically signed by Annia Will 08/11/2020 14:00) Name Value Range Interpretation Code Description Data Ebony rce(s) Supporting Document(s) ID Date Data Source [id number] 08/11/2020 11:22:00 AM EST [facility] Name Value Range Interpretation Code Description Data [facility] Supporting Document(s) [facility] COLOR yellow NORMAL: Yellow [facility] CLARITY clear NORMAL: Clear [facility] Specific gravity of Urine by Test strip 1.025 1.001 - 1.030 [facility] pH 6 5 - 9 [facility] Glucose [Mass/volume] in Urine by Test strip 100 NORMAL: Negat loco [facility] Bilirubin.total [Presence] in Urine by Test strip NEG NORMAL: Negative [facility] Ketones [Presence] in Urine by Test strip NEG NORMAL: Negative [facility] Protein [Mass/volume] in Urine by Test strip 15 NORMAL: Negat loco [facility] Nitrite [Presence] in Urine by Test strip NEG NORMAL: Negative [facility] BLOOD 10 NORMAL: Negative A [facility] Leukocyte esterase [Presence] in Urine by Test strip NEG CHELSY L: Negative [facility] Urobilinogen [Mass/volume] in Urine by Test strip NOR less sravanthi n 1.0 mg/dL [facility] MICROSCOPIC See Below [facility] Erythrocytes [#/volume] in Urine by Test strip 0 - 1 NORMAL: NON E SEEN [facility] EPITHELIAL FEW NORMAL: NONE SEEN [facility] Bacteria [Presence] in Urine sediment by Light microscopy Tr erika NORMAL: NONE SEEN [facility] ID Date Data Source [id number] 08/11/2020 11:11:00 AM [facility] Name Value Range Interpretation Code Description Data Ebony rce(s) Supporting Document(s) TROPONIN T <0.01 NG/ML 0.00 - 0.10 [facility] TROPONIN T0.1 ng/ml Recommended as the c linical threshold value forTroponin T. ID Date Data Source [id number] 08/11/2020 10:52:00 AM [facility] Name Value Range Interpretation Code Description Data Ebony rce(s) Supporting Document(s) COMPREHENSIVE METABOLIC PANEL [facility] COMPREHENSIVE METABOLIC PANEL Sodium [Moles/volume] in Serum or Plasma 139 mEq/L 134 - 153 [facility] Potassium [Moles/volume] in Serum or Plasma 4.2 mEq/L 3.6 - 5.0 [facility] Chloride [Moles/volume] in Serum or Plasma 107 mEq/L 98 - 107 [facility] Carbon dioxide, total [Moles/volume] in Serum or Plasma 25 MEQ/L 22 - 30 [facility] Glucose [Mass/volume] in Serum or Plasma 213 MG/DL 70 - 99 H [facility] BUN 23 MG/DL 7 - 21 [facility] Creatinine [Mass/volume] in Serum or Plasma 0.8 MG/DL 0.7 - 1.5 [facility] BUN/CREAT 29 8 - 27 [facility] Protein [Mass/volume] in Serum or Plasma 6.2 G/DL 6.3 - 8.2 L [facility] Albumin [Mass/volume] in Serum or Plasma 3.7 G/DL 3.9 - 5.0 L [facility] Globulin [Mass/volume] in Serum by calculation 2.5 GM/DL 2.4 - 3.2 [facility] A/G RATIO 1.5 0.8 - 2.0 [facility] Calcium [Mass/volume] in Serum or Plasma 8.5 MG/DL 8.4 - 10.2 [facility] Bilirubin.total [Mass/volume] in Serum or Plasma <0.7 MG/DL 0.2 - 1.3 [facility] Alkaline phosphatase [Enzymatic activity/volume] in Serum or Plasma 111 U/L 38 - 126 [facility] Aspartate aminotransferase [Enzymatic activity/volume] in Serum or Plasma 16 U/L 5 - 40 [facility] Alanine aminotransferase [Enzymatic activity/volume] in Seru m or Plasma 11 U/L 7 - 56 [facility] Anion gap 3 in Serum or Plasma 7.0 mmol/L 8.0 - 16.0 L [facility] AGE 55 yrs [facility] al NON-AA GFR >60 mL/min [facility] ital AFR AMER GFR >60 mL/min [facility] Male GFR In terprentation 20-49 yrs >60 mL/min Normal 50-59 yrs >56 mL/min Normal 60-69 yrs >49 mL/min Normal 70-79yrs >42 mL/min Normal 80 and above >35 mL/min Normal Female GFR Interpretation 20-39 yrs >60 mL/min Normal 40-49 yrs >58 mL/min Normal 50-59 yrs >51 mL/min Normal 60-69 yrs >45 mL/min Normal 70-79 yrs >39 mL/min Normal 80 and above >32 mL/min Normal ID Date Data Source [id number] 08/11/2020 10:49:00 AM [facility] Name Value Range Interpretation Code Description Data Ebony rce(s) Supporting Document(s) Lipase [Enzymatic activity/volume] in Serum or Plasma 39 U/L 13 - 60 [facility] ID Date Data Source [id number] 08/11/2020 10:46:00 AM [facility] Name Value Range Interpretation Code Description Data Ebony rce(s) Supporting Document(s) Prothrombin time (PT) 11.0 SECONDS 11.0 - 15.5 [facility] INR in Platelet poor plasma by Coagulation assay 0.76 0.93 - 1. 23 L [facility] aPTT in Blood by Coagulation assay 26.3 SECONDS 24.8 - 36.7 [facility] \\BLDo\\INR INTERPRETATION\\BLDx\\ Therapeutic range for Coumadin and related oral anticoagulants. - International Normalized Ratio (INR): 2.0 - 3.0 for Venous Thrombosis, Pulmonary Embolus, Tissue heart valves, Acute HI Atrial Fibrillation, Valvular heart disease and recurrent Systemic Embolism. - International Normalized Ratio (INR): 2.5 - 3.5 for Mechanical Prosthetic valve. ID Date Data Source [id number] 08/11/2020 10:32:00 AM EST [facility] Name Value Range Interpretation Code Description Data Ebony rce(s) Supporting Document(s) CBC W/AUTOMATED DIFF [facility] COMPLETE BLOOD COUNT Leukocytes [#/volume] in Blood by Automated count 16.1 10^3/uL 4.2 - 11.0 H [facility] Erythrocytes [#/volume] in Blood by Automated count 4.41 10^6/uL 4. 50 - 6.30 L [facility] Hemoglobin [Mass/volume] in Blood 13.0 g/dL 14.0 - 16.0 L [facility] Hematocrit [Volume Fraction] of Blood by Automated count 40.6 % 4 1.0 - 51.0 L [facility] Erythrocyte mean corpuscular volume [Entitic volume] by Auto mated count 92.1 fL 80.0 - 94.0 [facility] Erythrocyte mean corpuscular hemoglobin [Entitic mass] by Automated count 29.5 pg 27.0 - 34.0 [facility] Erythrocyte mean corpuscular hemoglobin concentration [Mass/volume] by Automated count 32.0 g/dL 31.0 - 36.0 [facility] Erythrocyte distribution width [Ratio] by Automated count 15.5 % 11.5 - 14.8 H [facility] Platelets [#/volume] in Blood by Automated count 230 10^3/uL 150 - 45 0 [facility] Platelet mean volume [Entitic volume] in Blood by Automated count 9.0 fL 7.4 - 10.4 [facility] Neutrophils/100 leukocytes in Blood by Automated count 91.7 % 37. 0 - 80.0 H [facility] Lymphocytes/100 leukocytes in Blood by Manual count 5.1 % 25.0 - 40.0 L [facility] Monocytes/100 leukocytes in Blood by Automated count 2.2 % 3.0 - 8.0 L [facility] Eosinophils/100 leukocytes in Blood by Automated count 0.0 % 0.0 - 7.0 [facility] Basophils/100 leukocytes in Blood by Automated count 0.1 % 0.0 - 2.0 [facility] %IG 0.9 % 0.0 - 0.0 [facility] %NRBC 0.0 % 0.0 - [facility] [#/volume] in Blood by Automated count 14.79 10^3/uL 2. 00 - 6.90 H [facility] Lymphocytes [#/volume] in Blood by Automated count 0.83 10^3/uL 0.60 - 3.40 [facility] Monocytes [#/volume] in Blood by Automated count 0.36 10^3/uL 0.00 - 0.90 [facility] Eosinophils [#/volume] in Blood by Automated count 0.00 10^3/uL 0.00 - 0.70 [facility] Basophils [#/volume] in Blood by Automated count 0.02 10^3/uL 0.00 - 0.20 [facility] #IG 0.14 10^3/uL 0.00 - 0.10 [facility] #NRBC 0.00 10^3/uL 0.00 - 0.00 [facility] MANUAL DIFF NOT INDICATED [facility] RBC MORPH NOT INDICATED [facility] ID Date Data Source [id number] 07/27/2020 07:25:00 AM EST [facility] Name Value Range Interpretation Code Description Data Ebony rce(s) Supporting Document(s) SARS-CoV-2 (COVID 19) NEGATIVE - SARS-CoV-[facility] (COVID19) [facility] This lab was ordered by [facility] a nd reported by [facility]. ID Date Data Source [id number] 04/06/2020 02:08:56 PM EDT [facility] Measurements & CalculationsHeight: 69 inches (5 ft. 9 in.) 175.26 cm Weight: 172.6 pounds 78.45 kg Body Mass Index (BMI): 25.58BMI Interpretation: OverweightBody Surface Area (BSA): 1.94Vital SignsTemperature: 97.6F 36.44C tympanic Pulse Rate: 93 beats/minuteRespiratory Rate: 18 respirations/minuteBlood Pressure: 123/84 left arm sitting automaticO2 Saturation: 97% Vital Signs performed by: Barbara Mckeon LPN, April 06, 2020 2:10 PMInitial Intake Information From: patientRoom #: 1Infectious Disease / Travel ScreeningRecent travel for you or any close contacts? NoHave you had any close contact with anyone diagnosed with or under investigation for COVID-19 (coronavirus)? NoFever? NoRespiratory symptoms: cough, cold, congestion, shortness of breath, difficulty breathing? NoLoss of smell? NoLoss of taste? NoSmoking, Tobacco, Vaping or Smoke Exposure StatusSmoke Status: current every day smokerTobacco Use: YesAdv to Quit: YesDo you vape? NoPassive Smoke Exposure: YesHealthcare HistorySince your last office visit...Have you been admitted to the hospital? NoHave you been to an emergency room (ER) or urgent care clinic? Yes - [facility]-pain in rib/lungsHave you seen another healthcare provider? NoHave you seen a dentist? NoIntake performed by: Barbara Mckeon LPN, April 06, 2020 2:11 PMRate Your HealthIn general, would you say your health is? PoorPain AssessmentAre you currently having any pain which... You would like your provider to address? Yes Affects your activity level? YesDepression Screening - PHQ-2Over the last two weeks, have you... Had little interest or pleasure in doing things? Not at all Been feeling down, depressed, or hopeless? Not at all PHQ-2 Score: 0Food InsecurityWithin the past year...Did you worry whether your food would run out before you got money to buy more? Sometimes trueWas there a time when the food you bought didn't last and you didn't have money to get more? Sometimes truePain AssessmentPain ScaleNumeric Rating Scale: 5 / 10Location: ribs/lungsDuration: 1 weekCharacter/Quality: stabbing and pressureScreening, Brief Intervention, & Referral to Treatment (SBIRT)Pre- Screening Questions How many times have you have 5 or more drinks in a day? 0How many times have you used an illegal drug or used a prescription medication for a non-medical reason? 0Performed by: Barbara Mckeon LPN, April 06, 2020 2:13 PMPatient History Medical History:COPDCollapsed LungsAsthmaShoulder painLower back painGERDSurgical History:UnremarkableFamily History:No known family historySocial/Personal History: Advised to Quit/Tobacco Education: YesChief Complaintfollow-up visitHistory of Present Illness (HPI)Pt is a 55 y/o male, presents for [facility] follow-up.Pt seen in [facility] ER 04/01/2020 and 04/04/2020 for COPD exacerbation. Pt was discharged with prednisone (states he is chronically on 20mg daily x 5 years), Advair, and albuterol on 04/01/2020, then with azithyromycin on 04/04/2020. Pt feels improvement with the antibiotics, states pain is 75% improved. Pt has new patient packet to complete and turn in before he can be scheduled with [facility] Pulmonology. Pt states he had home care when he lived in [place], [place] over a year ago. Had a private duty nurse clean his home, cook for him, get his medications. Pt has had someone privately for about 1 month performing these duties out of pocket. Pt is permanently disabled through social security: COPD and low back fracture. Last consult note in chart for his back was Pain Management 03/10/[address] Ash. Transitions of Care InboundProblem ReviewProblem List was reviewed and/or updated during this visit.Medication Reconciliation & ReviewMedication List was reviewed and/or updated during this visit, including review of any [id number] medications, herbal therapies, and/or supplements.Allergy ReviewAllergy List was reviewed and/or updated during this visit.Adult Preventiv e CareScreening Tobacco Screening: Smoking Status: current every day smoker (04/06/2020) Tobacco Use: Currently (04/06/2020) Advised to Quit: Yes (04/06/2020)Review of Systems General: Denies see HPI, loss of appetite, chills, dizziness, fatigue, fever, feeling ill. Cardiovascular: Denies palpitations, feeling faint, peripheral edema. Respiratory: Complains of see HPI, cough, shortness of breath, wheezing, chest pain. Gastrointestinal: Denies nausea, vomiting, diarrhea, constipation, pain or discomfort. Musculoskeletal: Complains of see HPI, back pain, stiffness. Denies recent injury. Neurologic: Denies weakness, feeling faint. Physical ExamGeneral Appearance: well nourished, well hydrated, no acute distressEyes, External: conjunctivae and lids normal, EOMIRespiratory, Auscultation: clear to auscultation bilaterally; no rales, rhonchi, or wheezesRespiratory, Effort: no intercostal retractions or use of accessory musclesCardiovascular, Auscultation: S1, S2 audible; no murmur, rub, or gallop; RRRPeripheral Circulation: no clubbing, cyanosis, edema, or varicositiesAbdomen: soft, non-tender, no masses, bowel sounds normalGait & Station: normalOrientation: oriented to time, place, and personMood & Affect: anxious appearingJudgment & Insight: intactCare Management Plan Transitions of CareInboundRate Your HealthIn general, would you say your health is? PoorAssessment & Plan Problems:Assessed:Chronic obstructive pulmonary disease with (acute) exacerbation (VOT25-J01.1) Assessment: Instructions: Finish medication as currently prescribed. Turn in paperwork to [facility]monology [facility] so you can get scheduled.Collapsed vertebra, not elsewhere classified, lumbosacral region, sequela of fracture (ICD-805.4) (SHO48-D50.57xS) Assessment: Instructions: Please have [facility] refax blank paperwork for completion.Chronic low back pain (ICD-724.2) (OGM60-C11.5) Assessment: Instructions: Continue per pain management. As above regarding home care orders.Patient Instructions/Care Plan: Chronic obstructive pulmonary disease with (acute) exacerbation: Finish medication as currently prescribed. Turn in paperwork to [facility]mon[facility] so you can get scheduled.Collapsed vertebra- not elsewhere classified- lumbosacral region- sequela of fracture: Please have [facility] refax blank paperwork for completion.Chronic low back pain: Continue per pain management. As above regarding home care orders. Plan developed in collaboration with patient and/or familyMedications:ADVAIR DISKUS 250-50 MCG/DOSE INHALATION AEROSOL POWDER BREATH ACTIVATEDLISINOPRIL 5 MG ORAL TABLETAIRDUO RESPICLICK 232/14 232-14 MCG/ACT INH AEPBVENTOLIN HFA 108 (90 BASE) MCG/ACT INHALATION AEROSOL SOLUTIONALBUTEROL SULFATE (2.5 MG/3ML) 0.083% INHALATION NEBULIZATION SOLUTIONMedication Changes: Added: AZITHROMYCIN 250 MG ORAL TABLET-take 2 tabs by mouth on day 1 then take one tablet daily on days 2-5ADVAIR DISKUS 250-50 MCG/DOSE INHALATION AEROSOL POWDER BREATH ACTIVATED-1 inhalation BIDRemoved:GABAPENTIN 100 MG ORAL CAPSULE- take one tablet by mouth twice daily Qty: 60[Capsule] Refills: 1, DICLOFENAC SODIUM 1 % TRANSDERMAL GEL-apply 2 grams to affected areas twice daily as needed. Qty: 2[Tube] Refills: 2, EQ OMEPRAZOLE MAGNESIUM 20 MG ORAL CAPSULE DELAYED RELEASE-One tablet by mouth every day Qty: 30[Capsule] Refills: 2Changed:From: ORAL PREDNISONE 10 MG ORAL TABLET Qty: [id number] Refills: 15[Tablet] To: PREDNISONE 20 MG ORAL TABLET-take one tablet by mouth dailyAllergies:* RANITIDINE (Mild)Orders:Adult - Ofc Vst, EST, Level III [CPT- 52169] Follow-Up Return to clinic: as needed Clinical Visit Summary Completed Name Value Range Interpretation Code Description Data Ebony rce(s) Supporting Document(s) ID Date Data Source [id number] 04/04/2020 10:40:00 AM EDT [facility] Name Value Range Interpretation Code Description Data Ebony rce(s) Supporting Document(s) HCT 44.9 % 42.0-52.0 N [facility] HGB 14.4 g/dL 13.5-17.5 N [facility] MCH 32.1 G/DL pg 32.0-36.5 N [facility] MCHC 28.9 PG % 27.0-33.0 N [facility] PLATELETS 211 10 10*3/mm3 150-450 N [facility] RBC 4.98 10 10*6/mm3 4.30-6.10 N [facility] RDW 14.8 % 11.5-14.5 H [facility] WBC TOTAL 16.4 4.0-10.0 H [facility] ID Date Data Source [id number] 04/04/2020 10:40:00 AM EDT [facility] Name Value Range Interpretation Code Description Data Ebony rce(s) Supporting Document(s) BG FASTING 88 mg/dL 70-100 N [facility] ID Date Data Source [id number] 03/27/2020 11:24:09 AM EDT [facility] Current Problems: Essential hypertension (ICD-401.9) (LBC74-M23)Pain in left elbow (ICD-719.42) (CPW18-Y44.522)Chronic low back pain (ICD-724.2) (ICD10- M54.5)Cervical vertigo (ICD-780.4) (ZRB06-F06.4xxS)Cervicogenic headache (ICD- 784.0) (BTD61-K57.89)DENTAL CARIES EXTENDING INTO PULP (ICD-521.03) (ICD10- K02.63)Pain in unspecified joint (CTY35-L83.50)Screening for malignant neoplasms of prostate (ICD-V76.44) (LGX27-Z37.5)Encounter for screening for other metabolic disorders (GMO28-G66.228)Nicotine dependence (ICD-305.1) (ICD10- F17.200)Chronic obstructive pulmonary disease with (acute) exacerbation (ICD10- J44.1)Collapsed vertebra, not elsewhere classified, lumbosacral region, sequela of fracture (ICD-805.4) (ARB81-U42.57xS)Depression (ICD-311) (TGX19-M16.9)GERD (ICD-530.81) (JYM38-R05.9)Low back pain (ICD-724.2) (IAO83-G52.5)Shoulder joint pain, right (ICD-719.41) (TFR59-Y81.511)Asthma (ICD-493.90) (ICD10- J45.909)Problem list reviewed during this update.Current Medications: LISINOPRIL 5 MG ORAL TABLET (LISINOPRIL) take one tablet by mouth daiy; Route: ORALAIRDUO RESPICLICK 232/14 232-14 MCG/ACT INH AEPB (FLUTICASONE-SALMETEROL) inhale one puff every 12 hours; Route: INHALATIONPREDNISONE 10 MG ORAL TABLET (PREDNISONE) take one tablet by mouth daily; Route: ORALGABAPENTIN 100 MG ORAL CAPSULE (GABAPENTIN) take one tablet by mouth twice daily; Route: ORALDICLOFENAC SODIUM 1 % TRANSDERMAL GEL (DICLOFENAC SODIUM) apply 2 grams to affected areas twice daily as needed.; Route: TRANSDERMALEQ OMEPRAZOLE MAGNESIUM 20 MG ORAL CAPSULE DELAYED RELEASE (OMEPRAZOLE MAGNESIUM) One tablet by mouth every day; Route: ORALVENTOLIN HFA 108 (90 BASE) MCG/ACT INHALATION AEROSOL SOLUTION (ALBUTEROL SULFATE) 2 puffs every 4 hours as needed. MDD 8 puffs.; Route: INHALATIONALBUTEROL SULFATE (2.5 MG/3ML) 0.083% INHALATION NEBULIZATION SOLUTION (ALBUTEROL SULFATE) One UD q4h prn. MDD 4.Medication list reviewed during this update.Current Allergies: * RANITIDINE (Mild)Allergy list reviewed during this update. Dental Chart: Procedures:Type - CDT Code - Description B - (D2222) No Charge Visit (Performed by Cony Mascorro DDS) Chart Notes:rose (Mar 27 2020 12:33PM): Additional PPE requirements due to COVID-19 in the dental setting, N95, surgical mask, hair covering, gown and shieldFront desk make emergency appt for this pt. even if the program coordinatot istructed that pt. should discuss his issues with [facility]. S: CC:" i went to [facility] and got my teeth done and he charged me 1500 dollars and i didnt go in there for that and he made a cap and it fell out and looks horrible, its still in and its just loose but keeps falling out" "i want you to order a cap for me"O: RMHx RANITIDINE allergy , No pain.A: JUAREZ recommends going back to [facility] informed pt we dont do crowns in this office, and this issue shouls be discuss with [facility]. informed him if he has an issue with how much [facility] charged him he needs to speaka lso to [facility] . P: Going back to [facility].Assisted By:CLAUDE NV: Cony Figueroa DDS (03/27/2020 12:33 PM): Tooth Notes and Watches:- Tooth 7 Note: Patient wants a RCT and [place] in [facility] Assessment & Plan Medications:LISINOPRIL 5 MG ORAL TABLETAIRDUO RESPICLICK 232/14 232-14 MCG/ACT INH AEPBPREDNISONE 10 MG ORAL TABLETGABAPENTIN 100 MG ORAL CAPSULEDICLOFENAC SODIUM 1 % TRANSDERMAL GELEQ OMEPRAZOLE MAGNESIUM 20 MG ORAL CAPSULE DELAYED RELEASEVENTOLIN HFA 108 (90 BASE) MCG/ACT INHALATION AEROSOL SOLUTIONALBUTEROL SULFATE (2.5 MG/3ML) 0.083% INHALATION NEBULIZATION SOLUTIONAllergies:* RANITIDINE (Mild) Name Value Range Interpretation Code Description Data Ebony rce(s) Supporting Document(s) ID Date Data Source [id number] 03/03/2020 02:32:18 PM EDT [facility] Current Problems: Essential hypertension (ICD-401.9) (KIC46-K68)Pain in left elbow (ICD-719.42) (LDB02-E65.522)Chronic low back pain (ICD-724.2) (ICD10- M54.5)Cervical vertigo (ICD-780.4) (OTT93-I61.4xxS)Cervicogenic headache (ICD- 784.0) (MUQ34-I92.89)DENTAL CARIES EXTENDING INTO PULP (ICD-521.03) (ICD10- K02.63)Pain in unspecified joint (UUX14-A21.50)Screening for malignant neoplasms of prostate (ICD-V76.44) (HBK17-N53.5)Encounter for screening for other metabolic disorders (UKG38-U97.228)Nicotine dependence (ICD-305.1) (ICD10- F17.200)Chronic obstructive pulmonary disease with (acute) exacerbation (ICD10- J44.1)Collapsed vertebra, not elsewhere classified, lumbosacral region, sequela of fracture (ICD-805.4) (CKU87-M92.57xS)Depression (ICD-311) (UVX85-I62.9)GERD (ICD-530.81) (KRM78-R72.9)Low back pain (ICD-724.2) (JAX12-L52.5)Shoulder joint pain, right (ICD-719.41) (TIC31-F42.511)Asthma (ICD-493.90) (ICD10- J45.909)Current Medications: LISINOPRIL 5 MG ORAL TABLET (LISINOPRIL) take one tablet by mouth jose; Route: ORALAIRDUO RESPICLICK 232/14 232-14 MCG/ACT INH AEPB (FLUTICASONE-SALMETEROL) inhale one puff every 12 hours; Route: INHALATIONPREDNISONE 10 MG ORAL TABLET (PREDNISONE) take one tablet by mouth daily; Route: ORALGABAPENTIN 100 MG ORAL CAPSULE (GABAPENTIN) take one tablet by mouth twice daily; Route: ORALDICLOFENAC SODIUM 1 % TRANSDERMAL GEL (DICLOFENAC SODIUM) apply 2 grams to affected areas twice daily as needed.; Route: TRANSDERMALEQ OMEPRAZOLE MAGNESIUM 20 MG ORAL CAPSULE DELAYED RELEASE (OMEPRAZOLE MAGNESIUM) One tablet by mouth every day; Route: ORALVENTOLIN HFA 108 (90 BASE) MCG/ACT INHALATION AEROSOL SOLUTION (ALBUTEROL SULFATE) 2 puffs every 4 hours as needed. MDD 8 puffs.; Route: INHALATIONALBUTEROL SULFATE (2.5 MG/3ML) 0.083% INHALATION NEBULIZATION SOLUTION (ALBUTEROL SULFATE) One UD q4h prn. MDD 4.Current Allergies: * RANITIDINE (Mild) Dental Chart: Procedures:Type - CDT Code - Description B - (D0140) Limited oral evaluation - problem focused on Tooth # 9 (Performed by Caren Zarate DMD) B - (D0220) Intraoral, periapical, first radiographic image on Tooth # 9 (Performed by Caren Zarate DMD) Chart Notes:raymundo (Mar 03 2020 4:44PM): Additional PPE requirements due to COVID-19 in the dental setting, N95, surgical mask, hair covering, gown and shield.S: CC:" cracked part of my front tooth last night. It is not causing pain, just want to be referred out for it and the one next to it. I am willing to pay reno for the work."O: RMHx (-) per pt. HPI: last night. PL:0 BP: 121/85. PA taken #9. #9-FMIL.A: DDS recommends placed refe rral for multi service for RCT and crown on #7 and to bring back for noemi of #9-FMIL. #9 ideal treatment should involve a crown. DX: #9-FMIL fractured.P:schedule for gnosticist of #9-FMILInformed Pt about new pain management policy of the clinic regarding about narcotic,told pt to alternate Ibuprophen 600- 800mg and tylenol 500mg every 4 to 6 hrs for pain when needed. Assisted By: AM Pt. became very irrate when gnosticist could not be done. Today. He yelled at us and walked out. no tx to be done.Caren Zarate DMD by raymundo (03/03/2020 4:44 PM): Tooth Notes and Watches:- Tooth 7 Note: Patient wants a RCT and [place] in [facility] Assessment & Plan Medications:LISINOPRIL 5 MG ORAL TABLETAIRDUO RESPICLICK 232/14 232-14 MCG/ACT INH AEPBPREDNISONE 10 MG ORAL TABLETGABAPENTIN 100 MG ORAL CAPSULEDICLOFENAC SODIUM 1 % TRANSDERMAL GELEQ OMEPRAZOLE MAGNESIUM 20 MG ORAL CAPSULE DELAYED RELEASEVENTOLIN HFA 108 (90 BASE) MCG/ACT INHALATION AEROSOL SOLUTIONALBUTEROL SULFATE (2.5 MG/3ML) 0.083% INHALATION NEBULIZATION SOLUTIONAllergies:* RANITIDINE (Mild) Name Value Range Interpretation Code Description Data Ebony rce(s) Supporting Document(s) ID Date Data Source [id number] 03/03/2020 02:24:57 PM EDT [facility] Patient History Medical History:COPDColl apsed LungsAsthmaShoulder painLower back painGERDSurgical History:UnremarkableFamily History:No known family historySocial/Personal History: Smoking Status: current every day smokerDo you vape? NoCurrent Problems: Essential hypertension (ICD-401.9) (HOP88-K64)Pain in left elbow (ICD-719.42) (ZYQ67-U73.522)Chronic low back pain (ICD-724.2) (UPN22-J66.5)Cervical vertigo (ICD-780.4) (VVY25-B29.4xxS)Cervicogenic headache (ICD-784.0) (BCI02-G93.89)DENTAL CARIES EXTENDING INTO PULP (ICD-521.03) (ICD10- K02.63)Pain in unspecified joint (PNO72-U10.50)Screening for malignant neoplasms of prostate (ICD-V76.44) (JUV33-E46.5)Encounter for screening for other metabolic disorders (QFA92-Z21.228)Nicotine dependence (ICD-305.1) (ICD10- F17.200)Chronic obstructive pulmonary disease with (acute) exacerbation (ICD10- J44.1)Collapsed vertebra, not elsewhere classified, lumbosacral region, sequela of fracture (ICD-805.4) (XIR52-T22.57xS)Depression (ICD-311) (LJR52-H66.9)GERD (ICD-530.81) (ZEN88-P42.9)Low back pain (ICD-724.2) (QCW85-R13.5)Shoulder joint pain, right (ICD-719.41) (KLH20-C18.511)Asthma (ICD-493.90) (ICD10- J45.909)Problem list reviewed during this update.Current Medications: LISINOPRIL 5 MG ORAL TABLET (LISINOPRIL) take one tablet by mouth daiy; Route: ORALAIRDUO RESPICLICK 232/14 232-14 MCG/ACT INH AEPB (FLUTICASONE-SALMETEROL) inhale one puff every 12 hours; Route: INHALATIONPREDNISONE 10 MG ORAL TABLET (PREDNISONE) take one tablet by mouth daily; Route: ORALGABAPENTIN 100 MG ORAL CAPSULE (GABAPENTIN) take one tablet by mouth twice daily; Route: ORALDICLOFENAC SODIUM 1 % TRANSDERMAL GEL (DICLOFENAC SODIUM) apply 2 grams to affected areas twice daily as needed.; Route: TRANSDERMALEQ OMEPRAZOLE MAGNESIUM 20 MG ORAL CAPSULE DELAYED RELEASE (OMEPRAZOLE MAGNESIUM) One tablet by mouth every day; Route: ORALVENTOLIN HFA 108 (90 BASE) MCG/ACT INHALATION AEROSOL SOLUTION (ALBUTEROL SULFATE) 2 puffs every 4 hours as needed. MDD 8 puffs.; Route: INHALATIONALBUTEROL SULFATE (2.5 MG/3ML) 0.083% INHALATION NEBULIZATION SOLUTION (ALBUTEROL SULFATE) One UD q4h prn. MDD 4.Medication list reviewed during this update.Current Allergies: * RANITIDINE (Mild)Allergy list reviewed during this update.Patient declined [facility].Past Medical History:(reviewed - no changes required) COPDCollapsed LungsAsthmaShoulder painLower back painGERDAssessment & Plan Medications:LISINOPRIL 5 MG ORAL TABLETAIRDUO RESPICLICK 232/14 232-14 MCG/ACT INH AEPBPREDNISONE 10 MG ORAL TABLETGABAPENTIN 100 MG ORAL CAPSULEDICLOFENAC SODIUM 1 % TRANSDERMAL GELEQ OMEPRAZOLE MAGNESIUM 20 MG ORAL CAPSULE DELAYED RELEASEVENTOLIN HFA 108 (90 BASE) MCG/ACT INHALATION AEROSOL SOLUTIONALBUTEROL SULFATE (2.5 MG/3ML) 0.083% INHALATION NEBULIZATION SOLUTIONAllergies:* RANITIDINE (Mild)Clinical Visit Summary Decl ined Name Value Range Interpretation Code Description Data Ebony rce(s) Supporting Document(s) Procedure Social History Code Duration Value Status Description Data Source(s ) Smoking 03/01/2021 12:00:00 AM EDT Former Smoker completed Former Smoker eCW1 ([facility]) Smoking 02/04/2021 12:00:00 AM EDT Former Smoker completed Former Smoker eCW1 ([facility]) Smoking 01/19/2021 12:00:00 AM EDT Current Smoker completed Curre nt Smoker eCW1 ([facility]) Vital Signs ID Date Data Source UNK Name Value Range Interpretation Code Description Data Source(s) Heart rate 77 /min 77 /min eCW1 ([facility]) Body mass index (BMI) [Ratio] 23.67 kg/m2 23.67 kg/m2 eCW1 ([facility]) Body temperature 98.8 [degF] 98.8 [degF] eCW1 ( [facility]) Body height 70 [in_i] 70 [in_i] eCW1 ([facility]) Body weight 165.0 [lb_av] 165.0 [lb_av] eCW1 ([facility]) Oxygen saturation in Arterial blood by Pulse oximetry 98 % 98 % eCW1 ([facility]) Respiratory rate 18 /min 18 /min eCW1 ([facility]) Body mass index (BMI) [Ratio] 24.53 kg/m2 24.53 kg/m2 eCW1 ([facility]) Body height 70 [in_i] 70 [in_i] eCW1 ([facility]) Body temperature 97.7 [degF] 97.7 [degF] eCW1 ( [facility]) Body weight 171 [lb_av] 171 [lb_av] eCW1 ([facility]) Heart rate 94 /min 94 /min eCW1 ([facility]) Respiratory rate 16 /min 16 /min eCW1 ([facility]) Oxygen saturation in Arterial blood by Pulse oximetry 98 % 98 % eCW1 ([facility]) Systolic blood pressure 128 mm[Hg] 128 mm[Hg] M EDENT ([facility]) Diastolic blood pressure 85 mm[Hg] 85 mm[Hg] MEDENT ([facility]) Heart rate 80 /min 80 /min MEDENT ([facility], [facility]) Respiratory rate 14 /min 14 /min MEDENT ( [facility], [facility]) Oxygen saturation in Arterial blood by Pulse oximetry 98 % 98 % MEDENT ([facility], [facility]) Body temperature 97.8 [degF] 97.8 [degF] MEDENT ([facility], [facility]) Body weight 161.00 [lb_av] 161.00 [lb_av] MEDEN T ([facility], [facility]) Body height 70 [in_i] 70 [in_i] MEDENT ([facility], [facility]) 5'10" Body mass index (BMI) [Ratio] 23.1 kg/m2 23.1 k g/m2 MEDENT ([facility]) Diastolic blood pressure 79 mm[Hg] 79 mm[Hg] MARA ([facility]) Body height 69 [in_i] 69 [in_i] MARA ([facility]) Body mass index (BMI) [Ratio] 24.3 kg/m2 24.3 k g/m2 MARA ([facility]) Systolic blood pressure 124 mm[Hg] 124 mm[Hg] A THENA ([facility]) Body weight 2630.4 [oz_av] 2630.4 [oz_av] ATHEN A ([facility]) Body height 69 [in_i] 69 [in_i] MARA ([facility]) Body height 69 [in_i] 69 [in_i] MARA ([facility]) Body height 69 [in_i] 69 [in_i] MARA ([facility]) Diastolic blood pressure 89 mm[Hg] 89 mm[Hg] MARA ([facility]) Body mass index (BMI) [Ratio] 23.8 kg/m2 23.8 k g/m2 MARA ([facility]) Systolic blood pressure 132 mm[Hg] 132 mm[Hg] [facility] Body weight 2576 [oz_av] 2576 [oz_av] MARA ([facility]) Diastolic blood pressure 89 mm[Hg] 89 mm[Hg] MARA ([facility]) Body height 69 [in_i] 69 [in_i] MARA ([facility]) Body mass index (BMI) [Ratio] 23.8 kg/m2 23.8 k g/m2 MARA ([facility]) Systolic blood pressure 132 mm[Hg] 132 mm[Hg] [facility] Body weight 2576 [oz_av] 2576 [oz_av] MARA ([facility]) Diastolic blood pressure 89 mm[Hg] 89 mm[Hg] MARA ([facility]) Body height 69 [in_i] 69 [in_i] MARA ([facility]) Body mass index (BMI) [Ratio] 23.8 kg/m2 23.8 k g/m2 MARA ([facility]) Systolic blood pressure 132 mm[Hg] 132 mm[Hg] A THENA ([facility]) Body weight 2576 [oz_av] 2576 [oz_av] MARA ([facility]) Diastolic blood pressure 84 mm[Hg] 84 mm[Hg] MARA ([facility]) Body height 69 [in_i] 69 [in_i] MARA ([facility]) Body mass index (BMI) [Ratio] 25.58 kg/m2 25.58 kg/m2 MARA ([facility]) Systolic blood pressure 123 mm[Hg] 123 mm[Hg] A THENA ([facility]) Body weight 2761.6 [oz_av] 2761.6 [oz_av] ATHEN A ([facility]) Diastolic blood pressure 95 mm[Hg] 95 mm[Hg] MARA ([facility]) Body mass index (BMI) [Ratio] 9.8 kg/m2 9.8 kg /m2 MARA ([facility]) Systolic blood pressure 129 mm[Hg] 129 mm[Hg] A THENPatrick ([facility]) Body height 70 [in_i] 70 [in_i] MARA ([facility]) Body weight 68 [lb_av] 68 [lb_av] MARA ([facility]) Patient Treatment Plan of Care Planned Activity Planned Date Details Description Data Source (s) Lisinopril 30 MG Oral Tablet 02/04/2021 12:00:00 AM EDT eCW1 ([facility]) Prednisone 2.5 MG Oral Tablet 01/19/2021 12:00:00 AM EDT eCW1 ([facility]) Lisinopril 20 MG Oral Tablet 01/19/2021 12:00:00 AM EDT eCW1 ([facility]) Prednisone 20 MG Oral Tablet MARA ([facility]) Prednisone 10 MG Oral Tablet MARA ([facility]) methylprednisolone 4 mg tablets in a dos e pack USE DIRECTED PER package instructions MARA ([facility]) lidocaine 5 % topical patch APPLY 1 PATC H BY TOPICAL ROUTE ONCE DAILY (MAY WEAR UP TO 12HOURS.) MARA ([facility]) Cyclobenzaprine hydrochloride 10 MG Oral Tablet MARA ([facility]) Azithromycin 250 MG Oral Tablet MARA ([facility]) fluticasone furoate 0.2 MG/ACTUAT Dry Powder Inhaler MARA ([facility]) Amoxicillin 875 MG Oral Tablet MARA ([facility]) Prednisone 20 MG Oral Tablet MARA ([facility]) lidocaine 5 % topical patch APPLY 1 PATC H BY TOPICAL ROUTE ONCE DAILY (MAY WEAR UP TO 12HOURS.) MARA ([facility]) gabapentin 100 MG Oral Capsule MARA ([facility]) Cyclobenzaprine hydrochloride 10 MG Oral Tablet MARA ([facility]) Azithromycin 250 MG Oral Tablet MARA ([facility]) tizanidine 4 MG Oral Tablet MARA ([facility]) Prednisone 20 MG Oral Tablet MARA ([facility]) Azithromycin 250 MG Oral Tablet MARA ([facility]) tramadol hydrochloride 50 MG Oral Tablet MARA ([facility]) Ranitidine 150 MG Oral Tablet MARA ([facility]) Prednisone 20 MG Oral Tablet MARA ([facility]) Prednisone 10 MG Oral Tablet MARA ([facility]) Omeprazole 40 MG Delayed Release Oral Capsule MARA ([facility]) Omeprazole 20 MG Delayed Release Oral Capsule MARA ([facility]) Naproxen 500 MG Oral Tablet MARA ([facility]) Methocarbamol 750 MG Oral Tablet MARA ([facility]) Levofloxacin 750 MG Oral Tablet MARA ([facility]) lansoprazole 30 MG Delayed Release Oral Capsule MARA ([facility]) Acetaminophen 325 MG / Hydrocodone Bitartrate 5 MG Oral Tablet MARA ([facility]) gabapentin 100 MG Oral Capsule MARA ([facility]) fluticasone 232 mcg-salmeterol 14 mcg/actuation breath activated po wdr MARA ([facility]) Doxycycline Monohydrate 100 MG Oral Capsule MARA ([facility]) doxycycline hyclate 100 MG Oral Capsule MARA ([facility]) Docusate Sodium 100 MG Oral Capsule [DOK] MARA ([facility]) Cyclobenzaprine hydrochloride 5 MG Oral Tablet MARA ([facility]) Cyclobenzaprine hydrochloride 10 MG Oral Tablet MARA ([facility]) ciclopirox 80 MG/ML Topical Solution MARA ([facility]) Chantix Starting Month Box 0.5 mg (11)-1 mg (42) tablets in dose pack USE DIRECTED [facility] Cephalexin 500 MG Oral Capsule MARA ([facility]) Amoxicillin 500 MG Oral Capsule MARA ([facility]) ammonium lactate 120 MG/ML Topical Cream MARA ([facility])
[2021-04-25] MEDS ORDERED: PRED10TA2 PO ×2 (15:19→16:49)
[2021-04-25] MEDS ORDERED: predniSONE 20 MG TAB PO ONE (16:10)
[2021-04-25] MEDS: COMBIVENT RESPIMAT 100-20MCG INHALER 4GM INH SCH ×3 (16:20→17:16)
[2021-04-25] MEDS ORDERED: IPRA0.00 NEB (16:49)
[2021-04-25] MEDS ORDERED: SIME180C25 PO (16:49)
[2021-04-25 17:02] VITALS: BP 146/97
--- OUTSIDE RECORDS SUMMARY | 2021-04-25 17:13 | CCD ---
Author Author [facility] Organization [facility] Address Unknown Phone Unavailable Care Team Providers Care Product Safety Head Name Role Phone HOANG, LIVE ZAYRA RPA-C [...] LIVE ZAYRA RPA-C Unavailable Unavailable Sharla Christensen BARREL DEDENTING MACHINE OPERATOR BARREL DEDENTING MACHINE OPERATOR Unavailable Unavailable LAROCK, Lakia DONOVAN SECURITY SUPERVISOR Unavailable Unavailable LAROCK, Lakia DONOVAN SECURITY SUPERVISOR Unavailable Unavailable LAROCK, Lakia DONOVAN SECURITY SUPERVISOR Unavailable Unavailable LAROCK, Lakia DONOVAN SECURITY SUPERVISOR Unavailable Unavailable LAROCK, Lakia DONOVAN SECURITY SUPERVISOR Unavailable Unavailable LAROCK, Lakia DONOVAN SECURITY SUPERVISOR Unavailable Unavailable LAROCK, Lakia DONOVAN SECURITY SUPERVISOR Unavailable Unavailable LAROCK, Lakia DONOVAN SECURITY SUPERVISOR Unavailable Unavailable LAROCK, Lakia DONOVAN SECURITY SUPERVISOR Unavailable Unavailable LAROCK, Lakia DONOVAN SECURITY SUPERVISOR Unavailable Unavailable LAROCK, Lakia DONOVAN SECURITY SUPERVISOR Unavailable Unavailable LAROCK, Lakia DONOVAN SECURITY SUPERVISOR Unavailable Unavailable LAROCK, Lakia DONOVAN SECURITY SUPERVISOR Unavailable Unavailable LAROCK, Lakia DONOVAN SECURITY SUPERVISOR Unavailable Unavailable LAROCK, Lakia DONOVAN SECURITY SUPERVISOR Unavailable Unavailable LAROCK, Lakia DONOVAN SECURITY SUPERVISOR Unavailable Unavailable LAROCK, Lakia DONOVAN SECURITY SUPERVISOR Unavailable Unavailable LAROCK, Lakia DONOVAN SECURITY SUPERVISOR Unavailable Unavailable LAROCK, Lakia DONOVAN SECURITY SUPERVISOR Unavailable Unavailable LAROCK, Lakia DONOVAN SECURITY SUPERVISOR Unavailable Unavailable LAROCK, Lakia DONOVAN SECURITY SUPERVISOR Unavailable Unavailable LAROCK, Lakia DONOVAN SECURITY SUPERVISOR Unavailable Unavailable CEBALLOS, Lakia PARKS MD Unavailable [...] Unavailable Unavailable Robert OAKLEY MD Unavailable Unavailable ISELARobert JAFFE MD Unavailable Unavailable ISELARobert JAFFE MD Unavailable Unavailable ISELARobert JAFFE MD Unavailable Unavailable ISELARobert JAFFE MD Unavailable Unavailable ISELARobert JAFFE MD Unavailable Unavailable Robert OAKLEY MD Unavailable Unavailable ISELARobert JAFFE MD Unavailable Unavailable Robert OAKLEY MD Unavailable Unavailable Robert OAKLEY MD Unavailable Unavailable Robert OAKLEY MD Unavailable Unavailable ISELARobert JAFFE MD Unavailable Unavailable Robert OAKLEY MD Unavailable Unavailable ISELARobert JAFFE MD Unavailable Unavailable Scordo, M Radha PA [...] Unavailable Maring, Ángel PA Unavailable Unavailable Maring, Ángle PA Unavailable Unavailable Maring, Ángel PA Unavailable Unavailable Maring, Ángel PA Unavailable Unavailable Maring, Ángel PA Unavailable Unavailable Maring, Ángel PA Unavailable Unavailable Maring, Ángel PA Unavailable Unavailable Maring, Ángel PA Unavailable Unavailable Maring, Ángel PA Unavailable Unavailable Andrés, Kassandrah W Karissa BARREL DEDENTING MACHINE OPERATOR-C Unavailable Unavailabl e Andrés, Kassandrah W Karissa BARREL DEDENTING MACHINE OPERATOR-C Unavailable Unavailabl e Andrés, Reginah W Karissa BARREL DEDENTING MACHINE OPERATOR-C Unavailable Unavailabl e Andrés, Reginah W Karissa BARREL DEDENTING MACHINE OPERATOR-C Unavailable Unavailabl e Andrés, Reginah W Karissa BARREL DEDENTING MACHINE OPERATOR-C Unavailable Unavailabl e Andrés, Reginah W Karissa BARREL DEDENTING MACHINE OPERATOR-C Unavailable Unavailabl e Andrés, Reginah W Karissa BARREL DEDENTING MACHINE OPERATOR-C Unavailable Unavailabl e Andrés, Reginah W Karissa BARREL DEDENTING MACHINE OPERATOR-C Unavailable Unavailabl e Andrés, Reginah W Karissa BARREL DEDENTING MACHINE OPERATOR-C Unavailable Unavailabl e Andrés, Reginah W Karissa BARREL DEDENTING MACHINE OPERATOR-C Unavailable Unavailabl e Andrés, Reginah W Karissa BARREL DEDENTING MACHINE OPERATOR-C Unavailable Unavailabl e Andrés, Linn Hancock BARREL DEDENTING MACHINE OPERATOR-C Unavailable Unavailabl e Andrés, Linn Hancock BARREL DEDENTING MACHINE OPERATOR-C Unavailable Unavailabl e Andrés, Linn Hancock BARREL DEDENTING MACHINE OPERATOR-C Unavailable Unavailabl e Andrés, Linn Hancock BARREL DEDENTING MACHINE OPERATOR-C Unavailable Unavailabl e Andrés, Linn Hancock BARREL DEDENTING MACHINE OPERATOR-C Unavailable Unavailabl e Andrés, Linn Hancock BARREL DEDENTING MACHINE OPERATOR-C Unavailable Unavailabl e Andrés, Linn Hancock BARREL DEDENTING MACHINE OPERATOR-C Unavailable Unavailabl e Andrés, Linn Hancock BARREL DEDENTING MACHINE OPERATOR-C Unavailable Unavailabl e Andrés, Linn Hancock BARREL DEDENTING MACHINE OPERATOR-C Unavailable Unavailabl e Andrés, Linn Hancock BARREL DEDENTING MACHINE OPERATOR-C Unavailable Unavailabl e Andrés, Linn Hancock BARREL DEDENTING MACHINE OPERATOR-C Unavailable Unavailabl e Andrés, Linn Hancock BARREL DEDENTING MACHINE OPERATOR-C Unavailable Unavailabl e Andrés, Linn Hancock BARREL DEDENTING MACHINE OPERATOR-C Unavailable Unavailabl e Andrés, Linn Hancock BARREL DEDENTING MACHINE OPERATOR-C Unavailable Unavailabl e Andrés, Linn Hancock BARREL DEDENTING MACHINE OPERATOR-C Unavailable Unavailabl e Andrés, Linn Hancock BARREL DEDENTING MACHINE OPERATOR-C Unavailable Unavailabl e Andrés, Linn Hancock BARREL DEDENTING MACHINE OPERATOR-C Unavailable Unavailabl e Andrés, Linn Hancock BARREL DEDENTING MACHINE OPERATOR-C Unavailable Unavailabl e Andrés, Linn Hancock BARREL DEDENTING MACHINE OPERATOR-C Unavailable Unavailabl e Andrés, Linn Schmitze BARREL DEDENTING MACHINE OPERATOR-C Unavailable Unavailabl e Andrés, Linn Tidwellyce BARREL DEDENTING MACHINE OPERATOR-C Unavailable Unavailabl e HOANG, LIVE ZAYRA RPA-C [...] LIVE ZAYRA RPA-C Unavailable Unavailable HOANG, LIVE ZYARA RPA-C Unavailable Unavailable HOANG, LIVE ZAYRA RPA-C [...] Unavailable Bolla, Gray Sims MD Unavailable Unavailable Bolumm, Gray Sims MD Unavailable Unavailable Bolla, Gray Sims MD Unavailable Unavailable Bolla, Gray Sims MD Unavailable Unavailable Bolla, Gray Sims MD Unavailable Unavailable Bolla, Gray Sims MD Unavailable Unavailable Bolumm, Gray Sims MD Unavailable Unavailable Bolla, Gray [...] TURRIN, DEVIN Unavailable Unavailable Sal Scott Unavailable [phone] Tyler Sal Unavailable [phone] TylerSal Unavailable [phone] TylerRhodaon Unavailable [phone] Tyler, Sal Unavailable [phone] TylerSal Unavailable [phone] Christensen, F Sharla BARREL DEDENTING MACHINE OPERATOR-BC Unavailable Unavailable Christensen, F Sharla BARREL DEDENTING MACHINE OPERATOR-BC Unavailable Unavailable Christensen, F Sharla BARREL DEDENTING MACHINE OPERATOR-BC Unavailable Unavailable Christensen, F Sharla BARREL DEDENTING MACHINE OPERATOR-BC Unavailable Unavailable Christensen, F Sharla BARREL DEDENTING MACHINE OPERATOR-BC Unavailable Unavailable Christensen, F Sharla BARREL DEDENTING MACHINE OPERATOR-BC Unavailable Unavailable Christensen, F Sharla BARREL DEDENTING MACHINE OPERATOR-BC Unavailable Unavailable Christensen, F Sharla BARREL DEDENTING MACHINE OPERATOR-BC Unavailable Unavailable Christensen, F Sharla BARREL DEDENTING MACHINE OPERATOR-BC Unavailable Unavailable Christensen, F Sharla BARREL DEDENTING MACHINE OPERATOR-BC Unavailable Unavailable Christensen, F Sharla BARREL DEDENTING MACHINE OPERATOR-BC Unavailable Unavailable Christensen, F Sharla BARREL DEDENTING MACHINE OPERATOR-BC Unavailable Unavailable Christensen, F Sharla BARREL DEDENTING MACHINE OPERATOR-BC Unavailable Unavailable Christensen, F Sharla BARREL DEDENTING MACHINE OPERATOR-BC Unavailable Unavailable Christensen, F Sharla BARREL DEDENTING MACHINE OPERATOR-BC Unavailable Unavailable Christensen, F Sharla BARREL DEDENTING MACHINE OPERATOR-BC Unavailable Unavailable Christensen, F Sharla BARREL DEDENTING MACHINE OPERATOR-BC Unavailable Unavailable Christensen, F Sharla BARREL DEDENTING MACHINE OPERATOR-BC Unavailable Unavailable Christensen, F Sharla BARREL DEDENTING MACHINE OPERATOR-BC Unavailable Unavailable Christensen, F Sharla BARREL DEDENTING MACHINE OPERATOR-BC Unavailable Unavailable Christensen, F Sharla BARREL DEDENTING MACHINE OPERATOR-BC Unavailable Unavailable Christensen, F Sharla BARREL DEDENTING MACHINE OPERATOR-BC Unavailable Unavailable Christensen, F Sharla BARREL DEDENTING MACHINE OPERATOR-BC Unavailable Unavailable NON, PHYSICIAN STAFF Unavailable Unavailable [...] is protected by Article 27-F of the [facility] Public Health law. If you continue you may have access to information: Regarding HIV / AIDS; Provided by facilities licensed or operated by the [facility] Office of Mental Health; or Provided by the [facility] Office for People With Developmental Disabilities. If such information is present, then the following [facility] mandated warning applies: This information has been [...] law may result in a fine or nursing home sentence or both. A general authorization for the release of medical or other information is NOT sufficient authorization for further disc losure. Encounters Encounter Providers Location Date Indications Data Source(s ) Outpatient Attender: Bere Samson PA-C 02/04/2021 03:54 :00 PM EDT [facility] Outpatient [facility] 02/04/2021 12:00:00 AM EDT eCW1 ([facility]) Outpatient [facility] 02/04/2021 12:00:00 AM EDT eCW1 ([facility]) Outpatient Attender: Karissa RUTHERFORD 01/19/2021 09:46:0 0 AM EDT [facility] Outpatient [facility] 01/19/2021 12:00:00 AM EDT eCW1 ([facility]) Emergency Attender: FARNAZ CEBALLOS MD 01/15 08:20:00 PM EDT - 01/15/2021 08:38:00 PM EDT [facility] Patient discharged. Outpatient Attender: RA shah 11/28/2020 11:20:00 AM EDT [facility] ([facility]) Emergency Attender: DEVIN Silveirasultant: STAFF NON 11/23/2020 12:46:00 PM EDT - 11/23/2020 03:24:00 PM EDT [facility] Patient discharged. Emergency Attender: CHELSY OAKLEY MDConsultant: STAFF NON 11/05/2020 10:37:00 AM EDT - 11/05/2020 12:30:00 PM EDT [facility] Patient discharged. Emergency Attender: DEVIN Silveirasultant: STAFF NON 10/21/2020 01:51:00 PM EDT - 10/21/2020 04:21:00 PM EDT [facility] Patient discharged. Emergency Attender: CHELSY OAKLEY MDConsultant: STAFF NON 10/15/2020 12:12:00 PM EDT - 10/15/2020 03:10:00 PM EDT [facility] Patient discharged. Outpatient Attender: Ángel LEONE 10/16/19 10:06:23 AM EDT - 10/15/2020 10:28:08 AM EDT [facility] ([facility] ) Outpatient Attender: Sal Scott 10/01 11:58:08 AM EDT - 10/01/2020 12:40:16 PM EDT [facility] ([facility] ) Emergency Attender: DEVIN MENJIVAR 2020 03:21:00 AM EDT - 09/22/2020 05:33:00 AM EDT [facility] Patient discharged. Outpatient Attender: VENUS STREETER NP 08/31 09:56:41 AM EDT - 09/17/2020 10:22:14 AM EDT [facility] ([facility] ) GALO MckeonC: [address], [place] [address], Ph. Attender: Radha LEONE [facility] Medical 09/10/2020 12:00:00 AM EST [facility] ([facility]) Emergency Attender: CHELSY OAKLEY MDConsultant: STAFF NON 09/03/2020 06:19:00 PM EST - 09/03/2020 07:20:00 PM EST [facility] Patient discharged. Emergency Attender: ANNIA WILL MDConsultant: LAWRENCE Campos NON 08/11/2020 09:55:00 AM EST - 08/11/2020 01:58:00 PM EST [facility] Patient discharged. DIMITRI KasperC: [address], [place] [address], Ph. Attender: ZAYRA SAMUELS [facility] Medical 06/15/2020 12:00:00 AM EST [facility] ([facility]) DIMITRI KasperC: [address], [place] [address], Ph. Attender: ZAYRA HOANG RPA-C [facility] Medical 06/15/2020 12:00:00 AM EST [facility] ([facility]) Zayra Hoang RPA-C: [address], [place] [address], Ph. Attender: ZAYRA HOANG RPA-C [facility] Medical 05/11/2020 12:00:00 AM EST [facility] ([facility]) Zayra Hoang RPA-C: [address], [place] [address], Ph. Attender: ZAYRA HOANG RPA-C [facility] Medical 05/11/2020 12:00:00 AM EST [facility] ([facility]) Zayra Hoang RPA-C: [address], [place] [address], Ph. Attender: ZAYRA HOANG RPA-C [facility] Medical 05/11/2020 12:00:00 AM EST [facility] ([facility]) Outpatient Attender: ZAYRA HOANG RPA-C [facility]: [facility]AYRA HO[facility] RPA-C FP [facility]: ZAYRA HOANG RPA-C FP [facility]: ZAYRA HOANG RPA-C FP [facility]/16[facility] ZAYRA HOANG RPA-C FP 04[facility]16[facility] ZAYRA HOANG RPA-C FP 04/14/2020 11:08:01 AM EDT [facility] Outpatient Attender: ZAYRA HOANG RPA-C FP 04/10/2020 05:32:00 PM EDT [facility] Outpatient Attender: COLLINS CHÁVEZP FP 04/10/2020 04:23:00 PM EDT [facility] Outpatient Attender: COLLINS CHÁVEZP FP 04/10/2020 12:53:00 PM EDT [facility] Outpatient Attender: COLLINS CHÁVEZP FP 04/07/2020 12:02:24 AM EDT [facility] Outpatient Attender: COLLINS CHÁVEZP FP 04/06/2020 02:45:01 PM EDT [facility] Outpatient Attender: Sharla GUADALUPE-BC FP 04/06/2020 02: 19:01 PM EDT [facility] Outpatient Attender: COLLINS CHÁVEZP FP 04/06/2020 02:19:00 PM EDT [facility] Outpatient Attender: COLLINS CHÁVEZP FP 04/06/2020 01:58:01 PM EDT [facility] Outpatient Attender: Sharla WASHBURNBC FP 04/06/2020 10: 51:01 AM EDT [facility] Outpatient Attender: COLLINS CHÁVEZP FP 03/30/2020 11:04:01 AM EDT [facility] Outpatient Attender: Sharla HAWTHORNE FP 03/27/2020 12: 33:59 PM EDT [facility] Outpatient Attender: COLLINS GUADALUPE FP 03/27/2020 11:22:01 AM EDT [facility] Outpatient Attender: COLLINS GUADALUPE FP 03/27/2020 11:17:01 AM EDT [facility] Outpatient Attender: Sharla WASHBURNBC FP 03/25/2020 02: 05:03 PM EDT [facility] Outpatient Attender: Sharla WASHBURNBC FP 03/24/2020 09: 17:01 AM EDT [facility] Outpatient Attender: COLLINS GUADALUPE FP 03/24/2020 09:16:59 AM EDT [facility] Outpatient Attender: COLLINS GUADALUPE FP 03/17/2020 12:01:00 PM EDT [facility] Outpatient Attender: COLLINS GUADALUPE FP 03/16/2020 03:17:00 PM EDT [facility] Outpatient Attender: COLLINS GUADALUPE FP 03/13/2020 10:50:01 AM EDT [facility] Outpatient Attender: COLLINS OG 03/12/2020 02:46:26 PM EDT [facility] Outpatient Attender: COLLINS GUADALUPE FP 03/10/2020 09:20:00 AM EDT [facility] Levi Ahs MD: [id number] [address], [place] [address], Ph. Attender: Levi Ash MD [place] [facility] - Main Office 03/10/2020 12:00:00 AM EDT [facility] ([facility]) Outpatient Attender: COLLINS GUADALUPE FP 03/05/2020 04:12:00 PM EDT [facility] Outpatient Attender: COLLINS OG 03/04/2020 12:02:13 AM EDT [facility] Outpatient Attender: Sharlaole OG 03/03/2020 04: 45:01 PM EDT [facility] Outpatient Attender: COLLINS OG 03/03/2020 03:35:00 PM EDT [facility] Outpatient Attender: COLLINS OG 03/03/2020 03:22:01 PM EDT [facility] Outpatient Attender: Sharlaole HAWTHORNE FP 03/03/2020 02: 26:03 PM EDT [facility] Outpatient Attender: COLLINS OG 03/03/2020 01:46:02 PM EDT [facility] Outpatient Attender: COLLINS OG 02/27/2020 08:30:00 AM EDT [facility] Immunizations Vaccine Date Status Description Data Source(s) COVID-19 VACCINE Moderna 01/19/2021 12:00:00 AM EDT completed [place] Vaccine Series Complete: YESThis Data wa s Submitted to [facility] Via [employer]. COVID-19 VACCINE Moderna 11/18/2020 12:00:00 AM EDT completed [place] Vaccine Series Complete: NOThis Data was Submitted to [facility] Via [employer]. Medications Medication Brand Name Start Date Product Form Dose Route Admi nistrative Instructions Pharmacy Instructions Status Indications Reaction Description Data Source(s) Lisinopril 30 MG Oral Tablet Lisinopril 30 MG 02/04/2021 12:00:00 A M EDT 1.0 {tablet} active Lisinopril 30 MG eCW1 ( [facility]) Prednisone 2.5 MG Oral Tablet predniSONE 2.5 MG predniSONE 2 .5 MG 01/19/2021 12:00:00 AM EDT 1.0 {tablet} active pr edniSONE 2.5 MG eCW1 ([facility]) Lisinopril 20 MG Oral Tablet Lisinopril 20 MG 01/19/2021 12:00:00 A M EDT 1.0 {tablet} active Lisinopril 20 MG eCW1 ( [facility]) Prednisone 2.5 MG Oral Tablet predniSONE 2.5 MG predniSONE 2 .5 MG 01/19/2021 12:00:00 AM EDT 1.0 {tablet} active pr edniSONE 2.5 MG eCW1 ([facility]) Lisinopril 20 MG Oral Tablet Lisinopril 20 MG 01/19/2021 12:00:00 A M EDT 1.0 {tablet} active Lisinopril 20 MG eCW1 ( [facility]) Lisinopril 20 MG Oral Tablet Lisinopril 20 MG 01/19/2021 12:00:00 A M EDT 1.0 {tablet} active Lisinopril 20 MG eCW1 ( [facility]) Prednisone 2.5 MG Oral Tablet predniSONE 2.5 MG predniSONE 2 .5 MG 01/19/2021 12:00:00 AM EDT 1.0 {tablet} active pr edniSONE 2.5 MG eCW1 ([facility]) Prednisone 20 MG Oral Tablet Prednisone 11/28/2020 12:00:00 AM EDT active [facility] ([facility]) Ibuprofen 800 MG Oral Tablet Ibuprofen 11/28/2020 12:00:00 AM EDT active [facility] ([facility], [facility]) Cyclobenzaprine hydrochloride 10 MG Oral Tablet cyclobenzaprine 10 mg tablet TAKE ONE TABLET BY MOUTH THREE TIMES DAILY NEEDED cyclobenzaprine 10 mg tablet TAKE ONE TABLET BY MOUTH THREE TIMES DAILY NEEDED completed cyclobenzaprine hydrochloride 10 MG Oral Tablet [facility] ([facility]) Amoxicillin 875 MG Oral Tablet amoxicill in 875 mg tablet TAKE ONE TABLET BY MOUTH EVERY TWELVE HOURS DIRECTED amoxicillin 875 mg tablet TAKE ONE TABLE T BY MOUTH EVERY TWELVE HOURS DIRECTED completed amoxicillin 875 MG Oral Tablet [facility] ([facility]) Prednisone 10 MG Oral Tablet prednisone 10 mg tablet prednisone 10 mg tablet completed prednisone 10 MG Oral Tablet [place] ([facility]) fluticasone 232 mcg-salmeterol 14 mcg/actuation breath activated powdr [id number] completed 60 ACTUAT flut icasone propionate 0.232 MG/ACTUAT / salmeterol xinafoate 0.014 MG/ACTUAT Dry Powder Inhaler [facility] ([facility]) gabapentin 100 MG Oral Capsule gabapentin 100 mg capsu le gabapentin 100 mg capsule completed gabapentin 100 MG Oral Capsule [place] ([facility]) Azithromycin 250 MG Oral Tablet azithromycin 250 mg ta blet azithromycin 250 mg tablet completed azithromycin 25 0 MG Oral Tablet [place] ([facility]) methylprednisolone 4 mg tablets in a dos e pack USE DIRECTED PER package instructions [id number] completed me thylprednisolone 4 mg tablets in a dose pack [place] ([facility]) doxycycline hyclate 100 MG Oral Capsule doxycycline hyclate 100 mg capsule TAKE ONE CAPSULE BY MOUTH EVERY 12 HOURS doxycycline hyclate 100 mg capsule TAKE ONE CAPSULE BY MOUTH EVERY 12 HOURS comple aquiles doxycycline hyclate 100 MG Oral Capsule [place] ([facility]) Prednisone 20 MG Oral Tablet prednisone 20 mg tablet prednisone 20 mg tablet completed prednisone 20 MG Oral Tablet [facility] ([facility]) Cyclobenzaprine hydrochloride 10 MG Oral Tablet cyclobenzaprine 10 mg tablet TAKE ONE TABLET BY MOUTH THREE TIMES DAILY NEEDED cyclobenzaprine 10 mg tablet TAKE ONE TABLET BY MOUTH THREE TIMES DAILY NEEDED completed cyclobenzaprine hydrochloride 10 MG Oral Tablet [place] ([facility]) lidocaine 5 % topical patch APPLY 1 PATC H BY TOPICAL ROUTE ONCE DAILY (MAY WEAR UP TO 12HOURS.) [id number] completed lidocaine 0.05 MG/MG Medicated Patch [facility] ([facility]) fluticasone furoate 0.2 MG/ACTUAT Dry Po wder Inhaler Arnuity Ellipta 200 mcg/actuation powder for inhalation INHALE 1 PUFF BY MOUTH ONCE DAILY Arnuity Ellipta 200 mcg/actuation powder for inhalation INHALE 1 PUFF BY MOUTH ONCE DAILY completed flutica sone furoate 0.2 MG/ACTUAT Dry Powder Inhaler [facility] ([facility]) ciclopirox 80 MG/ML Topical Solution cic lopirox 8 % topical solution APPLY TO THE AFFECTED AREA(S) ON NAIL FOLD ONCE DAILY ciclopirox 8 % topical solution APPLY TO THE AFFECTED AREA(S) ON NAIL FOLD ONCE DAILY completed ciclopirox 80 MG/ML Topical Solution [facility] ([facility]) lansoprazole 30 MG Delayed Release Oral Capsule lansoprazole 30 mg capsule,delayed release lansoprazole 30 mg capsule,delayed release completed lansoprazole 30 MG Delayed Relea se Oral Capsule [facility] ([facility]) ammonium lactate 120 MG/ML Topical Cream ammonium lact ate 12 % topical cream ammonium lactate 12 % topical cream co mpleted ammonium lactate 120 MG/ML Topical Cream [facility] ([facility]) Docusate Sodium 100 MG Oral Capsule [DOK ] DOK 100 mg capsule TAKE ONE CAPSULE BY MOUTH THREE TIMES DAILY NEEDED DOK 100 mg capsule TAKE ONE CAPSULE BY M OUTH THREE TIMES DAILY NEEDED completed docusate sodium 100 MG Oral Capsule [DOK] [facility] ([facility]) Naproxen 500 MG Oral Tablet naproxen 500 mg tablet TAKE ONE TABLET BY MOUTH TWICE DAILY WITH FOOD naproxen 500 mg tablet TAKE ONE TABLET B Y MOUTH TWICE DAILY WITH FOOD completed naprox en 500 MG Oral Tablet [facility] ([facility]) Cephalexin 500 MG Oral Capsule cephalexin 500 mg capsu le cephalexin 500 mg capsule completed cephalexin 500 MG Oral Capsule [facility] ([facility]) Amoxicillin 500 MG Oral Capsule amoxicillin 500 mg cap kenroy amoxicillin 500 mg capsule completed amoxicillin 50 0 MG Oral Capsule [facility] ([facility]) lidocaine 5 % topical patch APPLY 1 PATC H BY TOPICAL ROUTE ONCE DAILY (MAY WEAR UP TO 12HOURS.) [id number] completed lidocaine 0.05 MG/MG Medicated Patch [facility] ([facility]) Azithromycin 250 MG Oral Tablet azithromycin 250 mg ta blet azithromycin 250 mg tablet completed azithromycin 25 0 MG Oral Tablet [facility] ([facility]) gabapentin 100 MG Oral Capsule gabapentin 100 mg capsu le gabapentin 100 mg capsule completed gabapentin 100 MG Oral Capsule [facility] ([facility] [facility] Prednisone 20 MG Oral Tablet prednisone 20 mg tablet TAKE ONE TABLET BY MOUTH ONCE DAILY prednisone 20 mg tablet TAKE ONE TABLET BY MOUTH ONCE DAILY completed prednisone 20 MG Oral Tab let MARA ([facility]) Prednisone 20 MG Oral Tablet prednisone 20 mg tablet prednisone 20 mg tablet completed prednisone 20 MG Oral Tablet MARA ([facility]) Levofloxacin 750 MG Oral Tablet levofloxacin 750 mg ta blet levofloxacin 750 mg tablet completed levofloxacin 75 0 MG Oral Tablet MARA ([facility]) Azithromycin 250 MG Oral Tablet azithromycin 250 mg ta blet azithromycin 250 mg tablet completed azithromycin 25 0 MG Oral Tablet MARA ([facility]) Prednisone 10 MG Oral Tablet prednisone 10 mg tablet Take by oral route for 30 days. prednisone 10 mg tablet Take by oral route for 30 days. completed prednisone 10 MG Oral Tablet ATH VLADIMIR ([facility]) Chantix Starting Month Box 0.5 mg (11)-1 mg (42) tablets in dose pack USE DIRECTED [id number] completed Chanti x Starting Month Box 0.5 mg (11)-1 mg (42) tablets in dose pack MARA ([facility] [employer] [facility]) tizanidine 4 MG Oral Tablet tizanidine 4 mg tablet tizanidine 4 mg ta blet completed tizanidine 4 MG Oral Tablet MARA ([facility]) Doxycycline Monohydrate 100 MG Oral Caps ule doxycycline monohydrate 100 mg capsule TAKE ONE CAPSULE BY MOUTH TWICE DAILY doxycycline monohydrate 100 mg capsule TAKE ONE CAPSULE BY MOUTH TWICE DAILY completed doxycycline monohydrate 100 MG Oral Capsule MARA ([facility] [employer] [facility]) Cyclobenzaprine hydrochloride 10 MG Oral Tablet cyclobenzaprine 10 mg tablet TAKE ONE TABLET BY MOUTH THREE TIMES DAILY cyclobenzaprine 10 mg tablet TAKE ONE TABLET BY MOUTH THREE TIMES DAILY com pleted cyclobenzaprine hydrochloride 10 MG Oral Tablet MARA ([facility]) tramadol hydrochloride 50 MG Oral Tablet tramadol 50 mg tablet TAKE ONE TABLET BY MOUTH EVERY 4-6 HOURS NEEDED FOR PAIN (MAX DAILY DOSE THREE) tramadol 50 mg tablet TAKE ONE TABLET BY MOUTH EVERY 4-6 HOURS NEEDED FOR PAIN (MAX DAILY DOSE THREE) completed tramadol hydrochloride 50 MG Oral Tablet MARA ([facility]) Omeprazole 40 MG Delayed Release Oral Ca psule omeprazole 40 mg capsule,delayed release omeprazole 40 mg capsule,delayed release completed omeprazole 40 MG Delayed Release Oral Capsule MARA ([facility]) Prednisone 20 MG Oral Tablet prednisone 20 mg tablet prednisone 20 mg tablet completed prednisone 20 MG Oral Tablet MARA ([facility]) Acetaminophen 325 MG / Hydrocodone Elizabeth trate [...] 5 MG Oral Tablet MARA ([facility]) Omeprazole 20 MG Delayed Release Oral Ca psule omeprazole 20 mg capsule,delayed release omeprazole 20 mg capsule,delayed release completed omeprazole 20 MG Delayed Release Oral Capsule MARA ([facility]) Methocarbamol 750 MG Oral Tablet methoca rbamol 750 mg tablet TAKE ONE TABLET BY MOUTH THREE TIMES DAILY NEEDED methocarbamol 750 mg tablet TAKE ONE TAB LET BY MOUTH THREE TIMES DAILY NEEDED com pleted methocarbamol 750 MG Oral Tablet MARA ([facility]) Ranitidine 150 MG Oral Tablet ranitidine 150 mg tablet TAKE ONE TABLET BY MOUTH TWICE DAILY ranitidine 150 mg tablet TAKE ONE TABLET BY MOUTH TWICE DAILY completed ranitidine 150 MG Or al Tablet MARA ([facility]) Cyclobenzaprine hydrochloride 5 MG Oral Tablet cyclobenzaprine 5 mg tablet TAKE ONE TABLET BY MOUTH THREE TIMES DAILY NEEDED FOR MUSCLE SPASMS cyclobenzaprine 5 mg tablet TAKE ONE TABLET BY MOUTH THREE TIMES DAILY NEEDED FOR MUSCLE SPASMS completed cyclobenzaprine hydrochloride 5 MG Oral Tablet MARA ([facility]) Insurance Providers Payer name Policy type / Coverage type Policy ID Covered republican ID Covered republican's relationship to garner Policy Garner Plan Information Managed Care - [facility] Community Plan P [id number] S [id number] Medicaid S [id number] S [id number] Managed Care - [facility] Community Plan P [id number] S [id number] Managed Care [facility] Community Plan P [id number] S [id number] Medicaid S [id number] Managed Care - [facility] Community Plan P [id number] S [id number] [facility] MEDICAID [id number] S [id number] Medicaid Medicaid [id number] Self [id number] [facility] Commercial [employer]. [id number] Self [id number] MEDICAID [id number] SP [id number] Managed Care - [facility] Community Plan P [id number] S [id number] SELF PAY ONLY [id number] SP [id number] [employer] COMMUNITY PLAN MCDHMO [id number] SP [id number] UNHC COMMUNITY PLAN MCDHMO UNHC COMMUNITY PLAN MCDHMO [id number] Self SEAN MILLER UNHC COMMUNITY PLAN MCDO [facility] O [id number] S [id number] [facility] HEA [id number] 1 [id number] STPP Wrap [id number] [facility] [id number] Unhc Community Plan Medicaid 445 Self UNHC COMMUNITY PLAN MCDHMO [id number] SP [id number] UNHC COMMUNITY PLAN [id number] [facility] MEDICAID [id number] SP [id number] P SELF PAY ONLY [id number] SP [id number] [facility] MEDICAID [id number] S [id number] UNHC COMMUNITY PLAN XIX [id number] 18 [id number] MEDICAID -[id number] 18 [id number] [facility](MCAID) O [id number] S [id number] D Managed Care [facility] O UNAVAILABLE S UNAVAILABLE MEDICAID M [id number] S [id number] Problems, Conditions, and Diagnoses Code Display Name Description Problem Type Effective Dates Data Source(s) Z76.89 Persons encountering health services in other specified circumstances PERSONS ENCOUNTERING HEALTH SERVICES IN OTH CIRCUM Diagnosis 10/2020 03:54:00 PM [facility] J44.9 Chronic obstructive pulmonary disease, u nspecified CHRONIC OBSTRUCTIVE PULMONARY DISEASE, UNSPECIFIED Diagnosis 02/04/2021 03:54:00 PM [facility] I10 Essential (primary) hypertension ESSENTIAL (PRIMARY) H YPERTENSION Diagnosis 01/19/2021 09:46:00 AM [facility] 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 R51.9 HEADACHE, UNSPECIFIED HEADACHE, UNSPECIFIED Diagnosis 01/15/2021 08:20:00 PM EDT [facility] [id number] Exposure to other specified factors, sub sequent encounter Exposure to other specified factors, subsequent encounter Diagnosis 11/24/19 12:46:00 PM EDT [facility] [id number] Strain of muscle and tendon of front wall of thorax, subsequent encounter Strain of muscle and tendon of front wal l of thorax, subsequent encounter Diagnosis 11/23/2020 12:46:00 PM EDT [facility] J439 Emphysema, unspecified Emphysema, unspecified Diagnosi s 11/23/2020 12:46:00 PM EDT [facility] N08867 Nicotine dependence, cigarettes, uncompl icated Nicotine dependence, cigarettes, uncomplicated Diagnosis 11/23/2020 12:46:00 PM EDT [facility] I10 Essential (primary) hypertension Essential (primary) h ypertension Diagnosis 11/23/2020 12:46:00 PM EDT [facility] R42 Dizziness and giddiness Dizziness and giddiness Diagno sis 11/23/2020 12:46:00 PM EDT [facility] R64075 Nicotine dependence, unspecified, uncomp licated Nicotine dependence, unspecified, uncomplicated Diagnosis 11/05/2020 10:37:00 AM EDT [facility] J449 Chronic obstructive pulmonary disease, u nspecified Chronic obstructive pulmonary disease, unspecified Diagnosis 11/05/2020 10:37:00 AM EDT [facility] R0600 Dyspnea, unspecified Dyspnea, unspecified Diagnosis 11/05/2020 10:37:00 AM EDT [facility] Z760 Encounter for issue of repeat prescripti on Encounter for issue of repeat prescription Diagnosis 10/21/2020 01:51:00 PM EDT [facility] F24666 CONTACT WITH AND SUSPECTED EXPOSURE TO C OVID-19 CONTACT WITH AND SUSPECTED EXPOSURE TO COVID-19 Diagnosis 10/21/2020 01:51:00 PM EDT [facility] J441 Chronic obstructive pulmonary disease wi th (acute) exacerbation Chronic obstructive pulmonary disease with (acute) exacerbation Diagnosis 10/15/2020 12:12:00 PM EDT [facility] A98705 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 O ther 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 school teacher (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 Diagnosis 08/11/2020 09:55:00 AM EST [facility] I10 [id number] Essential hypertension Problem 02/04/2021 12 :00:00 AM EDT eCW1 ([facility]) F17.200 60417227 Tobacco dependence Problem 02/04/2021 12:00: 00 AM EDT eCW1 ([facility]) J44.9 [id number] Chronic bronchitis w ith COPD (chronic obstructive pulmonary disease) Problem 01/19/2021 12:00:00 AM EDT eCW1 ([facility]) I10 [id number] Primary hypertension Problem 01/19/2021 12:0 0:00 AM EDT eCW1 ([facility]) 19395094 Chronic obstructive lung disease Chronic Obstruc tive Lung Disease Problem 05/11/2020 12:00:00 AM EST MARA ([facility]) 07718114 Chronic obstructive lung disease Chronic Obstruc tive Lung Disease Problem 05/11/2020 12:00:00 AM EST MARA ([facility]) 26870909 Chronic obstructive lung disease Chronic Obstruc tive Lung Disease Problem 05/11/2020 12:00:00 AM EST MARA ([facility]) 924780448 Lesion of neck Lesion of Neck Problem 09/24/2019 12:00:00 AM EDT - 09/10/2020 12:00:00 AM EST [facility]A ([facility]) 154939074 Finding of body region Finding of Body Region Problem 05/24/2019 12:00:00 AM EST - 09/10/2020 12:00:00 AM EST MARA ([facility]) 426991897 Endocrine/metabolic screening Endocrine/metabolic Scre ening Problem 05/24/2019 12:00:00 AM EST - 05/11/2020 12:00:00 AM EST MARA ([facility]) 475683322 Screening for malignant neoplasm of pros chamberlain Screening for Malignant Neoplasm of Prostate Problem 05/24/2019 12:00:00 AM EST - 09/10/2020 12:00:00 AM EST MARA ([facility]) 196644635 Endocrine/metabolic screening Endocrine/metabolic Scre ening Problem 05/24/2019 12:00:00 AM EST - 05/11/2020 12:00:00 AM EST MARA ([facility]) 424542522 Endocrine/metabolic screening Endocrine/metabolic Scre ening Problem 05/24/2019 12:00:00 AM EST - 05/11/2020 12:00:00 AM EST MARA ([facility]) 473347787 Acute exacerbation of chronic obstructiv e airways disease Acute Exacerbation of Chronic Obstructive Airways Disease Problem 12:00:00 AM EDT - 05/11/2020 12:00:00 AM EST MARA ([facility]) 396875822 Acute exacerbation of chronic obstructiv e airways disease Acute Exacerbation of Chronic Obstructive Airways Disease Problem 12:00:00 AM EDT - 05/11/2020 12:00:00 AM EST MARA ([facility]) 736271954 Acute exacerbation of chronic obstructiv e airways disease Acute Exacerbation of Chronic Obstructive Airways Disease Problem 12:00:00 AM EDT - 05/11/2020 12:00:00 AM EST MARA ([facility]) 868136289 Finding of esophagus Finding of Esophagus Problem 03/11/2016 12:00:00 AM EDT - 09/10/2020 12:00:00 AM EST MARA ([facility]) Surgeries/Procedures No Information Results ID Date Data Source [id number] 03/08/2021 02:24:00 PM EDT [facility] Name Value Range Interpretation Code Description Data Ebony rce(s) Supporting Document(s) SARS COVID ANTIGEN NEGATIVE [facility] This lab was ordered by [facility] a nd reported by [facility]. ID Date Data Source [id number] 01/31/2021 09:23:00 AM EDT [facility] Name Value Range Interpretation Code Description Data Ebony rce(s) Supporting Document(s) SARS-CoV-2 (COVID 19) NEGATIVE - SARS-CoV-2 (COVID19) [facility] This lab was ordered by [facility] a nd reported by [facility]. ID Date Data Source [id number] 01/15/2021 10:19:00 PM EDT [facility] Patient: SEAN MILLER [facility].VisitID: [id number] [place] [address] [phone], MRegistration Date/Time: 01/15/2021 19:03 Weight:77.1 kg (S). Height/Length:70 inches (S). BMI:24.4 FAMILY HISTORYNo significant family medical history. (Electronically signed by Farnaz Ceballos M.D. 01/15/2021 22:15) Name Value Range Interpretation Code Description Data Ebony rce(s) Supporting Document(s) ID Date Data Source [id number] 11/24/2020 09:47:00 AM EDT [facility] [address] [place] [address] PHONE: [phone] FAX: [phone] Name .................. : KAMALA ESTRADA Acct Number.................. : [id number] ROOM. ................. : TR-08 Number ................... : [id number] Stay type ............. : E/R Discharge Date......... ... : 11/23/20 Admit Date ......... : 11/23/20 Admit Phys .................... : OTTO CARLIN Date of ....... : 1965 Family Phys ................... : NON STAFF Phone .................. : [phone] Age ................................ : 55 Film# .................. .:[id number] Sex ................................. : M Unsigned transcriptions are preliminary reports and do not represent a medical or legal document CT HEAD W/O CONTRAST [id number] COMPLETE:11/23/20 15:24 ITALO 52916 Reason(s): Vertigo/Dizziness CT SCAN OF THE HEAD [...] dose 836.2 mGycm. Examination dictated by SULEMA Child. Examination was reviewed with Kylah Gaines MD, radiologist at the time of this dictation. Electronically Reviewed and Signed By KYLAH GAINES MD , 11/24/20 09:47, GMM Page 1 of 2 [facility] [address] [facility] [place] [address] PHONE: [phone] FAX: [phone] Name .................. : KAMALA ESTRADA Acct Number.................. : [id number] ROOM. ................. : [facility] MR Number ................... : [id number] Stay type ............. : E/R Discharge Date......... ... : 11/23/20 Admit Date ......... : 11/23/20 Admit Phys .................... : OTTO CARLIN Date of ....... : 1965 Family Phys ................... : NON STAFF Phone .................. : [phone] Age ................................ : 55 Film# .................. .:[id number] Sex ................................. : M Unsigned transcriptions are preliminary reports and do not represent a medical or legal document CT HEAD W/O CONTRAST [id number] COMPLETE:11/23/20 15:24 ITALO 95154 Reason(s): Vertigo/Dizziness Transcribe Initials: SSR, Transcribe Date: 11/24/20 09:09, Dictation Date: Copy for: EMERGENCY DEPT via modem Copy for: 710 MED REC DISCHARGED Page 2 of 2 Name Value Range Interpretation Code Description Data Ebony rce(s) Supporting Document(s) ID Date Data Source [id number] 11/24/2020 09:47:00 AM EDT [facility] [address] [place] [address] PHONE: [phone] FAX: [phone] Name .................. : KAMALA ESTRADA Acct Number.................. : [id number] ROOM. ................. : [facility] Number ................... : [id number] Stay type ............. : E/R Discharge Date......... ... : 11/23/20 Admit Date ......... : 11/23/20 Admit Phys .................... : OTTO CARLIN Date of ....... : 1965 Family Phys ................... : NON STAFF Phone .................. : [phone] Age ................................ : 55 Film# .................. .:[id number] Sex ................................. : M Unsigned transcriptions are preliminary reports and do not represent a medical or legal document RIBS DEVORAH W/SULEMA CXR RT [id number] COMPLETE:11/23/20 18:45 [facility] 886[address] R estefania(s): Pain RIGHT RIBS, 11/23/20: INDICATION: [...] By KYLAH GAINES MD , 11/24/20 09:47, [facility] Transcribe Initials: SSR, Transcribe Date: 11/24/20 09:09, Dictation Date: Copy for: EMERGENCY DEPT via homeworthm Copy for: 710 MED REC DISCHARGED Page 1 of 1 Name Value Range Interpretation Code Description Data Ebony rce(s) Supporting Document(s) ID Date Data Source [id number] 11/23/2020 07:53:00 [place] [address] RESPIRATORY CARE REPORT ==== ---------NAME------- NUMBER SEX AGE ADMIT DISC. XRAY# F/C TYPEMCCOY SEAN [id number] M 55 11/23/20 11/23/20 [id number] X6B E/R DATE OF : 1965 M/R# [id number] #: [id number] TR-08 LOCATION: EMERGENCY DEPT EKG 84568 COMP LETE:11/23/20 14:04 [place] [id number] PHYSICIAN: OTTO CARLIN Name Value Range Interpretation Code Description Data Ebony rce(s) Supporting Document(s) ID Date Data Source [id number] 11/23/2020 12:46:00 PM EDT [facility] 1 OrderSheet [facility] Emergency Department [address] [place] [address] Phone #: ext- [phone] 11/23/2020 12:44 Patient: [...] 13:42 Coco Matosin 50mL NS, give Devin MenjivarNSimona 2 OrderSheet [facility] Emergency Department [address] [place] [address] Phone #: ext- [phone] 11/23/2020 12:44 Patient: SEAN MILLER Sex: M : 1965 Age: 55ywide open: 25 mg M.D.;(NOW x1, HIGHALERTMEDICATION)NS IV 500 mL 13:27 11/23/2020 13:42 Celso Matos: : Bolus 500 Turrin, Devin R.N.mL, then 125 mL/hr M.D.;(X1)GENERAL ORDERSOrder Description Priority Entered Acknowledged InitialedBlood Pressure 13:11/23/2020 13:27 Coco MatosMonitor Otto, Devin R.N. M.D.;Distribution A Class Lineman 13:11/23/2020 13:27 Coco Matos(continuous) Otto, Devin R.N. M.D.;EKG 13:11/23/2020 13:27 Coco Matos, Devin R.N. M.D.;NPO 13:11/23/2020 13:27 Coco Matos, Devin R.N. M.D.;Obtain Old EKG 13:11/23/2020 13:27 Coco Matos, Devin R.N. M.D.;Obtain Old Records 13:11/23/2020 13:27 Coco Matos, Devin R.N. M.D.;Oxygen titrate to 13:26 11/23/2020 13:27 Coco Matos92% Otto, Devin R.N. M.D.;Pulse oximeter 13:11/23/2020 13:27 Coco Matos(Continuous) Otto, Devin R.N. M.D.;Saline Lock 13:11/23/2020 13:40 Coco Matos Riccardo R.N. M.D.;Vitals 13:11/23/2020 13:40 Coco Matos Riccardo R.N. M.D.;[Electronically signed by Devin Menjivar M.D. (16:42 11/23/2020)] 3 OrderSheet [facility] Emergency Department [address] [place] [address] Phone #: ext- [phone] 11/23/2020 12:44 Patient: SEAN MILLER Sex: M : 1965 Age: 55y[Electronically signed by Quinton Thornton RN (18:34 11/23/2020)][Electronically locked by Quinton Thornton RN (18:34 11/23/2020)] Name Value Range Interpretation Code Description Data Ebony rce(s) Supporting Document(s) ID Date Data Source [id number] 11/23/2020 12:46:00 PM EDT [facility] 1 Medication Reconciliation Report [facility] Emergency Department [address] [place] [address] Phone #: ext- [phone] 11/23/2020 12:44 Patient: [...] rce(s) Supporting Document(s) ID Date Data Source [id number] 11/23/2020 12:46:00 PM EDT [facility] 1 Medication Administration Record [facility] Emergency Department [address] [place] [address] Phone #: ext- [phone] 11/23/2020 12:44 Patient: [...] Dispensed: 50 mL bagStop Site: #1 right :24 11/23/2020Isabella Dooley R.N.Start IV NS NS IV 500 mL Bolus: : Bolus 69043:42 11/23/2020 Dose: IV Fluids mL, then 125 mL/hr (X1)Coco Matos R.N. Rate: 125 mL/hr over 3 hour(s)---- Bolus: 500 mL over 1 hour(s)Stop Dispensed: 1000 mL bag15:23 11/23/2020 Site: #1 right Isabella MillanYara Name Value Range Interpretation Code Description Data Ebony rce(s) Supporting Document(s) ID Date Data Source [id number] 11/23/2020 12:46:00 PM EDT [facility] 1 General Instructions [facility] Emergency Department [address] [place] [address] Phone #: ext- [phone] 11/23/2020 12:44 Patient: [...] ADDITIONAL INFORMATIONVertigo (Unknown Cause) 2 General Instructions [facility] Emergency Department [address] [place] [address] Phone #: ext- [phone] 11/23/2020 12:44 Patient: [...] as loose electrical cords 3 General Instructions [facility] Emergency Department [address] [place], [place] [address] Phone #: ext- [phone] 11/23/2020 12:44 [id number] Sex[facility] M : 1965 Age: 55y and [...] nausea, vomiting, and dizziness, you may use [id number] motion sickness pills. Ask your pharmacist for [...] speech or vision Loss of consciousness Seizure [id number] [employer]. [address] [place] [address]. All rights reserved. This information is not intended as asubstitute for professional medical care. Always follow your healthcare professional's instructions. You have been given the following additional information: Vertigo, Unspecified 4 General Instructions [facility] Emergency Department [address] [place] [address] Phone #: ext- [phone] 11/23/2020 12:44 Patient: SEAN MILLER Sex: M : 1965 Age: 55y(Electronically signed by Devin Menjivar M.D. 11/23/2020 16:42) Name Value Range Interpretation Code Description Data Ebony rce(s) Supporting Document(s) ID Date Data Source [id number] 11/23/2020 12:46:00 PM EDT [facility] 1 Clinical Report - Nurses [facility] Emergency Department [address] [place] [address] Phone #: ext- [phone] 11/23/2020 12:44 Patient: SEAN MILLER Sex: M : 1965 Age: 55yTRIAGEArrived by EMS. Historian: patient. ( Pt was seen at [facility] 1 week ago and was [...] (08:50 11/22/2020). 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 SEPSIS SCREEN NEGATIVE. No suspected or confirmedsigns of infection present. --12:52 11/23/20 Aline Cohn RSimonaN.12:47 . BP: 101/68. MAP: 79. HR: 72. RR: 13. O2 saturation: 100% on room air. Temp: 97.6 F(oral). Pain level now: 510. --12:52 11/23/20 Aline Cohn RRodney.JAYDEN COMA SCORE: 15- eyes open- spontaneous (4); [...] Cohn R.N.PROBLEMS:Dizziness.Arthritis.Asthma. 2 Clinical Report - Nurses [facility] Emergency Department [address] [place] [address] Phone #: ext- [phone] 11/23/2020 12:44 Patient: [...] [place] 3 Clinical Report - Nurses [facility] Emergency Department [address] [place] [address] Phone #: [phone] mqx- [phone] 11/23/2020 12:44 Patient: SEAN MILLER Sex: M [...] to radiology and CT by wheelchair with radiology administrator. --13:57 11/23/20 Coco Matos, 4 Clinical Report - Nurses [facility] Emergency Department [address] [place] [address] Phone #: ext- [phone] 11/23/2020 12:44 Patient: SEAN MILLER Sex: M : 1965 Age: 55y R.N. Checked patient name and birthdate. Blood samples drawn by tech. ([id number]). --14:01 11/23/20 Quinton Thornton RN Warming measures: blanket applied ([id number]). Patient returned from radiology and CT by wheelchair with mask and radiology administrator. ([id number]). --14:07 11/23/20 Quinton Thornton RN 13:00 11/23/20. [...] IV flushed thoroughly. --15:24 11/23/20 Isabella Dooley R.N. 15:11/23/2020 Site #1 removed upon discharge. Catheter intact. Manual pressure and bandage applied. --15:24 11/23/20 Isabella Dooley RSimonaN. 15:24 11/23/2020 Phenergan IVPB via IV site #1 Discontinued: bag #1 completed upon discharge. Total amount infused: 50 mL. IV patency established. IV site checked: no pain, redness, or swelling. IV flushed thoroughly. --15:24 11/23/20 Isabella Dooley R.NSimona Condition at departure: improved and stable. No learning barriers present. Discharge instructions provided and reviewed with the patient. Patient verbalized understanding. Written instructions provided in [place]ib[place]. ( Instructed to stop diclofenac). The patient was discharged by the physician. He was discharged home and accompanied by family. He left ambulatory and via private vehicle. Family member driving. --15:24 11/23/20 Isabella Dooley R.N. 5 Clinical Report - Nurses [facility] Emergency Department [address] [place] [address] Phone #: ext- [phone] 11/23/2020 12:44 Patient: SEAN MILLER Sex: M : 1965 Age: 55y 15:22 11/23/20. BP: 111/67. MAP: 81. HR: 83. RR: 18. O2 saturation: 99%. Temp: 98.7 F. Pain level now: 0/10. --15:24 11/23/20 Isabella Dooley R.N .Locked/Released at 11/23/2020 18:34 by Quinton Thornton RN Name Value Range Interpretation Code Description Data Ebony rce(s) Supporting Document(s) ID Date Data Source [id number] 11/23/2020 12:46:00 PM EDT [facility] 1 Clinical Report - Physicians/Mid Levels [facility] Emergency Department [address] [place] [address] Phone #: ext- [phone] 11/23/2020 12:44 Patient: SEAN MILLER Sex: M [...] here 09-22 for that), was seen at [facility] for coughing and rt rib [...] surgeries. 2 Clinical Report - Physicians/Mid Levels [facility] Emergency Department [address] [place] [address] Phone #: ext- [phone] 11/23/2020 12:44 Patient: SEAN MILLER Sex: M [...] room air.Temp: 97.6 F. Pain level now: 510. Have been reviewed. Oxygen saturation normal.Appearance: Alert. [...] EKG unchanged when compared with prior EKG. (3-). The study hasbeen interpreted contemporaneously by me. [...] 11/23/2020. 3 Clinical Report - Physicians/Mid Levels [facility] Emergency Department [address] [place] [address] Phone #: ext- [phone] 11/23/2020 12:44 Patient: [...] mL/min 4 Clinical Report - Physicians/Mid Levels [facility] Emergency Department [address] [place] [address] Phone #: ext- [phone] 11/23/2020 12:44 Patient: [...] mL/min Normal Lipase: (GEREMIAS: 11/23/2020 13:42) ( [facility] 11/23/2020 14:30) Final results Test Result Flag Units (Reference) LIPASE 46 U/L (13 - 60) PT/PTT: (GEREMIAS: 11/23/2020 13:42) ( MngRcvd 11/23/2020 13:58) Final results Test Result Flag Units (Reference) PROTIME 11.8 SECONDS (11.0 - 15.5) INR 0.83 L (0.93 - 1.23) PTT 26.9 SECONDS (24.8 - 36.7) \\BLDo\\INR INTERPRETATION\\BLDx\\ Therapeutic range for Coumadin and related oral anticoagulants. -International Normalized Ratio (INR): 2.0 - 3.0 for Venous Thrombosis, Pulmonary Embolus, Tissue heart valves, Acute CO Atrial Fibrillation, Valvular heart disease and recurrent [...] IMPRESSION 5 Clinical Report - Physicians/Mid Levels [facility] Emergency Department [address] [place] [address] Phone #: ext- [phone] 11/23/2020 12:44 Patient: SEAN MILLER Sex: M [...] rce(s) Supporting Document(s) ID Date Data Source [id number] 11/23/2020 02:30:00 PM T [facility] Name Value Range Interpretation Code Description Data Ebony rce(s) Supporting Document(s) TROPONIN T <0.01 NG/ML 0.00 - 0.10 [facility]spital TROPONIN T0.1 ng/ml Recommended as the c linical threshold value forTroponin T. ID Date Data Source [id number] 11/23/2020 02:30:00 PM EDT [facility] Name Value Range Interpretation Code Description Data Ebony rce(s) Supporting Document(s) Lipase [Enzymatic activity/volume] in Serum or Plasma 46 U/L 13 - 60 [facility] ID Date Data Source [id number] 11/23/2020 02:30:00 PM EDT [facility] Name Value Range Interpretation Code Description Data [facility] Supporting Document(s) COMPREHENSIVE METABOLIC PANEL [facility] COMPREHENSIVE METABOLIC PANEL Sodium [Moles/volume] in Serum or Plasma 134 mEq/L 134 - 153 [facility] Potassium [Moles/volume] in Serum or Plasma 4.5 mEq/L 3.6 - 5.0 [facility] Chloride [Moles/volume] in Serum or Plasma 101 mEq/L 98 - 107 [facility] Carbon dioxide, total [Moles/volume] in Serum or Plasma 23 MEQ/L 22 - 30 [facility] Glucose [Mass/volume] in Serum or Plasma 219 MG/DL 70 - 99 H [facility] BUN 23 MG/DL 7 - 21 H [facility] al Creatinine [Mass/volume] in Serum or Plasma 1.0 MG/DL 0.7 - 1.5 [facility] BUN/CREAT 23 8 - 27 [facility] Protein [Mass/volume] in Serum or Plasma 5.8 G/DL 6.3 - 8.2 L [facility] Albumin [Mass/volume] in Serum or Plasma 3.7 G/DL 3.9 - 5.0 L [facility] Globulin [Mass/volume] in Serum by calculation 2.1 GM/DL 2.4 - 3.2 L [facility] A/G RATIO 1.8 0.8 - 2.0 [facility] Calcium [Mass/volume] in Serum or Plasma 8.6 MG/DL 8.4 - 10.2 [facility] Bilirubin.total [Mass/volume] in Serum or Plasma <0.7 MG/DL 0.2 - 1.3 [facility] Alkaline phosphatase [Enzymatic activity/volume] in Serum or Plasma 113 U/L 38 - 126 [facility] Aspartate aminotransferase [Enzymatic activity/volume] in Serum or Plasma 13 U/L 5 - 40 [facility] Alanine aminotransferase [Enzymatic activity/volume] in Seru m or Plasma 11 U/L 7 - 56 [facility] Anion gap 3 in Serum or Plasma 10.0 mmol/L 8.0 - 16.0 [facility] AGE 55 yrs [facility] al NON-AA GFR >60 mL/min [facility] ital AFR AMER GFR >60 mL/min [facility] Ho spital Male GFR In terprentation 20-49 [...] >32 mL/min Normal ID Date Data Source [id number] 11/23/2020 01:57:00 PM EDT [facility] Name Value Range Interpretation Code Description Data Ebony rce(s) Supporting Document(s) Prothrombin time (PT) 11.8 SECONDS 11.0 - 15.5 [facility] INR in Platelet poor plasma by Coagulation assay 0.83 0.93 - 1. 23 L [facility] aPTT in Blood by Coagulation assay 26.9 SECONDS 24.8 - 36.7 [facility] \\BLDo\\INR INTERPRETATION\\BLDx\\ Therapeutic range for Coumadin and related oral anticoagulants. - International Normalized Ratio (INR): 2.0 - 3.0 for Venous Thrombosis, Pulmonary Embolus, Tissue heart valves, Acute CO Atrial Fibrillation, Valvular heart disease and recurrent Systemic Embolism. - International Normalized Ratio (INR): 2.5 - 3.5 for Mechanical Prosthetic valve. ID Date Data Source [id number] 11/23/2020 01:57:00 PM EDT [facility] Name Value Range Interpretation Code Description Data Ebony rce(s) Supporting Document(s) CBC W/AUTOMATED DIFF [facility] COMPLETE BLOOD COUNT Leukocytes [#/volume] in Blood by Automated count 16.4 10^3/uL 4.2 - 11.0 H [facility] Erythrocytes [#/volume] in Blood by Automated count 4.57 10^6/uL 4. 50 - 6.30 [facility] Hemoglobin [Mass/volume] in Blood 14.1 g/dL 14.0 - 16.0 [facility] Hematocrit [Volume Fraction] of Blood by Automated count 42.5 % 4 1.0 - 51.0 [facility] Erythrocyte mean corpuscular volume [Entitic volume] by Auto mated count 93.0 fL 80.0 - 94.0 [facility] Erythrocyte mean corpuscular hemoglobin [Entitic mass] by Automated count 30.9 pg 27.0 - 34.0 [facility] Erythrocyte mean corpuscular hemoglobin concentration [Mass/volume] by Automated count 33.2 g/dL 31.0 - 36.0 [facility] Erythrocyte distribution width [Ratio] by Automated count 14.1 % 11.5 - 14.8 [facility] Platelets [#/volume] in Blood by Automated count 230 10^3/uL 150 - 45 0 [facility] Platelet mean volume [Entitic volume] in Blood by Automated count 9.3 fL 7.4 - 10.4 [facility] Neutrophils/100 leukocytes in Blood by Automated count 87.1 % 37. 0 - 80.0 H [facility] Lymphocytes/100 leukocytes in Blood by Manual count 8.4 % 25.0 - 40.0 L [facility] Monocytes/100 leukocytes in Blood by Automated count 3.1 % 3.0 - 8.0 [facility] Eosinophils/100 leukocytes in Blood by Automated count 0.2 % 0.0 - 7.0 [facility] Basophils/100 leukocytes in Blood by Automated count 0.3 % 0.0 - 2.0 [facility] %IG 0.9 % 0.0 - 0.0 [facility] %NRBC 0.0 % 0.0 - 0.0 [facility] al Neutrophils [#/volume] in Blood by Automated count 14.23 10^3/uL 2. 00 - 6.90 H [facility] Lymphocytes [#/volume] in Blood by Automated count 1.38 10^3/uL 0.60 - 3.40 [facility] Monocytes [#/volume] in Blood by Automated count 0.51 10^3/uL 0.00 - 0.90 [facility] Eosinophils [#/volume] in Blood by Automated count 0.03 10^3/uL 0.00 - 0.70 [facility] Basophils [#/volume] in Blood by Automated count 0.05 10^3/uL 0.00 - 0.20 [facility] #IG 0.15 10^3/uL 0.00 - 0.10 H [facility] #NRBC 0.00 10^3/uL 0.00 - 0.00 [facility] MANUAL DIFF NOT INDICATED [facility] RBC MORPH NOT INDICATED [facility] spital ID Date Data Source [id number] 11/06/2020 10:05:00 AM EDT [facility] [address] [place] [address] PHONE: [phone] FAX: [phone] Name .................. : KAMALA ESTRADA Acct Number.................. : [id number] ROOM. ................. : TR05 Number ................... : [id number] Stay type ............. : E/R Discharge Date......... ... : 11/05/20 Admit Date ......... : 11/05/20 Admit Phys .................... : COONEYNORM Date of ....... : 1965 Family Phys ................... : NON STAFF Phone .................. : [phone] Age ................................ : 55 Film# .................. .:[id number] Sex ................................. : M Unsigned transcriptions are preliminary reports and do not represent a medical or legal document CHEST PORTABLE [id number] COMPLETE:11/05/20 11:02 [id number] Re ason(s): Congestion PORTABLE CHEST, 11/05/20: INDICATION: [...] rce(s) Supporting Document(s) ID Date Data Source [id number] 11/05/2020 10:37:00 AM EDT [facility] 1 OrderSheet [facility] Emergency Department [address] [place] [address] Phone #: ext- [phone] 11/05/2020 10:36 Patient: [...] Oakley MD (03:21 11/06/2020)][Electronically locked by Quinton Thornton RN (16:04 11/05/2020)] Name Value Range Interpretation Code Description Data Ebony rce(s) Supporting Document(s) ID Date Data Source [id number] 11/05/2020 10:37:00 AM EDT [facility] 1 Medication Reconciliation Report [facility] Emergency Department [address] [place] [address] Phone #: ext- [phone] 11/05/2020 10:36 Patient: SEAN MILLER Sex: M [...] rce(s) Supporting Document(s) ID Date Data Source [id number] 11/05/2020 10:37:00 AM EDT [facility] 1 Medication Administration Record [facility] Emergency Department [address] [place] [address] Phone #: ext- [phone] 10:36 Patient: SEAN MILLER Sex: M : 1965 Age: 55yWeight: 74.8 kgHeight/Length: 70 inBMI: 23.7ALLERGIES: No Known Drug AllergyDate/Time Medication Administered Medication Ordered Name Value Range Interpretation Code Description Data Ebony rce(s) Supporting Document(s) ID Date Data Source [id number] 11/05/2020 10:37:00 AM EDT [facility] 1 General Instructions [facility] Emergency Department [address] [place] [address] Phone #: ext- [phone] 11/05/2020 10:36 Patient: [...] patient. ADDITIONAL INFORMATIONCOPD Flare 2 General Instructions [facility] Emergency Department [address] [place] [address] Phone #: ext- [phone] 11/05/2020 10:36 Patient: [...] of a different color 3 General Instructions [facility] Emergency Department [address] [place] [address] Phone #: ext- [phone] 11/05/2020 10:36 Patient: [...] the infection has cleared. 4 General Instructions [facility] Emergency Department [address] [place] [address] Phone #: ext- [phone] 11/05/2020 10:36 Patient: [...] and fish, and low-fat dairy products.Preventing a xaukm-lwQjweb-str happen. But the best way to treat [...] stay inside when possible. 5 General Instructions [facility] Emergency Department [address] [place] [address] Phone #: ext- [phone] 11/05/2020 10:36 [id number] Sex: M : 1965 Age: 55y Try [...] your healthcare provider about your ability to: [place] in your normal environment Correctly use inhaler (or your medicine delivery systems) [place] with other conditions you have and their [...] or bloody mucus (sputum) 6 General Instructions [facility] Emergency Department [address] [place] [address] Phone #: ext- [phone] 11/05/2020 10:36 Patient: SEAN MILLER Sex: M : 1965 Age: 55y You don't start to get better within 24 hours Swelling of your ankles gets worse Weakness [id number] [employer]. [address] [place] [address]. All rights reserved. This information is not intended as asubstitute for professional medical care. Always follow your healthcare professional's instructions. You have been given the following additional information: COPD Flare(Electronically signed by Chelsy Oakley MD 11/06/2020 03:21) Name Value Range Interpretation Code Description Data Ebony rce(s) Supporting Document(s) ID Date Data Source [id number] 11/05/2020 10:37:00 AM EDT [facility] 1 Clinical Report - Nurses [facility] Emergency Department [address] [place] [address] Phone #: ext- [phone] 11/05/2020 10:36 Patient: SEAN MILLER Sex: M : 1965 Age: 55yTRIAGEArrived by EMS. Historian: patient. ( 0PRESENTS WITH SHORTNESS OF BREATH).Triage time: 10:43 11/05/2020. Acuity: LEVEL 3.Chief Complaint: SHORTNESS OF BREATH and DIFFICULTY BREATHING.Alert.This started yesterday. 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 No paulino spected [...] Monae R.N.. 2 Clinical Report - Nurses [facility] Emergency Department [address] [place] [address] Phone #: ext- [phone] 11/05/2020 10:36 Patient: SEAN MILLER Sex: M [...] treatment room. --10:47 11/05/20 Joe Monae R.N.PHYSICAL [id number] 11/05/20. To room via stretcher.GENERAL / NEURO [...] Thornton RN 3 Clinical Report - Nurses [facility] Emergency Department [address] [place] [address] Phone #: ext- [phone] 11/05/2020 10:36 --- [...] one attempt. --12:45 11/05/20 Quinton Thornton RN 12:11/05/2020 Site #1 removed upon discharge. Catheter intact. Bandaid applied. --12:45 11/05/20 Quinton Thornton RN 12:30 11/05/20. Departure time: 12:11/05/2020. Condition at departure: unchanged. No learning barriers present. Discharge instructions provided and reviewed with the patient. Reviewed medication(s) (no changes). Treatments reviewed (avoid smoke). Reviewed referral to a scrap burner. Patient verbalized understanding. Written instructions provided in [place]ian. The patient was discharged by the physician. He was discharged home. He left ambulatory and via taxi. --12:44 11/05/20 Quinton Thornton RN.Locked/Released at 11/05/2020 16:04 by Quinton Thornton RN Name Value Range Interpretation Code Description Data Ebony rce(s) Supporting Document(s) ID Date Data Source [id number] 11/05/2020 10:37:00 AM EDT [facility] 1 Clinical Report - Physicians/Mid Levels [facility] Emergency Department [address] [place] [address] Phone #: ext- [phone] 11/05/2020 10:36 [facility]: [facility]ILL[id number] Sex: M : 1965 Age: 55y Arrived- [...] Ompeprazole. Allergies: 2 Clinical Report - Physicians/[facility] Emergency Department [address] [place] [address] Phone #: ext- [phone] 11/05/2020 10:36 Patient: SEAN MILLER Sex: M [...] Dependence. 3 Clinical Report - Physicians/Mid Levels [facility] Emergency Department [address] [place] [address] Phone #: ext- [phone] 11/05/2020 10:36 Patient: SEAN MILLER Sex: M : 1965 Age: 55yINSTRUCTIONS Avoid tobacco smoke. Do not smoke. (Please follow up with your doctor. return if worse or any new symptoms. Take all medications as previously instructed. It is not safe to take steroids continuously. You need to be under the care of a scrap burner if you have this severe of lung [...] rce(s) Supporting Document(s) ID Date Data Source [id number] 10/22/2020 09:56:00 [place] [address] PHONE: [phone] FAX: [phone] Name .................. : KAMALA ESTRADA Acct Number.................. : [id number] ROOM. ................. : TR-06 MR Number ................... : [id number] Stay type ............. : E/R Discharge Date......... ... : 10/21/20 Admit Date .... ..... : 10/21/20 Admit Phys .................... : OTTO CARLIN Date of ....... : 1965 Family Phys ................... : NON STAFF Phone .................. : [phone] Age ................................ : 55 Film# .................. .:[id number] Sex ................................. : M Unsigned transcriptions are preliminary reports and do not represent a medical or legal document CHEST 2 VIEWS [id number] COMPLETE:10/21/20 19:31 ITALO 9287 Reason(s) : COPD CHEST X-RAY: 2-VIEWS INDICATION: COPD, cough. COMPARISON: 09/22/20 FINDINGS: Lungs clear. Heart and mediastinum are normal with no signs of any acute abnormalities noted. IMPRESSION: No acute disease identified. Electronically Reviewed and Signed By KYLAH GAINES MD , 10/22/20 09:56, [facility] Transcribe Initials: LATA , Transcribe Date: 10/22/20 00:04, Dictation Date: Copy for: EMERGENCY DEPT via [facility] Copy for: 710 MED REC DISCHARGED Page 1 of 1 Name Value Range Interpretation Code Description Data Ebony rce(s) Supporting Document(s) ID Date Data Source [id number] 10/21/2020 01:51:00 PM EDT [facility] 1 OrderSheet [facility] Emergency Department [address] [place] [address] Phone #: ext- [phone] 10/21/2020 13:51 Patient: [...] Amber Amber R.N. M.D.; R.N. 2 OrderSheet [facility] Emergency Department [address] [place] [address] Phone #: ext- [phone] 10/21/2020 13:51 Patient: SEAN MILLER Sex: M : 1965 Age: 55yGENERAL ORDERSOrder Description Priority Entered Acknowledged Initialed[Electronically signed by Aline Cohn R.N. (10/21/2020)][Electronically signed by Devin Menjivar M.D. (17:02 10/21/2020)][Electronically locked by Aline Cohn R.N. (10/21/2020)] Name Value Range Interpretation Code Description Data Ebony rce(s) Supporting Document(s) ID Date Data Source [id number] 10/21/2020 01:51:00 PM EDT [facility] 1 Medication Reconciliation Report [facility] Emergency Department [address] [place] [address] Phone #: ext- [phone] 10/21/2020 13:51 Patient: [...] Dispense 10 tablet. Refills: 0.Substitution permitted.Pharmacy - [facility] - [address] [place] [address]. FaxNumber: .albuterol sulfate HFA 90 mcg/actuation aerosol inhaler Inhale 2 puff four times a day as needed for 7 days-- Dispense 1 inhaler. Refills: 0. Substitution permitted.Pharmacy - [facility] - [address] [place] [address]. .ipratropium 0.5 mg- albuterol 3 mg (2.5 mg base)/3 mL nebulization soln Take 3 ml four times a day asneeded for 7 days -- Dispense 84 ml. Refills: 0. Substitution permitted. 2 Medication Reconciliation Report [facility] Emergency Department [address] [place] [address] Phone #: ext- [phone] 10/21/2020 13:51 Patient: SEAN MILLER Sex: M : 1965 Age: 55yPharmacy - [place] [address]. .Tessalon Perles 100 mg capsule Take 1 capsule three times a day for 5 days -- Dispense 15 capsule.Refills: 1. Substitution permitted.Pharmacy - [place] [address]. . -- Devin Menjivar M.D. Name Value Range Interpretation Code Description Data Ebony rce(s) Supporting Document(s) ID Date Data Source [id number] 10/21/2020 01:51:00 PM EDT [facility] 1 Medication Administration Record [facility] Emergency Department [address] [place] [address] Phone #: [phone]- [phone] 10/21/2020 13:51 Patient: SEAN MILLER Sex: M : 1965 Age: 55yWeight: 74.8 kgHeight/Length: 70 inBMI: 23.7ALLERGIES: No Known Drug Allergy Date/Time Medication Administered Medication OrderedGiven DUONEB [NEB TX] DuoNeb 3 mL X2 Doses (Filtered):14:25 10/21/2020 Dose: 2 unit dose Nebulizer Neb TX 6 mL (3 mL X2 Doses)Aline Cohn, R.NSimona----Stop14:45 10/21/2020Aline Cohn REldonGiven TESSALON PERLES [PO] Tessalon Perles PO 200 mg14:25 10/21/2020 (BENZONATATE)Aline Cohn R.NSimona Dose: 200 mg Capsules PO Name Value Range Interpretation Code Description Data Ebony e(s) Supporting Document(s) ID Date Data Source [id number] 10/21/2020 01:51:00 PM EDT [facility] 1 General Instructions [facility] Emergency Department [address] [place] [address] Phone #: ext- [phone] 10/21/2020 13:51 Patient: SEAN MILLER Sex: M : 1965 Age: 55yMedication refill.Stable COPD (emphysematous). No chronic bronchitis.INSTRUCTIONS Avoid tobacco smoke. Do not smoke. No alcohol. (PLEASE GET YOUR MEDICATION REFILLS FROM YOUR NEW FAMILY MD IN [place] WHEN YOU SEE HIM/HER ON 10-23).Warnings: Further [...] days -- Dispense 10 tablet. Refills: 0.Substitution permitted.[place] [address]. .albuterol sulfate HFA 90 mcg/actuation aerosol inhaler Inhale 2 puff four times a day as needed for 7 days-- Dispense 1 inhaler. Refills: 0. Substitution permitted.[facility] [place] [address]. .ipratropium 0.5 mg-albuterol 3 mg (2.5 mg base)/3 mL nebulization soln Take 3 ml four times a day asneeded for 7 days -- Dispense 84 ml. Refills: 0. Substitution permitted.[place] [address]. . 2 General Instructions [facility] Emergency Department [address] [place] [address] Phone #: ext- [phone] 10/21/2020 13:51 --------- Patient: SEAN MILLER Sex: M : 1965 Age: 55yTessalon Perles 100 mg capsule Take 1 capsule three times a day for 5 days -- Dispense 15 capsule.Refills: 1. Substitution permitted.Pharmacy - [facility] - [address] [place] [address] [phone]. .Follow-up:Return to the emergency department as needed.Understanding of the discharge instructions verbalized by patient. Expected course of illness, dischargeinstructions, activity level, diet, prescriptions x3, follow-up appointment and risks and benefits of treatmentreviewed with patient and understanding verbalized. Agrees to plan of care.Follow-up with: [facility], , , [address] [place], [place] [address], [facility] Follow up in two days as scheduled. Reason for referral: evaluation, treatment and Medication refill.Summary of care provided to patient via paper. ADDITIONAL INFORMATIONCOPD Flare 3 General Instructions [facility] Emergency Department [address] [place] [address] Phone #: ext- [phone] 10/21/2020 13: 51 [...] of a different color 4 General Instructions [facility] Emergency Department [address] [place] [address] Phone #: ext- [phone] 10/21/2020 13:51 Patient: [...] the infection has cleared. 5 General Instructions [facility] Emergency Department [address] [place] [address] Phone #: ext- [phone] 10/21/2020 13:51 Patient: [...] and fish, and low-fat dairy products.Preventing a jtnth-zjAwpfh-zqf happen. But the best way to treat [...] stay inside when possible. 6 General Instructions [facility] Emergency Department [address] [place] [address] Phone #: ext- [phone] 10/21/2020 13:51 Patient: [...] your healthcare provider about your ability to: [place] in your normal environment Correctly use inhaler (or your medicine delivery systems) [place] with other conditions you have and their [...] or bloody mucus (sputum) 7 General Instructions [facility] Emergency Department [address] [place] [address] Phone #: ext- [phone] 10/21/2020 13:51 Patient: SEAN MILLER Sex: M : 1965 Age: 55y You don't start to get better within 24 hours Swelling of your ankles gets worse Weakness [id number] [employer]. [address] [place] [address]. All rights reserved. This information is not intended as asubstitute for professional medical care. Always follow your healthcare professional's instructions. You have been given the following additional information: COPD Flare(Electronically signed by Devin Menjivar M.D. 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 --14:01 10/21/20 Tegan Hauser R.N.13:53 [...] marijuana. No 2 Clinical Report - Nurses [facility] Emergency Department [address] [place] [address] Phone #: ext- [phone] 10/21/2020 13:51 Patient: SEAN MILLER Sex: M : 1965 Age: 55y alcohol [...] Cohn R.N. 3 Clinical Report - Nurses [facility] Emergency Department [address] [place] [address] Phone #: ext- [phone] 10/21/2020 13:51 Patient: SEAN MILLER Sex: M : 1965 Age: 55yPatient transported to radiology by wheelchair with IV, mask and radiology administrator. --14:19 10/21/20 Aline Cohn R.N.late entry - [...] / DISCHARGE 4 Clinical Report - Nurses [facility] Emergency Department [address] [place] [address] Phone #: ext- [phone] 10/21/2020 13:51 [id number] Sex[facility] M : 1965 Age: 55y Condition at departure: improved and stable. No learning barriers present. Discharge instructions provided and reviewed with the patient. Reviewed warnings. Reviewed medication(s) side effects, precautions, dosing and course information. Prescription(s) sent electronically to pharmacy (Prednisone, Albuterol, Ipratropium, Tessalon Pearls). Reviewed referral to a primary care physician for followup. Patient verbalized understanding. Written instructions provided in Djiboutian. The patient was discharged by the physician. [...] rce(s) Supporting Document(s) ID Date Data Source [id number] 10/21/2020 01:51:00 PM EDT [facility] 1 Clinical Report - Physicians/Mid Levels [facility] Emergency Department [address] [place] [address] Phone #: ext- [phone] 10/21/2020 13:51 Patient: [...] since 2015; pt has been followed by scrap burner in [place] who, according to pt, refuses to prescribe him prednisone; pt states that's the only thing that works and keeps him out of hospitals; pt has been here 4 times since August (08/11, 09/03, 09/22 and 10/15) and now has appt w new INTERNET RETAILER in [place] on 10-23; pt has been out of prednisone x 2 days and started w SOB/Coughing/wheezing since so called who gave him duonbl. plus Decadron 10 [...] daily. 2 Clinical Report - Physicians/Mid Levels [facility] Emergency Department [address] [place] [address] Phone #: ext- [phone] 10/21/2020 13:51 Patient: SEAN MILLER Sex: M [...] # _[id number] 10/21/20.1539.DW . KIT EXP DATE _60-29-33 10/21/20.1539.DW . NORMAL RANGE IS NOT DETECTEDNEGATIVE RESULTS SHOULD BE TREATED PRESUMPTIVE AND, IF INCONSISTENT WITHCLINICAL SIGNS AND SYMPTOMS OR NECESSARY FOR PATIENT MANAGEMENT, SHOULD BETESTED WITH DIFFERENT AUTHORIZED OR CLEARED MOLECULAR TESTS. NEGATIVE RESULTSDO NOT PRECLUDE SARS-CoV-2 INFECTION AND SHOULD NOT BE USED THE SOLE BASISFOR PATIENT MANAGEMENT DECISIONS. 3 Clinical Report - Physicians/Mid Levels [facility] Emergency Department [address] [place] [address], [place] [address] Phone #: ext- [phone] 10/21/2020 13:51 Patient: SEAN MILLER Sex: M : 1965 Age: 55y.PROGRESS AND PROCEDURESCourse of Care: 15:44 10/21/20. markedly improved, BS's improved, rare wheezing at bases, CXR neg.,rapid Covid neg., will d/c home w instructions, pt requesting albuterol inhaler, duonbl and prednisone 40mg QD x 5 days until he is seen at [facility] on ; he also requested some codeinesyrup which was denied; pt strongly encouraged to see his new INTERNET RETAILER from now on for meds refill, since [...] REFILLS FROM YOUR NEW FAMILY MD IN [place] WHEN YOU SEE HIM/HER ON 10-23). Warnings: [...] Ompeprazole*. 4 Clinical Report - Physicians/Mid Levels [facility] Emergency Department [address] [place] [address] Phone #: ext- [phone] 10/21/2020 13:51 Patient: SEAN MILLER Sex: M : 1965 Age: 55y Prescription Medications: prednisone 20 mg tablet Take 2 tablet once a day for 5 days -- Dispense 10 tablet. Refills: 0. Substitution permitted. [place] [address]. . albuterol sulfate HFA 90 mcg/actuation aerosol inhaler Inhale 2 puff four times a day as needed for 7 days -- Dispense 1 inhaler. Refills: 0. Substitution permitted. [place] [address]. . ipratropium 0.5 mg-albuterol 3 mg (2.5 mg base)/3 mL nebulization soln Take 3 ml four times a day as needed for 7 days -- Dispense 84 ml. Refills: 0. Substitution permitted. [place] [address]. . Tessalon Perles 100 mg capsule Take 1 capsule three times a day for 5 days -- Dispense 15 capsule. Refills: 1. Substitution permitted. [place] [address]. . Follow-up: Return to the emergency department as needed. Understanding of the discharge instructions verbalized by patient. Expected course of illness, discharge instructions, activity level, diet, prescriptions x3, follow-up appointment and risks and benefits of treatment reviewed with patient and understanding verbalized. Agrees to plan of care. Follow-up with: [facility], , , [address] [place], [address] Follow up in two days as scheduled. Reason for referral: evaluation, treatment and Medication refill. Summary of care provided to patient via paper.(Electronically signed by Devin Menjivar M.D. 10/21/2020 17:02) Name Value Range Interpretation Code Description Data Ebony rce(s) Supporting Document(s) ID Date Data Source [id number] 10/21/2020 02:27:00 PM EDT [facility] Name Value Range Interpretation Code Description Data Ebony rce(s) Supporting Document(s) COVID19 Case rprt NOT DETECTED [facility] This lab was ordered by [facility] and reported by [facility]. ID Date Data Source [id number] 10/21/2020 03:39:00 PM EDT [facility] NOT DETECTEDNOT DETECTED{ PROC EDURAL CONTROL VALID KIT LOT # _[id number] 10/21/20.1539.DW . KIT EXP DATE _18-42-08 10/21/20.1539.DW . NORMAL RANGE IS NOT DETECTEDNEGATIVE RESULTS SHOULD BE TREATED PRESUMPTIVE AND, IF INCONSISTENT WITHCLINICAL SIGNS AND SYMPTOMS OR NECESSARY FOR PATIENT MANAGEMENT, SHOULD BETESTED WITH DIFFERENT AUTHORIZED OR CLEARED MOLECULAR TESTS. NEGATIVE RESULTSDO NOT PRECLUDE SARS-CoV-2 INFECTION AND SHOULD NOT BE USED THE SOLE BASISFOR PATIENT MANAGEMENT DECISIONS. Name Value Range Interpretation Code Description Data [facility] rce(s) Supporting Document(s) ID Date Data Source [id number] 10/15/2020 12:12:00 PM EDT [facility] 1 OrderSheet [facility] Emergency Department [address] [place] [address] Phone #: ext- [phone] 10/15/2020 12:12 Patient: SEAN MILLER Sex: M [...] rce(s) Supporting Document(s) ID Date Data Source [id number] 10/15/2020 12:12:00 PM EDT [facility] 1 Medication Reconciliation Report [facility] Emergency Department [address] [place] [address] Phone #: ext- [phone] 10/15/2020 12:12 Patient: SEAN MILLER Sex: M [...] Dispense 5 tablet. Refills: 0. Substitutionpermitted.Pharmacy - [facility] - [address] [place] [phone]. FaxNumber: . -- Chelsy Oakley MD Name Value Range Interpretation Code Description Data Ebony rce(s) Supporting Document(s) ID Date Data Source [id number] 10/15/2020 12:12:00 PM EDT [facility] 1 Medication Administration Record [facility] Emergency Department [address] [place] [address] Phone #: ext- [phone] 10/15/2020 12:12 Patient: SEAN MILLER Sex: M : 1965 Age: 55yWeight: 74.8 kgHeight/Length: 70 inBMI: 23.7ALLERGIES: No Known Drug Allergy Date/Time Medication Administered Medication OrderedGiven SOLU-MEDROL [IVP] SOLU-Medrol IVP 125 mg12:38 10/15/2020 (METHYLPREDNISOLONE SODIUMWecalista, Aline, R.N. SUCC) Dose: 125 mg IVP Site: #1 right handStart NS [IV] IV NS 1000 mL Bolus : Bolus 782884:44 10/15/2020 Dose: IV Fluids mL (X1)Aline Cohn [...] rce(s) Supporting Document(s) ID Date Data Source [id number] 10/15/2020 12:12:00 PM EDT [facility] 1 General Instructions [facility] Emergency Department [address] [place] [address] Phone #: ext- [phone] 10/15/2020 12:12 Patient: SEAN MILLER Sex: M : 1965 Age: 55yAcute exacerbation of COPD.INSTRUCTIONSNo strenuous activity.Avoid tobacco smoke.(Return if worse or any new symptoms. Take all medications as previously instructed. I have sent you aprescription for prednisone. take as prescribed. it is imperative to follow up with your pulmonol ogist andprcritical access hospitalry care physician.).Warnings: Further evaluation is necessary.GENERAL WARNINGS: [...] Dispense 5 tablet. Refills: 0. Substitutionpermitted.Pharmacy - [facility] - [address] [place] [phone]. .Follow-up:Follow up with your doctor tomorrow even if well. Call for an appointment. Reason for referral: evaluation.Summary of care provided to patient via paper.Understanding of the discharge instructions verbalized by patient. ADDITIONAL INFORMATIONCOPD Flare 2 General Instructions [facility] Emergency Department [address] [place] [address] Phone #: ext- [phone] 10/15/2020 12:12 Patient: SEAN MILLER Sex: M [...] of a different color 3 General Instructions [facility] Emergency Department [address] [place] [address] Phone #: ext- [phone] 10/15/2020 12:12 Patient: [...] the infection has cleared. 4 General Instructions [facility] Emergency Department [address] [place] [address] Phone #: ext- [phone] 10/15/2020 12:12 Patient: [...] and fish, and low-fat dairy products.Preventing a jwfdk-mnTeqdm-oic happen. But the best way to treat [...] stay inside when possible. 5 General Instructions [facility] Emergency Department [address] [place] [address] Phone #: ext- [phone] 10/15/2020 12:12 Patient: [...] your healthcare provider about your ability to: [place] in your normal environment Correctly use inhaler (or your medicine delivery systems) [place] with other conditions you have and their [...] or bloody mucus (sputum) 6 General Instructions [facility] Emergency Department [address] [place] [address] Phone #: ext- [phone] 10/15/2020 12:12 Patient: SEAN MILLER Sex: M : 1965 Age: 55y You don't start to get better within 24 hours Swelling of your ankles gets worse Weakness [id number] [employer]. [address] [place] [address]. All rights reserved. This information is not intended as asubstitute for professional medical care. Always follow your healthcare professional's instructions. You have been given the following additional information: COPD Flare No strenuous activity.(Electronically signed by Chelsy Oakley MD 10/16/2020 00:21) Name Value Range Interpretation Code Description Data Ebony rce(s) Supporting Document(s) ID Date Data Source [id number] 10/15/2020 12:12:00 PM EDT [facility] 1 Clinical Report - Nurses [facility] Emergency Department [address] [place] [address] Phone #: ext- [phone] 10/15/2020 12:12 Patient: SEAN MILLER Sex: M : 1965 Age: 55yTRIAGEArrived by EMS. Historian: EMS and patient. ( presents via [facility] with c/o SOB and cough that startedlastnight, angry at EMS because they wouldn't give him a neb tx en route.).Triage time: 12:11 10/15/2020. Acuity: LEVEL 3.Chief Complaint: SHORTNESS OF BREATH and DIFFICULTY BREATHING.Alert. 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 Recently seen in a medical facility; treatment- [...] RN, 12:10/15/20 2 Clinical Report - Nurses [facility] Emergency Department [address] [place] [address] Phone #: ext- [phone] 10/15/2020 12:12 Patient: [...] assessment completed. No skin integrity risk identified. --12:31 10/15/20 Cherelle Echols RN.PHYSICAL ASSESSMENTlate entry - 12:29 [...] ready for 3 Clinical Report - Nurses [facility] Emergency Department [address] [place] [address] Phone #: ext- [phone] 10/15/2020 12:12 Patient: SEAN MILLER Sex: M : 1965 Age: 55yevaluation. --12:31 4/15/21 Cherelle Echols, KIMBERLY12:28 10/15/2020 Site #1 started via IV in [...] 106. RR: 27. O2 saturation: 94%. --13:16 10/15/20[facility] Ovis065:16 10/15/20. BP: 152/97. MAP: 115. HR: 99. RR: 23. O2 saturation: 94%. --13:16 10/15/20 [facility]113:14 10/15/20. Oxygen administered by nasal cannula at 2 liters. patient monitor, NIBP monitor andpulse oximeter placed on patient; [...] reach. Side 4 Clinical Report - Nurses [facility] Emergency Department [address] [place] [address] Phone #: ext- [phone] 10/15/2020 12:12 Patient: SEAN MILLER Sex: M : 1965 Age: 55y rails up x 2. Bed placed in lowest position. Brakes of bed on. --13:24 10/15/20 Aline Cohn R.N. Oxygen administered by nasal cannula at 2 liters. patient monitor, NIBP monitor and pulse oximeter placed [...] waiting for disposition. --14:14 10/15/20 Aline Cohn R.N. 14:15 10/15/20. BP: 126/77. MAP: 93. HR: 102. RR: 21. O2 saturation: 95%. --14:35 10/15/20 [place] XATA, Juan Manuel, [employer] Tech1 14:48 10/15/2020 Magnesium Sulfate IVPB via IV site #1 Discontinued: bag #1 infused. Total amount infused: 50ml mL. IV patency established. IV site checked: no pain, redness, or swelling. IV flushed thoroughly. --14:48 10/15/20 Aline Cohn R.N. 15:00 10/15/2020 Site #1 removed upon discharge. Catheter intact. Bandage applied. --15:10 10/15/20 Aline Cohn R.N. 15:05 10/15/2020 IV Fluids NS via IV site #1 Discontinued: bag #1 infused. Total amount infused: 1000ml mL. IV patency established. IV site checked: no pain, redness, or swelling. IV flushed thoroughly. --15:10 10/15/20 Aline Cohn R.N.DISPOSITION / DISCHARGE 15:03 10/15/20. BP: 125/89. HR: 101. RR: 18. O2 saturation: 96%. Temp: 98.4 F. Pain level now 0/10. --15:04 10/15/20 [place] XATA, [employer] Tech1 15:10 10/15/20. Departure time: 15:10 10/15/2020. Condition at departure: improved and stable. No learning barriers present. Discharge instructions provided and reviewed with the patient. Reviewed medication(s) side effects, precautions, dosing and course information. Prescription(s) sent electronically to pharmacy (Prednisone). Reviewed referral to a primary care physician for followup. Patient verbalized understanding. Wr gabrielen instructions provided in [place]ib[place]ian. The patient was discharged by the physician. He was discharged home and unaccompanied at time of discharge. He left ambulatory and via taxi. 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 --15:13 10/15/20 Aline Cohn R.N.Locked/Released at 10/15/2020 15:14 by Aline Cohn R.N. 5 Clinical Report - Nurses [facility] Emergency Department [address] [place] [address] Phone #: ext [phone] 10/15/2020 12:12 Patient: SEAN MILLER Sex: M : 1965 Age: 55y Name Value Range Interpretation Code Description Data Ebony rce(s) Supporting Document(s) ID Date Data Source [id number] 10/15/2020 12:12:00 PM EDT [facility] 1 Clinical Report - Physicians/Mid Levels [facility] Emergency Department [address] [place] [address] Phone #: ext [phone] 10/15/2020 12:12 Patient: SEAN MILLER Sex: M [...] Ompeprazole. 2 Clinical Report - Physicians/Mid Levels [facility] Emergency Department [address] [place] [address] Phone #: ext- [phone] 10/15/2020 12:12 Patient: SEAN MILLER Sex: M [...] 2liters/minute. Temp: 98.7 F. Pain level now: 5/10. Have been reviewed and appear to be [...] and enocuraged to f/u with pcp andhis scrap burner. Patient/family counseled. Disposition: Discharged. Condition: good and stable.CLINICAL IMPRESSION Acute exacerbation of COPD. 3 Clinical Report - Physicians/Mid Levels [facility] Emergency Department [address] [place] [address] Phone #: ext- [phone] 10/15/2020 12:12 Patient: [id number] Sex: M : 1965 Age: 55yINSTRUCTIONS No strenuous activity. Avoid tobacco smoke. (Return if worse or any new symptoms. Take all medications as previously instru cted. I have sent you a prescription for prednisone. take as prescribed. it is imperative to follow up with your scrap burner and primary care physician.). Warnings: Further evaluation [...] tablet. Refills: 0. Substitution permitted. Pharmacy - [facility] - [address] [place] [address] ; [place], [place] [id number]. . Follow-up: Follow up with your doctor tomorrow even if well. Call for an appointment. Reason for referral: evaluation. Summary of care provided to patient via paper. Understanding of the discharge instructions verbalized by patient.(Electronically signed by Chelsy Oakley MD 10/16/2020 00:21) Name Value Range Interpretation Code Description Data Ebony rce(s) Supporting Document(s) ID Date Data Source [id number] 09/22/2020 08:19:00 PM EDT [address] [address] RESPIRATORY CARE REPORT ==== ---------NAME------- NUMBER SEX AGE ADMIT DISC. XRAY# F/C TYPEMCCOY SEAN [id number] M 55 09/22/20 09/22/20 [id number] X6B E/R DATE OF : 1965 M/R# [id number] PH#: [phone] TR-05 LOCATION: EKG 30780 COMPLETE:09/22/20 0 6:17 ED 20882 PHYSICIAN: OTTO CARLIN Name Value Range Interpretation Code Description Data Ebony rce(s) Supporting Document(s) ID Date Data Source [id number] 09/22/2020 12:21:00 [place] [address] PHONE: [phone] FAX: [phone] Name .................. : KAMALA ESTRADA Acct Number.................. : [id number] ROOM. ................. : TR-05 Number ................... : [id number] Stay type ............. : E/R Discharge Date......... ... : 09/22/20 Admit Date .... ..... : 09/22/20 Admit Phys .................... : OTTO CARLIN Date of ....... : 1965 Family Phys ................... : Phone .................. : [phone] Age ................................ : 55 Film# .................. .:[id number] Sex ................................. : M Unsigned transcriptions are preliminary reports and do not represent a medical or legal document CHEST PORTABLE [id number] COMPLETE:09/22/20 06:27 RLB 6817 Reason(s): COPD SINGLE [...] rce(s) Supporting Document(s) ID Date Data Source [id number] 09/22/2020 03:21:00 AM EDT [facility] 1 OrderSheet [facility] Emergency Department [address] [place] [address] Phone #: ext- [phone] 09/22/2020 03:21 Patient: SEAN MILLER Sex: M [...] Sawant; BlairBNP STAT 03:41 09/22/2020 Initialed: 03:42 Jese Kelechi Turrin, Devin Cancelled: Patient Refusal 04:22 Brooklynn Sawant; BlairDIAGNOSTIC STUDY ORDERSOrder Description Priority Entered Acknowledged InitialedChest Portable 1 STAT 03:41 09/22/2020 03:42 Katrin Sawant Devinyenny Lorenz(Oxygen?(No)) Brooklynn; Reason for Study: COPDCT Head W/O Cont STAT 03:41 09/22/2020 03:42 Jese(Oxygen?(No)) Devin Menjivar M.D.; Reason for Study: Vertigo/DizzinessMEDICATION/IV/DRIP/FLUID ORDERS 2 OrderSheet [facility] Emergency Department [address] [place] [address] Phone #: ext- [phone] 09/22/2020 03:21 - [...] Entered Acknowledged InitialedBlood Pressure 03:41 09/22/2020 03:42 Jese,Monitor Devin Menjivar M.D.;Distribution A Class Lineman 03:41 09/22/2020 03:42 Jese,(continuous) Devin Menjivar M.D.;EKG 03:41 09/22/2020 03:42 Otto Sawant Riccardo Blair M.D.;NPO 03:41 09/22/2020 03:42 Otto Sawant Riccardo Blair M.D.;Obtain Old EKG 03:41 09/22/2020 03:42 [place], Devin Menjivar M.D.;Obtain Old Records 03:41 09/22/2020 03:42 Otto Sawant Riccardo Blair M.D.;Oxygen titrate to 03:41 09/22/2020 03:42 [place],92% Devin Menjivar M.D.;Pulse oximeter 03:41 09/22/2020 03:42 [place],(Continuous) Devin Menjivar M.D.; 3 OrderSheet [facility] Emergency Department [address] [place] [address] Phone #: ext- [phone] 09/22/2020 03:21 Patient: [...] rce(s) Supporting Document(s) ID Date Data Source [id number] 09/22/2020 03:21:00 AM EDT [facility] 1 Medication Reconciliation Report [facility] Emergency Department [address] [place] [address] Phone #: rjn- [phone] 09/22/2020 03:21 Patient: SEAN MILLER Sex: M [...] Dispense 15 tablet.Refills: 0. Substitution permitted.Pharmacy - [facility] - [address] [place] [address]. .prednisone 20 mg tablet Take 1 tablet once a day for 5 days -- Dispense 5 tablet. Refills: 0.Substitution permitted.Pharmacy - [facility] - [address] [place] [address]. Phone: [phone] Medication Reconciliation Report [facility] Emergency Department [address] [place] [address] Phone #: ext- [phone] 09/22/2020 03:21 Patient: SEAN MILLER Sex: M : 1965 Age: [phone] . -- Devin Menjivar M.D. Name Value Range Interpretation Code Description Data Ebony rce(s) Supporting Document(s) ID Date Data Source [id number] 09/22/2020 03:21:00 AM EDT [facility] 1 Medication Administration Record [facility] Emergency Department [address] [place] [address] Phone #: ext- [phone] 09/22/2020 03:21 Patient: SEAN MILLER Sex: M : 1965 Age: 55yWeight: 74.8 kgHeight/Length: 70 inBMI: 23.7ALLERGIES: No Known Drug Allergy Date/Time Medication Administered Medication OrderedStart SODIUM CHLORIDE [IV] NS IV 500 mL Bolus: : Bolus 73710:20 09/22/2020 Dose: IV Fluids mL (X1)Yomaira Brown, R.N. Bolus: 500 mL wide open---- Dispensed: 500 mL bagStop Site: #1 right wrist04:58 1BKelechi angulo,Start PHENERGAN [IV DRIP] Phenergan IV 25mg in [...] mL04:21 09/22/2020 Dose: 1 unit dose Neb TXMelYomaira sutton, R.N. Name Value Range Interpretation Code Description Data Ebony rce(s) Supporting Document(s) ID Date Data Source [id number] 09/22/2020 03:21:00 AM EDT [facility] 1 General Instructions [facility] Emergency Department [address] [place] [address] Phone #: ext- [phone] 09/22/2020 03:21 Patient: SEAN MILLER Sex: M : 1965 Age: 55yChronic dizzinessStable COPD. No acute COPD.INSTRUCTIONSNo strenuous activity until better.Drink plenty of fluids. Do not smoke. No alcohol.(No marijuana).Warnings: Further evaluation is necessary in order to conduct further tests. It is very important to follow upwith a [facility] provider.GENERAL WARNINGS: Return or contact your physician [...] Dispense 15 tablet.Refills: 0. Substitution permitted.Pharmacy - [facility] - [address] [place] [phone]. .prednisone 20 mg tablet Take 1 tablet once a day for 5 days -- Dispense 5 tablet. Refills: 0.Substitution permitted.[facility] [address] [phone]. .Follow-up:Return to the emergency department as needed. Follow up with your healthcare provider in three dayseven if well. Call for an appointment. Reason for referral: evaluation, treatment and ENT referral. Summaryof care provided to patient via paper. 2 General Instructions [facility] Emergency Department [address] [place] [address] Phone #: ext- [phone] 09/22/2020 03:21 Patient: SEAN MILLER Sex: M : 1965 Age: 55yUnderstanding of the discharge instructions verbalized by patient. Expected course of illness, dischargeinstructions, activity level, diet, prescriptions x2, follow-up appointment and risks and benefits of treatmentreviewed with patient and understanding verbalized. Agrees to plan of care.Follow-up with: [facility], , [id number], [address] [place] [address], ,[place], [address] Follow up in five days even if well. Call for an appointment. Reason for referral: evaluation and treatment.Summary of care provided to patient via paper. ADDITIONAL INFORMATIONDizziness (Uncertain Cause)Dizziness is a common symptom. It may be described as lightheadedness, spinning, or feeling likeyou are going to faint. Dizziness can have many causes.Tell the healthcare provider about: All medicines you take, including prescription, rrdl-kap-rzxraxh, herbs, and supplements Any other symptoms you [...] at least 48 hours. 3 General Instructions [facility] Emergency Department [address] [place] [address] Phone #: ext- [phone] 09/22/2020 03:21 Patient: [...] out or seizure Trouble walking or speaking [id number] [employer]. [address] [place] [address]. All rights reserved. This information is not intended as asubstitute for professional medical care. Always follow your healthcare professional's instructions. You have been given the following additional information: Dizziness, Uncertain Cause No strenuous activity until better.(Electronically signed by Devin Menjivar M.D. 09/22/2020 06:35) 4 General Instructions [facility] Emergency Department [address] [place] [address] Phone #: ext- [phone] 09/22/2020 03:21 Patient: SEAN MILLER Sex: M : 1965 Age: 55y Name Value Range Interpretation Code Description Data Ebony rce(s) Supporting Document(s) ID Date Data Source [id number] 09/22/2020 03:21:00 AM EDT [facility] 1 Clinical Report - Nurses [facility] Emergency Department [address] [place] [address] Phone #: ext- [phone] 09/22/2020 03:21 Patient: [...] any cp, sob, n/v/d, chills or fevers.).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 --03:27 09/22/20 Yomaira Brown R.N.03:22 09/22/20. BP: 134/92. MAP: 106. HR: 79. RR: 16. O2 saturation: 97% on room air. Temp: 98 F.Pain level now: 04/11. --03:27 09/22/20 Yomaira Brown R.N.Weight: 74.8 kg stated. Height/Length: 70 [...] of CRE. 2 Clinical Report - Nurses [facility] Emergency Department [address] [place] [address] Phone #: ext- [phone] 09/22/2020 03:21 Patient: [...] NEURO / PSYCH: Alert. Oriented X 4. [place] Coma Scale: 15- eyes open- spontaneous(4); best [...] start. States "just had everything done at [facility] and my lab work was normal. Why do it again"? States the needles damage my skin. Refusal of treatment reported to Dr. Menjivar.). --03:49 09/22/20 Kelechi Sawant 3 Clinical Report - Nurses [facility] Emergency Department [address] [place] [address] Phone #: ext- [phone] 09/22/2020 03:21 Patient: SEAN MILLER Sex: M : 1965 Age: 55yPatient transported to radiology by wheelchair with mask and radiology administrator. --03:58 09/22/20 Yoamira Brown R.N.Patient returned from radiology by wheelchair with mask and radiology administrator. --04:04 09/22/20 Yomaira Brown R.N.04:05 09/22/20. ( Pt still refusing lab work at this time, pt accepts IV for medications.). Patient returnedfrom CT by stretcher with mask and radiology administrator. Side rails up x 2. Bed placed in lowest position.Brakes of bed on. --04:17 09/22/20 Tip Sawantlizzy04:17 09/22/2020 Site #1 started via IV in [...] thoroughly. 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 Work note given. Patient verbalized understanding. Written instructions provided in [place]ib[place]. The patient was discharged by the physician. 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 but last time he waited 3 hrs so he left; pt has not seen [employer]NET [employer]ER for this or any specialty because "they're useless"; pt also ran out of his prednisone yesterday and needs some until he sees his scrap burner on 09-25; pt states that when he [...] Ompeprazole. 2 Clinical Report - Physicians/Mid Levels [facility] Emergency Department [address] [place] [address] Phone #: ext- [phone] 09/22/2020 03:21 Patient: SEAN MILLER Sex: M [...] room air.Temp: 98 F. Pain level now: 04/11. Have been reviewed. Oxygen saturation normal.Appearance: Alert. [...] 4:09:02 AM EDT 3 Clinical Report - Physicians/Mid Levels [facility] Emergency Department [address] [place] [address] Phone #: ext- [phone] 09/22/2020 03:21 Patient: SEAN MILLER Sex: M : 1965 Age: 55yGENDER: M MODALITY TYPE:CT\\SRDOB: [birth year] DESCRIPTION: CT HEAD W/O CONTRASTINSTITUTION: [facility] ORDERING PHYSICIAN: Devin GodinezION #: [id number] HISTORY: Vertigo/Dizziness. Accumulated DLP-817.5 mGy*cm, Estimated DLP-817.3mGy*cm. Male. Images sent to [facility] for review. Verification of 2 patient identifiers performed. - RLB(Hx) / BRAIN (DICOM Hx)CT Head ( Brain )History:Vertigo/Dizziness. Accumulated DLP- 817.5 mGy*cm, Estimated DLP-817.3 mGy*cm. Male. [facility]. Verification of 2 patient identifiers [...] are normal.Impression 4 Clinical Report - Physicians/Mid Levels [facility] Emergency Department [address] [place] [address] Phone #: ext- [phone] 09/22/2020 03:21 Patient: SEAN MILLER Sex: M : 1965 Age: 55y No acute intracranial process is noted. If clinical suspicion is incongruent with this finding or for greater clinical certainty, further evaluation with MRI scan may be of value. Electronically signed on Sep 22, 2020 4:54:20 AM EDT by: Philipp Tijerina MD Diplomate, [place] [employer]). Head CT performed without [...] since he had some done recently at [facility] and itwas all nml; CXR [...] IMPRESSION 5 Clinical Report - Physicians/Mid Levels [facility] Emergency Department [address] [place] [address] Phone #: ext- [phone] 09/22/2020 03:21 Patient: [...] tablet. Refills: 0. Substitution permitted. Pharmacy - [facility] [place] [address]. . prednisone 20 mg tablet Take 1 tablet once a day for 5 days -- Dispense 5 tablet. Refills: 0. Substitution permitted. [place] [address]. . Follow-up: Return to the emergency department [...] care. 6 Clinical Report - Physicians/Mid Levels [facility] Emergency Department [address] [place] [address] Phone #: ext- [phone] 09/22/2020 03:21 Patient: SEAN MILLER Sex: M : 1965 Age: 55y Follow-up with: ENT [facility], , [id number], [address] [facility] [address], , [place], [address] Follow up in five days even if well. Call for an appointment. Reason for referral: evaluation and treatment. Summary of care provided to patient via paper.(Electronically signed by Devin Menjivar M.D. 09/22/2020 06:35) Name Value Range Interpretation Code Description Data Ebony rce(s) Supporting Document(s) ID Date Data Source [id number] 09/22/2020 04:54:00 AM EDT [address] [place] [address] ---------NAME--------- NUMBER SEX AGE ADMIT DISC. XRAY# F/C TYPE KAMALA ESTRADA [id number] M 55 09/22/20 [id number] E/R DATE OF : 1965 M/R# [id number] #: [id number] TR-05 LOCATION: TRANSCRIBED: 09/22/20 4:[address] HEAD W/O CONTRAST [id number] COMPLETED:09/22/20 4:55 rylee 6818 Reason(s): Vertigo/Dizziness PHYSICIAN: OTTO CARLIN R A D I O L O G Y R E P O R T PATIENT HISTORY:Vertigo/Dizziness. Accumulated DLP-817.5 mGy*cm, Estimated DLP- 817.3 mGy*cm.Male. Images sent to [facility] for review.Verification of 2 patient identifiers performed. - RLB / BRAIN (DICOM Hx)CT Head ( Brain )History:Vertigo/Dizziness. Accumulated DLP-817.5 mGy*cm, Estimated DLP-817.3 mGy*cm.Male. Images sent to [facility] for review. Verification of 2 patient [...] rce(s) Supporting Document(s) ID Date Data Source [id number] 09/03/2020 06:19:00 PM EST [facility] 1 OrderSheet [facility] Emergency Department [address] [place] [address] Phone #: ext [phone] 09/03/2020 18:07 Patient: SEAN MILLER Sex: M [...] rce(s) Supporting Document(s) ID Date Data Source [id number] 09/03/2020 06:19:00 PM [facility] 1 Medication Reconciliation Report [facility] Emergency Department [address] [place] [address] Phone #: ext [phone] 09/03/2020 18:07 Patient: SEAN MILLER Sex: M [...] Dispense 5 tablet. Refills: 0. Substitutionpermitted.Pharmacy - [facility] - [address] [place] [phone]. . 2 Medication Reconciliation Report [facility] Emergency Department [address] [place] [address] Phone #: ext- [phone] 09/03/2020 18:07 Patient: SEAN MILLER Sex: M : 1965 Age: 55yalbuterol sulfate HFA 90 mcg/actuation aerosol inhaler Inhale 2 puff four times a day -- Dispense 1inhaler. Refills: 0. Substitution permitted.Pharmacy - [facility] - [address] [place] [address] [phone]. .albuterol sulfate 2.5 mg/3 mL (0.083 %) solution for nebulization Take 3 ml four times a day for 10 days-- prn wheezing. Dispense 120 ml. Refills: 0. Substitution permitted.Pharmacy - [facility] - [address] [place] [address] [phone]. . -- Chelsy Oakley MD Name Value Range Interpretation Code Description Data [facility](s) Supporting Document(s) ID Date Data Source [id number] 09/03/2020 06:19:00 PM [place] [address] Medication Administration Record [facility] Emergency Department [address] [place] [address] Phone #: ext- [phone] 09/03/2020 18:07 Patient: [...] rce(s) Supporting Document(s) ID Date Data Source [id number] 09/03/2020 06:19:00 PM [facility] 1 General Instructions [facility] Emergency Department [address] [place] [address] Phone #: ext- [phone] 09/03/2020 18:07 Patient: [...] tablet. Refills: 0. Substitution permitted. Pharmacy - [facility] - [address] [place] [phone]. . albuterol sulfate HFA 90 mcg/actuation aerosol inhaler Inhale 2 puff four times a day -- Dispense 1 inhaler. Refills: 0. Substitution permitted. Pharmacy - [facility] [address] [phone]. . albuterol sulfate 2.5 mg/3 mL (0.083 %) solution for nebulization Take 3 ml four times a day for 10 days -- prn wheezing. Dispense 120 ml. Refills: 0. Substitution permitted. Pharmacy - [facility] - [address] [facility] ; [place], [place] [phone]. . 2 General Instructions [facility] Emergency Department [address] [place] [address] Phone #: ext- [phone] 09/03/2020 18:07 Patient: SEAN MILLER Sex: M : 1965 Age: 55y Understanding of the discharge instructions verbalized by patient. Follow-up with: [facility], , , [address] [place] [address], [address] Follow up in one even if well. [...] is called a flare-up. 3 General Instructions [facility] Emergency Department [address] [place] [address] Phone #: ext- [phone] 09/03/2020 18:07 Patient: [...] others who are smoking. 4 General Instructions [facility] Emergency Department [address] [place] [address] Phone #: ext- [phone] 09/03/2020 18:07 Patient: [...] dairy products.Preventing a flare-up 5 General Instructions [facility] Emergency Department [address] [place] [address] Phone #: ext- [phone] 09/03/2020 18:07 Patient: SEAN MILLER Sex: M [...] your healthcare provider about your ability to: [place] in your normal environment Correctly use inhaler (or your medicine delivery systems) [place] with other conditions you have and their treatments and how they may affect your COPDCall 911Call 911 if any of these occur: Wheezing or shortness or breath does not get better with treatment Chest pain or chest tightness Feeling lightheaded or dizzy You have trouble breathing You feel confused or it's hard to wake you up 6 General Instructions [facility] Emergency Department [address] [place] [address] Phone #: ext- [phone] 09/03/2020 18:07 Patient: SEAN MILLER Sex: M [...] ankles gets worse Weakness 1999- 2019 [employer]. [address] [place] [address]. All rights reserved. This information is not intended as asubstitute for profession al medical care. Always follow your healthcare professional's instructions. You have been given the following additional information: COPD Flare(Electronically signed by Chelsy Oakley MD 09/04/2020 00:34) Name Value Range Interpretation Code Description Data Ebony rce(s) Supporting Document(s) ID Date Data Source [id number] 09/03/2020 06:19:00 PM [facility] 1 Clinical Report - Nurses [facility] Emergency Department [address] [place] [address] Phone #: ext- [phone] 09/03/2020 18:07 Patient: SEAN MILLER Sex: M : 1965 Age: 55yTRIAGEArrived by EMS. Historian: patient.Acuity: LEVEL 3.Chief Complaint: SHORTNESS OF BREATH and DIFFICULTY BREATHING.Onset. (5 days ago). ( Pt states he has had dyspnea for about the past 5 days, he [facility] to 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 See report. DUONEB nebulizer treatmentgiven.SEPSIS SCREEN: SIRS SCREEN NEGATIVE. SEPSIS SCREEN NEGATIVE. No suspected or confirmedsigns of infection present. --18:17 09/03/20 Dario Eckert RN18:11 09/03/20. BP: 139/91. MAP: 107. HR: 77. RR: 18. O2 saturation: 100%. Temp: 97.6 F (oral). Painlevel now: 0. --18:17 09/03/20 Dario Eckert RN.Weight: 74.8 kg [...] RN.ADDITIONAL SURGERIES: 2 Clinical Report - Nurses [facility] Emergency Department [address] [place] [address] Phone #: ext- [phone] 09/03/2020 18:07 Patient: [...] Eckert RN 3 Clinical Report - Nurses [facility] Emergency Department [address] [place] [address] Phone #: ext- [phone] 09/03/2020 18:07 Patient: SEAN MILLER Sex: M [...] Patient verbalized understanding. Written instructions provided in [place]. The patient was discharged by the physician. [...] rce(s) Supporting Document(s) ID Date Data Source [id number] 09/03/2020 06:19:00 PM EST [facility] 1 Clinical Report - Physicians/Mid Levels [facility] Emergency Department [address] [place] [address] Phone #: ext- [phone] 09/03/2020 18:07 Patient: [...] the past 5 days, he went to [facility] this past Monday and was [...] daily. 2 Clinical Report - Physicians/Mid Levels [facility] Emergency Department [address] [place] [address] Phone #: ext- [phone] 09/03/2020 18:07 Patient: SEAN MILLER [facility]#: [id number] Sex: M : 1965 Age: 55y predniSONE [...] ems for prescriptions for his copd. pt alpigd247. h e received a duoneb. 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 3 Clinical Report - Physicians/Mid Levels [facility] Emergency Department [address] [place] [address] Phone #: ext- [phone] 09/03/2020 18:07 Patient: [...] tablet. Refills: 0. Substitution permitted. Pharmacy - [facility] [place] [address]. . albuterol sulfate HFA 90 mcg/actuation aerosol inhaler Inhale 2 puff four times a day -- Dispense 1 inhaler. Refills: 0. Substitution permitted. Pharmacy - [facility] [place] [address]. . albuterol sulfate 2.5 mg/3 mL (0.083 %) solution for nebulization Take 3 ml four times a day for 10 days -- prn wheezing. Dispense 120 ml. Refills: 0. Substitution permitted. [facility] - [address] [phone]. Phone: [phone] Clinical Report - Physicians/[facility] Emergency Department [address] [place] [address] Phone #: ext- [phone] 09/03/2020 18:07 Patient: SEAN MILLER Sex: M : 1965 Age: 55y [phone] FaxNumber: . Understanding of the discharge instructions verbalized by patient. Follow- up with: [facility], , , [address] [place] [address], [facility] Follow up in one even if well. Call for an appointment. Reason for referral: evaluation. Summary of care provided to patient via paper.(Electronically signed by Chelsy Oakley MD 09/04/2020 00:34) Name Value Range Interpretation Code Description Data Ebony rce(s) Supporting Document(s) ID Date Data Source [id number] 08/13/2020 02:42:00 [place] [address] RESPIRATORY CARE REPORT ==== ---------NAME------- NUMBER SEX AGE ADMIT DISC. XRAY# F/C TYPEMCCONorman ESTRADA [id number] 55 08/11/20 08/11/20 [id number] X6B E/R DATE OF : 1965 M/R# [id number] PH#: [phone] TR- LOCATION: EMERGENCY DEPT EKG 71558 COMP LETE:08/12/20 04:12 [place] [address] PHYSICIAN: SUMAN Name Value Range Interpretation Code Description Data Ebony rce(s) Supporting Document(s) ID Date Data Source [id number] 08/12/2020 01:51:00 [place] [address] PHONE: [phone] FAX: [phone] Name .................. : KAMALA ESTRADA Acct Number.................. : [id number] ROOM. ................. : Number ................... : [id number] Stay type ............. : E/R Discharge Date......... ... : Admit Date ......... : 08/11/20 Admit Phys .................... : ARCENIOCO Date of ....... : 1965 Family Phys ................... : NON STAFF Phone .................. : [phone] Age ................................ : 55 Film# .................. .:[id number] Sex ................................. : M Unsigned transcriptions are preliminary reports and do not represent a medical or legal document CT HEAD W/O CONTRAST [id number] COMPLETE:08/11/20 11:31 KJE 3915 Reason(s): dizziness, HTN [...] MD , 08/12/20 13:51, KGG Transcribe Initials: SSR, Transcribe Date: 08/11/20 12:20, Dictation Date: Copy for: EMERGENCY DEPT via modem Copy for: 710 MED REC Page 1 of 2 [facility] [address] [place] [address] PHONE: [phone] FAX: [phone] Name .................. : KAMALA ESTRADA Acct Number.................. : [id number] ROOM. ................. : TR-07 MR Number ................... : [id number] Stay type ............. : E/R Discharge Date......... ... : Admit Date ......... : 08/11/20 [facility] ....... : 1965 Family Phys ................... : NON STAFF Phone .................. : [phone] Age ................................ : 55 Film# .................. .:[id number] Sex ................................. : M Unsigned transcriptions are preliminary reports and do not represent a medical or legal document CT HEAD W/O CONTRAST [id number] COMPLETE:08/11/20 11:31 KJE 3915 Reason(s): dizziness, HTN DISCHARGED Page 2 of 2 Name Value Range Interpretation Code Description Data Ebony rce(s) Supporting Document(s) ID Date Data Source [id number] 08/12/2020 01:47:00 PM EST [facility] [address] [place] [address] PHONE: [phone] FAX: [phone] Name .................. : KAMALA ESTRADA Acct Number.................. : [id number] [facility] ............[facility]... : [id number] Stay type ............. : E/R Discharge Date......... ... : Admit Date ......... : 08/11/20 Admit Phys .................... : [facility] Date of ....... : 1965 Family Phys ................... : NON STAFF Phone .................. : [phone] Age ................................ : 55 Film# .................. .:[id number] Sex ................................. : M Unsigned transcriptions are preliminary reports and do not represent a medical or legal document CHEST PORTABLE [id number] COMPLETE:08/11/20 10:09 2759 Reason(s): dizziness PORTABLE CHEST, 08/11/20: INDICATION: Dizziness. [...] rce(s) Supporting Document(s) ID Date Data Source [id number] 08/11/2020 09:55:00 AM EST [facility] 1 OrderSheet [facility] Emergency Department [address] [place] [address] Phone #: ext- [phone] 08/11/2020 09:45 Patient: [...] for Study: dizziness, HTNMEDICATION/IV/DRIP/FLUID ORDERS 2 OrderSheet [facility] Emergency Department [address] [place] [address] Phone #: ext- [phone] 08/11/2020 09:45 Patient: SEAN MILLER Sex: M : 1965 Age: 55yOrder Description Priority Entered Acknowledged InitialedcloNIDine PO 0.1 10:09 08/11/2020 10:17 Miah,Annia Klein R.N. ;GENERAL ORDERSOrder Description Priority Entered Acknowledged InitialedBlood Pressure 10:08/11/2020 10:09 [facility] Suman Pepperell hop grower, [place] [facility] ; Ughp6Rkztgyc Monitor 10:08/11/2020 10:09 [place](continuous) Suman Pepperell hop grower, [place] [facility] ; Ogdt7VTO 10:08/11/2020 10:09 [place] Suman Pepperell hop grower, [place] [facility] ; Xgqq0MOP 10:08/11/2020 10:09 [place] Suman Pepperell hop grower, [place] [facility] ; Gpbz9Wimxxl Old EKG 10:08/11/2020 10:09 [facility] hop grower, [place] [facility] ; Zoid7Immskw Old Records 10:08/11/2020 10:09 [facility], [place] [facility] ; Skvj0Fhgdar titrate to 10:08/11/2020 10:09 Ucjwvuj56% [facility], [place] [facility] ; Auqf1Lhbdp oximeter 10:08/11/2020 10:09 [place](Spot Check) [place] [facility] ; [id number] Lock 10:08/11/2020 10:17 Suman Dooley Victoria Rachel R.N. ;Vitals 10:08/11/2020 10:17 Suman Dooley Victoria Rachel R.N. ;Vitals - Orthostatic 10:51 08/11/2020 11:43 Suman Dooley Victoria Rachel R.N. ;[Electronically signed by Annia Will (14:00 08/11/2020)][Electronically signed by Isabella Dooley R.N. (14:16 08/11/2020)] 3 OrderSheet [facility] Emergency Department [address] [place] [address] Phone #: ext- [phone] 08/11/2020 09:45 Patient: SEAN MILLER Sex: M : 1965 Age: 55y[Electronically locked by Isabella Dooley R.N. (14:16 08/11/2020)] Name Value Range Interpretation Code Description Data Ebony rce(s) Supporting Document(s) ID Date Data Source [id number] 08/11/2020 09:55:00 AM EST [facility] 1 Medication Reconciliation Report [facility] Emergency Department [address] [place] [address] Phone #: [phone]- [phone] 08/11/2020 09:45 Patient: SEAN MILLER Sex: M [...] Dispense 30tablet. Refills: 0. Substitution permitted.Pharmacy - [facility] - [address] [place] [address] [phone]. . -- Annia Will 2 Medication Reconciliation Report [facility] Emergency Department [address] [place] [address] Phone #: [phone] ydl- [phone] 08/11/2020 09:45 Patient: SEAN MILLER Sex: M : 1965 Age: 55y Name Value Range Interpretation Code Description Data Ebony rce(s) Supporting Document(s) ID Date Data Source [id number] 08/11/2020 09:55:00 AM [facility] 1 Medication Administration Record [facility] Emergency Department [address] [place] [address] Phone #: ext- [phone] 08/11/2020 09:45 Patient: SEAN MILLER Sex: M : 1965 Age: 55yWeight: 77.7 kgHeight/Length: 68 inBMI: 26.1ALLERGIES: No Known Drug Allergy Date/Time Medication Administered Medication OrderedGiven CLONIDINE [PO] cloNIDine PO 0.1 mg10:17 08/11/2020 Dose: 0.1 mg Tablets Isabella Cortes R.N. Name Value Range Interpretation Code Description Data Ebony rce(s) Supporting Document(s) ID Date Data Source [id number] 08/11/2020 09:55:00 AM [facility] 1 General Instructions [facility] Emergency Department [address] [place] [address] Phone #: ext- [phone] 08/11/2020 09:45 Patient: SEAN MILLER Sex: M [...] Dispense 30tablet. Refills: 0. Substitution permitted.Pharmacy - [facility] - [address] [place] [address] ; [place], [place] [phone]. .Follow-up:Return to the emergency department as needed. Screening today revealed the patient's blood pressure rustam in the hypertensive stage 2 range. The patient should follow up with a primary care provider for bloodpressure management.Follow-up with: [facility], , , [address] [place] [address], [facility] Follow up in three days. Call for the next available appointment. Reason for referral: evaluation.Summary of care provided to patient via paper. ADDITIONAL INFORMATIONUncontrolled High Blood Pressure (Established) 2 General Instructions [facility] Emergency Department [address] [place] [address] Phone #: ext- [phone] 08/11/2020 09:45 Patient: SEAN MILLER Sex: M [...] is 90 or higher 3 General Instructions [facility] Emergency Department [address] [place] [address] Phone #: ext- [phone] 08/11/2020 09:45 Patient: [...] that stimulate the heart. This includes many jdrk-xsw-kpkruwt cold and sinus decongestant pills and sprays, as well as diet pills. Check the warnings about high blood pressure on the label. Before purchasing any wltq-jsm-iadzupw medicines or supplements, always ask the pharmacist [...] you feel better or 4 General Instructions [facility] Emergency Department [address] [place] [address] Phone #: ext- [phone] 08/11/2020 09:45 Patient: [...] on home blood pressure monitoring from the [employer]. Don't smoke or drink coffee for [...] record of your home 5 General Instructions [facility] Emergency Department [address] [place] [address] Phone #: ext- [phone] 08/11/2020 09:45 Patient: SEAN MILLER Sex: M [...] of the face Trouble speaking or seeing [employer]. [address] [place] [address]. All rights reserved. This information is not intended as asubstitute for professional medical care. Always follow your healthcare professional's instructions. You have been given the following additional information: High Blood Pressure, Established, Out of Control(Electronically signed by Annia Will 08/11/2020 14:00) Name Value Range Interpretation Code Description Data Ebony rce(s) Supporting Document(s) ID Date Data Source [id number] 08/11/2020 09:55:00 AM EST [facility] 1 Clinical Report - Nurses [facility] Emergency Department [address] [place] [address] Phone #: [phone]- [phone] 08/11/2020 09:45 Patient: SEAN MILLER Sex: M : 1965 Age: 55yTRIAGEArrived by EMS. Historian: patient.Triage time: 09:47 08/11/2020. Acuity: LEVEL 3.Chief Complaint: DIZZINESS. BLOOD PRESSURE ELEVATED.09:47 08/11/20. Alert. 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 2 Clinical Report - Nurses [facility] Emergency Department [address] [place] [address] Phone #: ext- [phone] 08/11/2020 09:45 Patient: SEAN MILLER Sex: M : 1965 Age: 55yPROBLEMS:Arthritis.Hypertension. --09:57 08/11/20 Irasema Brito RN.ADDITIONAL SURGERIES:no known surgeries.Kcehmsm07:47 08/11/20.PAST MEDICAL HX: Immunizations: up-to-date.SOCIAL HX: Smoker- [...] not a known carrier of CRE.--10:26 08/11/20 Irsaema Brito RN.Nhwiybxvdnioc48:47 08/11/20. To treatment room. Transported via stretcher by EMS. to room 7. --10:08/11/20 KIMBERLY Melgar. 3 Clinical Report - Nurses [facility] Emergency Department [address] [place] [address] Phone #: ext- [phone] 08/11/2020 09:45 Patient: [...] --10:08/11/20 Isabella Dooley R.N.NURSING PROGRESS NOTES09:47 08/11/20. patient monitor, NIBP monitor and pulse oximeter placed on patient; fire ranger-Lead II; monitor alarms on. Patient gowned. Head [...] shown to the ED physician. --10:10 08/11/20 [facility] Juan Manuel Ochoa ER Tech1 10:17 08/11/2020 Clonidine PO Tablets 0.1 mg given. Allergies verified and confirmed 5 rights. Information reviewed with patient including reason for taking this medication. Verbalizes understanding. --10:17 08/11/20 Isabella Dooley R.N. Patient transported to [place] by wheelchair with mask and tech. --11:16 08/11/20 Isabella Dooley R.N. 11:22 08/11/20. Patient returned from CT by wheelchair with mask and tech. --11:44 08/11/20 Isabella Dooley R.N. 11:38 08/11/20. BP: 136/82 taken while lying. MAP: 100. --11:46 08/11/20 Isabella Dooley R.N. 11:40 08/11/20. BP: 136/107 taken while sitting. MAP: 116. --11:46 08/11/20 Isabella Dooley R.NSimona 11:44 08/11/20. BP: 148/101 taken while standing. MAP: 116. --11:46 08/11/20 Isabella Dooley R.N. 12:00 08/11/20. BP: 138/98. MAP: 111. HR: 58. RR: 17. O2 saturation: 99%. --13:39 08/11/20 [facility] Juan Manuel Ochoa ER Tech1 12:15 08/11/20. BP: 141/87. MAP: 105. HR: 69. RR: 18. O2 saturation: 100%. --13:40 08/11/20 [facility] Tech, [facility] Tech1 4 Clinical Report - Nurses [facility] Emergency Department [address] [place] [address] Phone #: ext- [phone] 08/11/2020 09:45 Patient: SEAN MILLER Sex: M : 1965 Age: 55y12:30 08/11/20. BP: 145/96. MAP: 112. HR: 62. RR: 17. O2 saturation: 100%. --13:40 08/11/20 [facility] Xmqu570:45 08/11/20. BP: 142/95. MAP: 110. HR: 65. RR: 17. O2 saturation: 100%. --13:41 08/11/20 [facility] Bthf010:00 08/11/20. BP: 122/84. MAP: 96. HR: 63. RR: 18. O2 saturation: 100%. --13:41 08/11/20 [facility] Juan Manuel, Mgne494:15 08/11/20. BP: 122/84. MAP: 96. HR: 67. RR: 17. O2 saturation: 100%. --13:41 08/11/20 [facility] Bbwj037:45 08/11/20. BP: 156/103. MAP: 120. HR: 72. RR: 17. O2 saturation: 9 8%. --13:58 08/11/20 Laurie Estrada R.N.11:08/11/20. BP: 157/106. ED physician notified. MAP: 123. HR: 68. O2 saturation: 100%. --13:5808/11/20 Laurie Estrada R.N.11:15 08/11/20. BP: 164/115. MAP: 131. HR: 70. RR: [...] R.N.12:35 08/11/20. 5 Clinical Report - Nurses [facility] Emergency Department [address] [place] [address] Phone #: ext- [phone] 08/11/2020 09:45 ----- Patient: SEAN MILLER Sex: [...] electronically to pharmacy (Lisinopril, hydrochlorothiazide). Reviewed referrals ([facility]). Reviewed diet. Patient verbalized understanding. [...] rce(s) Supporting Document(s) ID Date Data Source [id number] 08/11/2020 09:55:00 AM EST [facility] 1 Clinical Report - Physicians/Mid Levels [facility] Emergency Department [address] [place] [address] Phone #: ext- [phone] 08/11/2020 09:45 Patient: [...] drugs today. 2 Clinical Report - Physicians/[facility] Emergency Department [address] [place] [address] Phone #: ext- [phone] 08/11/2020 09:45 Patient: [...] (Reference) 3 Clinical Report - Physicians/Mid Levels [facility] Emergency Department [address] [place] [address] Phone #: ext- [phone] 08/11/2020 09:45 Patient: SEAN MILLER Sex: M [...] Room: ED Exam [place] [address] PHONE: [phone] FAX: [phone] Name .................. : KAMALA ESTRADA Acct Number.................. : [id number] ROOM. ................. : TR-07 MR Number ................... : [id number] Stay type ............. : E/R Discharge Date......... ... : Admit Date ......... : 08/11/20 Admit Phys .................... : SUMAN Date of ....... : 1965 Family Phys ................... : NON STAFF Phone .................. : [phone] Age ................................ : 55 Film# .................. .:[id number] Sex ................................. : M Unsigned transcriptions are preliminary reports and do not represent a medical or legal document CT HEAD W/O CONTRAST [id number] COMPLETE:08/11/20 11:31 KJE 3915 Reason(s): dizziness, HTN [...] accomplished 4 Clinical Report - Physicians/Mid Levels [facility] Emergency Department [address] [place] [address] Phone #: ext- [phone] 08/11/2020 09:45 -- Patient: SEAN MILLER Sex: [...] PANEL 5 Clinical Report - Physicians/Mid Levels [facility] Emergency Department [address] [place] [address] Phone #: ext- [phone] 08/11/2020 09:45 Patient: [...] Male GFR Interprentation 20-49 yrs >60 mL/min Qhvooq79-05 yrs >56 mL/min Normal 60-69 yrs >49 mL/min Normal 70-79yrs>42 mL/min Normal 80 and above >35 mL/min Normal Female GFRInterpretation 20-39 yrs >60 mL/min Normal 40-49 yrs >58 mL/minNormal 50-59 yrs >51 mL/min Normal 60-69 yrs >45 mL/min Mqityg84-31 yrs >39 mL/min Normal 80 and above [...] VenousThrombosis, Pulmonary Embolus, Tissue heart valves, Acute CO Atrial Fibrillation, Valvular heart diseaseand recurrent Systemic [...] 08/11/2020 13:34) In [place] [address] 6 Clinical Report - Physicians/Mid Levels [facility] Emergency Department [address] [place] [address] Phone #: ext- [phone] 08/11/2020 09:45 Patient: SEAN MILLER Sex: M : 1965 Age: 55y PHONE: [phone] FAX: [phone] Name .................. : KAMALA ESTRADA Acct Number.................. : [id number] ROOM. ................. : TR-07 MR Number ................... : [id number] Stay type ............. : E/R Discharge Date......... ... : Admit Date ......... : 08/11/20 Admit Phys .................... : [facility] Date of ....... : 1965 Family Phys ................... : NON STAFF Phone .................. : [phone] Age ................................ : 55 Film# .................. .:[id number] Sex ................................. : M Unsigned transcriptions are preliminary reports and do not represent a medical or legal document CHEST PORTABLE [id number] COMPLETE:08/11/20 10:09 3909 Reason(s): dizziness PORTABLE CHEST, [...] dictation. Electronically Reviewed and Signed By DCTNAME SIGNDATE, LIZ Transcribe Initials: SSR, Transcribe Date: 08/11/20 12:17, Dictation Date: <<REPDIST>> [...] No 7 Clinical Report - Physicians/Mid Levels [facility] Emergency Department [address] [place] [address] Phone #: ext- [phone] 08/11/2020 09:45 Patient: SEAN MILLER Sex: M [...] tablet. Refills: 0. Substitution permitted. Pharmacy - [facility] - [address] [place] [address] ; [place], [place] [id number]. FaxNumber: [phone]. Follow-up: Return to the emergency department as needed. Screening today revealed the patient's blood pressure to be in the hypertensive stage 2 range. The patient should follow up with a primary care provider for blood pressure man agement. Follow-up with: [facility], , , [address] [place], [address] Follow up in three days. Call for the next available appointment. Reason for referral: evaluation. 8 Clinical Report - Physicians/Mid Levels [facility] Emergency Department [address] [place] [address] Phone #: ext- [phone] 08/11/2020 09:45 Patient: SEAN MILLER Sex: M : 1965 Age: 55y Summary of care provided to patient via paper.(Electronically signed by Annia Will 08/11/2020 14:00) Name Value Range Interpretation Code Description Data Ebony rce(s) Supporting Document(s) ID Date Data Source [id number] 08/11/2020 11:22:00 AM EST [facility] Name Value Range Interpretation Code Description Data [facility] rce(s) Supporting Document(s) [facility] S[facility] R [facility] COLOR yellow NORMAL: Yellow [facility] CLARITY clear NORMAL: Clear [facility] Specific gravity of Urine by Test strip 1.025 1.001 - 1.030 [facility] pH 6 5 - 9 [facility] Glucose [Mass/volume] in Urine by Test strip 100 NORMAL: Negat loco A [facility] Bilirubin.total [Presence] in Urine by Test strip NEG NORMAL: Negative [facility] Ketones [Presence] in Urine by Test strip NEG NORMAL: Negative [facility] Protein [Mass/volume] in Urine by Test strip 15 NORMAL: Negat loco [facility] Nitrite [Presence] in Urine by Test strip NEG NORMAL: Negative [facility] BLOOD 10 NORMAL: Negative A [facility] Leukocyte esterase [Presence] in Urine by Test strip NEG CHELSY L: Negative [facility] Urobilinogen [Mass/volume] in Urine by Test strip NOR less sravanthi n 1.0 mg/dL [facility] MICROSCOPIC See Below [facility] ital Erythrocytes [#/volume] in Urine by Test strip 0 - 1 NORMAL: NON E SEEN [facility] EPITHELIAL FEW NORMAL: NONE SEEN [facility] Bacteria [Presence] in Urine sediment by Light microscopy Tr erika NORMAL: NONE SEEN [facility] ID Date Data Source [id number] 08/11/2020 11:11:00 AM [facility] Name Value Range Interpretation Code Description Data Ebony rce(s) Supporting Document(s) TROPONIN T <0.01 NG/ML 0.00 - 0.10 [facility] TROPONIN T0.1 ng/ml Recommended as the c linical threshold value forTroponin T. ID Date Data Source [id number] 08/11/2020 10:52:00 AM [facility] Name Value Range Interpretation Code Description Data Ebony rce(s) Supporting Document(s) COMPREHENSIVE METABOLIC PANEL [facility] COMPREHENSIVE METABOLIC PANEL Sodium [Moles/volume] in Serum or Plasma 139 mEq/L 134 - 153 [facility] Potassium [Moles/volume] in Serum or Plasma 4.2 mEq/L 3.6 - 5.0 [facility] Chloride [Moles/volume] in Serum or Plasma 107 mEq/L 98 - 107 [facility] Carbon dioxide, total [Moles/volume] in Serum or Plasma 25 MEQ/L 22 - 30 [facility] Glucose [Mass/volume] in Serum or Plasma 213 MG/DL 70 - 99 H [facility] BUN 23 MG/DL 7 - 21 H [facility] Creatinine [Mass/volume] in Serum or Plasma 0.8 MG/DL 0.7 - 1.5 [facility] BUN/CREAT 29 8 - 27 H [facility] Protein [Mass/volume] in Serum or Plasma 6.2 G/DL 6.3 - 8.2 L [facility] Albumin [Mass/volume] in Serum or Plasma 3.7 G/DL 3.9 - 5.0 L [facility] Globulin [Mass/volume] in Serum by calculation 2.5 GM/DL 2.4 - 3.2 [facility] A/G RATIO 1.5 0.8 - 2.0 [facility] Calcium [Mass/volume] in Serum or Plasma 8.5 MG/DL 8.4 - 10.2 [facility] Bilirubin.total [Mass/volume] in Serum or Plasma <0.7 MG/DL 0.2 - 1.3 [facility] Alkaline phosphatase [Enzymatic activity/volume] in Serum or Plasma 111 U/L 38 - 126 [facility] Aspartate aminotransferase [Enzymatic activity/volume] in Serum or Plasma 16 U/L 5 - 40 [facility] Alanine aminotransferase [Enzymatic activity/volume] in Seru m or Plasma 11 U/L 7 - 56 [facility] Anion gap 3 in Serum or Plasma 7.0 mmol/L 8.0 - 16.0 L [facility] AGE 55 yrs [facility] al NON-AA GFR >60 mL/min [facility] ital AFR AMER GFR >60 mL/min [facility] Male GFR In terprentation 20-49 [...] >32 mL/min Normal ID Date Data Source [id number] 08/11/2020 10:49:00 AM [facility] Name Value Range Interpretation Code Description Data Ebony rce(s) Supporting Document(s) Lipase [Enzymatic activity/volume] in Serum or Plasma 39 U/L 13 - 60 [facility] ID Date Data Source [id number] 08/11/2020 10:46:00 AM [facility] Name Value Range Interpretation Code Description Data Ebony rce(s) Supporting Document(s) Prothrombin time (PT) 11.0 SECONDS 11.0 - 15.5 [facility] INR in Platelet poor plasma by Coagulation assay 0.76 0.93 - 1. 23 L [facility] aPTT in Blood by Coagulation assay 26.3 SECONDS 24.8 - 36.7 [facility] \\BLDo\\INR INTERPRETATION\\BLDx\\ Therapeutic range for Coumadin and related oral anticoagulants. - International Normalized Ratio (INR): 2.0 - 3.0 for Venous Thrombosis, Pulmonary Embolus, Tissue heart valves, Acute CO Atrial Fibrillation, Valvular heart disease and recurrent Systemic Embolism. - International Normalized Ratio (INR): 2.5 - 3.5 for Mechanical Prosthetic valve. ID Date Data Source [id number] 08/11/2020 10:32:00 AM EST [facility] Name Value Range Interpretation Code Description Data Ebony rce(s) Supporting Document(s) CBC W/AUTOMATED DIFF [facility] COMPLETE BLOOD COUNT Leukocytes [#/volume] in Blood by Automated count 16.1 10^3/uL 4.2 - 11.0 H [facility] Erythrocytes [#/volume] in Blood by Automated count 4.41 10^6/uL 4. 50 - 6.30 L [facility] Hemoglobin [Mass/volume] in Blood 13.0 g/dL 14.0 - 16.0 L [facility] Hematocrit [Volume Fraction] of Blood by Automated count 40.6 % 4 1.0 - 51.0 L [facility] Erythrocyte mean corpuscular volume [Entitic volume] by Auto mated count 92.1 fL 80.0 - 94.0 [facility] Erythrocyte mean corpuscular hemoglobin [Entitic mass] by Automated count 29.5 pg 27.0 - 34.0 [facility] Erythrocyte mean corpuscular hemoglobin concentration [Mass/volume] by Automated count 32.0 g/dL 31.0 - 36.0 [facility] Erythrocyte distribution width [Ratio] by Automated count 15.5 % 11.5 - 14.8 H [facility] Platelets [#/volume] in Blood by Automated count 230 10^3/uL 150 - 45 0 [facility] Platelet mean volume [Entitic volume] in Blood by Automated count 9.0 fL 7.4 - 10.4 [facility] Neutrophils/100 leukocytes in Blood by Automated count 91.7 % 37. 0 - 80.0 H [facility] Lymphocytes/100 leukocytes in Blood by Manual count 5.1 % 25.0 - 40.0 L [facility] Monocytes/100 leukocytes in Blood by Automated count 2.2 % 3.0 - 8.0 L [facility] Eosinophils/100 leukocytes in Blood by Automated count 0.0 % 0.0 - 7.0 [facility] Basophils/100 leukocytes in Blood by Automated count 0.1 % 0.0 - 2.0 [facility] %IG 0.9 % 0.0 - 0.0 H [facility] %NRBC 0.0 % 0.0 - 0.0 [facility] al Neutrophils [#/volume] in Blood by Automated count 14.79 10^3/uL 2. 00 - 6.90 H [facility] Lymphocytes [#/volume] in Blood by Automated count 0.83 10^3/uL 0.60 - 3.40 [facility] Monocytes [#/volume] in Blood by Automated count 0.36 10^3/uL 0.00 - 0.90 [facility] Eosinophils [#/volume] in Blood by Automated count 0.00 10^3/uL 0.00 - 0.70 [facility] Basophils [#/volume] in Blood by Automated count 0.02 10^3/uL 0.00 - 0.20 [facility] #IG 0.14 10^3/uL 0.00 - 0.10 H [facility] #NRBC 0.00 10^3/uL 0.00 - 0.00 [facility] MANUAL DIFF NOT INDICATED [facility] RBC MORPH NOT INDICATED [facility] ID Date Data Source [id number] 07/27/2020 07:25:00 AM EST [facility] Name Value Range Interpretation Code Description Data Ebony rce(s) Supporting Document(s) SARS-CoV-2 (COVID 19) NEGATIVE - SARS[facility]CoV-[facility] (COVID19) [facility] This lab was ordered by [facility] a nd reported by [facility]. ID Date Data Source [id number] 04/06/2020 02:08:56 PM EDT [facility] Measurements & CalculationsHeight: 69 inches (5 [...] is a 55 y/o male, presents for [facility] ER follow-up.Pt seen in [facility] ER 04/01/2020 and 04/04/2020 for COPD exacerbation. Pt was discharged with prednisone (states he is chronically on 20mg daily x 5 years), Advair, and albuterol on 04/01/2020, then with azithyromycin on 04/04/2020. Pt feels improvement with the antibiotics, states pain is 75% improved. Pt has new patient packet to complete and turn in before he can be scheduled with [facility] Pulmonology. Pt states he had home care when he lived in [place], [place] over a year ago. Had a [...] during this visit, including review of any qdmv-izb-adyhris medications, herbal therapies, and/or supplements.Allergy ReviewAllergy List [...] Problems:Assessed:Chronic obstructive pulmonary disease with (acute) exacerbation (FJG45-I90.1) Assessment: Instructions: Finish medication as currently prescribed. Turn in paperwork to pulmonology [facility] so you can get scheduled.Collapsed vertebra, not elsewhere classified, lumbosacral region, sequela of fracture (ICD-805.4) (EOZ03-I22.57xS) Assessment: Instructions: Please have [facility] refax blank paperwork for completion.Chronic low back pain (ICD-724.2) (SVR10-T87.5) Assessment: Instructions: Continue per pain management. As above regarding home care orders.Patient Instructions/Care Plan: Chronic obstructive pulmonary disease with (acute) exacerbation: Finish medication as currently prescribed. Turn in paperwork to pulmonology [facility] so you can get scheduled.Collapsed vertebra- not elsewhere classified- lumbosacral region- sequela of fracture: Please have [facility] refax blank paperwork for completion.Chronic low [...] ORAL PREDNISONE 10 MG ORAL TABLET Qty: [id number] Refills: 15[Tablet] To: PREDNISONE 20 MG ORAL TABLET-take one tablet by mouth dailyAllergies:* RANITIDINE (Mild)Orders:Adult - Ofc Vst, EST, Level III [CPT- 70999] Follow-Up Return to clinic: as needed Clinical Visit Summary Completed Name Value Range Interpretation Code Description Data Ebony rce(s) Supporting Document(s) ID Date Data Source [id number] 04/04/2020 10:40:00 AM EDT [facility] Name Value Range Interpretation Code Description Data Ebony rce(s) Supporting Document(s) HCT 44.9 % 42.0-52.0 N [facility] HGB 14.4 g/dL 13.5-17.5 N [facility] MCH 32.1 G/DL pg 32.0-36.5 N [facility] MCHC 28.9 PG % 27.0-33.0 N [facility] PLATELETS 211 10 10*3/mm3 150-450 N [facility] RBC 4.98 10 10*6/mm3 4.30-6.10 N [facility] RDW 14.8 % 11.5-14.5 H [facility] WBC TOTAL 16.4 4.0-10.0 H [facility] ID Date Data Source [id number] 04/04/2020 10:40:00 AM EDT [facility] Name Value Range Interpretation Code Description Data Ebony rce(s) Supporting Document(s) BG FASTING 88 mg/dL 70-100 N [facility] y Health ID Date Data Source [id number] 03/27/2020 11:24:09 AM EDT [facility] Current Problems: Essential hypertension (ICD-401.9) (QZZ12-Y03)Pain in left elbow (ICD-719.42) (VFT74-A89.522)Chronic low back pain (ICD-724.2) (ICD10- M54.5)Cervical vertigo (ICD-780.4) (OFF30-Q38.4xxS)Cervicogenic headache (ICD- 784.0) (XZV40-Z05.89)DENTAL CARIES EXTENDING INTO PULP (ICD-521.03) (ICD10- K02.63)Pain in unspecified joint (GVD65-L89.50)Screening for malignant neoplasms of prostate (ICD-V76.44) (XUA05-L03.5)Encounter for screening for other metabolic disorders (IQO27-F09.228)Nicotine dependence (ICD-305.1) (ICD10- F17.200)Chronic obstructive pulmonary disease with (acute) exacerbation (ICD10- J44.1)Collapsed vertebra, not elsewhere classified, lumbosacral region, sequela of fracture (ICD-805.4) (LDY80-A96.57xS)Depression (ICD-311) (REL62-J73.9)GERD (ICD-530.81) (HZB24-Z16.9)Low back pain (ICD-724.2) (JZS60-Z06.5)Shoulder joint pain, right (ICD-719.41) (WGP43-Z96.511)Asthma (ICD-493.90) (ICD10- J45.909)Problem list reviewed during this [...] 7 Note: Patient wants a RCT and [place] in [facility] Assessment & Plan Medications:LISINOPRIL 5 MG ORAL [...] rce(s) Supporting Document(s) ID Date Data Source [id number] 03/03/2020 02:32:18 PM EDT [facility] Current Problems: Essential hypertension (ICD-401.9) (ZCU88-G57)Pain in left elbow (ICD-719.42) (LBM87-H71.522)Chronic low back pain (ICD-724.2) (ICD10- M54.5)Cervical vertigo (ICD-780.4) (GNF10-O05.4xxS)Cervicogenic headache (ICD- 784.0) (NWD02-K74.89)DENTAL CARIES EXTENDING INTO PULP (ICD-521.03) (ICD10- K02.63)Pain in unspecified joint (NEI19-L61.50)Screening for malignant neoplasms of prostate (ICD-V76.44) (LUL68-E93.5)Encounter for screening for other metabolic disorders (BEA96-G60.228)Nicotine dependence (ICD-305.1) (ICD10- F17.200)Chronic obstructive pulmonary disease with (acute) exacerbation (ICD10- J44.1)Collapsed vertebra, not elsewhere classified, lumbosacral region, sequela of fracture (ICD-805.4) (LZX75-X49.57xS)Depression (ICD-311) (EVU73-W36.9)GERD (ICD-530.81) (YJG94-P75.9)Low back pain (ICD-724.2) (CLO80-L65.5)Shoulder joint pain, right (ICD-719.41) (KJX84-Z59.511)Asthma (ICD-493.90) (ICD10- J45.909)Current Medications: LISINOPRIL 5 MG [...] involve a crown. DX: #9-FMIL fractured.P:schedule for mandaen of #9-FMILInformed Pt about new pain management policy of the clinic regarding about narcotic,told pt to alternate Ibuprophen 600- 800mg and tylenol 500mg every 4 to 6 hrs for pain when needed. Assisted By: AM Pt. became very irrate when mandaen could not be done. Today. He yelled at us and walked out. no tx to be done.Caren Zarate DMD by raymundo (03/03/2020 4:44 PM): Tooth Notes and Watches:- Tooth 7 Note: Patient wants a RCT and [place] in [facility] Assessment & Plan Medications:LISINOPRIL 5 MG ORAL [...] rce(s) Supporting Document(s) ID Date Data Source [id number] 03/03/2020 02:24:57 PM EDT [facility] Patient History Medical History:COPDColl apsed LungsAsthmaShoulder painLower back painGERDSurgical History:UnremarkableFamily History:No known family historySocial/Personal History: Smoking Status: current every day smokerDo you vape? NoCurrent Problems: Essential hypertension (ICD-401.9) (WUO04-V18)Pain in left elbow (ICD-719.42) (QVX78-Y79.522)Chronic low back pain (ICD-724.2) (TIM77-K86.5)Cervical vertigo (ICD-780.4) (WVJ18-M91.4xxS)Cervicogenic headache (ICD-784.0) (IOI15-A71.89)DENTAL CARIES EXTENDING INTO PULP (ICD-521.03) (ICD10- K02.63)Pain in unspecified joint (ERJ72-U71.50)Screening for malignant neoplasms of prostate (ICD-V76.44) (UZD14-P96.5)Encounter for screening for other metabolic disorders (GUD87-O43.228)Nicotine dependence (ICD-305.1) (ICD10- F17.200)Chronic obstructive pulmonary disease with (acute) exacerbation (ICD10- J44.1)Collapsed vertebra, not elsewhere classified, lumbosacral region, sequela of fracture (ICD-805.4) (UKW41-K73.57xS)Depression (ICD-311) (OGE45-C89.9)GERD (ICD-530.81) (MHW02-I61.9)Low back pain (ICD-724.2) (INN68-J67.5)Shoulder joint pain, right (ICD-719.41) (KZY28-L13.511)Asthma (ICD-493.90) (ICD10- J45.909)Problem list reviewed during this [...] NEBULIZATION SOLUTIONAllergies:* RANITIDINE (Mild)Clinical Visit Summary Decl inedElectronically signed by Lissett Manuel [facility] on 03/03/2020 at 2:25 PM Name Value Range Interpretation Code Description Data Ebony rce(s) Supporting Document(s) Procedure Social History Code Duration Value Status Description Data Source(s ) Smoking 03/01/2021 12:00:00 AM EDT Former Smoker completed Former Smoker eCW1 ([facility]) Smoking 02/04/2021 12:00:00 AM EDT Former Smoker completed Former Smoker eCW1 ([facility]) Smoking 01/19/2021 12:00:00 AM EDT Current Smoker completed Curre nt Smoker eCW1 ([facility]) Vital Signs ID Date Data Source UNK Name Value Range Interpretation Code Description Data Source(s) Heart rate 77 /min 77 /min eCW1 ([facility]) Body height 70 [in_i] 70 [in_i] eCW1 ([facility]) Body weight 165.0 [lb_av] 165.0 [lb_av] eCW1 ([facility]) Oxygen saturation in Arterial blood by Pulse oximetry 98 % 98 % eCW1 ([facility]) Body mass index (BMI) [Ratio] 23.67 kg/m2 23.67 kg/m2 eCW1 ([facility]) Body temperature 98.8 [degF] 98.8 [degF] eCW1 ( [facility]) Respiratory rate 18 /min 18 /min eCW1 ([facility]) Body height 70 [in_i] 70 [in_i] eCW1 ([facility]) Body weight 171 [lb_av] 171 [lb_av] eCW1 ([facility]) Body mass index (BMI) [Ratio] 24.53 kg/m2 24.53 kg/m2 eCW1 ([facility]) Body temperature 97.7 [degF] 97.7 [degF] eCW1 ( [facility]) Heart rate 94 /min 94 /min eCW1 ([facility]) Respiratory rate 16 /min 16 /min eCW1 ([facility]) Oxygen saturation in Arterial blood by Pulse oximetry 98 % 98 % eCW1 ([facility]) Systolic blood pressure 128 mm[Hg] 128 mm[Hg] M EDENT ([facility]) Diastolic blood pressure 85 mm[Hg] 85 mm[Hg] MEDENT ([facility], [facility]) Heart rate 80 /min 80 /min MEDENT ([facility]) Respiratory rate 14 /min 14 /min MEDENT ( [facility]) Oxygen saturation in Arterial blood by Pulse oximetry 98 % 98 % MEDENT ([facility], [facility]) Body temperature 97.8 [degF] 97.8 [degF] MEDENT ([facility], [facility]) Body weight 161.00 [lb_av] 161.00 [lb_av] MEDEN T ([facility], [facility]) Body height 70 [in_i] 70 [in_i] MEDENT ([facility]) 5'10" Body mass index (BMI) [Ratio] 23.1 kg/m2 23.1 k g/m2 MEDENT ([facility], [facility]) Diastolic blood pressure 79 mm[Hg] 79 mm[Hg] MARA ([facility]) Body height 69 [in_i] 69 [in_i] MARA ([facility]) Body mass index (BMI) [Ratio] 24.3 kg/m2 24.3 k g/m2 MARA ([facility]) Systolic blood pressure 124 mm[Hg] 124 mm[Hg] Patrick THENA ([facility]) Body weight 2630.4 [oz_av] 2630.4 [oz_av] ATHEN A ([facility]) Body height 69 [in_i] 69 [in_i] MARA ([facility]) Body height 69 [in_i] 69 [in_i] MARA ([facility]) Diastolic blood pressure 89 mm[Hg] 89 mm[Hg] MARA ([facility]) Body height 69 [in_i] 69 [in_i] MARA ([facility]) Body mass index (BMI) [Ratio] 23.8 kg/m2 23.8 k g/m2 MARA ([facility]) Systolic blood pressure 132 mm[Hg] 132 mm[Hg] [facility] Body weight 2576 [oz_av] 2576 [oz_av] MARA ([facility]) Diastolic blood pressure 89 mm[Hg] 89 mm[Hg] MARA ([facility]) Body height 69 [in_i] 69 [in_i] MARA ([facility]) Body mass index (BMI) [Ratio] 23.8 kg/m2 23.8 k g/m2 MARA ([facility]) Systolic blood pressure 132 mm[Hg] 132 mm[Hg] [facility] Body weight 2576 [oz_av] 2576 [oz_av] MARA ([facility]) Diastolic blood pressure 89 mm[Hg] 89 mm[Hg] MARA ([facility]) Body height 69 [in_i] 69 [in_i] MARA ([facility]) Body mass index (BMI) [Ratio] 23.8 kg/m2 23.8 k g/m2 MARA ([facility]) Systolic blood pressure 132 mm[Hg] 132 mm[Hg] A THENA ([facility]) Body weight 2576 [oz_av] 2576 [oz_av] MARA ([facility]) Diastolic blood pressure 84 mm[Hg] 84 mm[Hg] MARA ([facility]) Body height 69 [in_i] 69 [in_i] MARA ([facility]) Body mass index (BMI) [Ratio] 25.58 kg/m2 25.58 kg/m2 MARA ([facility]) Systolic blood pressure 123 mm[Hg] 123 mm[Hg] A JEVON ([facility]) Body weight 2761.6 [oz_av] 2761.6 [oz_av] IOANA A ([facility]) Diastolic blood pressure 95 mm[Hg] 95 mm[Hg] MARA ([facility]) Body height 70 [in_i] 70 [in_i] MARA ([facility]) Body mass index (BMI) [Ratio] 9.8 kg/m2 9.8 kg /m2 MARA ([facility]) Systolic blood pressure 129 mm[Hg] 129 mm[Hg] A JEVON ([facility]) Body weight 68 [lb_av] 68 [lb_av] MARA ([facility]) Patient Treatment Plan of Care Planned Activity Planned Date Details Description Data Source (s) Lisinopril 30 MG Oral Tablet 02/04/2021 12:00:00 AM EDT eCW1 ([facility]) Prednisone 2.5 MG Oral Tablet 01/19/2021 12:00:00 AM EDT eCW1 ([facility]) Lisinopril 20 MG Oral Tablet 01/19/2021 12:00:00 AM EDT eCW1 ([facility]) Prednisone 20 MG Oral Tablet MARA ([facility]) Prednisone 10 MG Oral Tablet MARA ([facility]) methylprednisolone 4 mg tablets in a dos e pack USE DIRECTED PER package instructions MARA ([facility]) lidocaine 5 % topical patch APPLY 1 PATC H BY TOPICAL ROUTE ONCE DAILY (MAY WEAR UP TO 12HOURS.) MARA ([facility]) Cyclobenzaprine hydrochloride 10 MG Oral Tablet MARA ([facility]) Azithromycin 250 MG Oral Tablet MARA ([facility]) fluticasone furoate 0.2 MG/ACTUAT Dry Powder Inhaler MARA ([facility]) Amoxicillin 875 MG Oral Tablet MARA ([facility]) Prednisone 20 MG Oral Tablet MARA ([facility]) lidocaine 5 % topical patch APPLY 1 PATC H BY TOPICAL ROUTE ONCE DAILY (MAY WEAR UP TO 12HOURS.) MARA ([facility]) gabapentin 100 MG Oral Capsule MARA ([facility]) Cyclobenzaprine hydrochloride 10 MG Oral Tablet MARA ([facility]) Azithromycin 250 MG Oral Tablet MARA ([facility]) tizanidine 4 MG Oral Tablet MARA ([facility]) Prednisone 20 MG Oral Tablet MARA ([facility]) Azithromycin 250 MG Oral Tablet MARA ([facility]) tramadol hydrochloride 50 MG Oral Tablet MARA ([facility]) Ranitidine 150 MG Oral Tablet MARA ([facility]) Prednisone 20 MG Oral Tablet MARA ([facility]) Prednisone 10 MG Oral Tablet MARA ([facility]) Omeprazole 40 MG Delayed Release Oral Capsule MARA ([facility]) Omeprazole 20 MG Delayed Release Oral Capsule MARA ([facility]) Naproxen 500 MG Oral Tablet MARA ([facility]) Methocarbamol 750 MG Oral Tablet MARA ([facility]) Levofloxacin 750 MG Oral Tablet MARA ([facility]) lansoprazole 30 MG Delayed Release Oral Capsule MARA ([facility]) Acetaminophen 325 MG / Hydrocodone Bitartrate 5 MG Oral Tablet MARA ([facility]) gabapentin 100 MG Oral Capsule MARA ([facility]) fluticasone 232 mcg-salmeterol 14 mcg/actuation breath activated po wdr MARA ([facility]) Doxycycline Monohydrate 100 MG Oral Capsule MARA ([facility]) doxycycline hyclate 100 MG Oral Capsule MARA ([facility]) Docusate Sodium 100 MG Oral Capsule [DOK] MARA ([facility]) Cyclobenzaprine hydrochloride 5 MG Oral Tablet MARA ([facility]) Cyclobenzaprine hydrochloride 10 MG Oral Tablet MARA ([facility]) ciclopirox 80 MG/ML Topical Solution MARA ([facility]) Chantix Starting Month Box 0.5 mg (11)-1 mg (42) tablets in dose pack USE DIRECTED [facility] Cephalexin 500 MG Oral Capsule MARA ([facility]) Amoxicillin 500 MG Oral Capsule MARA ([facility]) ammonium lactate 120 MG/ML Topical Cream MARA ([facility])
== END 2021-04-25 17:29 | disposition home or self-care (01) ==
LOC: M ED 15:10
DX: J44.1 Chronic obstructive pulmonary disease with (acute) exacerbation (principal); Z87.891 Personal history of nicotine dependence; Z79.899 Other long term (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
CPT/HCPCS: 94640; 99283; J7512

== ENCOUNTER 2021-05-18 10:41 | Emergency (ER) | payer OTHER ==
[~2021-05-18] VITALS: Ht 177.8 cm; Wt 77.3 kg
[~2021-05-18 10:41] MED LIST changes: +IPRA0.00 NEB; +SIME180C25 PO
--- NOTE | 2021-05-18 11:32 | REP ---
INDICATION: DYSPNEA/COUGH COMPARISON: 03/08/2021 TECHNIQUE: Portable AP view of the chest FINDINGS: The mediastinum and cardiac silhouette are stable and within normal limits for portable technique. The lung hurd are clear without acute consolidation, effusion, or pneumothorax. Skeletal structures are intact. IMPRESSION: No acute cardiopulmonary process appreciated. <Electronically signed by Candido Hall > 05/18/21 [id number]
[2021-05-18 11:37] LABS: VENOUS BASE EXCESS -3.6 (-2.0-2.0); VENOUS HCO3 22.4 MEQ/L (23.0-27.0); VENOUS O2 SATURATION 83.8 % (60.0-80.0); VENOUS PARTIAL PRESSURE CO2 43.5 mmHg (38.0-50.0); VENOUS PARTIAL PRESSURE O2 50.2 mmHg (30.0-50.0); VENOUS PH 7.329 UNITS (7.330-7.430); VENOUS STANDARD HCO3 21.2 MEQ/L; VENOUS TOTAL CO2 23.7 MEQ/L (24.0-28.0)
[2021-05-18 11:41] LABS: BASO # 0.2 10^3/uL (0.0-0.2); BASO % 1.2 % (0.0-1.0); EOS # 1.2 10^3/uL (0.0-0.5); EOS % 8.9 % (0.0-3.0); HEMATOCRIT 46.9 % (42.0-52.0); HEMOGLOBIN 15.3 g/dl (13.5-17.5); LYMPH # 1.7 10^3/uL (1.5-5.0); LYMPH % 12.2 % (24.0-44.0); MEAN CORPUSCULAR HEMOGLOBIN 28.6 pg (27.0-33.0); MEAN CORPUSCULAR HGB CONC 32.6 g/dl (32.0-36.5); MEAN CORPUSCULAR VOLUME 87.7 fl (80.0-96.0); MONO # 1.1 10^3/uL (0.0-0.8); MONO % 8.3 % (2.0-8.0); NEUTROPHILS # 9.4 10^3/uL (1.5-8.5); PLATELET COUNT, AUTOMATED 281 10^3/uL (150-450); RED BLOOD COUNT 5.35 10^6/uL (4.30-6.10); WHITE BLOOD COUNT 13.6 10^3/uL (4.0-10.0)
--- NOTE | 2021-05-18 11:41 | ECGEPIP ---
[facility] - ED Test Date: 2021-05-18 Pat Name: SEAN WRAY Department: Room: - Gender: Male Draw Hand: TOÑITO : 1965 Requested By: JUNIOR Novak Order Number: [id number] Reading MD: Wayne Rodrigues Measurements Intervals [place] Rate: 106 P: 76 NE: 142 QRS: 71 QRSD: 74 T: 9 QT: 334 QTc: 443 Interpretive Statements Sinus tachycardia POOR R WAVE PROGRESSION NONSPECIFIC T WAVE ABNORMALITY(S) BASELINE ARTIFACT AFFECTS INTERPRETATION SIMILAR TO 03/08/21 Electronically Signed on 05-18-2021 11:41:18 EST by Wayne Rodrigues
[2021-05-18 12:08] LABS: CK-MB VALUE MASS < 1.0 NG/ML (<3.6); CPK CREATINE PHOSPHOKINASE 118 U/L (39-308); MB/CK RELATIVE INDEX 0.85 (< OR =4); TROPONIN I < 0.02 NG/ML (< 0.10)
[2021-05-18 12:16] LABS: ALBUMIN 3.6 GM/DL (3.2-5.2); ALT/SGPT 12 U/L (12-78); BILIRUBIN,DIRECT 0.2 MG/DL (0.0-0.2); BILIRUBIN,TOTAL 0.6 MG/DL (0.2-1.0); BLOOD UREA NITROGEN 11 MG/DL (7-18); CARBON DIOXIDE LEVEL 25 MEQ/L (21-32); CHLORIDE LEVEL 107 MEQ/L (98-107); CREATININE FOR GFR 0.98 MG/DL (0.70-1.30); GLOMERULAR FILTRATION RATE > 60.0 (>56); GLUCOSE, FASTING 88 MG/DL (70-100); NT-PRO BNP 331 PG/ML (<125); POTASSIUM SERUM 4.5 MEQ/L (3.5-5.1); SODIUM LEVEL 138 MEQ/L (136-145); THYROID STIMULATING HORMONE 0.433 uIU/ML (0.358-3.740); TOTAL PROTEIN 7.1 GM/DL (6.4-8.2)
[2021-05-18] MEDS ORDERED: LABETALOL 100MG/20ML VIAL IV STA (12:20)
[2021-05-18] MEDS ORDERED: COMBIVENT RESPIMAT 100-20MCG INHALER 4GM INH ONE (12:20)
[2021-05-18] MEDS ORDERED: ISOVUE-370 76% 100ML VIAL As Ordered ONE (12:25)
[2021-05-18 12:27] VITALS: BP 164/121
--- NOTE | 2021-05-18 13:02 | REP ---
INDICATION: chest pain, SOB COMPARISON: None. TECHNIQUE: Axial contrast enhanced images from the thoracic inlet to the upper abdomen using pulmonary embolus technique with multiplanar re-formations. 75 ml Isovue 370 intravenous contrast material administered without complication. This CT examination was performed using the following dose reduction techniques: Automated exposure control, adjustment of mA and/or kv according to the patient's size, and use of iterative reconstruction technique. FINDINGS: Satisfactory enhancement of the pulmonary vasculature is achieved and no filling defects are identified to suggest pulmonary embolus. Further evaluation of the mediastinum demonstrates normal thoracic aorta, heart and pericardium. The bilateral lung hurd demonstrate emphysematous changes. No focal consolidation. No effusion or pneumothorax. Tracheobronchial tree is patent. No nodule or mass lesion is identified. No adenopathy noted. Surrounding musculoskeletal structures intact IMPRESSION: No evidence for pulmonary embolus. No acute mediastinal or pleural parenchymal process. Chronic emphysematous changes. <Electronically signed by Candido Hall > 05/18/21 [id number]
[2021-05-18] MEDS ORDERED: IPRATROPIUM 0.5MG/ALBUTEROL 2.5MG INH SOL UD 3ML (DUONEB) NEB ONE (13:10)
--- OUTSIDE RECORDS SUMMARY | 2021-05-18 14:36 | CCD ---
Author Author [facility] Organization [facility] Address Unknown Phone Unavailable Care Team Providers Care Automobile Mechanic Apprentice Name Role Phone HOANG, LIVE ZAYRA RPA-C Unavailable Unavailable HOANG, LIVE ZAYRA RPA-C Unavailable Unavailable HOANG, LIVE ZAYRA RPA-C Unavailable Unavailable HOANG, LIVE ZAYRA RPA-C Unavailable Unavailable HOANG, LIVE ZAYRA RPA-C Unavailable Unavailable HOANG, LIVE ZAYRA RPA-C Unavailable Unavailable HOANG, LIVE ZAYRA RPA-C Unavailable Unavailable HOANG, LIVE ZAYRA RPA-C Unavailable Unavailable HONAG, LIVE ZAYRA RPA-C Unavailable Unavailable HOANG, LIVE [...] LIVE ZAYRA RPA-C Unavailable Unavailable Sharla Christensen MEDICARE BILLER MEDICARE BILLER Unavailable Unavailable LAROCK, Lakia DONOVAN CLINICAL MEDICAL ASSISTANT Unavailable Unavailable LAROCK, Lakia DONOVAN CLINICAL MEDICAL ASSISTANT Unavailable Unavailable LAROCK, Lakia DONOVAN CLINICAL MEDICAL ASSISTANT Unavailable Unavailable LAROCK, Lakia DONOVAN CLINICAL MEDICAL ASSISTANT Unavailable Unavailable LAROCK, Lakia DONOVAN CLINICAL MEDICAL ASSISTANT Unavailable Unavailable LAROCK, Lakia DONOVAN CLINICAL MEDICAL ASSISTANT Unavailable Unavailable LAROCK, Lakia DONOVAN CLINICAL MEDICAL ASSISTANT Unavailable Unavailable LAROCK, Lakia DONOVAN CLINICAL MEDICAL ASSISTANT Unavailable Unavailable LAROCK, Lakia DONOVAN CLINICAL MEDICAL ASSISTANT Unavailable Unavailable LAROCK, Lakia DONOVAN CLINICAL MEDICAL ASSISTANT Unavailable Unavailable LAROCK, Lakia DONOVAN CLINICAL MEDICAL ASSISTANT Unavailable Unavailable LAROCK, Lakia DONOVAN CLINICAL MEDICAL ASSISTANT Unavailable Unavailable LAROCK, Lakia DONOVAN CLINICAL MEDICAL ASSISTANT Unavailable Unavailable LAROCK, Lakia DONOVAN CLINICAL MEDICAL ASSISTANT Unavailable Unavailable LAROCK, Lakia DONOVAN CLINICAL MEDICAL ASSISTANT Unavailable Unavailable LAROCK, Lakia DONOVAN CLINICAL MEDICAL ASSISTANT Unavailable Unavailable LAROCK, Lakia DONOVAN CLINICAL MEDICAL ASSISTANT Unavailable Unavailable LAROCK, Lakia DONOVAN CLINICAL MEDICAL ASSISTANT Unavailable Unavailable LAROCK, Lakia DONOVAN CLINICAL MEDICAL ASSISTANT Unavailable Unavailable LAROCK, Lakia DONOVAN CLINICAL MEDICAL ASSISTANT Unavailable Unavailable LAROCK, Lakia DONOVAN CLINICAL MEDICAL ASSISTANT Unavailable Unavailable LAROCK, Lakia DONOVAN CLINICAL MEDICAL ASSISTANT Unavailable Unavailable CEBALLOS, Lakia PARKS MD Unavailable [...] Unavailable Chapin, M Bere PA-C Unavailable Unavailable ISELARobert JAFFE MD Unavailable Unavailable [...] PA Unavailable Unavailable Andrés, Linn Stubbs Karissa MEDICARE BILLER-C Unavailable Unavailabl e Andrés, Linn W Karissa MEDICARE BILLER-C Unavailable Unavailabl e Andrés, Regharrisonh W Karissa MEDICARE BILLER-C Unavailable Unavailabl e Andrés, Regraji W Karissa MEDICARE BILLER-C Unavailable Unavailabl e Andrés, Linn W Karissa MEDICARE BILLER-C Unavailable Unavailabl e Andrés, Linn W Karissa MEDICARE BILLER-C Unavailable Unavailabl e Andrés, Linn W Karissa MEDICARE BILLER-C Unavailable Unavailabl e Andrés, Regraji W Karissa MEDICARE BILLER-C Unavailable Unavailabl e Andrés, Linn W Karissa MEDICARE BILLER-C Unavailable Unavailabl e Andrés, Reginah W Karissa MEDICARE BILLER-C Unavailable Unavailabl e Andrés, Linn Hancock MEDICARE BILLER-C Unavailable Unavailabl e Andrés, Linn Hancock MEDICARE BILLER-C Unavailable Unavailabl e Andrés, Linn Hancock MEDICARE BILLER-C Unavailable Unavailabl e Andrés, Linn Hancock MEDICARE BILLER-C Unavailable Unavailabl e Andrés, Linn Hancock MEDICARE BILLER-C Unavailable Unavailabl e Andrés, Linn Hancock MEDICARE BILLER-C Unavailable Unavailabl e Andrés, Linn Hancock MEDICARE BILLER-C Unavailable Unavailabl e Andrés, Linn Hancock MEDICARE BILLER-C Unavailable Unavailabl e Andrés, Linn Hancock MEDICARE BILLER-C Unavailable Unavailabl e Andrés, Linn Hancock MEDICARE BILLER-C Unavailable Unavailabl e Andrés, Linn Hancock MEDICARE BILLER-C Unavailable Unavailabl e Andrés, Linn Hancock MEDICARE BILLER-C Unavailable Unavailabl e Andrés, Linn Hancock MEDICARE BILLER-C Unavailable Unavailabl e Andrés, Linn Hancock MEDICARE BILLER-C Unavailable Unavailabl e Andrés, Linn Hancock MEDICARE BILLER-C Unavailable Unavailabl e Andrés, Linn Hancock MEDICARE BILLER-C Unavailable Unavailabl e Andrés, Linn Hancock MEDICARE BILLER-C Unavailable Unavailabl e Andrés, Linn Hancock MEDICARE BILLER-C Unavailable Unavailabl e Andrés, Linn Hancock MEDICARE BILLER-C Unavailable Unavailabl e Andrés, Linn Schmitze MEDICARE BILLER-C Unavailable Unavailabl e Andrés, Linn W Karissa MEDICARE BILLER-C Unavailable Unavailabl e Andrés, Linn W Karissa MEDICARE BILLER-C Unavailable Unavailabl e HOANG, LIVE ZAYRA RPA-C [...] Unavailable HOANG, LIVE ZAYRA RPA-C Unavailable Unavailable LETTIERE, A RA PA Unavailable [...] TURRIN, DEVIN Unavailable Unavailable Sal Scott Unavailable [phone] Sal Scott Unavailable [phone] Sal Scott Unavailable [phone] Sal Scott Unavailable [phone] Sal Scott Unavailable [phone] Sal Scott Unavailable [phone] Fermin, F Sharla MEDICARE BILLER-BC Unavailable Unavailable Christensen, F Sharla MEDICARE BILLER-BC Unavailable Unavailable Christensen, F Sharla MEDICARE BILLER-BC Unavailable Unavailable Christensen, F Sharla MEDICARE BILLER-BC Unavailable Unavailable Christensen, F Sharla MEDICARE BILLER-BC Unavailable Unavailable Christensen, F Sharla MEDICARE BILLER-BC Unavailable Unavailable Christensen, F Sharla MEDICARE BILLER-BC Unavailable Unavailable Christensen, F Sharla MEDICARE BILLER-BC Unavailable Unavailable Christensen, F Sharla MEDICARE BILLER-BC Unavailable Unavailable Christensen, F Sharla MEDICARE BILLER-BC Unavailable Unavailable Christensen, F Sharla MEDICARE BILLER-BC Unavailable Unavailable Christensen, F Sharla MEDICARE BILLER-BC Unavailable Unavailable Christensen, F Sharla MEDICARE BILLER-BC Unavailable Unavailable Christensen, F Sharla MEDICARE BILLER-BC Unavailable Unavailable Christensen, F Sharla MEDICARE BILLER-BC Unavailable Unavailable Christensen, F Sharla MEDICARE BILLER-BC Unavailable Unavailable Christensen, F Sharla MEDICARE BILLER-BC Unavailable Unavailable Christensen, F Sharla MEDICARE BILLER-BC Unavailable Unavailable Christensen, F Sharla MEDICARE BILLER-BC Unavailable Unavailable Christensen, F Sharla MEDICARE BILLER-BC Unavailable Unavailable Christensen, F Sharla MEDICARE BILLER-BC Unavailable Unavailable Christensen, F Sharla MEDICARE BILLER-BC Unavailable Unavailable Christensen, F Sharla MEDICARE BILLER-BC Unavailable Unavailable NON, PHYSICIAN STAFF Unavailable Unavailable [...] is protected by Article 27-F of the [facility] Public Health law. If you continue you may have access to information: Regarding HIV / AIDS; Provided by facilities licensed or operated by the [facility] Office of Mental Health; or Provided by the [facility] Office for People With Developmental Disabilities. If such information is present, then the following [facility] mandated warning applies: This information has been [...] law may result in a fine or usp sentence or both. A general authorization for the release of medical or other information is NOT sufficient authorization for further disc losure. Encounters Encounter Providers Location Date Indications Data Source(s ) Outpatient [facility] 05/04/2021 12:00:00 AM EDT eCW1 ([facility]) Outpatient Attender: Bere Samson PA-C 02/04/2021 03:54 :00 PM EDT [facility] Outpatient [facility] 02/04/2021 12:00:00 AM EDT eCW1 ([facility]) Outpatient [facility] 02/04/2021 12:00:00 AM EDT eCW1 ([facility]) Outpatient Attender: Karissa RUTHERFORD 01/19/2021 09:46:0 0 AM EDT [facility] Outpatient [facility] 01/19/2021 12:00:00 AM EDT eCW1 ([facility]) Emergency Attender: FARNAZ CEBALLOS MD 01/15 08:20:00 PM EDT - 01/15/2021 08:38:00 PM EDT [facility] Patient discharged. Outpatient Attender: RA shah 11/28/2020 11:20:00 AM EDT [facility] ([facility]) Emergency Attender: DEVIN Danielsonltant: STAFF NON 11/23/2020 12:46:00 PM EDT - 11/23/2020 03:24:00 PM EDT [facility] Patient discharged. Emergency Attender: CHELSY OAKLEY MDConsultant: STAFF NON 11/05/2020 10:37:00 AM EDT - 11/05/2020 12:30:00 PM EDT [facility] Patient discharged. Emergency Attender: DEVIN Danielsonltant: STAFF NON 10/21/2020 01:51:00 PM EDT - 10/21/2020 04:21:00 PM EDT [facility] Patient discharged. Emergency Attender: CHELSY OAKLEY MDConsultant: STAFF NON 10/15/2020 12:12:00 PM EDT - 10/15/2020 03:10:00 PM EDT [facility] Patient discharged. Outpatient Attender: Ángel LEONE 10/16/19 10:06:23 AM EDT - 10/15/2020 10:28:08 AM EDT [facility] ([facility] ) Outpatient Attender: Sal Scott 10/01 11:58:08 AM EDT - 10/01/2020 12:40:16 PM EDT [facility] ([facility] ) Emergency Attender: DEVIN MENJIVAR 2020 03:21:00 AM EDT - 09/22/2020 05:33:00 AM EDT [facility] Patient discharged. Outpatient Attender: VENUS STREETER NP 08/31 09:56:41 AM EDT - 09/17/2020 10:22:14 AM EDT [facility] ([facility] ) GALO MckeonC: [address], [place] [address], Ph. Attender: Radha LEONE [facility] Medical 09/10/2020 12:00:00 AM EST [facility] ([facility]) Emergency Attender: CHELSY OAKLEY MDConsultant: STAFF NON 09/03/2020 06:19:00 PM EST - 09/03/2020 07:20:00 PM EST [facility] Patient discharged. Emergency Attender: ANNIA WILL MDConsultant: STAF F NON 08/11/2020 09:55:00 AM EST - 08/11/2020 01:58:00 PM [facility] Patient discharged. DIMITRI KaseprC: [address], [place] [address], Ph. Attender: ZAYRA HOANG RPA-C [facility] Medical 06/15/2020 12:00:00 AM EST [facility] ([facility]) Zayra Hoang RPA-C: [address], [place] [address], Ph. Attender: ZAYRA HOANG RPA-C [facility] Medical 06/15/2020 12:00:00 AM EST [facility] ([facility]) Zayra Hoang RPA-C: [address], [place] [address], Ph. Attender: ZAYRA HOANG RPA-C [facility] Medical 05/11/2020 12:00:00 AM EST [facility] ([facility]) Zayra Hoang RPA-C: [address], [place] [address], Ph. Attender: ZAYRA HOANG RPA-C [facility] Medical 05/11/2020 12:00:00 AM EST [facility] ([facility]) Zayra Hoang RPA-C: [address], [place] [address], Ph. Attender: ZAYRA HOANG RPA-C [facility] Medical 05/11/2020 12:00:00 AM EST [facility] ([facility]) Outpatient Attender: ZAYRA HOANG RPA-C [facility]: [facility]RA [facility] RPA-C [facility] ZAYRA HOANG RPA-C [facility] ZAYRA HOANG RPA-C FP [facility]16[facility] ZAYRA HOANG RPA-C FP 04/16/2020 08:31:00 AM EDT [facility] Outpatient Attender: ZAYRA NATALYA PURDY-C FP 04/14/2020 11:08:01 AM EDT [facility] Outpatient Attender: ZAYRA NATALYA PURDY-C FP 04/10/2020 05:32:00 PM EDT [facility] Outpatient Attender: COLLINS CHÁVEZP FP 04/10/2020 04:23:00 PM EDT [facility] Outpatient Attender: COLLINS CHÁVEZP FP 04/10/2020 12:53:00 PM EDT [facility] Outpatient Attender: COLLINS GUADALUPE FP 04/07/2020 12:02:24 AM EDT [facility] Outpatient Attender: COLLINS GUADALUPE FP 04/06/2020 02:45:01 PM EDT [facility] Outpatient Attender: Sharla AHWTHORNE FP 04/06/2020 02: 19:01 PM EDT [facility] Outpatient Attender: COLLINS CHÁVEZP FP 04/06/2020 02:19:00 PM EDT [facility] Outpatient Attender: COLLINS GUADALUPE FP 04/06/2020 01:58:01 PM EDT [facility] Outpatient Attender: Sharla HAWTHORNE FP 04/06/2020 10: 51:01 AM EDT [facility] Outpatient Attender: COLLINS GUADALUPE FP 03/30/2020 11:04:01 AM EDT [facility] Outpatient Attender: Sharla HAWTHORNE FP 03/27/2020 12: 33:59 PM EDT [facility] Outpatient Attender: COLLINS GUADALUPE FP 03/27/2020 11:22:01 AM EDT [facility] Outpatient Attender: COLLINS GUADALUPE FP 03/27/2020 11:17:01 AM EDT [facility] Outpatient Attender: Sharla WASHBURNBC FP 03/25/2020 02: 05:03 PM EDT [facility] Outpatient Attender: Sharla WASHBURNBC FP 03/24/2020 09: 17:01 AM EDT [facility] Outpatient Attender: COLLINS GUADALUPE FP 03/24/2020 09:16:59 AM EDT [facility] Immunizations Vaccine Date Status Description Data Source(s) COVID-19 VACCINE Moderna 01/19/2021 12:00:00 AM EDT completed [place] Vaccine Series Complete: YESThis Data wa s Submitted to [facility] Via [facility]. COVID-19 VACCINE Moderna 11/18/2020 12:00:00 AM EDT completed [place] Vaccine Series Complete: NOThis Data was Submitted to [facility] Via [facility]. Medications Medication Brand Name Start Date Product Form Dose Route Admi nistrative Instructions Pharmacy Instructions Status Indications Reaction Description Data Source(s) Lisinopril 30 MG Oral Tablet Lisinopril 30 MG 02/04/2021 12:00:00 A M EDT 1.0 {tablet} active Lisinopril 30 MG eCW1 ( [facility]) Lisinopril 20 MG Oral Tablet Lisinopril 20 MG 01/19/2021 12:00:00 A M EDT 1.0 {tablet} active Lisinopril 20 MG eCW1 ( [facility]) Prednisone 2.5 MG Oral Tablet predniSONE 2.5 MG predniSONE 2 .5 MG 01/19/2021 12:00:00 AM EDT 1.0 {tablet} active pr edniSONE 2.5 MG eCW1 ([facility]) Lisinopril 20 MG Oral Tablet Lisinopril 20 MG 01/19/2021 12:00:00 A M EDT 1.0 {tablet} active Lisinopril 20 MG eCW1 ( [facility]) Prednisone 2.5 MG Oral Tablet predniSONE 2.5 MG predniSONE 2 .5 MG 01/19/2021 12:00:00 AM EDT 1.0 {tablet} active pr edniSONE 2.5 MG eCW1 ([facility]) Lisinopril 20 MG Oral Tablet Lisinopril 20 MG 01/19/2021 12:00:00 A M EDT 1.0 {tablet} active Lisinopril 20 MG eCW1 ( [facility]) Lisinopril 20 MG Oral Tablet Lisinopril 20 MG 01/19/2021 12:00:00 A M EDT 1.0 {tablet} active Lisinopril 20 MG eCW1 ( [facility]) Prednisone 2.5 MG Oral Tablet predniSONE 2.5 MG predniSONE 2 .5 MG 01/19/2021 12:00:00 AM EDT 1.0 {tablet} active pr edniSONE 2.5 MG eCW1 ([facility]) Prednisone 2.5 MG Oral Tablet predniSONE 2.5 MG predniSONE 2 .5 MG 01/19/2021 12:00:00 AM EDT 1.0 {tablet} active pr edniSONE 2.5 MG eCW1 ([facility]) Prednisone 20 MG Oral Tablet Prednisone 11/28/2020 12:00:00 AM EDT active MEDENT ([facility]) Ibuprofen 800 MG Oral Tablet Ibuprofen 11/28/2020 12:00:00 AM EDT active MEDENT ([facility]) Cyclobenzaprine hydrochloride 10 MG Oral Tablet cyclobenzaprine 10 mg tablet TAKE ONE TABLET BY MOUTH THREE TIMES DAILY NEEDED cyclobenzaprine 10 mg tablet TAKE ONE TABLET BY MOUTH THREE TIMES DAILY NEEDED completed cyclobenzaprine hydrochloride 10 MG Oral Tablet [place] ([facility]) Amoxicillin 875 MG Oral Tablet amoxicill in 875 mg tablet TAKE ONE TABLET BY MOUTH EVERY TWELVE HOURS DIRECTED amoxicillin 875 mg tablet TAKE ONE TABLE T BY MOUTH EVERY TWELVE HOURS DIRECTED completed amoxicillin 875 MG Oral Tablet [place] ([facility]) gabapentin 100 MG Oral Capsule gabapentin 100 mg capsu le gabapentin 100 mg capsule completed gabapentin 100 MG Oral Capsule [place] ([facility]) Azithromycin 250 MG Oral Tablet azithromycin 250 mg ta blet azithromycin 250 mg tablet completed azithromycin 25 0 MG Oral Tablet [place] ([facility]) methylprednisolone 4 mg tablets in a dos e pack USE DIRECTED PER package instructions [id number] completed me thylprednisolone 4 mg tablets in a dose pack [facility] ([facility]) Cyclobenzaprine hydrochloride 10 MG Oral Tablet cyclobenzaprine 10 mg tablet TAKE ONE TABLET BY MOUTH THREE TIMES DAILY NEEDED cyclobenzaprine 10 mg tablet TAKE ONE TABLET BY MOUTH THREE TIMES DAILY NEEDED completed cyclobenzaprine hydrochloride 10 MG Oral Tablet [place] ([facility]) lidocaine 5 % topical patch APPLY 1 PATC H BY TOPICAL ROUTE ONCE DAILY (MAY WEAR UP TO 12HOURS.) [id number] completed lidocaine 0.05 MG/MG Medicated Patch [facility] ([facility]) fluticasone furoate 0.2 MG/ACTUAT Dry Po wder Inhaler Arnuity Ellipta 200 mcg/actuation powder for inhalation INHALE 1 PUFF BY MOUTH ONCE DAILY Arnuity Ellipta 200 mcg/actuation powder for inhalation INHALE 1 PUFF BY MOUTH ONCE DAILY completed flutica sone furoate 0.2 MG/ACTUAT Dry Powder Inhaler [facility] ([facility]) lidocaine 5 % topical patch APPLY 1 PATC H BY TOPICAL ROUTE ONCE DAILY (MAY WEAR UP TO 12HOURS.) [id number] completed lidocaine 0.05 MG/MG Medicated Patch [facility] ([facility]) Azithromycin 250 MG Oral Tablet azithromycin 250 mg ta blet azithromycin 250 mg tablet completed azithromycin 25 0 MG Oral Tablet [facility] ([facility]) Prednisone 20 MG Oral Tablet prednisone 20 mg tablet TAKE ONE TABLET BY MOUTH ONCE DAILY prednisone 20 mg tablet TAKE ONE TABLET BY MOUTH ONCE DAILY completed prednisone 20 MG Oral Tab let [facility] ([facility]) Prednisone 20 MG Oral Tablet prednisone 20 mg tablet prednisone 20 mg tablet completed prednisone 20 MG Oral Tablet [facility] ([facility]) Azithromycin 250 MG Oral Tablet azithromycin 250 mg ta blet azithromycin 250 mg tablet completed azithromycin 25 0 MG Oral Tablet [facility] ([facility]) Prednisone 10 MG Oral Tablet prednisone 10 mg tablet Take by oral route for 30 days. prednisone 10 mg tablet Take by oral route for 30 days. completed prednisone 10 MG Oral Tablet ATH VLADIMIR ([facility]) tizanidine 4 MG Oral Tablet tizanidine 4 mg tablet tizanidine 4 mg ta blet completed tizanidine 4 MG Oral Tablet [facility] ([facility]) Prednisone 20 MG Oral Tablet prednisone 20 mg tablet prednisone 20 mg tablet completed prednisone 20 MG Oral Tablet [facility] ([facility]) Insurance Providers Payer name Policy type / Coverage type Policy ID Covered alliance party ID Covered alliance party's relationship to garner Policy Garner Plan Information [facility] Care [facility] Community Plan P [id number] S [id number] Medicaid S [id number] [facility] Community Plan P [id number] S [id number] [facility] Community Plan P [id number] S [id number] Medicaid S [id number] [facility] Community Plan P [id number] S [id number] [facility] MEDICAID [id number] S [id number] Medicaid Medicaid [id number] Self [id number] [facility] Commercial Insurance Co. [id number] Self [id number] MEDICAID [id number] SP [id number] Managed Care - [facility] Community Plan P [id number] S [id number] SELF PAY ONLY [id number] SP [id number] [employer] COMMUNITY PLAN MCDHMO [id number] SP [id number] UN COMMUNITY PLAN [facility] UN [id number] Self [employer]ER UN COMMUNITY PLAN [id number] O [id number] S [id number] [facility] HEA [id number] 1 [id number] STPP Wrap [id number] [facility] [id number] Un Community Plan Medicaid [id number] Self UN COMMUNITY PLAN MCDO [id number] SP [id number] [facility] COMMUN[facility]AN [id number] [facility] MEDICAID [id number] SP [id number] P SELF PAY ONLY [id number] SP [id number] [facility] MEDICAID [id number] S [id number] [employer]HC COMMUNITY PLAN XIX [id number] 18 [id number] MEDICAID -[id number] 18 [id number] [facility](MCAID) O [id number] S [id number] D Managed Care [facility] O UNAVAILABLE S UNAVAILABLE MEDICAID M [id number] S [id number] Problems, Conditions, and Diagnoses Code Display Name Description Problem Type Effective Dates Data Source(s) Z76.89 Persons encountering health services in other specified circumstances PERSONS ENCOUNTERING HEALTH SERVICES IN OTH CIRCUM Diagnosis 10/2020 03:54:00 PM EDT [facility] J44.9 Chronic obstructive pulmonary disease, u nspecified CHRONIC OBSTRUCTIVE PULMONARY DISEASE, UNSPECIFIED Diagnosis 02/04/2021 03:54:00 PM EDT [facility] I10 Essential (primary) hypertension ESSENTIAL (PRIMARY) H YPERTENSION Diagnosis 01/19/2021 09:46:00 AM EDT [facility] Z79.899 Other alf (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 Diagnosis 01/15/2021 08:20:00 PM [facility] Z79.52 group home (current) use of systemic ster oids ASSISTED (CURRENT) USE OF SYSTEMIC STEROIDS Diagnosis 01/15/2021 08:20:00 PM [facility] Z79.51 group home (current) use of inhaled stero ids ADVERTISING ACCOUNT MANAGER (CURRENT) USE OF INHALED STEROIDS Diagnosis 01/15/2021 08:20:00 PM [facility] Z76.0 Encounter for issue of repeat prescripti on ENCOUNTER FOR ISSUE OF REPEAT PRESCRIPTION Diagnosis 01/15/2021 08:20:00 PM [facility] F17.210 Nicotine dependence, cigarettes, uncompl icated NICOTINE DEPENDENCE, CIGARETTES, UNCOMPLICATED Diagnosis 01/15/2021 08:20:00 PM [facility] R51.9 HEADACHE, UNSPECIFIED HEADACHE, UNSPECIFIED Diagnosis 01/15/2021 08:20:00 PM [facility] [id number] Exposure to other specified factors, sub sequent encounter Exposure to other specified factors, subsequent encounter Diagnosis 11/24/19 12:46:[address] [facility] [id number] Strain of muscle and tendon of front wall of thorax, subsequent encounter Strain of muscle and tendon of front wal l of thorax, subsequent encounter Diagnosis 11/23/2020 12:46:[address] [facility] J439 Emphysema, unspecified Emphysema, unspecified Diagnosi s 11/23/2020 12:46:[address] [facility] F77840 Nicotine dependence, cigarettes, uncompl icated Nicotine dependence, cigarettes, uncomplicated Diagnosis 11/23/2020 12:46:00 PM EDT [facility] I10 Essential (primary) hypertension Essential (primary) h ypertension Diagnosis 11/23/2020 12:46:[address] [facility] R42 Dizziness and giddiness Dizziness and giddiness Diagno sis 11/23/2020 12:46:[address] [facility] [id number] Nicotine dependence, unspecified, uncomp licated Nicotine dependence, unspecified, uncomplicated Diagnosis 11/05/2020 10:37:00 AM EDT [facility] J449 Chronic obstructive pulmonary disease, u nspecified Chronic obstructive pulmonary disease, unspecified Diagnosis 11/05/2020 10:37:00 AM EDT [facility] R0600 Dyspnea, unspecified Dyspnea, unspecified Diagnosis 11/05/2020 10:37:00 AM EDT [facility] Z760 Encounter for issue of repeat prescripti on Encounter for issue of repeat prescription Diagnosis 10/21/2020 01:51:00 PM EDT [facility] [id number] CONTACT WITH AND SUSPECTED EXPOSURE TO C OVID-19 CONTACT WITH AND SUSPECTED EXPOSURE TO COVID-19 Diagnosis 10/21/2020 01:51:00 PM EDT [facility] J441 Chronic obstructive pulmonary disease wi th (acute) exacerbation Chronic obstructive pulmonary disease with (acute) exacerbation Diagnosis 10/15/2020 12:12:00 PM EDT [facility] [id number] Other terminal makeup operator (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 O ther terminal makeup operator (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 Diagnosis 08/11/2020 09:55:00 AM EST [facility] I10 [id number] Essential hypertension Problem 02/04/2021 12 :00:00 AM EDT eCW1 ([facility]) F17.200 [id number] Tobacco dependence Problem 02/04/2021 12:00: 00 AM EDT eCW1 ([facility]) J44.9 [id number] Chronic bronchitis w ith COPD (chronic obstructive pulmonary disease) Problem 01/19/2021 12:00:00 AM EDT eCW1 ([facility]) I10 [id number] Primary hypertension Problem 01/19/2021 12:0 0:00 AM EDT eCW1 ([facility]) [id number] Chronic obstructive lung disease Chronic Obstruc tive Lung Disease Problem 05/11/2020 12:00:00 AM EST MARA ([facility]) 68014537 Chronic obstructive lung disease Chronic Obstruc tive Lung Disease Problem 05/11/2020 12:00:00 AM EST MARA ([facility]) 31768975 Chronic obstructive lung disease Chronic Obstruc tive Lung Disease Problem 05/11/2020 12:00:00 AM EST MARA ([facility]) [id number] Lesion of neck Lesion of Neck Problem 09/24/2019 12:00:00 AM EDT - 09/10/2020 12:00:00 AM EST MARA ([facility]) [id number] Finding of body region Finding of Body Region Problem 05/24/2019 12:00:00 AM EST - 09/10/2020 12:00:00 AM EST MARA ([facility]) [id number] Endocrine/metabolic screening Endocrine/metabolic Scre ening Problem 05/24/2019 12:00:00 AM EST - 05/11/2020 12:00:00 AM EST MARA ([facility]) 365171411 Screening for malignant neoplasm of pros chamberlain Screening for Malignant Neoplasm of Prostate Problem 05/24/2019 12:00:00 AM EST - 09/10/2020 12:00:00 AM EST MARA ([facility]) 348053719 Endocrine/metabolic screening Endocrine/metabolic Scre ening Problem 05/24/2019 12:00:00 AM EST - 05/11/2020 12:00:00 AM EST MARA ([facility]) 642074298 Endocrine/metabolic screening Endocrine/metabolic Scre ening Problem 05/24/2019 12:00:00 AM EST - 05/11/2020 12:00:00 AM EST MARA ([facility]) 360655996 Acute exacerbation of chronic obstructiv e airways disease Acute Exacerbation of Chronic Obstructive Airways Disease Problem 12:00:00 AM EDT - 05/11/2020 12:00:00 AM EST MARA ([facility]) [id number] Acute exacerbation of chronic obstructiv e airways disease Acute Exacerbation of Chronic Obstructive Airways Disease Problem 12:00:00 AM EDT - 05/11/2020 12:00:00 AM EST MARA ([facility]) 618401197 Acute exacerbation of chronic obstructiv e airways disease Acute Exacerbation of Chronic Obstructive Airways Disease Problem 12:00:00 AM EDT - 05/11/2020 12:00:00 AM EST MARA ([facility]) 886947469 Finding of esophagus Finding of Esophagus Problem 03/11/2016 12:00:00 AM EDT - 09/10/2020 12:00:00 AM EST MARA ([facility]) Surgeries/Procedures No Information Results ID Date Data Source [id number] 03/08/2021 02:24:00 PM EDT [facility] Name Value Range Interpretation Code Description Data Ebony rce(s) Supporting Document(s) SARS COVID ANTIGEN NEGATIVE [facility] This lab was ordered by [facility] INTERFACE a nd reported by [facility]. ID Date Data Source [id number] 01/31/2021 09:23:00 AM EDT [facility] Name Value Range Interpretation Code Description Data Ebony rce(s) Supporting Document(s) SARS-CoV-2 (COVID 19) NEGATIVE - SARS-CoV-2 (COVID19) [facility] This lab was ordered by [facility] a nd reported by [facility]. ID Date Data Source [id number] 01/15/2021 10:19:00 PM EDT [facility] Patient: SEAN MILLER Observation Repor t - [facility].VisitID: [id number] [place] [address] [phone], MRegistration Date/Time: 01/15/2021 19:03 Weight:77.1 kg (S). Height/Length:70 inches (S). BMI:24.4 FAMILY HISTORYNo significant family medical history. (Electronically signed by Farnaz Ceballos M.D. 01/15/2021 22:15) Name Value Range Interpretation Code Description Data Ebony rce(s) Supporting Document(s) ID Date Data Source [id number] 11/24/2020 09:47:00 [place] [address] PHONE: [phone] FAX: [phone] Name .................. : KAMALA ESTRADA Acct Number.................. : [id number] ROOM. ................. : TR-08 MR Number ................... : [id number] Stay type ............. : E/R Discharge Date......... ... : 11/23/20 Admit Date .... ..... : 11/23/20 Admit Phys .................... : OTTO CARLIN Date of ....... : 1965 Family Phys ................... : NON STAFF Phone .................. : [phone] Age ................................ : 55 Film# .................. .:[id number] Sex ................................. : M Unsigned transcriptions are preliminary reports and do not represent a medical or legal document CT HEAD W/O CONTRAST [id number] COMPLETE:11/23/20 15:24 ITALO 06393 Reason(s): Vertigo/Dizziness CT SCAN OF THE HEAD [...] By KYLAH GAINES MD , 11/24/20 09:47, M Page 1 of 2 [facility] [address] [address] PHONE: [phone] FAX: [phone] Name .................. : KAMALA ESTRADA Acct Number.................. : [id number] ROOM. ................. : [facility] MR Number ................... : [id number] Stay type ............. : E/R Discharge Date......... ... : 11/23/20 Admit Date ......... : 11/23/20 Admit Phys .................... : OTTO CARLIN Date of ....... : 1965 Family Phys ................... : NON STAFF Phone .................. : [phone] Age ................................ : 55 Film# .................. .:[id number] Sex ................................. : M Unsigned transcriptions are preliminary reports and do not represent a medical or legal document CT HEAD W/O CONTRAST [id number] COMPLETE:11/23/20 15:24 ITALO 65651 Reason(s): Vertigo/Dizziness Transcribe Initials: SSR, Transcribe Date: 11/24/20 09:09, Dictation Date: Copy for: EMERGENCY DEPT via lockportm Copy for: 710 MED REC DISCHARGED Page 2 of 2 Name Value Range Interpretation Code Description Data Ebony rce(s) Supporting Document(s) ID Date Data Source [id number] 11/24/2020 09:47:00 AM EDT [facility] [address] [place] [address] PHONE: [phone] FAX: [phone] Name .................. : KAMALA ESTRADA Acct Number.................. : [id number] ROOM. ................. : TR-08 Number ................... : [id number] Stay type ............. : E/R Discharge Date......... ... : 11/23/20 Admit Date .... ..... : 11/23/20 Admit Phys .................... : OTTO CARLIN Date of ....... : 1965 Family Phys ................... : NON STAFF Phone .................. : [phone] Age ................................ : 55 Film# .................. .:[id number] Sex ................................. : M Unsigned transcriptions are preliminary reports and do not represent a medical or legal document [place] [id number] COMPLETE:11/23/20 18:45 JJ 31096 R estefania(s): Pain RIGHT RIBS, 11/23/20: INDICATION: [...] By KYLAH GAINES MD , 11/24/20 09:47, [facility] Transcribe Initials: SSR, Transcribe Date: 11/24/20 09:09, Dictation Date: Copy for: EMERGENCY DEPT via lockportm Copy for: 710 MED REC DISCHARGED Page 1 of 1 Name Value Range Interpretation Code Description Data Ebony rce(s) Supporting Document(s) ID Date Data Source [id number] 11/23/2020 07:53:00 [place] [address] RESPIRATORY CARE REPORT ==== ---------NAME------- NUMBER SEX AGE ADMIT DISC. XRAY# F/C TYPEMCCOY SEAN [id number] M 55 11/23/20 11/23/20 [id number] X6B E/R DATE OF : 1965 M/R# [id number] #: [id number] TR-08 LOCATION: EMERGENCY DEPT EKG 48732 COMPLE TE:11/23/20 14:04 [place] [address] PHYSICIAN: OTTO CARLIN Name Value Range Interpretation Code Description Data Ebony rce(s) Supporting Document(s) ID Date Data Source [id number] 11/23/2020 12:46:00 PM EDT [facility] 1 OrderSheet [facility] Emergency Department [address] [place] [address] Phone #: ext- [phone] 11/23/2020 12:44 Patient: SEAN MILLER [facility]#: [id number] Sex: M : 1965 Age: 55yWEIGHT:74.8 kg [...] STAT 13:11/23/2020 13:56 Key Matos Riccardo R.N.(Oxygen?(No)) M.Reyes; Reason for Study: PainCT Head W/O Cont STAT 13:11/23/2020 13:56 Coco Matos(Oxygen? (Yes)) Devin Menjivar R.N., M.D.; Reason for Study: Vertigo/Dizziness, VomitingMEDICATION/IV/DRIP/FLUID ORDERSOrder Description Priority Entered Acknowledged InitialedPhenergan IV 25mg 13:27 11/23/2020 13:42 Coco Matosin 50mL NS, give Turrin, Devin R.N. 2 OrderSheet [facility] Emergency Department [address] [place] [address] Phone #: ext- [phone] 11/23/2020 12:44 Patient: SEAN MILLER Sex: M : 1965 Age: 55ywide open: 25 mg M.D.;(NOW x1, HIGHALERTMEDICATION)NS IV 500 mL 13:27 11/23/2020 13:42 Celso Dmuas: : Bolus 500 Turrin, Devin R.N.mL, then 125 mL/hr M.D.;(X1)GENERAL ORDERSOrder Description Priority Entered Acknowledged InitialedBlood Pressure 13:11/23/2020 13:27 Trevor Matos, Devin R.N. M.D.;Library Services Assistant 13:11/23/2020 13:27 Coco Matos(continuous) Otto, Devin R.N. M.D.;EKG 13:11/23/2020 13:27 Coco Matos, Devin R.N. M.D.;NPO 13:11/23/2020 13:27 Coco Matos, Devin R.N. M.D.;Obtain Old EKG 13:11/23/2020 13:27 Coco Matos, Devin R.N. M.D.;Obtain Old Records 13:11/23/2020 13:27 Coco Matos Riccardo R.N. M.D.;Oxygen titrate to 13:11/23/2020 13:27 Coco Matos92% Otto, Devin R.N. M.D.;Pulse oximeter 13:11/23/2020 13:27 Coco Matos(Continuous) Devin Menjivar R.N., M.D.;Saline Lock 13:26 11/23/2020 13:40 Coco Matos Riccardo R.N. M.D.; Vitals 13:11/23/2020 13:40 Coco Matos Riccardo R.N. M.D.;[Electronically signed by Devin Menjivar M.D. (16:42 11/23/2020)] 3 OrderSheet [facility] Emergency Department [address] [place] [address] Phone #: ext [phone] 11/23/2020 12:44 Patient: SEAN MILLER Sex: M : 1965 Age: 55y[Electronically signed by Quinton Thornton RN (18:34 11/23/2020)][Electronically locked by Quinton Thornton RN (18:34 11/23/2020)] Name Value Range Interpretation Code Description Data Ebony rce(s) Supporting Document(s) ID Date Data Source [id number] 11/23/2020 12:46:00 PM EDT [facility] 1 Medication Reconciliation Report [facility] Emergency Department [address] [place] [address] Phone #: ext [phone] 11/23/2020 12:44 Patient: SEAN MILLER Sex: M [...] rce(s) Supporting Document(s) ID Date Data Source [id number] 11/23/2020 12:46:00 PM EDT [facility] 1 Medication Administration Record [facility] Emergency Department [address] [place] [address] Phone #: ext- [phone] 11/23/2020 12:44 Patient: [...] Dispensed: 50 mL bagStop Site: #1 right zqxtiwv85:24 11/23/2020Isabella Dooley R.N.Start IV NS NS IV 500 mL Bolus: : Bolus 32247:[id number] 11/23/2020 Dose: IV Fluids mL, then 125 mL/hr (X1)Coco Matos R.N. Rate: 125 mL/hr over 3 hour(s)---- Bolus: 500 mL over 1 hour(s)Stop Dispensed: 1000 mL bag15:23 11/23/2020 Site: #1 right Blaisegisela Yara Mason Name Value Range Interpretation Code Description Data Ebony rce(s) Supporting Document(s) ID Date Data Source [id number] 11/23/2020 12:46:00 PM EDT [facility] 1 General Instructions [facility] Emergency Department [address] [place] [address] Phone #: ext- [phone] 11/23/2020 12:44 Patient: [...] ADDITIONAL INFORMATIONVertigo (Unknown Cause) 2 General Instructions [facility] Emergency Department [address] [place] [address] Phone #: ext- [phone] 11/23/2020 12:44 Patient: [...] as loose electrical cords 3 General Instructions [facility] Emergency Department [address] [place] [address] Phone #: ext- [phone] 11/23/2020 12:44 Patient: SEAN MILLER Sex: M : 1965 Age: 55y and [...] nausea, vomiting, and dizziness, you may use [id number] motion sickness pills. Ask your pharmacist for [...] speech or vision Loss of consciousness Seizure 7389-[address] [employer] [place] [address]. All rights reserved. This information is not intended as asubstitute for professional medical care. Always follow your healthcare professional's instructions. You have been given the following additional information: Vertigo, Unspecified 4 General Instructions [facility] Emergency Department [address] [place] [address] Phone #: ext [phone] 11/23/2020 12:44 Patient: SEAN MILLER Sex: M : 1965 Age: 55y(Electronically signed by Devin Menjivar M.D. 11/23/2020 16:42) Name Value Range Interpretation Code Description Data Ebony rce(s) Supporting Document(s) ID Date Data Source [id number] 11/23/2020 12:46:00 PM EDT [facility] 1 Clinical Report - Nurses [facility] Emergency Department [address] [place] [address] Phone #: ext- [phone] 11/23/2020 12:44 Patient: SEAN MILLER Sex: M : 1965 Age: 55yTRIAGEArrived by EMS. Historian: patient. ( Pt was seen at [facility] 1 week ago and was given an [...] (08:50 11/22/2020). He has had nausea andweakness.Treatment FLARE STITCHER:None.SEPSIS SCREEN: SIRS SCREEN NEGATIVE. SEPSIS SCREEN NEGATIVE. No suspected or confirmedsigns of infection present. --12:52 11/23/20 Aline Cohn REldon12:47 . BP: 101/68. MAP: 79. HR: 72. RR: 13. O2 saturation: 100% on room air. Temp: 97.6 F(oral). Pain level now: 5/10. --12:52 11/23/20 Aline Cohn RSimonaNSimonaREGGIE COMA SCORE: 15- eyes open- spontaneous (4); [...] Cohn R.N.PROBLEMS:Dizziness.Arthritis.Asthma. 2 Clinical Report - Nurses [facility] Emergency Department [address] [place] [address] Phone #: ext- [phone] 11/23/2020 12:44 Patient: [...] the [place] 3 Clinical Report - Nurses [facility] Emergency Department [address] [place] [address] Phone #: pgp- [phone] 11/23/2020 12:44 Patient: SEAN MILLER Sex: M [...] to radiology and CT by wheelchair with medical delivery technician. --13:57 11/23/20 Coco Matos, 4 Clinical Report - Nurses [facility] Emergency Department [address] [place] [address] Phone #: ext- [phone] 11/23/2020 12:44 Patient: SEAN MILLER Sex: M : 1965 Age: 55y R.N. Checked patient name and birthdate. Blood samples drawn by tech. (6708). --14:01 11/23/20 Quinton Thornton RN Warming measures: blanket applied (1436). Patient returned from radiology and CT by wheelchair with mask and medical delivery technician. (8976). --14:07 11/23/20 Quinton Thornton RN 13:00 11/23/20. [...] and bandage applied. --15:24 11/23/20 Isabella Dooley R.N. 15:11/23/2020 Phenergan IVPB via IV site #1 Discontinued: bag #1 completed upon discharge. Total amount infused: 50 mL. IV patency established. IV site checked: no pain, redness, or swelling. IV flushed thoroughly. --15:24 11/23/20 Isabella Dooley R.N. Condition at departure: improved and stable. No learning barriers present. Discharge instructions provided and reviewed with the patient. Patient verbalized understanding. Written instructions provided in Swazi. ( Instructed to stop diclofenac). The patient was discharged by the physician. He was discharged home and accompanied by family. He left ambulatory and via private vehicle. Family member driving. --15:24 11/23/20 Isabella Dooley R.N. 5 Clinical Report - Nurses [facility] Emergency Department [address] [place] [address] Phone #: ext- [phone] 11/23/2020 12:44 Patient: SEAN MILLER Sex: M : 1965 Age: 55y 15:22 11/23/20. BP: 111/67. MAP: 81. HR: 83. RR: 18. O2 saturation: 99%. Temp: 98.7 F. Pain level now: 0/10. --15:24 11/23/20 Isabella Dooley R.N .Locked/Released at 11/23/2020 18:34 by Quinton Thornton RN Name Value Range Interpretation Code Description Data Ebony rce(s) Supporting Document(s) ID Date Data Source [id number] 11/23/2020 12:46:00 PM EDT [facility] 1 Clinical Report - Physicians/Mid Levels [facility] Emergency Department [address] [place] [address] Phone #: ext- [phone] 11/23/2020 12:44 Patient: SEAN MILLER Sex: M [...] here 09-22 for that), was seen at [facility] for coughing and rt rib pain on [...] surgeries. 2 Clinical Report - Physicians/Mid Levels [facility] Emergency Department [address] [place] [address] Phone #: ext- [phone] 11/23/2020 12:44 Patient: SEAN MILLER Sex: M [...] EKG unchanged when compared with prior EKG. (09-22-20). The study hasbeen interpreted contemporaneously by me. [...] 11/23/2020. 3 Clinical Report - Physicians/Mid Levels [facility] Emergency Department [address] [place] [address] Phone #: ext- [phone] 11/23/2020 12:44 Patient: [...] mL/min 4 Clinical Report - Physicians/Mid Levels [facility] Emergency Department [address] [place] [address] Phone #: ext- [phone] 11/23/2020 12:44 Patient: [...] mL/min Normal Lipase: (GEREMIAS: 11/23/2020 13:42) ( MsgRcvd 11/23/2020 14:30) [...] Thrombosis, Pulmonary Embolus, Tissue heart valves, Acute IA Atrial Fibrillation, Valvular heart disease and recurrent Systemic Embolism. -International Normalized Ratio (INR): 2.5 - 3.5 for Mechanical Prosthetic valve. Troponin-T: (GEREMIAS: 11/23/2020 13:42) ( MsgRcvd 11/23/2020 14:30) Final results Test Result Flag Units (Reference) TROPONIN T <0.01 NG/ML (0.00 - 0.10) TROPONIN T0.1 ng/ml Recommended as the clinical threshold value Lorraine MitchellPROGRESS AND PROCEDURESCourse of Care: 15:12 11/23/20. workup [...] IMPRESSION 5 Clinical Report - Physicians/Mid Levels [facility] Emergency Department [address] [place] [address] Phone #: ext- [phone] 11/23/2020 12:44 Patient: [...] rce(s) Supporting Document(s) ID Date Data Source [id number] 11/23/2020 02:30:00 PM T [facility] Name Value Range Interpretation Code Description Data Ebony rce(s) Supporting Document(s) TROPONIN T <0.01 NG/ML 0.00 - 0.10 [facility]ital TROPONIN T0.1 ng/ml Recommended as the c linical threshold value forTroponin T. ID Date Data Source [id number] 11/23/2020 02:30:00 PM EDT [facility] Name Value Range Interpretation Code Description Data Ebony rce(s) Supporting Document(s) Lipase [Enzymatic activity/volume] in Serum or Plasma 46 U/L 13 - 60 [facility] ID Date Data Source [id number] 11/23/2020 02:30:00 PM T [facility] Name Value Range Interpretation Code Description Data Ebony rce(s) Supporting Document(s) COMPREHENSIVE METABOLIC PANEL [facility] COMPREHENSIVE METABOLIC PANEL Sodium [Moles/volume] in Serum or Plasma 134 mEq/L 134 - 153 [facility] Potassium [Moles/volume] in Serum or Plasma 4.5 mEq/L 3.6 - 5.0 [facility] Chloride [Moles/volume] in Serum or Plasma 101 mEq/L 98 - 107 [facility] Carbon dioxide, total [Moles/volume] in Serum or Plasma 23 MEQ/L 22 - 30 [facility] Glucose [Mass/volume] in Serum or Plasma 219 MG/DL 70 - 99 H [facility] BUN 23 MG/DL 7 - 21 H [facility] al Creatinine [Mass/volume] in Serum or Plasma 1.0 MG/DL 0.7 - 1.5 [facility] BUN/CREAT 23 8 - 27 [facility] Protein [Mass/volume] in Serum or Plasma 5.8 G/DL 6.3 - 8.2 L [facility] Albumin [Mass/volume] in Serum or Plasma 3.7 G/DL 3.9 - 5.0 L [facility] Globulin [Mass/volume] in Serum by calculation 2.1 GM/DL 2.4 - 3.2 L [facility] A/G RATIO 1.8 0.8 - 2.0 [facility] Calcium [Mass/volume] in Serum or Plasma 8.6 MG/DL 8.4 - 10.2 [facility] Bilirubin.total [Mass/volume] in Serum or Plasma <0.7 MG/DL 0.2 - 1.3 [facility] Alkaline phosphatase [Enzymatic activity/volume] in Serum or Plasma 113 U/L 38 - 126 [facility] Aspartate aminotransferase [Enzymatic activity/volume] in Serum or Plasma 13 U/L 5 - 40 [facility] Alanine aminotransferase [Enzymatic activity/volume] in Seru m or Plasma 11 U/L 7 - 56 [facility] Anion gap 3 in Serum or Plasma 10.0 mmol/L 8.0 - 16.0 [facility] AGE 55 yrs [facility] al NON-AA GFR >60 mL/min [facility] ital AFR AMER GFR >60 mL/min [facility] Ho spital Male GFR In terprentation [...] >32 mL/min Normal ID Date Data Source [id number] 11/23/2020 01:57:00 PM EDT [facility] Name Value Range Interpretation Code Description Data Ebony rce(s) Supporting Document(s) Prothrombin time (PT) 11.8 SECONDS 11.0 - 15.5 [facility] INR in Platelet poor plasma by Coagulation assay 0.83 0.93 - 1. 23 L [facility] aPTT in Blood by Coagulation assay 26.9 SECONDS 24.8 - 36.7 [facility] \\BLDo\\INR INTERPRETATION\\BLDx\\ Therapeutic range for Coumadin and related oral anticoagulants. - International Normalized Ratio (INR): 2.0 - 3.0 for Venous Thrombosis, Pulmonary Embolus, Tissue heart valves, Acute IA Atrial Fibrillation, Valvular heart disease and recurrent Systemic Embolism. - International Normalized Ratio (INR): 2.5 - 3.5 for Mechanical Prosthetic valve. ID Date Data Source [id number] 11/23/2020 01:57:00 PM T [facility] Name Value Range Interpretation Code Description Data Ebony rce(s) Supporting Document(s) CBC W/AUTOMATED DIFF [facility] COMPLETE BLOOD COUNT Leukocytes [#/volume] in Blood by Automated count 16.4 10^3/uL 4.2 - 11.0 H [facility] Erythrocytes [#/volume] in Blood by Automated count 4.57 10^6/uL 4. 50 - 6.30 [facility] Hemoglobin [Mass/volume] in Blood 14.1 g/dL 14.0 - 16.0 [facility] Hematocrit [Volume Fraction] of Blood by Automated count 42.5 % 4 1.0 - 51.0 [facility] Erythrocyte mean corpuscular volume [Entitic volume] by Auto mated count 93.0 fL 80.0 - 94.0 [facility] Erythrocyte mean corpuscular hemoglobin [Entitic mass] by Automated count 30.9 pg 27.0 - 34.0 [facility] Erythrocyte mean corpuscular hemoglobin concentration [Mass/volume] by Automated count 33.2 g/dL 31.0 - 36.0 [facility] Erythrocyte distribution width [Ratio] by Automated count 14.1 % 11.5 - 14.8 [facility] Platelets [#/volume] in Blood by Automated count 230 10^3/uL 150 - 45 0 [facility] Platelet mean volume [Entitic volume] in Blood by Automated count 9.3 fL 7.4 - 10.4 [facility] Neutrophils/100 leukocytes in Blood by Automated count 87.1 % 37. 0 - 80.0 H [facility] Lymphocytes/100 leukocytes in Blood by Manual count 8.4 % 25.0 - 40.0 L [facility] Monocytes/100 leukocytes in Blood by Automated count 3.1 % 3.0 - 8.0 [facility] Eosinophils/100 leukocytes in Blood by Automated count 0.2 % 0.0 - 7.0 [facility] Basophils/100 leukocytes in Blood by Automated count 0.3 % 0.0 - 2.0 [facility] %IG 0.9 % 0.0 - 0.0 [facility] %NRBC 0.0 % 0.0 - 0.0 [facility] al Neutrophils [#/volume] in Blood by Automated count 14.23 10^3/uL 2. 00 - 6.90 H [facility] Lymphocytes [#/volume] in Blood by Automated count 1.38 10^3/uL 0.60 - 3.40 [facility] Monocytes [#/volume] in Blood by Automated count 0.51 10^3/uL 0.00 - 0.90 [facility] Eosinophils [#/volume] in Blood by Automated count 0.03 10^3/uL 0.00 - 0.70 [facility] Basophils [#/volume] in Blood by Automated count 0.05 10^3/uL 0.00 - 0.20 [facility] #IG 0.15 10^3/uL 0.00 - 0.10 H [facility] #NRBC 0.00 10^3/uL 0.00 - 0.00 [facility] MANUAL DIFF NOT INDICATED [facility] RBC MORPH NOT INDICATED [facility] ID Date Data Source [id number] 11/06/2020 10:05:00 AM EDT [facility] [address] [place] [address] PHONE: [phone] FAX: [phone] Name .................. : KAMALA ESTRADA Acct Number.................. : [id number] ROOM. ................. : TR-05 Number ................... : [id number] Stay type ............. : E/R Discharge Date......... ... : 11/05/20 Admit Date ......... : 11/05/20 Admit Phys .................... : COONEYNORM Date of ....... : 1965 Family Phys ................... : NON STAFF Phone .................. : [phone] Age ................................ : 55 Film# .................. .:[id number] Sex ................................. : M Unsigned transcriptions are preliminary reports and do not represent a medical or legal document CHEST PORTABLE [id number] COMPLETE:11/05/20 11:02 [id number] Re ason(s): Congestion PORTABLE CHEST, 11/05/20: INDICATION: [...] rce(s) Supporting Document(s) ID Date Data Source [id number] 11/05/2020 10:37:00 AM EDT [facility] 1 OrderSheet [facility] Emergency Department [address] [place] [address] Phone #: ext- [phone] 11/05/2020 10:36 Patient: SEAN MILLRE Sex: M : 1965 Age: 55yWEIGHT:74.8 kgALLERGIES: [...] rce(s) Supporting Document(s) ID Date Data Source [id number] 11/05/2020 10:37:00 AM EDT [facility] 1 Medication Reconciliation Report [facility] Emergency Department [address] [place] [address] Phone #: ext [phone] 11/05/2020 10:36 Patient: SEAN MILLER Sex: M [...] rce(s) Supporting Document(s) ID Date Data Source [id number] 11/05/2020 10:37:00 AM EDT [facility] 1 Medication Administration Record [facility] Emergency Department [address] [place] [address] Phone #: ext- [phone] 10:36 Patient: SEAN MILLER Sex: M : 1965 Age: 55yWeight: 74.8 kgHeight/Length: 70 inBMI: 23.7ALLERGIES: No Known Drug AllergyDate/Time Medication Administered Medication Ordered Name Value Range Interpretation Code Description Data Ebony rce(s) Supporting Document(s) ID Date Data Source [id number] 11/05/2020 10:37:00 AM EDT [facility] 1 General Instructions [facility] Emergency Department [address] [place] [address] Phone #: ext- [phone] 11/05/2020 10:36 Patient: [...] patient. ADDITIONAL INFORMATIONCOPD Flare 2 General Instructions [facility] Emergency Department [address] [place] [address] Phone #: ext- [phone] 11/05/2020 10:36 Patient: [...] of a different color 3 General Instructions [facility] Emergency Department [address] [place] [address] Phone #: ext- [phone] 11/05/2020 10:36 Patient: SEAN MILLER Sex: M [...] the infection has cleared. 4 General Instructions [facility] Emergency Department [address] [place] [address] Phone #: ext- [phone] 11/05/2020 10:36 Patient: [...] and fish, and low-fat dairy products.Preventing a vemdu-raUzhvf-vwn happen. But the best way to treat [...] stay inside when possible. 5 General Instructions [facility] Emergency Department [address] [place] [address] Phone #: ext- [phone] 11/05/2020 10:36 Patient: [...] your healthcare provider about your ability to: [place] in your normal environment Correctly use inhaler (or your medicine delivery systems) [place] with other conditions you have and their [...] or bloody mucus (sputum) 6 General Instructions [facility] Emergency Department [address] [place] [address] Phone #: ext- [phone] 11/05/2020 10:36 Patient: SEAN MILLER Sex: M : 1965 Age: 55y You don't start to get better within 24 hours Swelling of your ankles gets worse Weakness [id number] [employer]. [address] [place] [address]. All rights reserved. This information is not intended as asubstitute for professional medical care. Always follow your healthcare professional's instructions. You have been given the following additional information: COPD Flare(Electronically signed by Chelsy Oakley MD 11/06/2020 03:21) Name Value Range Interpretation Code Description Data Ebony rce(s) Supporting Document(s) ID Date Data Source [id number] 11/05/2020 10:37:00 AM EDT [facility] 1 Clinical Report - Nurses [facility] Emergency Department [address] [place] [address] Phone #: ext- [phone] 11/05/2020 10:36 Patient: SEAN MILLER Sex: M : 1965 Age: 55yTRIAGEArrived by EMS. Historian: patient. ( 0PRESENTS WITH SHORTNESS OF BREATH).Triage time: 10:43 11/05/2020. Acuity: LEVEL 3.Chief Complaint: SHORTNESS OF BREATH and DIFFICULTY BREATHING.Alert.This started yesterday. He has had a cough.Treatment FLARE STITCHER:None.SEPSIS SCREEN: SEPSIS SCREEN NEGATIVE. No paulino spected or confirmed signs of infection present.--10:47 11/05/20 Joe Monae R.N.10:42 11/05/20. BP: 148/112. MAP: 124. HR: 121. RR: 30. O2 saturation: 97% on non-rebreather at 15liters/minute. Temp: 97.5 F. Pain level now: 0. --10:47 11/05/20 Joe Monae R.N.Weight: 74.8 kg. [...] Monae R.N.. 2 Clinical Report - Nurses [facility] Emergency Department [address] [place] [address] Phone #: ext- [phone] 11/05/2020 10:36 Patient: [...] treatment room. --10:47 11/05/20 Joe Monae R.N.PHYSICAL XSUSMQEBSO05:58 11/05/20. To room via stretcher.GENERAL / NEURO [...] Thornton RN 3 Clinical Report - Nurses [facility] Emergency Department [address] [place] [address] Phone #: ext- [phone] 11/05/2020 10:36 --- [...] Bandaid applied. --12:45 11/05/20 Quinton Thornton RN 12:11/05/20. Departure time: 12:11/05/2020. Condition at departure: unchanged. No learning barriers present. Discharge instructions provided and reviewed with the patient. Reviewed medication(s) (no changes). Treatments reviewed (avoid smoke). Reviewed referral to a paperhanger contractor. Patient verbalized understanding. Written instructions provided in Swazi. The patient was discharged by the physician. He was discharged home. He left ambulatory and via taxi. --12:44 11/05/20 Quinton Thornton RN.Locked/Released at 11/05/2020 16:04 by Quinton Thornton RN Name Value Range Interpretation Code Description Data Ebony rce(s) Supporting Document(s) ID Date Data Source [id number] 11/05/2020 10:37:00 AM EDT [facility] 1 Clinical Report - Physicians/Mid Levels [facility] Emergency Department [address] [place] [address] Phone #: ext- [phone] 11/05/2020 10:36 Patient: [...] Ompeprazole. Allergies: 2 Clinical Report - Physicians/Mid Levels [facility] Emergency Department [address] [place] [address] Phone #: ext- [phone] 11/05/2020 10:36 Patient: [...] Dependence. 3 Clinical Report - Physicians/Mid Levels [facility] Emergency Department [address] [place] [address] Phone #: ext- [phone] 11/05/2020 10:36 Patient: SEAN MILLER Sex: M : 1965 Age: 55yINSTRUCTIONS Avoid tobacco smoke. Do not smoke. (Please follow up with your doctor. return if worse or any new symptoms. Take all medications as previously instructed. It is not safe to take steroids continuously. You need to be under the care of a paperhanger contractor if you have this severe of lung [...] rce(s) Supporting Document(s) ID Date Data Source [id number] 10/22/2020 09:56:00 [place] [address] PHONE: [phone] FAX: [phone] Name .................. : KAMALA ESTRADA Acct Number.................. : [id number] ROOM. ................. : TR-06 MR Number ................... : [id number] Stay type ............. : E/R Discharge Date......... ... : 10/21/20 Admit Date .... ..... : 10/21/20 Admit Phys .................... : OTTO CARLIN Date of ....... : 1965 Family Phys ................... : NON STAFF Phone .................. : [phone] Age ................................ : 55 Film# .................. .:[id number] Sex ................................. : M Unsigned transcriptions are preliminary reports and do not represent a medical or legal document CHEST 2 VIEWS [id number] COMPLETE:10/21/20 19:31 ITALO [id number] Reason(s) : COPD CHEST X-RAY: 2-VIEWS INDICATION: COPD, cough. COMPARISON: 09/22/20 FINDINGS: Lungs clear. Heart and mediastinum are normal with no signs of any acute abnormalities noted. IMPRESSION: No acute disease identified. Electronically Reviewed and Signed By KYLAH GAINES MD , 10/22/20 09:56, [facility] Transcribe Initials: LATA , Transcribe Date: 10/22/20 00:04, Dictation Date: Copy for: EMERGENCY DEPT via [facility] Copy for: 710 MED REC DISCHARGED Page 1 of 1 Name Value Range Interpretation Code Description Data Ebony rce(s) Supporting Document(s) ID Date Data Source [id number] 10/21/2020 01:51:00 PM EDT [facility] 1 OrderSheet [facility] Emergency Department [address] [place] [address] Phone #: ext- [phone] 10/21/2020 13:51 Patient: SEAN MILLER Sex: M : 1965 Age: 55yWEIGHT:74.8 kg (S) HEIGHT:70 inches (S) BMI:23.7ALLERGIES: No Known Drug AllergyCHIEF COMPLAINT: dyspnea, COPDDIAGNOSIS: Chronic obstructive lung disease, Medication refillLAB ORDERSOrder Description Priority Entered Acknowledged InitialedCOVID-19 CAH STAT 14:14 10/21/2020 Ack'd: 14:19 14:30 Suki,(Symptomatic as TurrinDevin, Aline Aline R.N.Defined by CDC) M.D.; R.N.(10/21/2020) (NotFirst Test) (NotHospitalized) (Not) (NotResident inCongregate CareSetting) (NotEmployed inHealthcare Setting)DIAGNOSTIC STUDY ORDERSOrder Description Priority Entered Acknowledged InitialedChest 2 View STAT 14:14 10/21/2020 Ack'd: 14:14 14:16 Suki,(Oxygen?(No)) Devin Menjivar, Aline Aline R.N. M.D.; R.N. Reason for Study: COPD, CoughMEDICATION/IV/DRIP/FLUID ORDERSOrder Description Priority Entered Acknowledged InitialedDuoNeb 3 mL X2 14:14 10/21/2020 Ack'd: 14:19 14:30 Suki,Doses (Filtered): 6 Turrin, Devindo Cohn, Aline Aline R.N.mL (3 mL X2 M.D.; R.N.Doses)Teschristina [place] PO 14:14 10/21/2020 Ack'd: 14:19 14:30 Suki,200 mg Turrin, Devindo Cohn, Aline Aline R.N. M.D.; R.N. 2 OrderSheet [facility] Emergency Department [address] [place] [address] Phone #: ext- [phone] 10/21/2020 13:51 Patient: SEAN MILLER Sex: M : 1965 Age: 55yGENERAL ORDERSOrder Description Priority Entered Acknowledged Initialed[Electronically signed by Aline Cohn R.N. (10/21/2020)][Electronically signed by Devin Menjivar M.D. (17:10/21/2020)][Electronically locked by Aline Cohn R.N. (10/21/2020)] Name Value Range Interpretation Code Description Data Ebony rce(s) Supporting Document(s) ID Date Data Source [id number] 10/21/2020 01:51:00 PM EDT [facility] 1 Medication Reconciliation Report [facility] Emergency Department [address] [place] [address] Phone #: ext- [phone] 10/21/2020 13:51 Patient: [...] Dispense 10 tablet. Refills: 0.Substitution permitted.Pharmacy - [place] [address]. FaxNumber: .albuterol sulfate HFA 90 mcg/actuation aerosol inhaler Inhale 2 puff four times a day as needed for 7 days-- Dispense 1 inhaler. Refills: 0. Substitution permitted.Pharmacy - [address] [phone]. .ipratropium 0.5 mg- albuterol 3 mg (2.5 mg base)/3 mL nebulization soln Take 3 ml four times a day asneeded for 7 days -- Dispense 84 ml. Refills: 0. Substitution permitted. 2 Medication Reconciliation Report [facility] Emergency Department [address] [place] [address] Phone #: ext- [phone] 10/21/2020 13:51 Patient: SEAN MILLER Sex: M : 1965 Age: 55yPharmacy - [address] [phone]. .Tessalon Perles 100 mg capsule Take 1 capsule three times a day for 5 days -- Dispense 15 capsule.Refills: 1. Substitution permitted.Pharmacy - [address] [phone]. . -- Devin Menjivar M.D. Name Value Range Interpretation Code Description Data Ebony e(s) Supporting Document(s) ID Date Data Source [id number] 10/21/2020 01:51:00 PM EDT [facility] 1 Medication Administration Record [facility] Emergency Department [address] [place] [address] Phone #: [phone]- [phone] 10/21/2020 13:51 Patient: SEAN MILLER Sex: M : 1965 Age: 55yWeight: 74.8 kgHeight/Length: 70 inBMI: 23.7ALLERGIES: No Known Drug Allergy Date/Time Medication Administered Medication OrderedGiven DUONEB [NEB TX] DuoNeb 3 mL X2 Doses (Filtered):14:25 10/21/2020 Dose: 2 unit dose Nebulizer Neb TX 6 mL (3 mL X2 Doses)Aline Cohn REldon----Stop14:45 10/21/2020Aline Cohn R.N.Given TESSALON PERLES [PO] Tessalon Perles PO 200 mg14:25 10/21/2020 (BENZONATATE)Aline Cohn R.N. Dose: 200 mg Capsules PO Name Value Range Interpretation Code Description Data Ebony rce(s) Supporting Document(s) ID Date Data Source [id number] 10/21/2020 01:51:00 PM EDT [facility] 1 General Instructions [facility] Emergency Department [address] [place] [address] Phone #: ext- [phone] 10/21/2020 13:51 Patient: SEAN MILLER Sex: M : 1965 Age: 55yMedication refill.Stable COPD (emphysematous). No chronic bronchitis.INSTRUCTIONS Avoid tobacco smoke. Do not smoke. No alcohol. (PLEASE GET YOUR MEDICATION REFILLS FROM YOUR NEW FAMILY MD IN [place] WHEN YOU SEE HIM/HER ON 10-23).Warnings: Further [...] Dispense 10 tablet. Refills: 0.Substitution permitted.Pharmacy - [facility] [place] [address]. .albuterol sulfate HFA 90 mcg/actuation aerosol inhaler Inhale 2 puff four times a day as needed for 7 days-- Dispense 1 inhaler. Refills: 0. Substitution permitted.Pharmacy - [facility] [place] [address]. .ipratropium 0.5 mg-albuterol 3 mg (2.5 mg base)/3 mL nebulization soln Take 3 ml four times a day asneeded for 7 days -- Dispense 84 ml. Refills: 0. Substitution permitted.[place] [id number]. . 2 General Instructions [facility] Emergency Department [address] [place] [address] Phone #: ext- [phone] 10/21/2020 13:51 --------- Patient: SEAN MILLER Sex: M : 1965 Age: 55yTessalon Perles 100 mg capsule Take 1 capsule three times a day for 5 days -- Dispense 15 capsule.Refills: 1. Substitution permitted.Pharmacy - [facility] - [address] [place] [phone]. .Follow-up:Return to the emergency department as needed.Understanding of the discharge instructions verbalized by patient. Expected course of illness, dischargeinstructions, activity level, diet, prescriptions x3, follow-up appointment and risks and benefits of treatmentreviewed with patient and understanding verbalized. Agrees to plan of care.Follow-up with: [facility], , , [address] [place] [address], [facility] Follow up in two days as scheduled. Reason for referral: evaluation, treatment and Medication refill.Summary of care provided to patient via paper. ADDITIONAL INFORMATIONCOPD Flare 3 General Instructions [facility] Emergency Department [address] [place] [address] Phone #: ext- [phone] 10/21/2020 13: 51 [...] of a different color 4 General Instructions [facility] Emergency Department [address] [place] [address] Phone #: ext- [phone] 10/21/2020 13:51 Patient: [...] the infection has cleared. 5 General Instructions [facility] Emergency Department [address] [place] [address] Phone #: ext- [phone] 10/21/2020 13:51 Patient: [...] and fish, and low-fat dairy products.Preventing a mlutf-cqKqnbj-ehl happen. But the best way to treat [...] stay inside when possible. 6 General Instructions [facility] Emergency Department [address] [place] [address] Phone #: ext- [phone] 10/21/2020 13:51 Patient: [...] your healthcare provider about your ability to: [place] in your normal environment Correctly use inhaler (or your medicine delivery systems) [place] with other conditions you have and their [...] or bloody mucus (sputum) 7 General Instructions [facility] Emergency Department [address] [place] [address] Phone #: ext- [phone] 10/21/2020 13:51 Patient: SEAN MILLER Sex: M : 1965 Age: 55y You don't start to get better within 24 hours Swelling of your ankles gets worse Weakness [id number] [employer]. [address] [place] [address]. All rights reserved. This information is not intended as asubstitute for professional medical care. Always follow your healthcare professional's instructions. You have been given the following additional information: COPD Flare(Electronically signed by Devin Menjivar M.D. 10/21/2020 17:02) Name Value Range Interpretation Code Description Data Ebony rce(s) Supporting Document(s) ID Date Data Source [id number] 10/21/2020 01:51:00 PM EDT [facility] 1 Clinical Report - Nurses [facility] Emergency Department [address] [place] [address] Phone #: ext- [phone] 10/21/2020 13:51 Patient: [...] fever, chills, chest pain or back pain.Treatment FLARE STITCHER:Seen within the last 30 days in the ED; seen for similar symptoms; treatment- steroid and breathingtreatment.EMS Treatment FLARE STITCHER:See EMS report. --14:01 10/21/20 Tegan Hauser R.N.13:53 10/21/20. BP: 144/110. MAP: 121. HR: 90. RR: 20. O2 saturation: 96%. Temp: 97 F. Pain levelnow: 0/10. --14:01 10/21/20 Tegan Hauser R.N. Height/Length: 108 inches. Charted on wrong patient --13:52 10/21/20 Tegan Hauser R.N..Weight: 74.8 kg stated. Height/Length: 70 inches Per Patient. BMI: 23.7. --13:52 10/21/20 Tegan Hauser R.N.MedicationsLisinopril Oral 20 mg, daily. [facility] tx. Ompeprazole. --13:57 10/21/20 Tegan Hauser R.N.AllergiesNo Known Drug Allergy. --13:57 10/21/20 Tegan Hauser R.N.ADDITIONAL SURGERIES:no known surgeries.HistoryPAST MEDICAL HX: Chronic obstructive pulmonary disease. Immunizations: up-to-date.SURGERY HX: No history of previous surgery.SOCIAL HX: Light tobacco smoker (cigarette)- less than 1/2 a pack per day. Drug use: marijuana. No 2 Clinical Report - Nurses [facility] Emergency Department [address] [place] [address] Phone #: ext- [phone] 10/21/2020 13:51 Patient: SEAN MILLER Sex: M [...] Saline lock flushed with 10 mL saline. --14:10/21/20 Aline Cohn R.N. 3 Clinical Report - Nurses [facility] Emergency Department [address] [place] [address] Phone #: ext- [phone] 10/21/2020 13:51 Patient: SEAN MILLER Sex: M : 1965 Age: 55yPatient transported to radiology by wheelchair with IV, mask and medical delivery technician. --14:19 10/21/20 Aline Cohn R.N.late entry - [...] / DISCHARGE 4 Clinical Report - Nurses [facility] Emergency Department [address] [place] [address] Phone #: ext- [phone] 10/21/2020 13:51 [id number] Sex[facility] M : 1965 Age: 55y Condition at departure: improved and stable. No learning barriers present. Discharge instructions provided and reviewed with the patient. Reviewed warnings. Reviewed medication(s) side effects, precautions, dosing and course information. Prescription(s) sent electronically to pharmacy (Prednisone, Albuterol, Ipratropium, Tessalon Pearls). Reviewed referral to a primary care physician for followup. Patient verbalized understanding. Written instructions provided in Swazi. The patient was discharged by the physician. He was discharged home and unaccompanied at time of discharge. He left ambulatory and via taxi. Driving (taxi). --16:19 10/21/20 Aline Cohn R.N. 16:10 10/21/20. BP: 177/96. MAP: 123. HR: 97. RR: 18. O2 saturation: 96% on room air. Temp: 97.2 F (oral). Pain level now: 10. --16:19 10/21/20 Aline Cohn R.N. Departure time: 16:14 10/21/2020. --16:20 10/21/20 Aline Cohn R.N.Locked/Released at 10/21/2020 16:21 by Aline Cohn R.N. Name Value Range Interpretation Code Description Data Ebony rce(s) Supporting Document(s) ID Date Data Source [id number] 10/21/2020 01:51:00 PM EDT [facility] 1 Clinical Report - Physicians/Mid Levels [facility] Emergency Department [address] [place] [address] Phone #: ext- [phone] 10/21/2020 13:51 Patient: SEAN MILLER [facility]#: [id number] Sex: M : 1965 Age: 55y Time [...] since 2015; pt has been followed by paperhanger contractor in [place] who, according to pt, refuses to prescribe him prednisone; pt states that's the only thing that works and keeps him out of hospitals; pt has been here 4 times since August (08/11, 09/03, 09/22 and 10/15) and now has appt w new ACID CONCENTRATOR in [place] on 10-23; pt has been out of [...] daily. 2 Clinical Report - Physicians/Mid Levels [facility] Emergency Department [address] [place] [address] Phone #: ext- [phone] 10/21/2020 13:51 Patient: [...] # _[id number] 10/21/20.1539.DW . KIT EXP DATE _[id number] 10/21/20.1539.DW . NORMAL RANGE IS NOT DETECTEDNEGATIVE RESULTS SHOULD BE TREATED PRESUMPTIVE AND, IF INCONSISTENT WITHCLINICAL SIGNS AND SYMPTOMS OR NECESSARY FOR PATIENT MANAGEMENT, SHOULD BETESTED WITH DIFFERENT AUTHORIZED OR CLEARED MOLECULAR TESTS. NEGATIVE RESULTSDO NOT PRECLUDE SARS-CoV-2 INFECTION AND SHOULD NOT BE USED THE SOLE BASISFOR PATIENT MANAGEMENT DECISIONS. 3 Clinical Report - Physicians/Mid Levels [facility] Emergency Department [address] [place] [address] Phone #: ext- [phone] 10/21/2020 13:51 Patient: SEAN MILLER Sex: M : 1965 Age: 55y.PROGRESS AND PROCEDURESCourse of Care: 15:44 10/21/20. markedly improved, BS's improved, rare wheezing at bases, CXR neg.,rapid Covid neg., will d/c home w instructions, pt requesting albuterol inhaler, duonbl and prednisone 40mg QD x 5 days until he is seen at [facility] on ; he also requested some codeinesyrup which was denied; pt strongly encouraged to see his new ACID CONCENTRATOR from now on for meds refill, since [...] REFILLS FROM YOUR NEW FAMILY MD IN [place] WHEN YOU SEE HIM/HER ON 10-23). Warnings: [...] Ompeprazole*. 4 Clinical Report - Physicians/Mid Levels [facility] Emergency Department [address] [place] [address] Phone #: ext- [phone] 10/21/2020 13:51 Patient: SEAN MILLER Sex: M : 1965 Age: 55y Prescription Medications: prednisone 20 mg tablet Take 2 tablet once a day for 5 days -- Dispense 10 tablet. Refills: 0. Substitution permitted. [place] [id number]. . albuterol sulfate HFA 90 mcg/actuation aerosol inhaler Inhale 2 puff four times a day as needed for 7 days -- Dispense 1 inhaler. Refills: 0. Substitution permitted. [place] [id number]. . ipratropium 0.5 mg-albuterol 3 mg (2.5 mg base)/3 mL nebulization soln Take 3 ml four times a day as needed for 7 days -- Dispense 84 ml. Refills: 0. Substitution permitted. [place] [id number]. . Tessalon Perles 100 mg capsule Take 1 capsule three times a day for 5 days -- Dispense 15 capsule. Refills: 1. Substitution permitted. [place] [id number]. . Follow-up: Return to the emergency department as needed. Understanding of the discharge instructions verbalized by patient. Expected course of illness, discharge instructions, activity level, diet, prescriptions x3, follow-up appointment and risks and benefits of treatment reviewed with patient and understanding verbalized. Agrees to plan of care. Follow-up with: [facility], , , [address] [place] [address], [place], [address] Follow up in two days as scheduled. Reason for referral: evaluation, treatment and Medication refill. Summary of care provided to patient via paper.(Electronically signed by Devin Menjivar M.D. 10/21/2020 17:02) Name Value Range Interpretation Code Description Data Ebony rce(s) Supporting Document(s) ID Date Data Source [id number] 10/21/2020 02:27:00 PM EDT [facility] Name Value Range Interpretation Code Description Data Ebony rce(s) Supporting Document(s) COVID19 Case rprt NOT DETECTED [facility] This lab was ordered by [facility] and reported by [facility]. ID Date Data Source [id number] 10/21/2020 03:39:00 PM EDT [facility] NOT DETECTEDNOT DETECTED{ PROC EDURAL CONTROL VALID KIT LOT # _[id number] 10/21/20.1539.DW . KIT EXP DATE _[id number] 10/21/20.1539.DW . NORMAL RANGE IS NOT DETECTEDNEGATIVE RESULTS SHOULD BE TREATED PRESUMPTIVE AND, IF INCONSISTENT WITHCLINICAL SIGNS AND SYMPTOMS OR NECESSARY FOR PATIENT MANAGEMENT, SHOULD BETESTED WITH DIFFERENT AUTHORIZED OR CLEARED MOLECULAR TESTS. NEGATIVE RESULTSDO NOT PRECLUDE SARS-CoV-2 INFECTION AND SHOULD NOT BE USED THE SOLE BASISFOR PATIENT MANAGEMENT DECISIONS. Name Value Range Interpretation Code Description Data [facility] rce(s) Supporting Document(s) ID Date Data Source [id number] 10/15/2020 12:12:00 PM EDT [facility] 1 OrderSheet [facility] Emergency Department [address] [place] [address] Phone #: ext- [phone] 10/15/2020 12:12 Patient: [...] Acknowledged Initialed[Electronically signed by Aline Cohn R.N. (10/15/2020)][Electronically signed by Chelsy Oakley MD (00:10/16/2020)][Electronically locked by Aline Cohn R.N. (10/15/2020)] Name Value Range Interpretation Code Description Data Ebony rce(s) Supporting Document(s) ID Date Data Source [id number] 10/15/2020 12:12:00 PM EDT [facility] 1 Medication Reconciliation Report [facility] Emergency Department [address] [place] [address] Phone #: ext- [phone] 10/15/2020 12:12 Patient: SEAN MILLER Sex: M [...] Dispense 5 tablet. Refills: 0. Substitutionpermitted.Pharmacy - [facility] - [address] [place] [address] ; [place], [place] [id number]. FaxNumber: . -- Chelsy Oakley MD Name Value Range Interpretation Code Description Data Ebony rce(s) Supporting Document(s) ID Date Data Source [id number] 10/15/2020 12:12:00 PM EDT [facility] 1 Medication Administration Record [facility] Emergency Department [address] [place] [address] Phone #: [phone] ext [phone] 10/15/2020 12:12 Patient: SEAN MILLER Sex: M : 1965 Age: 55yWeight: 74.8 kgHeight/Length: 70 inBMI: 23.7ALLERGIES: No Known Drug Allergy Date/Time Medication Administered Medication OrderedGiven SOLU-MEDROL [IVP] SOLU-Medrol IVP 125 mg12:38 10/15/2020 (METHYLPREDNISOLONE SODIUMWeaver, Aline, R.N. SUCC) Dose: 125 mg IVP Site: #1 right handStart NS [IV] IV NS 1000 mL Bolus : Bolus 181552:44 10/15/2020 Dose: IV Fluids mL (X1)Aline Cohn [...] rce(s) Supporting Document(s) ID Date Data Source [id number] 10/15/2020 12:12:00 PM EDT [facility] 1 General Instructions [facility] Emergency Department [address] [place] [address] Phone #: ext- [phone] 10/15/2020 12:12 Patient: SEAN MILLER Sex: M : 1965 Age: 55yAcute exacerbation of COPD.INSTRUCTIONSNo strenuous activity.Avoid tobacco smoke.(Return if worse or any new symptoms. Take all medications as previously instructed. I have sent you aprescription for prednisone. take as prescribed. it is imperative to follow up with your pulmonol ogist [facility].).Warnings: Further evaluation is necessary.GENERAL [...] Dispense 5 tablet. Refills: 0. Substitutionpermitted.Pharmacy - [facility] - [address] [place] [id number]. .Follow-up:Follow up with your doctor tomorrow even if well. Call for an appointment. Reason for referral: evaluation.Summary of care provided to patient via paper.Understanding of the discharge instructions verbalized by patient. ADDITIONAL INFORMATIONCOPD Flare 2 General Instructions [facility] Emergency Department [address] [place] [address] Phone #: ext- [phone] 10/15/2020 12:12 Patient: SEAN MILLER Sex: M [...] of a different color 3 General Instructions [facility] Emergency Department [address] [place] [address] Phone #: ext- [phone] 10/15/2020 12:12 Patient: SEAN MILLER Sex: M [...] the infection has cleared. 4 General Instructions [facility] Emergency Department [address] [place] [address] Phone #: ext- [phone] 10/15/2020 12:12 Patient: [...] and fish, and low-fat dairy products.Preventing a htrar-nkCxawf-sqb happen. But the best way to treat [...] stay inside when possible. 5 General Instructions [facility] Emergency Department [address] [place] [address] Phone #: ext- [phone] 10/15/2020 12:12 Patient: [...] your healthcare provider about your ability to: [place] in your normal environment Correctly use inhaler (or your medicine delivery systems) [place] with other conditions you have and their [...] or bloody mucus (sputum) 6 General Instructions [facility] Emergency Department [address] [place] [address] Phone #: ext- [phone] 10/15/2020 12:12 Patient: SEAN MILLER Sex: M : 1965 Age: 55y You don't start to get better within 24 hours Swelling of your ankles gets worse Weakness [id number] [employer]. [address] [place] [address]. All rights reserved. This information is not intended as asubstitute for professional medical care. Always follow your healthcare professional's instructions. You have been given the following additional information: COPD Flare No strenuous activity.(Electronically signed by Chelsy Oakley MD 10/16/2020 00:21) Name Value Range Interpretation Code Description Data Ebony rce(s) Supporting Document(s) ID Date Data Source [id number] 10/15/2020 12:12:00 PM EDT [facility] 1 Clinical Report - Nurses [facility] Emergency Department [address] [place] [address] Phone #: ext- [phone] 10/15/2020 12:12 Patient: [...] BREATHING.Alert. No acute distress.This started last night.Treatment FLARE STITCHER:None. Recently seen in a medical facility; treatment- breathing treatment. (0700).SEPSIS SCREEN: SIRS SCREEN NEGATIVE. SEPSIS SCREEN NEGATIVE. No suspected or confirmedsigns of infection present. --12:31 10/15/20 Cherelle Echols RN12:26 10/15/20. BP: 164/104. MAP: 124. HR: 125. RR: 18. O2 saturation: 95% on nasal cannula at 2liters/minute. Temp: 98.7 F. Pain level now: 510. --12:10/15/20 Cherelle Echols RN.Weight: 74.8 kg stated. [...] RN, 12:10/15/20 2 Clinical Report - Nurses [facility] Emergency Department [address] [place] [address] Phone #: ext- [phone] 10/15/2020 12:12 Patient: [...] ready for 3 Clinical Report - Nurses [facility] Emergency Department [address] [place] [address] Phone #: ext- [phone] 10/15/2020 12:12 Patient: SEAN MILLER Sex: M : 1965 Age: 55yevaluation. --12:31 10/15/20 Cherelle Echols, KIMBERLY12:28 10/15/2020 Site #1 started [...] andprecautions. Verbalizes understanding. --12:43 10/15/20 Aline Cohn RSimonaNSimona12:38 10/15/2020 Duoneb Neb TX Nebulizer 1 unit dose given. Given by the nurse. Allergies verified andconfirmed 5 rights. Information reviewed with patie nt including reason for taking this medication, signs ofallergic reaction and precautions. Verbalizes understanding. --12:43 10/15/20 lAine Cohn R.N.12:44 10/15/2020 Started bag #1 1000 mL IV [...] 106. RR: 27. O2 saturation: 94%. --13:16 10/15/20[facility] Pgiv550:16 10/15/20. BP: 152/97. MAP: 115. HR: 99. RR: 23. O2 saturation: 94%. --13:16 10/15/20 [facility] Nczo769:14 10/15/20. Oxygen administered by nasal cannula at 2 liters. personnel monitor, NIBP monitor andpulse oximeter placed on [...] reach. Side 4 Clinical Report - Nurses [facility] Emergency Department [address] [place] [address] Phone #: ext- [phone] 10/15/2020 12:12 Patient: SEAN MILLER Sex: M : 1965 Age: 55y rails up x 2. Bed placed in lowest position. Brakes of bed on. --13:24 10/15/20 Aline Cohn R.N. Oxygen administered by nasal cannula at 2 liters. personnel monitor, NIBP monitor and pulse oximeter placed [...] RR: 21. O2 saturation: 95%. --14:35 10/15/20 [place] corrections identification technician Juan Manuel, Tech1 14:48 10/15/2020 Magnesium Sulfate IVPB via [...] F. Pain level now 0/10. --15:04 10/15/20 [facility] Tech Juan Manuel, Tech1 15:10 10/15/20. Departure time: 15:10 10/15/2020. Condition at departure: improved and stable. No learning barriers present. Discharge instructions provided and reviewed with the patient. Reviewed medication(s) side effects, precautions, dosing and course information. Prescription(s) sent electronically to pharmacy (Prednisone). Reviewed referral to a primary care physician for followup. Patient verbalized understanding. Wr itten instructions provided in Swazi. The patient was discharged by the physician. He was discharged home and unaccompanied at time of discharge. He left ambulatory and via taxi. 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 --15:13 10/15/20 Aline Cohn R.N.Locked/Released at 10/15/2020 15:14 by Aline Cohn R.N. 5 Clinical Report - Nurses [facility] Emergency Department [address] [place] [address] Phone #: ext- [phone] 10/15/2020 12:12 Patient: SEAN MILLER Sex: M : 1965 Age: 55y Name Value Range Interpretation Code Description Data Ebony rce(s) Supporting Document(s) ID Date Data Source [id number] 10/15/2020 12:12:00 PM EDT [facility] 1 Clinical Report - Physicians/Mid Levels [facility] Emergency Department [address] [place] [address] Phone #: ext- [phone] 10/15/2020 12:12 Patient: [...] Ompeprazole. 2 Clinical Report - Physicians/Mid Levels [facility] Emergency Department [address] [place] [address] Phone #: ext- [phone] 10/15/2020 12:12 Patient: SEAN MILLER Sex: M [...] 2liters/minute. Temp: 98.7 F. Pain level now: 10. 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 Patient/family counseled. Disposition: Discharged. Condition: good and stable.CLINICAL IMPRESSION Acute exacerbation of COPD. 3 Clinical Report - Physicians/Mid Levels [facility] Emergency Department [address] [place], [place] [address] Phone #: ext- [phone] 10/15/2020 12:12 Patient: SEAN MILLER Sex: M : 1965 Age: 55yINSTRUCTIONS No strenuous activity. Avoid tobacco smoke. (Return if worse or any new symptoms. Take all medications as previously instru cted. I have sent you a prescription for prednisone. take as prescribed. it is imperative to follow up with your paperhanger contractor and primary care physician.). Warnings: Further evaluation [...] tablet. Refills: 0. Substitution permitted. Pharmacy - [facility] - [address] [place] [address] ; [place], [place] [phone]. . Follow-up: Follow up with your doctor tomorrow even if well. Call for an appointment. Reason for referral: evaluation. Summary of care provided to patient via paper. Understanding of the discharge instructions verbalized by patient.(Electronically signed by Chelsy Oakley MD 10/16/2020 00:21) Name Value Range Interpretation Code Description Data Ebony rce(s) Supporting Document(s) ID Date Data Source [id number] 09/22/2020 08:19:[place] [address] RESPIRATORY CARE REPORT ==== ---------NAME------- NUMBER SEX AGE ADMIT DISC. XRAY# F/C TYPEMCCOY SEAN [id number] M 55 09/22/20 09/22/20 [id number] X6B E/R DATE OF : 1965 M/R# [id number] PH#: [phone] TR-05 LOCATION: EKG 93988 COMPLETE:09/22/20 0 6:17 ED 13366 PHYSICIAN: OTTO CARLIN Name Value Range Interpretation Code Description Data Ebony rce(s) Supporting Document(s) ID Date Data Source [id number] 09/22/2020 12:21:00 [place] [address] PHONE: [phone] FAX: [phone] Name .................. : KAMALA ESTRADA Acct Number.................. : [id number] ROOM. ................. : TR-05 Number ................... : [id number] Stay type ............. : E/R Discharge Date......... ... : 09/22/20 Admit Date .... ..... : 09/22/20 Admit Phys .................... : OTTO CARLIN Date of ....... : 1965 Family Phys ................... : Phone .................. : [phone] Age ................................ : 55 Film# .................. .:[id number] Sex ................................. : M Unsigned transcriptions are preliminary reports and do not represent a medical or legal document CHEST PORTABLE [id number] COMPLETE:09/22/20 06:27 RLB 6817 Reason(s): COPD SINGLE VIEW OF THE CHEST, 09/22/20: FINDINGS: The cardiac and mediastinal silhouettes appear normal and the lungs are clear. The bones and soft tissues are normal. The upper abdomen is unremarkable. IMPRESSION: No acute disease identifiable. Electronically Reviewed and Signed By Talib Prado MD , 09/22/20 12:21, TDS Transcribe Initials: SSR, Transcribe Date: 09/22/20 09:05, Dictation Date: Copy for: 710 MED REC DISCHARGED Page 1 of 1 Name Value Range Interpretation Code Description Data Ebony rce(s) Supporting Document(s) ID Date Data Source [id number] 09/22/2020 03:21:00 AM EDT [facility] 1 OrderSheet [facility] Emergency Department [address] [place] [address] Phone #: ext- [phone] 09/22/2020 03:21 Patient: SEAN MILLER Sex: M : 1965 Age: 55yWEIGHT:74.8 kg (S) HEIGHT:70 inches (S) BMI:23.7ALLERGIES: No Known Drug AllergyCHIEF COMPLAINT: dizzinessDIAGNOSIS: Chronic obstructive lung disease, DizzinessLAB ORDERSOrder Description Priority Entered Acknowledged InitialedCBC w Diff STAT 03:41 09/22/2020 Initialed: 03:42 Jese, Kelechi Margueriterin, Devin Cancelled: Patient Refusal 04:21 Brooklynn Sawant; BlairCMP STAT 03:41 09/22/2020 Initialed: 03:42 Bullrenato, Kelechi Turrin, Devin Cancelled: Patient Refusal 04:21 Brooklynn Sawant; BlairLipase STAT 03:41 09/22/2020 Initialed: 03:42 Bulluck, Kelechi Turrin, Devin Cancelled: Patient Refusal 04:22 Brooklynn Sawant; BlairPT/PTT STAT 03:41 09/22/2020 Initialed: 03:42 Jese, Kelechilizzy Menjivar, Devin Cancelled: Patient Refusal 04:22 Brooklynn Sawant; BlairTroponin-T STAT 03:41 09/22/2020 Initialed: 03:42 Jese, Kelechi Margueriterin, Devin Cancelled: Patient Refusal 04:22 Brooklynn Sawant; BlairBNP STAT 03:41 09/22/2020 Initialed: 03:42 Jese, Kelechi Turrin, Devin Cancelled: Patient Refusal 04:22 Brooklynn Sawant; BlairDIAGNOSTIC STUDY ORDERSOrder Description Priority Entered Acknowledged InitialedChest Portable 1 STAT 03:41 09/22/2020 03:42 Jese,View Otto Devinyenny Lorenz(Oxygen?(No)) Brooklynn; Reason for Study: COPDCT Head W/O Cont STAT 03:41 09/22/2020 03:42 Jese,(Oxygen?(No)) Devin Menjivar M.D.; Reason for Study: Vertigo/DizzinessMEDICATION/IV/DRIP/FLUID ORDERS 2 OrderSheet [facility] Emergency Department [address] [place] [address] Phone #: ext- [phone] 09/22/2020 03:21 - Patient: SEAN MILLER Sex: [...] Pressure 03:41 09/22/2020 03:42 Jese,Monitor Devin Menjivar M.D.;Library Services Assistant 03:41 09/22/2020 03:42 Jese,(continuous) Devin Menjivar M.D.;EKG 03:41 09/22/2020 03:42 Otto Sawant Riccardo Blair M.D.;NPO 03:41 09/22/2020 03:42 Otto Sawant Riccardo Blair M.D.;Obtain Old EKG 03:41 09/22/2020 03:42 Otto Sawant Riccardo Blair M.D.;Obtain Old Records 03:41 09/22/2020 03:42 Otto Sawant Riccardo Blair M.D.;Oxygen titrate to 03:41 09/22/2020 03:42 Jese,92% Devin Menjivar M.D.;Pulse oximeter 03:41 09/22/2020 03:42 Bulluck,(Continuous) Devin Menjivar M.D.; 3 OrderSheet [facility] Emergency Department [address] [place] [address] Phone #: ext- [phone] 09/22/2020 03:21 Patient: [...] rce(s) Supporting Document(s) ID Date Data Source [id number] 09/22/2020 03:21:00 AM EDT [facility] 1 Medication Reconciliation Report [facility] Emergency Department [address] [place] [address] Phone #: iot- [phone] 09/22/2020 03:21 Patient: SEAN MILLER Sex: M [...] Neb TX 1 unit dose, admini stered: 04:09/22/2020The following Medications were prescribed to the patient:meclizine 25 mg tablet Take 1 tablet three times a day as needed for 5 days -- Dispense 15 tablet.Refills: 0. Substitution permitted.Pharmacy - [facility] - [address] [place] [address]. .prednisone 20 mg tablet Take 1 tablet once a day for 5 days -- Dispense 5 tablet. Refills: 0.Substitution permitted.Pharmacy - [facility] - [address] [place], [place] [id number]. Phone: [phone] Medication Reconciliation Report [facility] Emergency Department [address] [place] [address] Phone #: ext- [phone] 09/22/2020 03:21 Patient: SEAN MILLER Sex: M : 1965 Age: [id number] . -- Devin Menjivar M.D. Name Value Range Interpretation Code Description Data Ebony rce(s) Supporting Document(s) ID Date Data Source [id number] 09/22/2020 03:21:00 AM EDT [facility] 1 Medication Administration Record [facility] Emergency Department [address] [place] [address] Phone #: ext- [phone] 09/22/2020 03:21 Patient: SEAN MILLER Sex: M : 1965 Age: 55yWeight: 74.8 kgHeight/Length: 70 inBMI: 23.7ALLERGIES: No Known Drug Allergy Date/Time Medication Administered Medication OrderedStart SODIUM CHLORIDE [IV] NS IV 500 mL Bolus: : Bolus 99186:20 09/22/2020 Dose: IV Fluids mL (X1)Yomaira Brown, [...] Dose: 1 unit dose Neb TXYomaira Brown, R.N. Name Value Range Interpretation Code Description Data Ebony rce(s) Supporting Document(s) ID Date Data Source [id number] 09/22/2020 03:21:00 AM EDT [facility] 1 General Instructions [facility] Emergency Department [address] [place] [address] Phone #: ext [phone] 09/22/2020 03:21 Patient: SEAN MILLER Sex: M : 1965 Age: 55yChronic dizzinessStable COPD. No acute COPD.INSTRUCTIONSNo strenuous activity until better.Drink plenty of fluids. Do not smoke. No alcohol.(No marijuana).Warnings: Further evaluation is necessary in order to conduct further tests. It is very important to follow upwith a [facility] provider.GENERAL WARNINGS: Return or contact your physician [...] Dispense 15 tablet.Refills: 0. Substitution permitted.Pharmacy - [address] [phone]. .prednisone 20 mg tablet Take 1 tablet once a day for 5 days -- Dispense 5 tablet. Refills: 0.Substitution permitted.Pharmacy [address] [id number]. .Follow-up:Return to the emergency department as needed. Follow up with your healthcare provider in three dayseven if well. Call for an appointment. Reason for referral: evaluation, treatment and ENT referral. Summaryof care provided to patient via paper. 2 General Instructions [facility] Emergency Department [address] [place] [address] Phone #: ext- [phone] 09/22/2020 03:21 Patient: SEAN MILLER Sex: M : 1965 Age: 55yUnderstanding of the discharge instructions verbalized by patient. Expected course of illness, dischargeinstructions, activity level, diet, prescriptions x2, follow-up appointment and risks and benefits of treatmentreviewed with patient and understanding verbalized. Agrees to plan of care.Follow-up with: [facility], , [id number], [address] [place] [address], ,[place], [address] Follow up in five days even if well. Call for an appointment. Reason for referral: evaluation and treatment.Summary of care provided to patient via paper. ADDITIONAL INFORMATIONDizziness (Uncertain Cause)Dizziness is a common symptom. It may be described as lightheadedness, spinning, or feeling likeyou are going to faint. Dizziness can have many causes.Tell the healthcare provider about: All medicines you take, including prescription, cvwh-vpd-cyhfsdq, herbs, and supplements Any other symptoms you [...] at least 48 hours. 3 General Instructions [facility] Emergency Department [address] [place] [address] Phone #: ext- [phone] 09/22/2020 03:21 Patient: [...] out or seizure Trouble walking or speaking [id number] [employer]. [address] [place] [address]. All rights reserved. This information is not intended as asubstitute for professional medical care. Always follow your healthcare professional's instructions. You have been given the following additional information: Dizziness, Uncertain Cause No strenuous activity until better.(Electronically signed by Deivn Menjivar M.D. 09/22/2020 06:35) 4 General Instructions [facility] Emergency Department [address] [place] [address] Phone #: ext- [phone] 09/22/2020 03:21 Patient: SEAN MILLER Sex: M : 1965 Age: 55y Name Value Range Interpretation Code Description Data Ebony rce(s) Supporting Document(s) ID Date Data Source [id number] 09/22/2020 03:21:00 AM EDT [facility] 1 Clinical Report - Nurses [facility] Emergency Department [address] [place] [address] Phone #: ext- [phone] 09/22/2020 03:21 Patient: [...] any cp, sob, n/v/d, chills or fevers.).Treatment FLARE STITCHER:None. --03:27 09/22/20 Yomaira Brown R.N.03:22 09/22/20. BP: [...] Allergy. --03:24 09/22/20 Yomaira Brown R.N.PROBLEMS:Hypertension.Copd.Acid reflux. --03:09/22/20 Yomaira Brown R.N.HistoryPAST MEDICAL HX: Immunizations: up-to-date.SOCIAL [...] of CRE. 2 Clinical Report - Nurses [facility] Emergency Department [address] [place] [address] Phone #: ext- [phone] 09/22/2020 03:21 Patient: [...] NEURO / PSYCH: Alert. Oriented X 4. Reggie Coma Scale: 15- eyes open- spontaneous(4); best [...] start. States "just had everything done at [facility] and my lab work was normal. Why do it again"? States the needles damage my skin. Refusal of treatment reported to Dr. Menjivar.). --03:49 09/22/20 Kelechi Sawant 3 Clinical Report - Nurses [facility] Emergency Department [address] [place] [address] Phone #: ext- [phone] 09/22/2020 03:21 Patient: SEAN MILLER Sex: M : 1965 Age: 55yPatient transported to radiology by wheelchair with mask and medical delivery technician. --03:58 09/22/20 Yomaira Brown R.N.Patient returned from radiology by wheelchair with mask and medical delivery technician. --04:04 09/22/20 Yomaira Brown R.N.04:05 09/22/20. ( Pt still refusing lab work at this time, pt accepts IV for medications.). Patient returnedfrom CT by stretcher with mask and medical delivery technician. Side rails up x 2. Bed placed [...] thoroughly. 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 Work note given. Patient verbalized understanding. Written instructions provided in Swazi. The patient was discharged by the physician. He was discharged home and unaccompanied at time of discharge. He left ambulatory and via taxi. --06:08 09/22/20 Kelechi Sawant 05:33 09/22/20. BP: 134/70. MAP: 91. HR: 68. RR: 18. O2 saturation: 98%. Temp: 98.2 F. Pain level now: 0/10. --06:08 09/22/20 Kelechi Sawant.Locked/Released at 09/22/2020 06:15 by Kelechi Swaant Name Value Range Interpretation Code Description Data Ebony rce(s) Supporting Document(s) ID Date Data Source [id number] 09/22/2020 03:21:00 AM EDT [facility] 1 Clinical Report - Physicians/Mid Levels [facility] Emergency Department [address] [place] [address] Phone #: ext- [phone] 09/22/2020 03:21 Patient: SEAN MILLER Sex: M [...] chronic, intermittent vertigo for 1.5 yrs, recurred FLARE STITCHER; pt usually goes to [facility] but last time he waited 3 hrs so he left; pt has not seen [facility] for this or any specialty because "they're useless"; pt also ran out of his prednisone yesterday and needs some until he sees his paperhanger contractor on 09-25; pt states that when he [...] Ompeprazole. 2 Clinical Report - Physicians/Mid Levels [facility] Emergency Department [address] [place] [address] Phone #: ext- [phone] 09/22/2020 03:21 Patient: SEAN MILLER Sex: M [...] room air.Temp: 98 F. Pain level now: 10/10. Have been reviewed. Oxygen saturation normal.Appearance: Alert. [...] EDT 3 Clinical Report - Physicians/Mid Levels [facility] Emergency Department [address] [place] [address] Phone #: ext- [phone] 09/22/2020 03:21 Patient: SEAN MILLER Sex: M : 1965 Age: 55yGENDER: M MODALITY TYPE:CT\\SRDOB: [birth year] DESCRIPTION: CT HEAD W/O CONTRASTINSTITUTION: [facility] ORDERING PHYSICIAN: Devin MenjivarACCESSION #: [id number] HISTORY: Vertigo/Dizziness. Accumulated DLP-817.5 mGy*cm, Estimated DLP-817.3mGy*cm. Male. Images sent to [facility] for review. Verification of 2 patient identifiers performed. - RLB(Hx) / BRAIN (DICOM Hx)CT Head ( Brain )History:Vertigo/Dizziness. Accumulated DLP- 817.5 mGy*cm, Estimated DLP-817.3 mGy*cm. Male. Images sent [facility] for review. Verification of 2 patient identifiers [...] sinuses are normal.Impression 4 Clinical Report - Physicians/[facility] Emergency Department [address] [place] [address] Phone #: ext- [phone] 09/22/2020 03:21 Patient: SEAN MILLER Sex: M : 1965 Age: 55y No acute intracranial process is noted. If clinical suspicion is incongruent with this finding or for greater clinical certainty, further evaluation with MRI scan may be of value. Electronically signed on Sep 22, 2020 4:54:20 AM EDT by: Philipp Tijerina MD Diplomate, [place] Board of Radiology). Head CT performed without [...] since he had some done recently at [facility] and itwas all nml; CXR nml, waiting [...] IMPRESSION 5 Clinical Report - Physicians/Mid Levels [facility] Emergency Department [address] [place] [address] Phone #: ext- [phone] 09/22/2020 03:21 [id number] Sex[facility] M : 1965 Age: 55y Chronic [...] tablet. Refills: 0. Substitution permitted. Pharmacy - [facility] [place] [address]. . prednisone 20 mg tablet Take 1 tablet once a day for 5 days -- Dispense 5 tablet. Refills: 0. Substitution permitted. Pharmacy - [facility] [address] [phone]. . Follow-up: Return to the emergency department [...] care. 6 Clinical Report - Physicians/Mid Levels [facility] Emergency Department [address] [place] [address] Phone #: ext- [phone] 09/22/2020 03:21 [facility]: [id number] Sex: M : 1965 Age: 55y Follow-up with: [facility], , [id number], [address], , [place], [address] Follow up in five days even if well. Call for an appointment. Reason for referral: evaluation and treatment. Summary of care provided to patient via paper.(Electronically signed by Deivn Menjivar M.D. 09/22/2020 06:35) Name Value Range Interpretation Code Description Data Ebony rce(s) Supporting Document(s) ID Date Data Source [id number] 09/22/2020 04:54:00 [place] [address] ---------NAME--------- NUMBER SEX AGE ADMIT DISC. XRAY# F/C TYPE KAMALA ESTRADA [id number] M 55 09/22/20 [id number] E/R DATE OF : 1965 M/R# [id number] #: [id number] TR-05 LOCATION: TRANSCRIBED: 09/22/20 4:[address] HEAD W/O CONTRAST [id number] COMPLETED:09/22/20 4:55 rylee 6818 Reason(s): Vertigo/Dizziness PHYSICIAN: OTTO CARLIN R A D I O L O G Y R E P O R T PATIENT HISTORY:Vertigo/Dizziness. Accumulated DLP-817.5 mGy*cm, Estimated DLP- 817.3 mGy*cm.Male. Images sent to [facility] for review.Verification of 2 patient identifiers performed. - RLB / BRAIN (DICOM Hx)CT Head ( Brain )History:Vertigo/Dizziness. Accumulated DLP-817.5 mGy*cm, Estimated DLP-817.3 mGy*cm.Male. Images sent to [facility] for review. Verification of 2 patient [...] rce(s) Supporting Document(s) ID Date Data Source [id number] 09/03/2020 06:19:00 PM [facility] 1 OrderSheet [facility] Emergency Department [address] [place] [address] Phone #: ext- [phone] 09/03/2020 18:07 Patient: SEAN MILLER Sex: M [...] rce(s) Supporting Document(s) ID Date Data Source [id number] 09/03/2020 06:19:00 PM [facility] 1 Medication Reconciliation Report [facility] Emergency Department [address] [place] [address] Phone #: ext- [phone] 09/03/2020 18:07 Patient: SEAN MILLER Sex: [...] Dispense 5 tablet. Refills: 0. Substitutionpermitted.Pharmacy - [facility] - [address] [place] [phone]. . 2 Medication Reconciliation Report [facility] Emergency Department [address] [place] [address] Phone #: ext- [phone] 09/03/2020 18:07 Patient: SEAN MILLER Sex: M : 1965 Age: 55yalbuterol sulfate HFA 90 mcg/actuation aerosol inhaler Inhale 2 puff four times a day -- Dispense 1inhaler. Refills: 0. Substitution permitted.Pharmacy - [facility] - [address] [place] [phone]. .albuterol sulfate 2.5 mg/3 mL (0.083 %) solution for nebulization Take 3 ml four times a day for 10 days-- prn wheezing. Dispense 120 ml. Refills: 0. Substitution permitted.Pharmacy - [facility] - [address] [place] [phone]. . -- Chelsy Oakley MD Name Value Range Interpretation Code Description Data [facility](s) Supporting Document(s) ID Date Data Source [id number] 09/03/2020 06:19:00 PM [facility] 1 Medication Administration Record [facility] Emergency Department [address] [place] [address] Phone #: ext- [phone] 09/03/2020 18:07 Patient: SEAN MILLER Sex: M [...] rce(s) Supporting Document(s) ID Date Data Source [id number] 09/03/2020 06:19:00 PM EST [facility] 1 General Instructions [facility] Emergency Department [address] [place] [address] Phone #: ext- [phone] 09/03/2020 18:07 Patient: SEAN MILLER Sex: M [...] tablet. Refills: 0. Substitution permitted. Pharmacy - [facility] - [address] [place] [phone]. . albuterol sulfate HFA 90 mcg/actuation aerosol inhaler Inhale 2 puff four times a day -- Dispense 1 inhaler. Refills: 0. Substitution permitted. Pharmacy - [facility] - [address] [place] [phone]. . albuterol sulfate 2.5 mg/3 mL (0.083 %) solution for nebulization Take 3 ml four times a day for 10 days -- prn wheezing. Dispense 120 ml. Refills: 0. Substitution permitted. Pharmacy - [facility] - [address] [place] [address] ; [place], [place] [phone]. . 2 General Instructions [facility] Emergency Department [address] [place] [address] Phone #: ext- [phone] 09/03/2020 18:07 Patient: SEAN MILLER Sex: M : 1965 Age: 55y Understanding of the discharge instructions verbalized by patient. Follow-up with: [facility], , , [address] [place] [address], [facility] Follow up in one even if well. [...] is called a flare-up. 3 General Instructions [facility] Emergency Department [address] [place] [address] Phone #: ext- [phone] 09/03/2020 18:07 Patient: [...] others who are smoking. 4 General Instructions [facility] Emergency Department [address] [place] [address] Phone #: ext- [phone] 09/03/2020 18:07 Patient: [...] dairy products.Preventing a flare-up 5 General Instructions [facility] Emergency Department [address] [place] [address] Phone #: ext- [phone] 09/03/2020 18:07 Patient: [...] your healthcare provider about your ability to: [place] in your normal environment Correctly use inhaler (or your medicine delivery systems) [place] with other conditions you have and their treatments and how they may affect your COPDCall 911Call 911 if any of these occur: Wheezing or shortness or breath does not get better with treatment Chest pain or chest tightness Feeling lightheaded or dizzy You have trouble breathing You feel confused or it's hard to wake you up 6 General Instructions [facility] Emergency Department [address] [place] [address] Phone #: ext- [phone] 09/03/2020 18:07 Patient: [...] ankles gets worse Weakness 1999- 2019 [employer]. [address] [place] [address], [place] [address]. All rights reserved. This information is not intended as asubstitute for profession al medical care. Always follow your healthcare professional's instructions. You have been given the following additional information: COPD Flare(Electronically signed by Chelsy Oakley MD 09/04/2020 00:34) Name Value Range Interpretation Code Description Data Ebony rce(s) Supporting Document(s) ID Date Data Source [id number] 09/03/2020 06:19:00 PM EST [facility] 1 Clinical Report - Nurses [facility] Emergency Department [address] [place] [address] Phone #: ext- [phone] 09/03/2020 18:07 Patient: SEAN MILLER Sex: M : 1965 Age: 55yTRIAGEArrived by EMS. Historian: patient.Acuity: LEVEL 3.Chief Complaint: SHORTNESS OF BREATH and DIFFICULTY BREATHING.Onset. (5 days ago). ( Pt states he has had dyspnea for about the past 5 days, he went to [facility] this pastMonday and was prescribed prednisone which he took in a day or two, he voices dyspnea for the past 6years off and on).EMS Treatment FLARE STITCHER:EMS treatment verbally communicated and report reviewed. See [...] RN.ADDITIONAL SURGERIES: 2 Clinical Report - Nurses [facility] Emergency Department [address] [place] [address] Phone #: ext- [phone] 09/03/2020 18:07 Patient: [...] Eckert RN 3 Clinical Report - Nurses [facility] Emergency Department [address] [place] [address] Phone #: ext- [phone] 09/03/2020 18:07 Patient: SEAN MILLER Sex: M [...] Patient verbalized understanding. Written instructions provided in Swazi. The patient was discharged by the physician. [...] rce(s) Supporting Document(s) ID Date Data Source [id number] 09/03/2020 06:19:00 PM EST [facility] 1 Clinical Report - Physicians/Mid Levels [facility] Emergency Department [address] [place] [address] Phone #: ext- [phone] 09/03/2020 18:07 Patient: [...] the past 5 days, he went to [facility] this past Monday and was prescribed prednisone [...] daily. 2 Clinical Report - Physicians/Mid Levels [facility] Emergency Department [address] [place] [address] Phone #: ext- [phone] 09/03/2020 18:07 [facility]: [id number] Sex: M : 1965 Age: 55y predniSONE [...] ems for prescriptions for his copd. pt [id number]. h e received a duoneb. 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 3 Clinical Report - Physicians/Mid Levels [facility] Emergency Department [address] [place] [address] Phone #: ext- [phone] 09/03/2020 18:07 Patient: [...] tablet. Refills: 0. Substitution permitted. Pharmacy - [facility] - [address] [place] [address]. . albuterol sulfate HFA 90 mcg/actuation aerosol inhaler Inhale 2 puff four times a day -- Dispense 1 inhaler. Refills: 0. Substitution permitted. Pharmacy - [place] [address]. . albuterol sulfate 2.5 mg/3 mL (0.083 %) solution for nebulization Take 3 ml four times a day for 10 days -- prn wheezing. Dispense 120 ml. Refills: 0. Substitution permitted. [facility] - [address] [phone]. Phone: [phone] Clinical Report - Physicians/[facility] Emergency Department [address] [place] [address] Phone #: ext- [phone] 09/03/2020 18:07 Patient: SEAN MILLER Sex: M : 1965 Age: 55y [phone] FaxNumber: . Understanding of the discharge instructions verbalized by patient. Follow- up with: [facility], , , [address] [place] [address], [id number] Follow up in one even if well. Call for an appointment. Reason for referral: evaluation. Summary of care provided to patient via paper.(Electronically signed by Chelsy Oakley MD 09/04/2020 00:34) Name Value Range Interpretation Code Description Data Ebony rce(s) Supporting Document(s) ID Date Data Source [id number] 08/13/2020 02:42:[address] [address] RESPIRATORY CARE REPORT ==== ---------NAME------- NUMBER SEX AGE ADMIT DISC. XRAY# F/C ALLYSON ESTRADA [id number] 55 08/11/20 08/11/20 [id number] X6B E/R DATE OF : 1965 M/R# [id number] #: [id number] TR-07 LOCATION: EMERGENCY DEPT EKG 45829 COMP LETE:08/12/20 04:12 [place] [address] PHYSICIAN: SUMAN Name Value Range Interpretation Code Description Data Ebony rce(s) Supporting Document(s) ID Date Data Source [id number] 08/12/2020 01:51:[address] [address] PHONE: [phone] FAX: [phone] Name .................. : KAMALA ESTRADA Acct Number.................. : [id number] ROOM. ................. : [facility] Number ................... : [id number] Stay type ............. : E/R Discharge Date......... ... : Admit Date ......... : 08/11/20 Admit Phys .................... : SUMAN Date of ....... : 1965 Family Phys ................... : NON STAFF Phone .................. : [phone] Age ................................ : 55 Film# .................. .:[id number] Sex ................................. : M Unsigned transcriptions are preliminary reports and do not represent a medical or legal document CT HEAD W/O CONTRAST [id number] COMPLETE:08/11/20 11:31 KJE 3915 Reason(s): dizziness, HTN [...] 710 MED REC Page [address] of [address] [place] [address] PHONE: [phone] FAX: [phone] Name .................. : KAMALA ESTRADA Acct Number.................. : [id number] ROOM. ................. : TR-07 MR Number ................... : [id number] Stay type ............. : E/R Discharge Date......... ... : Admit Date ......... : 08/11/20 [facility] ....... : 1965 Family Phys ................... : NON STAFF Phone .................. : [phone] Age ................................ : 55 Film# .................. .:[id number] Sex ................................. : M Unsigned transcriptions are preliminary reports and do not represent a medical or legal document CT HEAD W/O CONTRAST [id number] COMPLETE:08/11/20 11:31 KJE 3915 Reason(s): dizziness, HTN DISCHARGED Page 2 of 2 Name Value Range Interpretation Code Description Data Ebony rce(s) Supporting Document(s) ID Date Data Source [id number] 08/12/2020 01:47:00 PM EST [facility] [address] [place] [address] PHONE: [phone] FAX: [phone] Name .................. : KAMALA ESTRADA Acct Number.................. : [id number] ROOM. ................. : [address] Number ................... : [id number] Stay type ............. : E/R Discharge Date......... ... : Admit Date ......... : 08/11/20 Admit Phys .................... : [facility] Date of ....... : 1965 Family Phys ................... : NON STAFF Phone .................. : [phone] Age ................................ : 55 Film# .................. .:[id number] Sex ................................. : M Unsigned transcriptions are preliminary reports and do not represent a medical or legal document CHEST PORTABLE [id number] COMPLETE:08/11/20 10:09 3909 Reason(s): dizziness PORTABLE CHEST, [...] Dictation Date: Copy for: EMERGENCY DEPT via [employer] Copy for: 710 MED REC DISCHARGED Page 1 of 1 Name Value Range Interpretation Code Description Data Ebony rce(s) Supporting Document(s) ID Date Data Source [id number] 08/11/2020 09:55:00 AM EST [facility] 1 OrderSheet [facility] Emergency Department [address] [place] [address] Phone #: ext- [phone] 08/11/2020 09:45 Patient: [...] Suman Dooley Victoria Rachel R.N. ;Troponin-T STAT 10:09 08/11/2020 10:17 Miah, Annia Will R.N. ;Urinalysis (Clean STAT 10:51 08/11/2020 11:03 Miah,Catch) Annia Will R.N. ;DIAGNOSTIC STUDY ORDERSOrder Description Priority Entered Acknowledged InitialedChest Portable 1 STAT 10:09 08/11/2020 10:17 Miah,View Annia Will R.N.(Oxygen?(No)) ; Reason for Study: dizzinessCT Head W/O Cont STAT 10:51 08/11/2020 11:16 Miah,(Oxygen?(No)) Annia Will R.N. ; Reason for Study: dizziness, HTNMEDICATION/IV/DRIP/FLUID ORDERS 2 OrderSheet [facility] Emergency Department [address] [place] [address] Phone #: ext- [phone] 08/11/2020 09:45 Patient: SEAN MILLER Sex: M : 1965 Age: 55yOrder Description Priority Entered Acknowledged InitialedcloNIDine PO 0.1 10:08/11/2020 10:17 Miah,Annia Klein R.N. ;GENERAL ORDERSOrder Description Priority Entered Acknowledged InitialedBlood Pressure 10:08/11/2020 10:09 [facility] Suman Annia corrections identification technician, [facility] ; Qsyr9Grkznuc Monitor 10:08/11/2020 10:09 [place](continuous) Suman Annia corrections identification technician, [facility] ; Zvmm1HGZ 10:08/11/2020 10:09 [place] Suman [place] corrections identification technician, [facility] ; Rlsu3FXK 10:08/11/2020 10:09 [place] Suman [place] corrections identification technician, [facility] ; Pxuz8Eztxoj Old EKG 10:09 08/11/2020 10:09 [facility] corrections identification technician, [facility] ; Sole3Roghpj Old Records 10:08/11/2020 10:09 [facility], [place] [facility] ; Cssk1Xkxkya titrate to 10:09 08/11/2020 10:09 Knkolno75% [facility], [place] [facility] ; Flxf2Pzucn oximeter 10:08/11/2020 10:09 [place](Spot Check) [facility], [place] [facility] ; Kygu7Ibnzsd Lock 10:08/11/2020 10:17 Suman Dooley Victoria Rachel R.N. ;Vitals 10:09 08/11/2020 10:17 Suman Dooley Victoria Rachel R.N. ;Vitals - Orthostatic 10:51 08/11/2020 11:43 Suman Dooley Victoria Rachel R.N. ;[Electronically signed by Annia Will (14:00 08/11/2020)][Electronically signed by Isabella Dooley R.N. (14:16 08/11/2020)] 3 OrderSheet [facility] Emergency Department [address] [place] [address] Phone #: ext- [phone] 08/11/2020 09:45 Patient: SEAN MILLER Sex: M : 1965 Age: 55y[Electronically locked by Isabella Dooley R.N. (14:16 08/11/2020)] Name Value Range Interpretation Code Description Data Ebony rce(s) Supporting Document(s) ID Date Data Source [id number] 08/11/2020 09:55:00 AM EST [facility] 1 Medication Reconciliation Report [facility] Emergency Department [address] [place] [address] Phone #: [phone] pbp- [phone] 08/11/2020 09:45 Patient: SEAN MILLER Sex: M [...] Dispense 30tablet. Refills: 0. Substitution permitted.Pharmacy - [facility] - [address] [place] [phone]. . -- Annia Will 2 Medication Reconciliation Report [facility] Emergency Department [address] [place] [address] Phone #: ext- [phone] 08/11/2020 09:45 Patient: SEAN MILLER Sex: M : 1965 Age: 55y Name Value Range Interpretation Code Description Data Ebony rce(s) Supporting Document(s) ID Date Data Source [id number] 08/11/2020 09:55:00 AM [facility] 1 Medication Administration Record [facility] Emergency Department [address] [place] [address] Phone #: ext- [phone] 08/11/2020 09:45 Patient: SEAN MILLER Sex: M : 1965 Age: 55yWeight: 77.7 kgHeight/Length: 68 inBMI: 26.1ALLERGIES: No Known Drug Allergy Date/Time Medication Administered Medication OrderedGiven CLONIDINE [PO] cloNIDine PO 0.1 mg10:17 08/11/2020 Dose: 0.1 mg Tablets Isabella Cortes R.N. Name Value Range Interpretation Code Description Data Ebony e(s) Supporting Document(s) ID Date Data Source [id number] 08/11/2020 09:55:00 AM [facility] 1 General Instructions [facility] Emergency Department [address] [place] [address] Phone #: ext- [phone] 08/11/2020 09:45 Patient: [...] Dispense 30tablet. Refills: 0. Substitution permitted.Pharmacy - [facility] - [address] [place] [phone]. .Follow-up:Return to the emergency department as needed. Screening today revealed the patient's blood pressure rustam in the hypertensive stage 2 range. The patient should follow up with a primary care provider for bloodpressure management.Follow-up with: [facility], , , [address] [place] [address], [facility] Follow up in three days. Call for the next available appointment. Reason for referral: evaluation.Summary of care provided to patient via paper. ADDITIONAL INFORMATIONUncontrolled High Blood Pressure (Established) 2 General Instructions [facility] Emergency Department [address] [place] [address] Phone #: ext- [phone] 08/11/2020 09:45 Patient: SEAN MILLER Sex: M [...] is 90 or higher 3 General Instructions [facility] Emergency Department [address] [place] [address] Phone #: ext- [phone] 08/11/2020 09:45 Patient: [...] that stimulate the heart. This includes many wcwy-apj-toywyea cold and sinus decongestant pills and sprays, as well as diet pills. Check the warnings about high blood pressure on the label. Before purchasing any qsye-oth-zxpvcmw medicines or supplements, always ask the pharmacist [...] you feel better or 4 General Instructions [facility] Emergency Department [address] [place] [address] Phone #: ext- [phone] 08/11/2020 09:45 Patient: SENA MILLER Sex: M : 1965 Age: 55y [...] on home blood pressure monitoring from the [place] [employer]. Don't smoke or drink coffee for [...] record of your home 5 General Instructions [facility] Emergency Department [address] [place] [address] Phone #: ext- [phone] 08/11/2020 09:45 Patient: SEAN MILLER Sex: M [...] of the face Trouble speaking or seeing [phone] [employer]. [address] [place] [address]. All rights reserved. This information is not intended as asubstitute for professional medical care. Always follow your healthcare professional's instructions. You have been given the following additional information: High Blood Pressure, Established, Out of Control(Electronically signed by Annia Will 08/11/2020 14:00) Name Value Range Interpretation Code Description Data Ebnoy rce(s) Supporting Document(s) ID Date Data Source [id number] 08/11/2020 09:55:00 AM EST [facility] 1 Clinical Report - Nurses [facility] Emergency Department [address] [place] [address] Phone #: [phone]- [phone] 08/11/2020 09:45 Patient: SEAN MILLER Sex: M : 1965 Age: 55yTRIAGEArrived by EMS. Historian: patient.Triage time: 09:47 08/11/2020. Acuity: LEVEL 3.Chief Complaint: DIZZINESS. BLOOD PRESSURE ELEVATED.09:47 08/11/20. Alert. No acute distress.( Woke this am "room was spinning 5 times" then resolved, no c/o dizziness on arrival, has had previousepisodes of dizziness).Treatment FLARE STITCHER:(Seen at [facility] prescribed Lisinopril could not fill because he was taking a double dose ran out).EMS Treatment FLARE STITCHER:EMS treatment verbally communicated and see EMS report.SEPSIS [...] Brito RN. 2 Clinical Report - Nurses [facility] Emergency Department [address] [place] [address] Phone #: ext- [phone] 08/11/2020 09:45 Patient: SEAN MILLER Sex: M : 1965 Age: 55yPROBLEMS:Arthritis.Hypertension. --09:57 08/11/20 Irasema Brito RN.ADDITIONAL SURGERIES:no known surgeries.Hrjclvh48:47 08/11/20.PAST MEDICAL HX: Immunizations: up-to-date.SOCIAL HX: Smoker- [...] risk assessment completed. No skin integrity riskidentified. --10:10 08/11/20 Irasema Brito RN09:47 08/11/20.SOCIAL HX: The patient has not traveled outside the [place]Infectious disease exposure: No infectious disease exposure. (Negative COVID-19 screen). Patient is not aknown carrier of tuberculosis, hepatitis, HIV, MRSA or VRE. Patient is not a known carrier of CRE.--10:26 08/11/20 Irasema Brito RN.Dzbasxceimjdu80:47 08/11/20. To treatment room. Transported via stretcher by EMS. to room 7. --10:08/11/20 KIMBERLY Melgar. 3 Clinical Report - Nurses [facility] Emergency Department [address] [place] [address] Phone #: ext- [phone] 08/11/2020 09:45 Patient: [...] is warm and dry. Normal skin turgor. --10:19 08/11/20 Isabella Dooley R.N.NURSING PROGRESS NOTES09:47 08/11/20. personnel monitor, NIBP monitor and pulse oximeter placed on patient; cardiac technician-Lead II; monitor alarms on. Patient gowned. Head [...] shown to the ED physician. --10:10 08/11/20 [facility] Juan Manuel Ochoa ER Tech1 10:17 08/11/2020 Clonidine PO Tablets 0.1 mg given. Allergies verified and confirmed 5 rights. Information reviewed with patient including reason for taking this medication. Verbalizes understanding. --10:17 08/11/20 Isabella Dooley R.N. Patient transported to DC by wheelchair with mask and tech. --11:16 08/11/20 Isabella Dooley R.N. 11:22 08/11/20. Patient returned from DC by wheelchair with mask and tech. --11:44 [...] RR: 17. O2 saturation: 99%. --13:39 08/11/20 [facility] Juan Manuel Ochoa ER Tech1 12:15 08/11/20. BP: 141/87. MAP: 105. HR: 69. RR: 18. O2 saturation: 100%. --13:40 08/11/20 [facility] Tech1 4 Clinical Report - Nurses [facility] Emergency Department [address] [place] [address] Phone #: ext- [phone] 08/11/2020 09:45 Patient: SEAN MILLER Sex: M : 1965 Age: 55y12:30 08/11/20. BP: 145/96. MAP: 112. HR: 62. RR: 17. O2 saturation: 100%. --13:40 08/11/20 [facility] Ipxl526:45 08/11/20. BP: 142/95. MAP: 110. HR: 65. RR: 17. O2 saturation: 100%. --13:41 08/11/20 [facility] Qlfr318:00 08/11/20. BP: 122/84. MAP: 96. HR: 63. RR: 18. O2 saturation: 100%. --13:41 08/11/20 [facility] Ooif867:15 08/11/20. BP: 122/84. MAP: 96. HR: 67. RR: 17. O2 saturation: 100%. --13:41 08/11/20 [facility] Nlfb391:45 08/11/20. BP: 156/103. MAP: 120. HR: 72. RR: 17. O2 saturation: 9 8%. --13:58 08/11/20 Laurie Estrada R.N.11:07 08/11/20. BP: 157/106. ED physician notified. MAP: 123. [...] R.N.12:35 08/11/20. 5 Clinical Report - Nurses [facility] Emergency Department [address] [place] [address] Phone #: ext- [phone] 08/11/2020 09:45 ----- [id number] Sex: M : 1965 Age: 55y Rounding: [...] electronically to pharmacy (Lisinopril, hydrochlorothiazide). Reviewed referrals ([facility]). Reviewed diet. Patient verbalized understanding. Written instructions [...] rce(s) Supporting Document(s) ID Date Data Source [id number] 08/11/2020 09:55:00 AM EST [facility] 1 Clinical Report - Physicians/Mid Levels [facility] Emergency Department [address] [place] [address] Phone #: ext- [phone] 08/11/2020 09:45 Patient: SEAN MILLER Sex: M [...] drugs today. 2 Clinical Report - Physicians/Mid Levels [facility] Emergency Department [address] [place] [address] Phone #: ext- [phone] 08/11/2020 09:45 Patient: SEAN MILLER Sex: M [...] (Reference) 3 Clinical Report - Physicians/Mid Levels [facility] Emergency Department [address] [place] [address] Phone #: ext- [phone] 08/11/2020 09:45 Patient: SEAN MILLER Sex: M [...] Room: ED Exam [place] [address] PHONE: [phone] FAX: [phone] Name .................. : KAMALA ESTRADA Acct Number.................. : [id number] ROOM. ................. : TR-07 MR Number ................... : [id number] Stay type ............. : E/R Discharge Date......... ... : Admit Date ......... : 08/11/20 Admit Phys .................... : [facility] Date of ....... : 1965 Family Phys ................... : NON STAFF Phone .................. : [phone] Age ................................ : 55 Film# .................. .:[id number] Sex ................................. : M Unsigned transcriptions are preliminary reports and do not represent a medical or legal document CT HEAD W/O CONTRAST [id number] COMPLETE:08/11/20 11:31 KJE 3915 Reason(s): dizziness, HTN [...] accomplished 4 Clinical Report - Physicians/Mid Levels [facility] Emergency Department [address] [place] [address] Phone #: ext- [phone] 08/11/2020 09:45 -- Patient: SEAN MILLER Sex: [...] By DCTNAME , SIGNDATE, LIZ Transcribe Initials: SSR, Transcribe Date: 08/11/20 12:20, [...] PANEL 5 Clinical Report - Physicians/Mid Levels [facility] Emergency Department [address] [place] [address] Phone #: ext- [phone] 08/11/2020 09:45 Patient: [...] Male GFR Interprentation 20-49 yrs >60 mL/min Cwyboi00-12 yrs >56 mL/min Normal 60-69 yrs >49 mL/min Normal 70-79yrs>42 mL/min Normal 80 and above >35 mL/min Normal Female GFRInterpretation 20-39 yrs >60 mL/min Normal 40-49 yrs >58 mL/minNormal 50-59 yrs >51 mL/min Normal 60-69 yrs >45 mL/min Nznswv52-18 yrs >39 mL/min Normal 80 and above [...] VenousThrombosis, Pulmonary Embolus, Tissue heart valves, Acute IA Atrial Fibrillation, Valvular heart diseaseand recurrent Systemic [...] 08/11/2020 13:34) In [place] [address] 6 Clinical Report - Physicians/Mid Levels [facility] Emergency Department [address] [place] [address] Phone #: ext- [phone] 08/11/2020 09:45 Patient: SEAN MILLER Sex: M : 1965 Age: 55y PHONE: [phone] FAX: [phone] Name .................. : KAMALA ESTRADA Acct Number.................. : [id number] ROOM. ................. : TR-07 MR Number ................... : [id number] Stay type ............. : E/R Discharge Date......... ... : Admit Date ......... : 08/11/20 Admit Phys .................... : SUMAN Date of ....... : 1965 Family Phys ................... : NON STAFF Phone .................. : [phone] Age ................................ : 55 Film# .................. .:[id number] Sex ................................. : M Unsigned transcriptions are preliminary reports and do not represent a medical or legal document CHEST PORTABLE [id number] COMPLETE:08/11/20 10:09 3909 Reason(s): dizziness PORTABLE CHEST, [...] this dictation. Electronically Reviewed and Signed By SABINO VIEIRA KGG Transcribe Initials: [facility], Transcribe Date: 08/11/20 12:17, Dictation Date: <<REPDIST>> [...] No 7 Clinical Report - Physicians/Mid Levels [facility] Emergency Department [address] [place] [address] Phone #: ext- [phone] 08/11/2020 09:45 Patient: SEAN MILLER Sex: M [...] tablet. Refills: 0. Substitution permitted. Pharmacy - [facility] - [address] [place] [address] ; [place], [place] [id number]. FaxNumber: . Follow-up: Return to the emergency department as needed. Screening today revealed the patient's blood pressure to be in the hypertensive stage 2 range. The patient should follow up with a primary care provider for blood pressure man agement. Follow-up with: [facility], , , [address] [place], [address] Follow up in three days. Call for the next available appointment. Reason for referral: evaluation. 8 Clinical Report - Physicians/Mid Levels [facility] Emergency Department [address] [place] [address] Phone #: ext- [phone] 08/11/2020 09:45 Patient: SEAN MILLER Sex: M : 1965 Age: 55y Summary of care provided to patient via paper.(Electronically signed by Annia Will 08/11/2020 14:00) Name Value Range Interpretation Code Description Data Ebony rce(s) Supporting Document(s) ID Date Data Source [id number] 08/11/2020 11:22:00 AM EST [facility] Name Value Range Interpretation Code Description Data Ebony rce(s) Supporting Document(s) [facility] R [facility] COLOR yellow NORMAL: Yellow [facility] CLARITY clear NORMAL: Clear [facility] Specific gravity of Urine by Test strip 1.025 1.001 - 1.030 [facility] pH 6 5 - 9 [facility] Glucose [Mass/volume] in Urine by Test strip 100 NORMAL: Negat loco A [facility] Bilirubin.total [Presence] in Urine by Test strip NEG NORMAL: Negative [facility] Ketones [Presence] in Urine by Test strip NEG NORMAL: Negative [facility] Protein [Mass/volume] in Urine by Test strip 15 NORMAL: Negat loco [facility] Nitrite [Presence] in Urine by Test strip NEG NORMAL: Negative [facility] BLOOD 10 NORMAL: Negative A [facility] Leukocyte esterase [Presence] in Urine by Test strip NEG CHELSY L: Negative [facility] Urobilinogen [Mass/volume] in Urine by Test strip NOR less sravanthi n 1.0 mg/dL [facility] MICROSCOPIC See Below [facility] ital Erythrocytes [#/volume] in Urine by Test strip 0 - 1 NORMAL: NON E SEEN [facility] EPITHELIAL FEW NORMAL: NONE SEEN [facility] Bacteria [Presence] in Urine sediment by Light microscopy Tr erika NORMAL: NONE SEEN [facility] ID Date Data Source [id number] 08/11/2020 11:11:00 AM [facility] Name Value Range Interpretation Code Description Data Ebony rce(s) Supporting Document(s) TROPONIN T <0.01 NG/ML 0.00 - 0.10 [facility] ospital TROPONIN T0.1 ng/ml Recommended as the c linical threshold value forTroponin T. ID Date Data Source [id number] 08/11/2020 10:52:00 AM EST [facility] Name Value Range Interpretation Code Description Data Ebony rce(s) Supporting Document(s) COMPREHENSIVE METABOLIC PANEL [facility] COMPREHENSIVE METABOLIC PANEL Sodium [Moles/volume] in Serum or Plasma 139 mEq/L 134 - 153 [facility] Potassium [Moles/volume] in Serum or Plasma 4.2 mEq/L 3.6 - 5.0 [facility] Chloride [Moles/volume] in Serum or Plasma 107 mEq/L 98 - 107 [facility] Carbon dioxide, total [Moles/volume] in Serum or Plasma 25 MEQ/L 22 - 30 [facility] Glucose [Mass/volume] in Serum or Plasma 213 MG/DL 70 - 99 H [facility] BUN 23 MG/DL 7 - 21 H [facility] Creatinine [Mass/volume] in Serum or Plasma 0.8 MG/DL 0.7 - 1.5 [facility] BUN/CREAT 29 8 - 27 H [facility] Protein [Mass/volume] in Serum or Plasma 6.2 G/DL 6.3 - 8.2 L [facility] Albumin [Mass/volume] in Serum or Plasma 3.7 G/DL 3.9 - 5.0 L [facility] Globulin [Mass/volume] in Serum by calculation 2.5 GM/DL 2.4 - 3.2 [facility] A/G RATIO 1.5 0.8 - 2.0 [facility] Calcium [Mass/volume] in Serum or Plasma 8.5 MG/DL 8.4 - 10.2 [facility] Bilirubin.total [Mass/volume] in Serum or Plasma <0.7 MG/DL 0.2 - 1.3 [facility] Alkaline phosphatase [Enzymatic activity/volume] in Serum or Plasma 111 U/L 38 - 126 [facility] Aspartate aminotransferase [Enzymatic activity/volume] in Serum or Plasma 16 U/L 5 - 40 [facility] Alanine aminotransferase [Enzymatic activity/volume] in Seru m or Plasma 11 U/L 7 - 56 [facility] Anion gap 3 in Serum or Plasma 7.0 mmol/L 8.0 - 16.0 L [facility] AGE 55 yrs [facility] al NON-AA GFR >60 mL/min [facility] ital AFR AMER GFR >60 mL/min [facility] Male GFR In terprentation [...] >32 mL/min Normal ID Date Data Source [id number] 08/11/2020 10:49:00 AM [facility] Name Value Range Interpretation Code Description Data Ebony rce(s) Supporting Document(s) Lipase [Enzymatic activity/volume] in Serum or Plasma 39 U/L 13 - 60 [facility] ID Date Data Source [id number] 08/11/2020 10:46:00 AM EST [facility] Name Value Range Interpretation Code Description Data Ebony rce(s) Supporting Document(s) Prothrombin time (PT) 11.0 SECONDS 11.0 - 15.5 [facility] INR in Platelet poor plasma by Coagulation assay 0.76 0.93 - 1. 23 L [facility] aPTT in Blood by Coagulation assay 26.3 SECONDS 24.8 - 36.7 [facility] \\BLDo\\INR INTERPRETATION\\BLDx\\ Therapeutic range for Coumadin and related oral anticoagulants. - International Normalized Ratio (INR): 2.0 - 3.0 for Venous Thrombosis, Pulmonary Embolus, Tissue heart valves, Acute IA Atrial Fibrillation, Valvular heart disease and recurrent Systemic Embolism. - International Normalized Ratio (INR): 2.5 - 3.5 for Mechanical Prosthetic valve. ID Date Data Source [id number] 08/11/2020 10:32:00 AM EST [facility] Name Value Range Interpretation Code Description Data [facility](s) Supporting Document(s) CBC W/AUTOMATED DIFF [facility] COMPLETE BLOOD COUNT Leukocytes [#/volume] in Blood by Automated count 16.1 10^3/uL 4.2 - 11.0 H [facility] Erythrocytes [#/volume] in Blood by Automated count 4.41 10^6/uL 4. 50 - 6.30 L [facility] Hemoglobin [Mass/volume] in Blood 13.0 g/dL 14.0 - 16.0 L [facility] Hematocrit [Volume Fraction] of Blood by Automated count 40.6 % 4 1.0 - 51.0 L [facility] Erythrocyte mean corpuscular volume [Entitic volume] by Auto mated count 92.1 fL 80.0 - 94.0 [facility] Erythrocyte mean corpuscular hemoglobin [Entitic mass] by Automated count 29.5 pg 27.0 - 34.0 [facility] Erythrocyte mean corpuscular hemoglobin concentration [Mass/volume] by Automated count 32.0 g/dL 31.0 - 36.0 [facility] Erythrocyte distribution width [Ratio] by Automated count 15.5 % 11.5 - 14.8 H [facility] Platelets [#/volume] in Blood by Automated count 230 10^3/uL 150 - 45 0 [facility] Platelet mean volume [Entitic volume] in Blood by Automated count 9.0 fL 7.4 - 10.4 [facility] Neutrophils/100 leukocytes in Blood by Automated count 91.7 % 37. 0 - 80.0 H [facility] Lymphocytes/100 leukocytes in Blood by Manual count 5.1 % 25.0 - 40.0 L [facility] Monocytes/100 leukocytes in Blood by Automated count 2.2 % 3.0 - 8.0 L [facility] Eosinophils/100 leukocytes in Blood by Automated count 0.0 % 0.0 - 7.0 [facility] Basophils/100 leukocytes in Blood by Automated count 0.1 % 0.0 - 2.0 [facility] Hospital %IG 0.9 % 0.0 - 0.0 H [facility] Hospit al %NRBC 0.0 % 0.0 - 0.0 [facility] Neutrophils [#/volume] in Blood by Automated count 14.79 10^3/uL 2. 00 - 6.90 H [facility] Lymphocytes [#/volume] in Blood by Automated count 0.83 10^3/uL 0.60 - 3.40 [facility] Monocytes [#/volume] in Blood by Automated count 0.36 10^3/uL 0.00 - 0.90 [facility] Eosinophils [#/volume] in Blood by Automated count 0.00 10^3/uL 0.00 - 0.70 [facility] Basophils [#/volume] in Blood by Automated count 0.02 10^3/uL 0.00 - 0.20 [facility] #IG 0.14 10^3/uL 0.00 - 0.10 H [facility] #NRBC 0.00 10^3/uL 0.00 - 0.00 [facility] MANUAL DIFF NOT INDICATED [facility] Hospital RBC MORPH NOT INDICATED [facility] ID Date Data Source [id number] 07/27/2020 07:25:00 AM EST [facility] Name Value Range Interpretation Code Description Data Ebony rce(s) Supporting Document(s) SARS-CoV-2 (COVID 19) NEGATIVE - SARS-CoV-2 (COVID19) [facility] This lab was ordered by [facility] a nd reported by [facility]. ID Date Data Source [id number] 04/06/2020 02:08:56 PM EDT [facility] Measurements & CalculationsHeight: 69 inches (5 [...] is a 55 y/o male, presents for [facility] ER follow-up.Pt seen in [facility] ER 04/01/2020 and 04/04/2020 for COPD exacerbation. Pt was discharged with prednisone (states he is chronically on 20mg daily x 5 years), Advair, and albuterol on 04/01/2020, then with azithyromycin on 04/04/2020. Pt feels improvement with the antibiotics, states pain is 75% improved. Pt has new patient packet to complete and turn in before he can be scheduled with [facility] Pulmonology. Pt states he had home care when he lived in [place], [place] over a year ago. Had a [...] during this visit, including review of any bslt-goe-stfojvq medications, herbal therapies, and/or supplements.Allergy ReviewAllergy List [...] Problems:Assessed:Chronic obstructive pulmonary disease with (acute) exacerbation (BIA48-R45.1) Assessment: Instructions: Finish medication as currently prescribed. Turn in paperwork to [facility]monology [facility] so you can get scheduled.Collapsed vertebra, not elsewhere classified, lumbosacral region, sequela of fracture (ICD-805.4) (EQB13-N65.57xS) Assessment: Instructions: Please have [facility] refax blank paperwork for completion.Chronic low back pain (ICD-724.2) (YLN36-A89.5) Assessment: Instructions: Continue per pain management. As above regarding home care orders.Patient Instructions/Care Plan: Chronic obstructive pulmonary disease with (acute) exacerbation: Finish medication as currently prescribed. Turn in paperwork to [facility]monology [facility] so you can get scheduled.Collapsed vertebra- not elsewhere classified- lumbosacral region- sequela of fracture: Please have [facility] refax blank paperwork for completion.Chronic low [...] ORAL PREDNISONE 10 MG ORAL TABLET Qty: [id number] Refills: 15[Tablet] To: PREDNISONE 20 MG ORAL TABLET-take one tablet by mouth dailyAllergies:* RANITIDINE (Mild)Orders:Adult - Ofc Vst, EST, Level III [CPT- 23883] Follow-Up Return to clinic: as needed Clinical Visit Summary Completed Name Value Range Interpretation Code Description Data Ebony rce(s) Supporting Document(s) ID Date Data Source [id number] 04/04/2020 10:40:00 AM EDT [facility] Name Value Range Interpretation Code Description Data Ebony rce(s) Supporting Document(s) HCT 44.9 % 42.0-52.0 [facility] HGB 14.4 g/dL 13.5-17.5 [facility] MCH 32.1 G/DL pg 32.0-36.5 [facility] MCHC 28.9 PG % 27.0-33.0 [facility] PLATELETS 211 10 10*3/mm3 150-450 [facility] RBC 4.98 10 10*6/mm3 4.30-6.10 N [facility] RDW 14.8 % 11.5-14.5 H [facility] WBC TOTAL 16.4 4.0-10.0 H [facility] ID Date Data Source [id number] 04/04/2020 10:40:00 AM EDT [facility] Name Value Range Interpretation Code Description Data Ebony rce(s) Supporting Document(s) BG FASTING 88 mg/dL 70-100 N [facility] ID Date Data Source [id number] 03/27/2020 11:24:09 AM EDT [facility] Current Problems: Essential hypertension (ICD-401.9) (MTG64-R44)Pain in left elbow (ICD-719.42) (TRU02-A73.522)Chronic low back pain (ICD-724.2) (ICD10- M54.5)Cervical vertigo (ICD-780.4) (COH41-I67.4xxS)Cervicogenic headache (ICD- 784.0) (DZA11-Q21.89)DENTAL CARIES EXTENDING INTO PULP (ICD-521.03) (ICD10- K02.63)Pain in unspecified joint (MLQ08-F93.50)Screening for malignant neoplasms of prostate (ICD-V76.44) (OFU26-B32.5)Encounter for screening for other metabolic disorders (JZU45-I36.228)Nicotine dependence (ICD-305.1) (ICD10- F17.200)Chronic obstructive pulmonary disease with (acute) exacerbation (ICD10- J44.1)Collapsed vertebra, not elsewhere classified, lumbosacral region, sequela of fracture (ICD-805.4) (DWX88-X33.57xS)Depression (ICD-311) (LTI31-M00.9)GERD (ICD-530.81) (BKV47-R90.9)Low back pain (ICD-724.2) (MYR27-H01.5)Shoulder joint pain, right (ICD-719.41) (BGF92-Y34.511)Asthma (ICD-493.90) (ICD10- J45.909)Problem list reviewed during this [...] 7 Note: Patient wants a RCT and [place] in [facility] Assessment & Plan Medications:LISINOPRIL 5 MG ORAL [...] EDT Former Smoker completed Former Smoker eCW1 ([facility]) Smoking 03/01/2021 12:00:00 AM EDT Former Smoker completed Former Smoker eCW1 ([facility]) Smoking 02/04/2021 12:00:00 AM EDT Former Smoker completed Former Smoker eCW1 ([facility]) Smoking 01/19/2021 12:00:00 AM EDT Current Smoker completed Curre nt Smoker eCW1 ([facility]) Vital Signs ID Date Data Source UNK Name Value Range Interpretation Code Description Data Source(s) Body height 70 [in_i] 70 [in_i] eCW1 ([facility]) Body weight 165.0 [lb_av] 165.0 [lb_av] eCW1 ([facility]) Heart rate 77 /min 77 /min eCW1 ([facility]) Respiratory rate 18 /min 18 /min eCW1 ([facility]) Body mass index (BMI) [Ratio] 23.67 kg/m2 23.67 kg/m2 eCW1 ([facility]) Body temperature 98.8 [degF] 98.8 [degF] eCW1 ( [facility]) Oxygen saturation in Arterial blood by Pulse oximetry 98 % 98 % eCW1 ([facility]) Body height 70 [in_i] 70 [in_i] [facility] [facility] Body weight 171 [lb_av] 171 [lb_av] eCW1 ([facility]) Body mass index (BMI) [Ratio] 24.53 kg/m2 24.53 kg/m2 eCW1 ([facility]) Body temperature 97.7 [degF] 97.7 [degF] eCW1 ( [facility]) Heart rate 94 /min 94 /min eCW1 ([facility]) Respiratory rate 16 /min 16 /min eCW1 ([facility]) Oxygen saturation in Arterial blood by Pulse oximetry 98 % 98 % eCW1 ([facility]) Systolic blood pressure 128 mm[Hg] 128 mm[Hg] M EDENT ([facility], [facility]) Diastolic blood pressure 85 mm[Hg] 85 mm[Hg] MEDENT ([facility], [facility]) Heart rate 80 /min 80 /min MEDENT ([facility], [facility]) Respiratory rate 14 /min 14 /min [facility] ( [facility], [facility]) Oxygen saturation in Arterial blood by Pulse oximetry 98 % 98 % MEDENT ([facility], [facility]) Body temperature 97.8 [degF] 97.8 [degF] MEDENT ([facility], [facility]) Body weight 161.00 [lb_av] 161.00 [lb_av] MEDEN T ([facility], [facility]) Body height 70 [in_i] 70 [in_i] MEDENT ([facility], [facility]) 5'10" Body mass index (BMI) [Ratio] 23.1 kg/m2 23.1 k g/m2 [facility] ([facility], [facility]) Diastolic blood pressure 79 mm[Hg] 79 mm[Hg] MARA ([facility]) Body height 69 [in_i] 69 [in_i] MARA ([facility]) Body mass index (BMI) [Ratio] 24.3 kg/m2 24.3 k g/m2 MARA ([facility]) Systolic blood pressure 124 mm[Hg] 124 mm[Hg] A GISELLE ([facility]) Body weight 2630.4 [oz_av] 2630.4 [oz_av] ATHEN A ([facility]) Body height 69 [in_i] 69 [in_i] MARA ([facility]) Body height 69 [in_i] 69 [in_i] MARA ([facility]) Body height 69 [in_i] 69 [in_i] MARA ([facility]) Body mass index (BMI) [Ratio] 23.8 kg/m2 23.8 k g/m2 MARA ([facility]) Systolic blood pressure 132 mm[Hg] 132 mm[Hg] A THENA ([facility]) Body weight 2576 [oz_av] 2576 [oz_av] MARA ([facility]) Diastolic blood pressure 89 mm[Hg] 89 mm[Hg] MARA ([facility]) Diastolic blood pressure 89 mm[Hg] 89 mm[Hg] MARA ([facility]) Body height 69 [in_i] 69 [in_i] MARA ([facility]) Body mass index (BMI) [Ratio] 23.8 kg/m2 23.8 k g/m2 MARA ([facility]) Systolic blood pressure 132 mm[Hg] 132 mm[Hg] A JEVON ([facility]) Body weight 2576 [oz_av] 2576 [oz_av] MARA ([facility]) Diastolic blood pressure 89 mm[Hg] 89 mm[Hg] MARA ([facility]) Body height 69 [in_i] 69 [in_i] MARA ([facility]) Body mass index (BMI) [Ratio] 23.8 kg/m2 23.8 k g/m2 MARA ([facility]) Systolic blood pressure 132 mm[Hg] 132 mm[Hg] A JEVON ([facility]) Body weight 2576 [oz_av] 2576 [oz_av] MARA ([facility]) Diastolic blood pressure 84 mm[Hg] 84 mm[Hg] MARA ([facility]) Body height 69 [in_i] 69 [in_i] MARA ([facility]) Body mass index (BMI) [Ratio] 25.58 kg/m2 25.58 kg/m2 MARA ([facility]) Systolic blood pressure 123 mm[Hg] 123 mm[Hg] Patrick ESCOTO ([facility]) Body weight 2761.6 [oz_av] 2761.6 [oz_av] ATHEN A ([facility]) Patient Treatment Plan of Care Planned Activity Planned Date Details Description Data Source (s) Lisinopril 30 MG Oral Tablet 02/04/2021 12:00:00 AM EDT eCW1 ([facility]) Prednisone 2.5 MG Oral Tablet 01/19/2021 12:00:00 AM EDT eCW1 ([facility]) Lisinopril 20 MG Oral Tablet 01/19/2021 12:00:00 AM EDT eCW1 ([facility]) Prednisone 20 MG Oral Tablet MARA ([facility]) Prednisone 10 MG Oral Tablet MARA ([facility]) methylprednisolone 4 mg tablets in a dos e pack USE DIRECTED PER package instructions MARA ([facility]) lidocaine 5 % topical patch APPLY 1 PATC H BY TOPICAL ROUTE ONCE DAILY (MAY WEAR UP TO 12HOURS.) MARA ([facility]) Cyclobenzaprine hydrochloride 10 MG Oral Tablet MARA ([facility]) Azithromycin 250 MG Oral Tablet MARA ([facility]) fluticasone furoate 0.2 MG/ACTUAT Dry Powder Inhaler MARA ([facility]) Amoxicillin 875 MG Oral Tablet MARA ([facility]) Prednisone 20 MG Oral Tablet MARA ([facility]) lidocaine 5 % topical patch APPLY 1 PATC H BY TOPICAL ROUTE ONCE DAILY (MAY WEAR UP TO 12HOURS.) MARA ([facility]) gabapentin 100 MG Oral Capsule MARA ([facility]) Cyclobenzaprine hydrochloride 10 MG Oral Tablet MARA ([facility]) Azithromycin 250 MG Oral Tablet MARA ([facility]) tizanidine 4 MG Oral Tablet MARA ([facility]) Prednisone 20 MG Oral Tablet MARA ([facility]) Azithromycin 250 MG Oral Tablet MARA ([facility])
[2021-05-18] MEDS ORDERED: PRED20TA PO (14:37)
[2021-05-18 15:02] VITALS: BP 178/107
== END 2021-05-18 15:06 | disposition home or self-care (01) ==
LOC: M ED 10:41 → EDBD 10:41 → M ED 15:06
DX: J44.1 Chronic obstructive pulmonary disease with (acute) exacerbation (principal); R00.0 Tachycardia, unspecified; Z79.899 Other long term (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
CPT/HCPCS: 71045; 71275; 80048; 80076; 82550; 82553; 82803; 83605; 83880; 84145; 84443; 85025; 87040; 87798; 93005; 93041; 94640; 96374; 99285; Q9967

== ENCOUNTER 2021-06-01 19:19 | Emergency (ER) | payer OTHER ==
[~2021-06-01] VITALS: Ht 177.8 cm; Wt 77.3 kg
[~2021-06-01 19:19] MED LIST changes: -OMEP-221; -OMEP-221 PO; +OMEP40CA5; +OMEP40CA5 PO; +TIZA10TA; -TIZA4TAB4
[2021-06-01] MEDS ORDERED: ACETAMINOPHEN 325 MG TAB PO ONE (20:35)
[2021-06-01] MEDS ORDERED: LEVALBUTEROL 1.25 MG/0.5 ML CONCENTRATE NEB NEB ONE (20:35)
[2021-06-01 20:42] VITALS: BP 148/72
[2021-06-01] MEDS ORDERED: LISI20TA33 PO ×2 (20:59→21:30)
[2021-06-01 21:01] VITALS: BP 150/90
[2021-06-01] MEDS ORDERED: PRED20TA PO ×2 (21:01→21:34)
== END 2021-06-01 21:30 | disposition home or self-care (01) ==
LOC: M ED 19:19
DX: J44.1 Chronic obstructive pulmonary disease with (acute) exacerbation (principal); F17.200 Nicotine dependence, unspecified, uncomplicated; Z79.899 Other long term (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

== ENCOUNTER 2021-07-22 13:43 | Emergency (ER) | payer OTHER ==
[~2021-07-22] VITALS: Ht 177.8 cm; Wt 72.5 kg
[2021-07-22 13:44] VITALS: BP 147/103
== END 2021-07-22 15:28 | disposition left against medical advice (07) ==
LOC: M ED 13:43
DX: Z53.21 Procedure and treatment not carried out due to patient leaving prior to being seen by health care provider (principal)

== ENCOUNTER 2021-08-08 12:46 | Emergency (ER) | payer OTHER ==
[~2021-08-08] VITALS: Ht 177.8 cm; Wt 72.7 kg
[2021-08-08] MEDS ORDERED: LOSARTAN 50MG TABLET PO ONE (13:20)
[2021-08-08] MEDS ORDERED: amLODIPine 5 MG TAB PO ONE ×2 (13:20→14:40)
[2021-08-08 13:35] VITALS: BP 160/105
[2021-08-08 14:28] VITALS: BP 150/110
[2021-08-08] MEDS ORDERED: CHLORTHALIDONE 12.5MG PER 1/2 TABLET PO ONE (14:40)
[2021-08-08] MEDS ORDERED: LOSA100T45 PO (15:06)
[2021-08-08] MEDS ORDERED: AMLO1TAB24 PO (15:06)
== END 2021-08-08 15:32 | disposition left against medical advice (07) ==
LOC: EDBD 12:46 → M ED 12:46
DX: I10 Essential (primary) hypertension (principal); J44.9 Chronic obstructive pulmonary disease, unspecified; Z91.14 Patient's other noncompliance with medication regimen; F17.200 Nicotine dependence, unspecified, uncomplicated; Z79.899 Other long term (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

== ENCOUNTER 2021-09-01 21:40 | Emergency (ER) | payer OTHER ==
[~2021-09-01] VITALS: Ht 177.8 cm; Wt 77.3 kg
[~2021-09-01 21:40] MED LIST changes: +AMLO1TAB24 PO; +LOSA100T45 PO
[2021-09-01 23:15] VITALS: BP 177/107
[2021-09-01 23:30] VITALS: BP 177/107
[2021-09-01] MEDS ORDERED: amLODIPine 5 MG TAB PO ONE (23:30)
[2021-09-01] MEDS ORDERED: LOSARTAN 50MG TABLET PO ONE (23:30)
[2021-09-01] MEDS ORDERED: predniSONE 20 MG TAB PO ONE (23:30)
[2021-09-01] MEDS ORDERED: methylPREDNISolone 40MG 1ML VIAL IM ONE (23:30)
[2021-09-01] MEDS ORDERED: ALBUTEROL 90 MCG/ACT 8GM HFA INHALER INH ONE (23:30)
[2021-09-01] MEDS ORDERED: LISI20TA33 PO (23:35)
[2021-09-01] MEDS ORDERED: LOSA100T45 PO (23:35)
[2021-09-01] MEDS ORDERED: IPRA0.00 NEB (23:35)
[2021-09-01] MEDS ORDERED: AMLO1TAB24 PO (23:35)
[2021-09-01] MEDS ORDERED: PRED20TA PO (23:35)
== END 2021-09-02 00:52 | disposition home or self-care (01) ==
LOC: M ED 21:40
DX: I10 Essential (primary) hypertension (principal); J44.9 Chronic obstructive pulmonary disease, unspecified; Z76.0 Encounter for issue of repeat prescription; F17.200 Nicotine dependence, unspecified, uncomplicated
CPT/HCPCS: 96372; 99284; J2920; J7512

== ENCOUNTER 2022-02-05 08:44 | Emergency (ER) | payer OTHER ==
[~2022-02-05] VITALS: Ht 177.8 cm; Wt 65.6 kg
[~2022-02-05 08:44] MED LIST changes: +ALBU2.5V10; +ALBU2.5V10 NEB; -ALBU83IN; -ALBU83IN NEB
[2022-02-05] MEDS ORDERED: ARNU1INH3 INH (08:55)
[2022-02-05] MEDS ORDERED: ALBU8.5H INH (08:55)
[2022-02-05] MEDS ORDERED: STIO1AER INH (08:55)
[2022-02-05] MEDS ORDERED: COMBIVENT RESPIMAT 100-20MCG INHALER 4GM INH STA (09:23)
[2022-02-05 10:09] LABS: BASO # 0.2 10^3/uL (0.0-0.2); BASO % 1.5 % (0.0-1.0); EOS # 1.3 10^3/uL (0.0-0.5); EOS % 11.7 % (0.0-3.0); HEMATOCRIT 47.4 % (42.0-52.0); HEMOGLOBIN 15.2 g/dl (13.5-17.5); MEAN CORPUSCULAR HEMOGLOBIN 28.6 pg (27.0-33.0); MEAN CORPUSCULAR HGB CONC 32.1 g/dl (32.0-36.5); MEAN CORPUSCULAR VOLUME 89.3 fl (80.0-96.0); MONO % 14.8 % (2.0-8.0); NEUTROPHILS # 4.9 10^3/uL (1.5-8.5); NEUTROPHILS % 44.7 % (36.0-66.0); PLATELET COUNT, AUTOMATED 304 10^3/uL (150-450); RED BLOOD COUNT 5.31 10^6/uL (4.30-6.10); WHITE BLOOD COUNT 11.1 10^3/uL (4.0-10.0)
[2022-02-05 10:31] LABS: MONO # 1.6 10^3/uL (0.0-0.8)
[2022-02-05 10:33] LABS: RSV AMPLIFICATION NEGATIVE (NEGATIVE)
[2022-02-05] MEDS ORDERED: IPRATROPIUM 0.5MG/ALBUTEROL 2.5MG INH SOL UD 3ML (DUONEB) NEB ONE (11:00)
[2022-02-05 11:43] LABS: BLOOD UREA NITROGEN 12 MG/DL (7-18); CARBON DIOXIDE LEVEL 27 MEQ/L (21-32); CHLORIDE LEVEL 105 MEQ/L (98-107); CREATININE FOR GFR 1.09 MG/DL (0.70-1.30); GLOMERULAR FILTRATION RATE > 60.0 (>56); GLUCOSE, FASTING 81 MG/DL (70-100); SODIUM LEVEL 139 MEQ/L (136-145)
[2022-02-05] MEDS ORDERED: predniSONE 20 MG TAB PO ONE (12:50)
[2022-02-05] MEDS ORDERED: [UNRECOGNIZED DRUG - CODE] XX (13:07)
[2022-02-05] MEDS ORDERED: ALBU2.5V10 INH (13:07)
[2022-02-05] MEDS ORDERED: PRED20TA PO (13:08)
[2022-02-05 13:24] VITALS: BP 168/101
[2022-02-07 13:19] LABS: HEPATITIS B SURFACE ANTIGEN NEGATIVE (NEGATIVE)
[2022-02-07 13:46] LABS: HEPATITIS B CORE ANTIBODY IGM NEGATIVE (NEGATIVE)
== END 2022-02-05 13:45 | disposition home or self-care (01) ==
LOC: M ED 08:44
DX: J44.9 Chronic obstructive pulmonary disease, unspecified (principal); R00.0 Tachycardia, unspecified; I51.9 Heart disease, unspecified; I10 Essential (primary) hypertension; J45.909 Unspecified asthma, uncomplicated; K21.9 Gastro-esophageal reflux disease without esophagitis; F17.200 Nicotine dependence, unspecified, uncomplicated
CPT/HCPCS: 71046; 80048; 85025; 85379; 86705; 86709; 86803; 87340; 87631; 93005; 94640; 99284; J7512

== ENCOUNTER 2022-04-24 10:14 | Emergency (ER) | payer OTHER ==
[~2022-04-24] VITALS: Ht 177.8 cm; Wt 65.6 kg
[~2022-04-24 10:14] MED LIST changes: +ALBU2.5V10 INH; +ALBU6.7H6 INH; +ALBU8.5H INH; +ARNU1INH3 INH; -PROV108A INH; +STIO1AER INH; +[UNRECOGNIZED DRUG - CODE] XX
[2022-04-24] MEDS ORDERED: predniSONE 20 MG TAB PO ONE (12:00)
[2022-04-24 12:14] VITALS: BP 162/100
[2022-04-24 12:36] LABS: VENOUS BASE EXCESS -1.8 (-2.0-2.0); VENOUS HCO3 24.9 MEQ/L (23.0-27.0); VENOUS PARTIAL PRESSURE CO2 49.7 mmHg (38.0-50.0); VENOUS PARTIAL PRESSURE O2 39.5 mmHg (30.0-50.0); VENOUS PH 7.318 UNITS (7.330-7.430); VENOUS STANDARD HCO3 22.3 MEQ/L; VENOUS TOTAL CO2 26.4 MEQ/L (24.0-28.0)
[2022-04-24 13:08] LABS: BASO # 0.1 10^3/uL (0.0-0.2); BASO % 1.1 % (0.0-1.0); EOS # 0.7 10^3/uL (0.0-0.5); EOS % 6.5 % (0.0-3.0); HEMATOCRIT 43.9 % (42.0-52.0); HEMOGLOBIN 14.3 g/dl (13.5-17.5); LYMPH # 2.2 10^3/uL (1.5-5.0); LYMPH % 19.5 % (24.0-44.0); MEAN CORPUSCULAR HEMOGLOBIN 29.3 pg (27.0-33.0); MEAN CORPUSCULAR HGB CONC 32.6 g/dl (32.0-36.5); MONO # 1.4 10^3/uL (0.0-0.8); MONO % 12.6 % (2.0-8.0); NEUTROPHILS # 6.8 10^3/uL (1.5-8.5); NEUTROPHILS % 59.9 % (36.0-66.0); PLATELET COUNT, AUTOMATED 302 10^3/uL (150-450); RED BLOOD COUNT 4.88 10^6/uL (4.30-6.10); WHITE BLOOD COUNT 11.4 10^3/uL (4.0-10.0)
[2022-04-24] MEDS: IPRATROPIUM 0.5MG/ALBUTEROL 2.5MG INH SOL UD 3ML (DUONEB) NEB PRN ×2 (13:08→13:37)
[2022-04-24 13:18] LABS: CK-MB VALUE MASS 2.5 NG/ML (<3.6); MB/CK RELATIVE INDEX 1.44 (< OR =4)
[2022-04-24 13:27] LABS: ALBUMIN 3.8 GM/DL (3.2-5.2); ALT/SGPT 11 U/L (12-78); BILIRUBIN,DIRECT 0.2 MG/DL (0.0-0.2); BILIRUBIN,TOTAL 0.5 MG/DL (0.2-1.0); BLOOD UREA NITROGEN 10 MG/DL (7-18); CALCIUM LEVEL 9.1 MG/DL (8.5-10.1); CARBON DIOXIDE LEVEL 28 MEQ/L (21-32); CHLORIDE LEVEL 107 MEQ/L (98-107); CREATININE FOR GFR 1.02 MG/DL (0.70-1.30); GLOMERULAR FILTRATION RATE > 60.0 (>56); GLUCOSE, FASTING 80 MG/DL (70-100); LIPASE 73 U/L (73-393); POTASSIUM SERUM 4.3 MEQ/L (3.5-5.1); SODIUM LEVEL 138 MEQ/L (136-145); THYROID STIMULATING HORMONE 0.516 uIU/ML (0.358-3.740); THYROXINE (T4) 7.2 UG/DL (4.5-12.0); TOTAL PROTEIN 7.1 GM/DL (6.4-8.2)
[2022-04-24 14:26] LABS: MB/CK RELATIVE INDEX 1.28 (< OR =4)
[2022-04-24] MEDS ORDERED: LISI20TA33 PO (14:38)
[2022-04-24] MEDS ORDERED: ALBU8.5H INH (14:38)
[2022-04-24] MEDS ORDERED: LEVO750T14 PO (14:38)
[2022-04-24] MEDS ORDERED: IPRA0.00 NEB (14:38)
[2022-04-24] MEDS ORDERED: PRED20TA PO (14:38)
[2022-04-24 14:49] VITALS: BP 129/89
== END 2022-04-24 14:50 | disposition home or self-care (01) ==
LOC: M ED 10:14
DX: J45.901 Unspecified asthma with (acute) exacerbation (principal); I10 Essential (primary) hypertension; Z76.0 Encounter for issue of repeat prescription; K21.9 Gastro-esophageal reflux disease without esophagitis; F12.10 Cannabis abuse, uncomplicated; Z79.899 Other long term (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
CPT/HCPCS: 71046; 80048; 80076; 82550; 82553; 82803; 83605; 83690; 84436; 84443; 85025; 93005; 93041; 94640; 94760; 99284; J7512

== ENCOUNTER 2022-05-23 15:38 | Emergency (ER) | payer OTHER ==
[~2022-05-23] VITALS: Ht 177.8 cm; Wt 72.7 kg
[~2022-05-23 15:38] MED LIST changes: -DOXY-350 PO; +DOXY-444 PO; +LEVO750T14 PO
[2022-05-23] MEDS ORDERED: MORPHINE 4 MG/ML 1ML VIAL/SYRINGE IV ONE (17:20)
[2022-05-23] MEDS ORDERED: predniSONE 20 MG TAB PO ONE (17:50)
[2022-05-23] MEDS ORDERED: IPRATROPIUM 0.5MG/ALBUTEROL 2.5MG INH SOL UD 3ML (DUONEB) NEB ONE (17:50)
[2022-05-23] MEDS ORDERED: PRED10TA2 PO (18:34)
[2022-05-23] MEDS ORDERED: LIDO5DIS41 TD (18:34)
[2022-05-23] MEDS ORDERED: PROT1TAB2 PO (18:34)
[2022-05-23 18:47] VITALS: BP 164/120
== END 2022-05-23 19:38 | disposition home or self-care (01) ==
LOC: M ED 15:38
DX: J44.1 Chronic obstructive pulmonary disease with (acute) exacerbation (principal); Z76.0 Encounter for issue of repeat prescription; R10.31 Right lower quadrant pain; I10 Essential (primary) hypertension; Z79.51 Long term (current) use of inhaled steroids; Z79.899 Other long term (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
CPT/HCPCS: 71046; 94640; 99284; J7512

== ENCOUNTER 2022-06-11 23:10 | Emergency (ER) | payer OTHER, SELFPAY ==
[~2022-06-11 23:10] MED LIST changes: +LIDO5DIS41 TD; +PROT1TAB2 PO
[2022-06-12] VITALS: BP 165/111
[2022-06-12 00:15] LABS: BASO # 0.1 10^3/uL (0.0-0.2); BASO % 0.9 % (0.0-1.0); EOS # 1.2 10^3/uL (0.0-0.5); EOS % 8.9 % (0.0-3.0); HEMATOCRIT 46.6 % (42.0-52.0); HEMOGLOBIN 14.6 g/dl (13.5-17.5); LYMPH # 2.9 10^3/uL (1.5-5.0); LYMPH % 22.1 % (24.0-44.0); MEAN CORPUSCULAR HGB CONC 31.3 g/dl (32.0-36.5); MEAN CORPUSCULAR VOLUME 92.6 fl (80.0-96.0); MONO # 1.4 10^3/uL (0.0-0.8); MONO % 10.7 % (2.0-8.0); NEUTROPHILS # 7.6 10^3/uL (1.5-8.5); NEUTROPHILS % 56.6 % (36.0-66.0); PLATELET COUNT, AUTOMATED 221 10^3/uL (150-450); RED BLOOD COUNT 5.03 10^6/uL (4.30-6.10); WHITE BLOOD COUNT 13.3 10^3/uL (4.0-10.0)
[2022-06-12 00:20] LABS: BILIRUBIN,DIRECT 0.2 MG/DL (<0.4)
[2022-06-12 00:22] LABS: ALBUMIN 3.4 G/DL (3.2-5.2); ALKALINE PHOSPHATASE 106 U/L (46-116); ALT/SGPT < 9 U/L (7.0-40); AST/SGOT 21 U/L (<34); BILIRUBIN,TOTAL 0.5 MG/DL (0.3-1.2); BLOOD UREA NITROGEN 11 MG/DL (9-23); CALCIUM LEVEL 8.6 MG/DL (8.5-10.1); CARBON DIOXIDE LEVEL 22 MMOL/L (20-31); CHLORIDE LEVEL 111 MMOL/L (98-107); CK-MB VALUE MASS 2.6 NG/ML (<3.6); CPK CREATINE PHOSPHOKINASE 249 U/L (46-171); CREATININE FOR GFR 1.06 MG/DL (0.70-1.30); GLOMERULAR FILTRATION RATE > 60.0 (>56); GLUCOSE, FASTING 132 MG/DL (60-100); MB/CK RELATIVE INDEX 1.04 (< OR =4); POTASSIUM SERUM 4.4 MMOL/L (3.5-5.1); SODIUM LEVEL 144 MMOL/L (136-145); TOTAL PROTEIN 6.2 G/DL (5.7-8.2)
== END 2022-06-12 03:56 | disposition left against medical advice (07) ==
LOC: EDBD 23:10 → M ED 23:10
DX: Z53.21 Procedure and treatment not carried out due to patient leaving prior to being seen by health care provider (principal)

== ENCOUNTER 2022-07-19 22:19 | Emergency (ER) | payer OTHER ==
[~2022-07-19] VITALS: Ht 175.3 cm; Wt 72.3 kg
[2022-07-20] MEDS ORDERED: FAMO1TAB11 PO (08:43)
[2022-07-20] MEDS ORDERED: CANEMIS41 XX (08:43)
[2022-07-20] MEDS ORDERED: PRED20TA PO (08:43)
[2022-07-20 09:17] VITALS: BP 162/96
[2022-07-20 10:17] LABS: GC DNA AMPLIFICATION NEGATIVE (NEGATIVE)
== END 2022-07-20 09:25 | disposition home or self-care (01) ==
LOC: M ED 22:19 → EDBD 22:19 → M ED 07-20 09:25
DX: J44.1 Chronic obstructive pulmonary disease with (acute) exacerbation (principal); M54.9 Dorsalgia, unspecified; I10 Essential (primary) hypertension; K21.9 Gastro-esophageal reflux disease without esophagitis; F17.200 Nicotine dependence, unspecified, uncomplicated; Z79.51 Long term (current) use of inhaled steroids

== ENCOUNTER 2022-08-07 11:28 | Emergency (ER) | payer OTHER ==
[~2022-08-07] VITALS: Ht 177.8 cm; Wt 64.7 kg
[~2022-08-07 11:28] MED LIST changes: +CANEMIS41 XX; +FAMO1TAB11 PO
[2022-08-07] MEDS ORDERED: ALBU8.5H INH (16:41)
[2022-08-07] MEDS ORDERED: ALB2.5NEB NEB (16:41)
[2022-08-07] MEDS ORDERED: PRED20TA PO (16:41)
[2022-08-07] MEDS ORDERED: SYMB16INH INH (16:41)
[2022-08-07] MEDS ORDERED: predniSONE 20 MG TAB PO ONE (16:55)
[2022-08-07 16:57] VITALS: BP 140/98
== END 2022-08-07 16:58 | disposition home or self-care (01) ==
LOC: EDBD 11:28 → M ED 11:28
DX: J44.1 Chronic obstructive pulmonary disease with (acute) exacerbation (principal); Z76.0 Encounter for issue of repeat prescription; I10 Essential (primary) hypertension; K21.9 Gastro-esophageal reflux disease without esophagitis; M54.9 Dorsalgia, unspecified; F17.200 Nicotine dependence, unspecified, uncomplicated; Z79.51 Long term (current) use of inhaled steroids; Z79.899 Other long term (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
CPT/HCPCS: 71046; 99284; J7512